=== PATIENT | male | born 1955 | race Caucasian/White ===

== ENCOUNTER 2018-07-25 14:39 | Inpatient (IN) | payer OTHER, MEDICAID, SELFPAY ==
[2018-07-25] VITALS (7 sets, daily range): BP systolic 186–223; BP diastolic 112–127; PULSE 73–100; RESP 12–28; TEMP 36.7–36.8; O2SAT 96–98; BMI 27.6
--- NOTE | 2018-07-25 14:49 | DI.CT.S_ITS ---
PROCEDURE: CT HEAD/BRAIN WO CON INDICATIONS: right facial droop, right sided weakness >24 hrs TECHNIQUE: Noncontrast 4.5 mm thick angled axial sections acquired from the foramen magnum to the vertex, with coronal and sagittal reformats. For radiation dose reduction, the following was used: automated exposure control, adjustment of mA and/or kV according to patient size. COMPARISON: None. FINDINGS: Image quality: Excellent. CSF spaces: Basal cisterns are patent. No extra-axial fluid collections. Ventricles are normal in size and shape. Brain: There are small hypodense areas seen in periventricular white matter of bilateral high frontal parietal lobe suggestive of age indeterminate infarction. Mild periventricular white matter chronic ischemic microangiopathic changes are seen. Age-appropriate mild cerebral and cerebellar cortical atrophy is also noted. No midline shift. No intracranial masses or hemorrhage. Voss-white matter interface is normal. Skull and face: Calvarium and visualized facial bones are intact, without suspicious lesions. Sinuses: Visualized sinuses and mastoids are clear. IMPRESSION: Age indeterminant small infarctions in bilateral high frontal parietal lobe periventricular white matter. No evidence of intracranial bleed, midline shift or significant mass effect. Age-appropriate atrophy and mild periventricular white matter microangiopathic changes. Dictated by: Abdi Mars M.D. on 07/25/2018 at 15:28 Approved by: Abdi Mars M.D. on 07/25/2018 at 15:31
--- NOTE | 2018-07-25 14:54 | ED_ITS ---
HPI - Neuro Symptoms/Deficit General Chief Complaint: Neuro Symptoms/Deficit Stated Complaint: 'had a stroke' Time Seen by Provider: 07/25/18 14:44 Source: patient and family Mode of arrival: ambulatory Limitations: no limitations History of Present Illness HPI Narrative: Patient is a 62-year-old male who presents with a right-sided facial droop and right-sided leg pain or weakness. He actually noticed this yesterday morning around 9 or 10:00 a.m. he felt a little dizzy and lightheaded. At he thought it would just get better he laid down he had a nap. Woke up at about 3 felt like it was improving however the evening came in symptoms returned. This morning he woke up and his symptoms were much worse than they were the night before. He had does have difficulty walking and ambulating obvious right-sided facial droop. He does not have insurance does not go to doctors and does not take any medication. He did take aspirin prior to arrival Onset (ago): day(s) (1) Location: right face, right arm and right leg Context: sudden onset Treatments Prior to Arrival: Aspirin Related Data Home Medications Medication Instructions Recorded Confirmed No Known Home Medications 07/25/18 07/25/18 Allergies Allergy/AdvReac Type Severity Reaction Status Date / Time No Known Drug Allergies Allergy Verified 07/25/18 14:44 Review of Systems Review of Systems All systems reviewed & are unremarkable except as noted in HPI and below Constitutional Denies chills, Denies fever(s), Denies lethargy and Reports weakness Eyes Denies change in vision, Denies eye discharge, Denies irritation and Denies loss of vision Cardiovascular Denies chest pain, Denies irregular heart rhythm, Denies lightheadedness, Denies palpitations, Denies dyspnea, Denies dyspnea on exertion and Denies orthopnea Respiratory Denies cough, Denies dyspnea, Denies dyspnea on exertion and Denies wheezing Gastrointestinal Gastrointestinal: Denies abdominal pain, Denies change in bowel habits, Denies diarrhea, Denies nausea and Denies vomiting Musculoskeletal Reports abnormal gait, Denies back pain, Denies muscle weakness, Denies numbness and Denies tingling Integumentary/Breasts Denies pruritus, Denies erythema, Denies rash and Denies wounds Neurologic Reports as per HPI, Reports abnormal gait, Denies confusion, Denies loss of vision, Denies numbness, Denies tingling and Reports weakness Psychiatric Denies confusion Endocrine Denies palpitations Allergic/Immunologic Denies wheezing PFSH Medical History Patient denies medical problems (Acute) Social History marital status: household members: spouse lives independently: Yes 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 HEENT: Head atraumatic,EOMI, pupils reactive, neck is supple CARDIOVASCULAR: Regular rate and rhythm without murmurs, rubs or gallops. RESPIRATORY: Breath sounds equal bilaterally, no wheezes rales or rhonchi. ABDOMEN: Soft, nontender. Normoactive bowel sounds all 4 quadrants. No guarding or rebound. EXTREMITIES: Normal range of motion, no clubbing or edema. Neurovascularly intact NEUROLOGICAL: Alert and oriented x4.Normal gait and speech. Cranial nerves II through XII grossly intact. Right facial droop noted feet speech is fluent no aphasia or dysarthria present. Some weakness noted in right arm but does not drift unable to stand on right leg he is clearly unstable however the leg does not drift down to the gurney. Ataxia noted with right arm only. SKIN: Warm, dry, no laceration, no petechiae, no rashes or lesions. Scores NIH Stroke Scale Level of Conciousness: Alert, keenly responsive Ask month/age: Answers both questions correctly. Open/close eyes, close hand: Performs both tasks correctly Best gaze horizontal: Normal Visual hernandez: No visual loss Facial palsy: Minor paralysis, flattened nasolabial fold, asymmetry on smiling Left arm drift: No drift for full 10 sec Right arm drift: Drifts down, not to bed Left leg drift: No drift for full 10 sec Right leg drift: Drifts down, not to bed Limb ataxia: Present in one limb Sensory on face/arms/legs: Normal, no sensory loss Best language: No aphasia, normal Dysarthria: Normal Extinction or inattention: No abnormality Total NIH Stroke scale score: 4 Course Orders Ordered: ED Orders 07/25/18 14:47 Complete Blood Count AUTO DIFF Stat Comprehensive Metabolic Panel Stat Partial Thromboplastin Time Stat Prothrombin Time INR Stat Troponin & CK Cardiac Panel Stat 07/25/18 14:49 CT head/brain wo con Stat 07/25/18 14:50 EKG-12 Lead Stat 07/25/18 15:15 MR stroke Stat Sodium Chloride (Normal Saline 0.9%) 1,000 mls @ 150 mls/hr IV CONT MICAH Last Infusion: 07/25/18 16:30 Dose: 150 mls/hr Infusion: 07/25/18 15:39 Dose: 0 mls/hr Admin: 07/25/18 15:15 Dose: 150 mls/hr Discontinued Medications Aspirin (Aspirin Chew) 324 mg PO NOW ONE Stop: 07/25/18 16:33 Last Admin: 07/25/18 16:41 Dose: Vital Signs - 8 hr 07/25/18 14:49 07/25/18 15:01 07/25/18 16:19 Temperature 98.3 F Pulse Rate 84 100 H 79 Respiratory Rate 22 28 H 12 Blood Pressure [Left Arm] 223/118 H 204/120 H 212/127 H Pulse Oximetry 98 96 98 07/25/18 17:10 Temperature Pulse Rate 79 Respiratory Rate 20 Blood Pressure [Left Arm] 191/115 H Pulse Oximetry 97 MDM - Neuro Symptoms/Deficit Lab Data Attestation: I reviewed the patient's lab results. Result diagrams: 07/25/18 14:47 07/25/18 14:47 Lab Results 07/25/18 07/25/18 07/25/18 Range/Units 14:47 14:47 14:47 WBC 7.8 (4.5-11.0) X10^3/uL RBC 5.49 (4.5-5.9) X10^6/uL Hgb 18.1 H (13.5-17.5) g/dL Hct 50.7 (41-53) % MCV 92.2 (80-100) fL MCH 33.0 (26-34) PG MCHC 35.8 (30-36) % RDW 13.0 (11.6-14.8) % Plt Count 252 (150-400) X10^3/uL Neut % (Auto) 73.4 (50-75) % Lymph % (Auto) 16.0 L (25-40) % [place] % (Auto) 9.2 (3-14) % Eos % (Auto) 0.7 L (2-4) % Baso % (Auto) 0.7 (0-2) % Neut # (Auto) 5800 (5345-6589) /uL PT 11.3 (10.1-12.7) SECONDS INR 1.1 (0.9-1.3) APTT 33 (26.4-36.2) SECONDS Sodium 144 (137-145) mmol/L Potassium 4.2 (3.4-5.1) mmol/L Chloride 103 (98-107) mmol/L Carbon Dioxide 31 (22-32) mmol/L BUN 7 L (9-20) mg/dL Creatinine 0.80 (0.66-1.25) mg/dL Estimated GFR > 60.0 (>60) mL/min BUN/Creatinine Ratio 8.8 (6-22) Glucose 125 H (80-110) mg/dL Calcium 9.4 (8.4-10.2) mg/dL Total Bilirubin 2.2 H (0.2-1.3) mg/dL AST 34 (17-59) IU/L ALT 31 (21-72) IU/L Alkaline Phosphatase 64 (38-126) U/L Total Creatine Kinase 51 L (55-170) U/L Troponin I < 0.012 (0.01-0.034) ng/mL Total Protein 8.0 (6.3-8.2) g/dL Albumin 4.7 (3.5-5.0) g/dL Globulin 3.3 (1.7-4.1) g/dL Albumin/Globulin Ratio 1.4 (1.0-2.8) Urine Dip Bedside Urine Glucose Negative Bedside Urine Bilirubin - Negative Bedside Urine Ketone - Negative Urine Specific [place] 1.015 Bedside Urine Occult Blood - Negative Bedside Urine pH 7.5 Bedside Urine Protein - Negative Bedside Urine Urobilinogen - Negative Bedside Urine Nitrite - Negative Bedside Urine Leukocytes - Negative Esterase Imaging Data CT scan - head: Radiologist's impression: PROCEDURE: CT HEAD/BRAIN WO CON INDICATIONS: right facial droop, right sided weakness >24 hrs TECHNIQUE: Noncontrast 4.5 mm thick angled axial sections acquired from the foramen magnum to the vertex, with coronal and sagittal reformats. For radiation dose reduction, the following was used: automated exposure control, adjustment of mA and/or kV according to patient size. COMPARISON: None. FINDINGS: Image quality: Excellent. CSF spaces: Basal cisterns are patent. No extra-axial fluid collections. Ventricles are normal in size and shape. Brain: There are small hypodense areas seen in periventricular white matter of bilateral high frontal parietal lobe suggestive of age indeterminate infarction. Mild periventricular white matter chronic ischemic microangiopathic changes are seen. Age-appropriate mild cerebral and cerebellar cortical atrophy is also noted. No midline shift. No intracranial masses or hemorrhage. Voss-white matter interface is normal. Skull and face: Calvarium and visualized facial bones are intact, without suspicious lesions. Sinuses: Visualized sinuses and mastoids are clear. IMPRESSION: Age indeterminant small infarctions in bilateral high frontal parietal lobe periventricular white matter. No evidence of intracranial bleed, midline shift or significant mass effect. Age-appropriate atrophy and mild periventricular white matter microangiopathic changes. Dictated by: Abdi Mars M.D. on 07/25/2018 at 15:28 MRI - head: Radiologist's impression: PROCEDURE: MR STROKE Pre- and post-contrast brain MRI, non-contrast brain MR angiogram, pre- and postcontrast neck MR angiogram INDICATIONS: right weakness, right facial droop >24 hours TECHNIQUE: Brain: Noncontrast axial T1 spin echo, axial T2 fast spin echo, sagittal and axial FLAIR, coronal T2 fast spin echo, axial gradient echo, axial diffusion and ADC through the brain. After the administration of contrast, axial 3D VIBE of the cranial vasculature and brain. Brain MRA: Non-contrast 3-D time of flight MR angiogram, with multiple vuxxkui-qzvpqgmvz-aeimxwgzpn (MIP) reformats performed. Neck MRA: Axial and sagittal TruFISP through the neck. Coronal dynamic MR angiogram during administration of contrast in the arterial and venous phases, with 3- dimenstional eyhbcnz-aqmxdpcgn-tuululpedi (MIP) reformats constructed from subtraction images. COMPARISON: [facility], CT, CT HEAD/BRAIN WO CON, 07/25/2018, 15:02. FINDINGS: Image quality: Excellent. BRAIN: CSF spaces: Ventricles are normal in size and shape. Basal cisterns are patent. No extra-axial fluid collections. Brain: There is a focal diffusion-weighted abnormality seen involving the left globus pallidus, as on series 9 image 57. There is correspondingly dark signal seen on the ADC map. There is mild developing T2-weighted signal seen at this site, as on series 12 image 11. No intracranial bleeds or mass effects. Voss-white matter interface is normal. Remote infarctions can be seen involving the deep white matter of both posterior frontal/parietal lobes. Brainstem appears normal. Normal intravascular flow voids are present. No abnormal intracranial enhancement. Skull and face: Calvarial marrow signal is normal. Orbits appear normal. Sinuses: Sinuses and mastoids are clear. BRAIN MR ANGIOGRAM: Anterior circulation: Intracranial internal carotid arteries are normal in size and enhancement. The flow within the paired anterior cerebral arteries is normal and symmetric. The flow within the middle cerebral arteries is normal and symmetric. The anterior communicating artery is faintly seen. No stenoses, occlusions, or aneurysms. Posterior circulation: The visualized portions of the vertebral arteries demonstrate normal caliber, and join to form a normal appearing basilar artery. The flow within the posterior cerebral arteries is normal and symmetric. No stenoses, occlusions, or aneurysms. NECK MR ANGIOGRAM: Carotids: Great vessels demonstrate a conventional anatomy as they arise from the aortic arch. The origins of the common carotid arteries appear patent. The calibers and courses of both common carotid arteries are normal. The bifurcation regions appear normal bilaterally. The internal carotid arteries demonstrate normal course and caliber. Posterior circulation: The origins of the vertebral arteries appear patent. More superior portions of both vertebral arteries demonstrate normal course and caliber, and join to form a normal appearing basilar artery. Miscellaneous: Subclavian arteries appear patent. Pre-contrast images through the neck show no soft tissue abnormalities. IMPRESSION: BRAIN MRI: Focal subacute infarction involving the left globus pallidus. BRAIN MR ANGIOGRAM: No significant intracranial arterial abnormality is seen. NECK MR ANGIOGRAM: No hemodynamically significant stenosis can be seen involving the arteries of the neck. Dictated by: Costa Malin M.D. on 07/25/2018 at 15:11 ECG Data Attestation: I personally reviewed and interpreted this ECG as follows: Prior ECG tracings: not available for review Interpretation: Normal sinus rhythm rate [address] changes PA interval 155, QRS 92, QTC 411 no priors to compare MDM Narrative Medical decision making narrative: Patient has had symptoms for more than 24 hr. He is not a tPA or thrombectomy candidate. He has obvious deficits and signs of stroke. Head CT is negative. MRI does show all left focal subacute infarction involving left lobe globus pallidus. Dr. Pardo have been updated patient's symptoms test results agrees with admission she will be down into the ED to see him. At this time no blood pressure medication, is aware of elevated BP. Discharge Plan Departure Patient Disposition: Admitted As Inpatient Clinical Impression: Cerebrovascular accident Admit Date/Time: 07/25/18 16:42 Admit Provider: Cat Pardo
[2018-07-25 15:06] LABS: Add Manual Diff / Slide Review NO; Basophils Percent Auto 0.7 % (0-2); Eosinophils Percent Auto 0.7 % (2-4); Hematocrit 50.7 % (41-53); Hemoglobin 18.1 g/dL (13.5-17.5); Mean Corpuscular HGB Conc 35.8 % (30-36); Mean Corpuscular Volume 92.2 fL (80-100); Monocytes Percent Auto 9.2 % (3-14); Neutrophils Absolute Auto 5800 /uL (3000-5900); Neutrophils Percent Auto 73.4 % (50-75); Platelet Count 252 X10^3/uL (150-400); Red Blood Cell Count 5.49 X10^6/uL (4.5-5.9); White Blood Cell Count 7.8 X10^3/uL (4.5-11.0)
[2018-07-25 15:08] LABS: INR 1.1 (0.9-1.3); Prothrombin Time 11.3 SECONDS (10.1-12.7)
[2018-07-25 15:10] LABS: PTT Partial Thromboplastin Tim 33 SECONDS (26.4-36.2)
[2018-07-25 15:14] LABS: Alanine Aminotransferase 31 IU/L (21-72); Albumin 4.7 g/dL (3.5-5.0); Albumin Globulin Ratio 1.4 (1.0-2.8); Alkaline Phosphatase 64 U/L (38-126); Aspartate Aminotransferase 34 IU/L (17-59); BUN Creatinine Ratio 8.8 (6-22); Bilirubin Total 2.2 mg/dL (0.2-1.3); Blood Urea Nitrogen 7 mg/dL (9-20); Calcium 9.4 mg/dL (8.4-10.2); Carbon Dioxide 31 mmol/L (22-32); Chloride 103 mmol/L (98-107); Creatine Kinase 51 U/L (55-170); Estimated Glomerular Filt Rate > 60.0 mL/min (>60); Globulin 3.3 g/dL (1.7-4.1); Glucose 125 mg/dL (80-110); HEMOLYSIS 16 (0-50); Potassium 4.2 mmol/L (3.4-5.1); Sodium 144 mmol/L (137-145)
[2018-07-25] MEDS: SODIUM CHLORIDE 0.9% 1,000 ML 150 ML IV (15:15)
--- NOTE | 2018-07-25 15:15 | DI.MRI.S_ITS ---
PROCEDURE: MR STROKE Pre- and post-contrast brain MRI, non-contrast brain MR angiogram, pre- and postcontrast neck MR angiogram INDICATIONS: right weakness, right facial droop >24 hours TECHNIQUE: Brain: Noncontrast axial T1 spin echo, axial T2 fast spin echo, sagittal and axial FLAIR, coronal T2 fast spin echo, axial gradient echo, axial diffusion and ADC through the brain. After the administration of contrast, axial 3D VIBE of the cranial vasculature and brain. Brain MRA: Non-contrast 3-D time of flight MR angiogram, with multiple jphylsm-qgdbaaekc-eynvhfqnef (MIP) reformats performed. Neck MRA: Axial and sagittal TruFISP through the neck. Coronal dynamic MR angiogram during administration of contrast in the arterial and venous phases, with 3-dimenstional clazwpn-oiluiocts-iixzjoplmc (MIP) reformats constructed from subtraction images. COMPARISON: [facility], CT, CT HEAD/BRAIN WO CON, 07/25/2018, 15:02. FINDINGS: Image quality: Excellent. BRAIN: CSF spaces: Ventricles are normal in size and shape. Basal cisterns are patent. No extra-axial fluid collections. Brain: There is a focal diffusion-weighted abnormality seen involving the left globus pallidus, as on series 9 image 57. There is correspondingly dark signal seen on the ADC map. There is mild developing T2-weighted signal seen at this site, as on series 12 image 11. No intracranial bleeds or mass effects. Voss-white matter interface is normal. Remote infarctions can be seen involving the deep white matter of both posterior frontal/parietal lobes. Brainstem appears normal. Normal intravascular flow voids are present. No abnormal intracranial enhancement. Skull and face: Calvarial marrow signal is normal. Orbits appear normal. Sinuses: Sinuses and mastoids are clear. BRAIN MR ANGIOGRAM: Anterior circulation: Intracranial internal carotid arteries are normal in size and enhancement. The flow within the paired anterior cerebral arteries is normal and symmetric. The flow within the middle cerebral arteries is normal and symmetric. The anterior communicating artery is faintly seen. No stenoses, occlusions, or aneurysms. Posterior circulation: The visualized portions of the vertebral arteries demonstrate normal caliber, and join to form a normal appearing basilar artery. The flow within the posterior cerebral arteries is normal and symmetric. No stenoses, occlusions, or aneurysms. NECK MR ANGIOGRAM: Carotids: Great vessels demonstrate a conventional anatomy as they arise from the aortic arch. The origins of the common carotid arteries appear patent. The calibers and courses of both common carotid arteries are normal. The bifurcation regions appear normal bilaterally. The internal carotid arteries demonstrate normal course and caliber. Posterior circulation: The origins of the vertebral arteries appear patent. More superior portions of both vertebral arteries demonstrate normal course and caliber, and join to form a normal appearing basilar artery. Miscellaneous: Subclavian arteries appear patent. Pre-contrast images through the neck show no soft tissue abnormalities. IMPRESSION: BRAIN MRI: Focal subacute infarction involving the left globus pallidus. BRAIN MR ANGIOGRAM: No significant intracranial arterial abnormality is seen. NECK MR ANGIOGRAM: No hemodynamically significant stenosis can be seen involving the arteries of the neck. Dictated by: Costa Malin M.D. on 07/25/2018 at 15:11 Approved by: Costa Malin M.D. on 07/25/2018 at 15:19
[2018-07-25 15:27] LABS: Troponin I < 0.012 ng/mL (0.01-0.034)
--- NOTE | 2018-07-25 15:33 | PC.NURSE ---
Pt taken to MRI per Dr Rose, OK to go to MRI off monitor.
--- NOTE | 2018-07-25 16:40 | CM.SWNOTE ---
ED AIRPORT REFUELING HANDLER NOTE SY was asked to meet with pt's family due to concerns about insurance. Pt does not have insurance. SY contacted Brittany in admissions. [phone]. She stated that she was unable to meet with pt today, and requested that they make an appointment. Pt's was agreeable to this, and planned to call back today to set up a time to discuss insurance. DONALDO also informed pt's that depending upon their income and hosital bill, they might benefit for some type of ailyn care. DONALDO informed pt's that according to Brittany, this apllication is available both online and in the billing office. DONALDO also provided family with the information for Medicaid. [employer] [place] [employer] and pt's stated that she has an IPAD with her and will look up information later. Pt is going to be admitted to the hospital so ED AIRPORT REFUELING HANDLER will pass on this information and pt and family's concern to care management staff. No further SW needs noted at this time, but most likely will need to be followed by DONALDO on the floor. Thank you. SY Isabel
--- NOTE | 2018-07-25 18:25 | PM.HP.1 ---
History of Present Illness Date Patient Seen: 07/25/18 Chief complaint: 'had a stroke' Narrative: Patient is a 62 y/o male with a history of hypertension, not currently on treatment, who was well until yesterday when he noted that his arm and leg felt funny. Patient went to sleep awoke in the morning had coffee with his without incident. Later during the day the patient said the right arm and leg felt heavy. He was unable to ambulate as he was very unsteady. Patient had right sided facial droop and slurring of his speech. His noted the symptoms got progressively worse and he was brought to the Emergency Department for evaluation. Patient had a Head CT that revealed and age indeterminate infarcts of the bilateral frontal lobes. 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 The patient is admitted to the hospital for diffinitive treatment of his stroke. MRA revealed no arterial occlusions. Patient History Medical History Hypertension (Acute) Patient denies medical problems (Acute) Surgical History H/O knee surgery (Acute) Family & Social History Social History: household members spouse lives independently Yes Tobacco & Substance use: Smoking Status Never smoker alcohol intake current Meds Home Medications Medication Instructions Recorded Confirmed Type No Known Home Medications 07/25/18 07/25/18 History Allergies Allergy/AdvReac Type Severity Reaction Status Date / Time No Known Drug Allergies Allergy Verified 07/25/18 14:44 Review of Systems Constitutional Constitutional: Reports headache(s) and Reports weakness Eyes Eyes: Reports blurry vision ENT Ears, Nose, Mouth, and Throat: Yes system reviewed; no additional complaints, except as documented, No difficulty swallowing, Yes dizziness, Yes headache(s) and Yes poor balance Cardiovascular Cardiovascular: Denies chest pain, Denies irregular heart rhythm, Denies rapid, pounding, or irregular heartbeat, Denies shortness of breath with activity, Denies shortness of breath when lying down and Denies shortness of breath causing sudden awakening Respiratory Respiratory: Denies chest congestion, Denies cough, Denies hemoptysis, Denies pain on inspiration and Denies dyspnea on exertion Gastrointestinal Gastrointestinal: Denies abdominal pain, Denies melena, Denies bloating, Denies hematochezia, Denies change in bowel habits, Denies dysphagia and Denies heartburn Genitourinary Genitourinary: Denies urinary frequency, Denies urinary hesitancy, Denies urinary incontinence and Denies urinary urgency Musculoskeletal Musculoskeletal: Reports abnormal gait, Denies arthralgias and Denies radiating pain into limb Neurologic Neurologic: Reports abnormal speech, Reports abnormal gait, Reports dizziness, Reports headache(s), Reports lack of coordination, Reports focal weakness, Reports disequilibrium and Reports weakness Psychiatric Psychiatric: Reports system reviewed and no additional complaints, except as documented Endocrine Endocrine: Denies palpitations Exam Vital Signs (past 8 hours): - 07/25/18 14:49 07/25/18 15:01 07/25/18 16:19 Temperature 98.3 F Pulse Rate 84 100 H 79 Respiratory Rate 22 28 H 12 Blood Pressure Blood Pressure [Left Arm] 223/118 H 204/120 H 212/127 H Pulse Oximetry 98 96 98 07/25/18 17:10 07/25/18 17:26 Temperature Pulse Rate 79 82 Respiratory Rate 20 15 Blood Pressure 191/115 H Blood Pressure [Left Arm] 191/115 H Pulse Oximetry 97 97 Oxygen Delivery Method Room Air Narrative Exam Narrative: HEENT: NC/AT, EOMI, PERRLA, Oropharyx clear, neck supple without adenopathy or bruits Lungs: Clear to auscultation CV: RRR nl Sl S2 Abd: soft/ non tender/nondistended/ no HSM Ext: no edema skin: oncymycosis of toe nails Left groin with a quarter size macular eruption Neuro: Cranial nerves intact except right facial droop, speech slurred Strength 3+/5 of right arm and right leg F-N abnormal on right H-S abnormal on right Pronator drift Reflexes decreased on right, Right toe upgoing Objective Labs Result Diagrams: 07/25/18 14:47 07/25/18 14:47 Labs: Laboratory Results - last 24 hr 07/25/18 07/25/18 07/25/18 14:47 14:47 14:47 WBC 7.8 RBC 5.49 Hgb 18.1 H Hct 50.7 MCV 92.2 MCH 33.0 MCHC 35.8 RDW 13.0 Plt Count 252 Neut % (Auto) 73.4 Lymph % (Auto) 16.0 L [place] % (Auto) 9.2 Eos % (Auto) 0.7 L Baso % (Auto) 0.7 Neut # (Auto) 5800 PT 11.3 INR 1.1 APTT 33 Sodium 144 Potassium 4.2 Chloride 103 Carbon Dioxide 31 BUN 7 L Creatinine 0.80 Estimated GFR > 60.0 BUN/Creatinine Ratio 8.8 Glucose 125 H Calcium 9.4 Total Bilirubin 2.2 H AST 34 ALT 31 Alkaline Phosphatase 64 Total Creatine Kinase 51 L Troponin I < 0.012 Total Protein 8.0 Albumin 4.7 Globulin 3.3 Albumin/Globulin Ratio 1.4 Assessment & Plan (1) Malignant hypertension: Problem details: Patient has markedly elevated blood pressure. Will give lebatolol of 10 mg for SBP greater than 210 or Diastolic greater than 110. Patient will be started on lisinopril as well. Current visit: Yes Status: Acute (2) Cerebrovascular accident: Problem details: Continue daily aspirin, PT/OT/Speech consult. 2D echo Fasting lipid profile, DVT prophylaxis Full code Qualifiers: CVA mechanism: unspecified Laterality of affected vessel: Precerebral and cerebral artery: Qualified Code(s): I63.9 - Cerebral infarction, unspecified Current visit: Yes Status: Acute
[2018-07-25] MEDS: SODIUM CHLORIDE 0.9% 1,000 ML 100 ML IV (18:57)
[2018-07-25] MEDS: LABETALOL 100 MG/20ML MDV 10 MG IV (19:20)
[2018-07-25] MEDS: DOCUSATE 100 MG CAPSULE PO (19:22)
[2018-07-25 19:27] LABS: Cholesterol 250 mg/dL (140-199); HDL Cholesterol 46 mg/dL (40-60); LDL Cholesterol Calculated 165 mg/dL (<100); Triglycerides 195 mg/dL (35-150)
[2018-07-26] VITALS (12 sets, daily range): BP systolic 167–207; BP diastolic 91–117; PULSE 59–76; RESP 16–20; TEMP 36.4–36.7; O2SAT 96–98
--- NOTE | 2018-07-26 | DI.ECHO.S_ITS ---
[place]---------+ [facility] +---------+ : : [address] : : : : [id number] : : : : Phone: [phone] Echocardiogram Report + + :Name: ART COLEMAN Study Date: 07/26/2018 Height: 72 in : :[facility] Weight: 203 lb : : Gender: Male BSA: 2.1 m2 : :: 1955 Age: 62 yrs BP: 186/108 mmHg: :Reason For Study: Stroke : :Ordering Physician: Serafin : :Hospitalist Performed By: Tamie Chu : :Referring: ISIS GRAY : + + Interpretation Summary The left ventricle is normal in size. Left ventricular systolic function is normal without focal wall motion abnormalities. The ejection fraction is estimated to be 60-65%. Assessment of diastolic parameters indicates normal left ventricular diastolic function and normal filling pressures. The right ventricle is normal in size and function. Right ventricular systolic pressure is estimated to be 24 mmHg plus the clinically estimated CVP which cannot be estimated on this exam. Both atria are normal in size. There is no significant valvular heart disease. The ascending aorta is mildly enlarged. No obvious source for cardiac embolic stroke. Procedure: A two-dimensional transthoracic echocardiogram with color flow and Doppler was performed. The study quality was technically adequate. There is no prior echocardiogram noted for this patient. The patient was in normal sinus rhythm during the exam. Left Ventricle: The left ventricle is normal in size. Left ventricular wall thickness is mildly increased. There is no ventricular septal defect visualized. Left ventricular systolic function is normal without focal wall motion abnormalities. The ejection fraction is estimated to be 60-65%. Assessment of diastolic parameters indicates normal left ventricular diastolic function and normal filling pressures. Right Ventricle: The right ventricle is normal in size and function. Atria: Both atria are normal in size. There is no Doppler evidence for an interatrial shunt. Mitral Valve: The mitral valve is normal in structure and function. There is trace mitral regurgitation. Aortic Valve: The aortic valve is normal in structure and function. There is trace aortic regurgitation. Tricuspid Valve: The tricuspid valve is normal in structure and function. There is a trace or physiologic amount of tricuspid regurgitation. Right ventricular systolic pressure is estimated to be 24 mmHg plus the clinically estimated CVP which cannot be estimated on this exam. Pulmonic Valve: The pulmonic valve is normal in structure and function. There is a trace or physiologic amount of pulmonic regurgitation. There is no significant valvular heart disease. Great Vessels: The aortic root is normal size. The ascending aorta is mildly enlarged. The aortic arch is normal in size. The inferior vena cava was not visualized. Pericardium/ Pleura There is no pericardial effusion. MMode/2D Measurements & Calculations LVIDd: 4.3 cm LVOT diam: 2.0 cm LVIDs: 2.3 cm Ao root diam: 3.3 cm FS: 47.5 % Aortic Jxn: 2.6 cm IVSd: 1.3 cm asc Aorta Diam: 3.7 cm LVPWd: 1.3 cm Ao Arch Diam (Prox Trans): 2.5 cm LV gonzales. diameter/BSA (cm/m^2): 2.0 LV sys. diameter/BSA (cm/m^2): 1.1 LA A2 area: 17.6 cm2 RA long axis: 4.9 cm LA A4 area: 18.4 cm2 RA area: 14.5 cm2 LA length (vol): 4.5 cm RA vol: 36.2 ml LA vol: 60.9 ml RA : 16.9 ml/m2 LA vol index: 28.4 ml/m2 RVD1 (basal): 3.6 cm RVD2 (mid): 2.8 cm TAPSE: 1.7 cm Doppler Measurements & Calculations Ao V2 max: 126.0 cm/sec LVOT Max Juan Pablo: 109.9 cm/sec Ao V2 mean: 94.1 cm/sec LV V1 max P.8 mmHg Ao max P.3 mmHg LV V1 VTI: 24.9 cm Ao mean P.9 mmHg GLADYS(I,D): 3.1 cm2 Ao V2 VTI: 25.6 cm GLADYS(V,D): 2.7 cm2 sev ratio: 0.97 GLADYS indexed to BSA (cm^2/m^2): 1.4 MV E max juan pablo: 87.7 cm/sec TR max juan pablo: 244.2 cm/sec MV A max juan pablo: 92.6 cm/sec TR max P.9 mmHg MV E/A: 0.95 PA V2 max: 100.6 cm/sec Med Peak E' Juan Pablo: 5.6 cm/sec PA V2 mean: 59.4 cm/sec E/E' med: 15.7 PA mean P.7 mmHg Lat Peak E' Juan Pablo: 9.3 cm/sec PA Accel Time: 0.08 sec E/E' lat: 9.5 E/e' average: 12.6 MV dec time: 0.24 sec MV P1/2t: 68.7 msec MV P1/2t max juan pablo: 87.7 cm/sec MVA(P1/2t): 3.2 cm2 Reading Physician:PM
[2018-07-26] MEDS: LABETALOL 100 MG/20ML MDV 10 MG IV ×2 (00:13→04:24)
[2018-07-26] MEDS: SODIUM CHLORIDE 0.9% 1,000 ML 100 ML IV (04:14)
--- NOTE | 2018-07-26 04:44 | PC.NURSE ---
0013 B/P 207/110, 10 mg. of Normodyne IVP admin. pt. denies CP & TORRES,. Rechecked B/P 190/99. Pt. was sleeping @ 0420 checked hid VS, B/P was elevated 181/117 another 10 mg. of Labetalol IVP admin. Pt. cont. to denies any CP & other discomfort, will monitor.
--- NOTE | 2018-07-26 08:26 | CM.DANOTE ---
DCP: Case received, EMR reviewed and met with patient. Introduced self and role. DCP template completed with information currently available. Patient is a 62 year old male who admitted yesterday afternoon to the care of the hospitalist team. Patient does not have a provider, and has no insurance. is to be meeting one of the admission counselors. Patient came in with symptoms of numbness and facial droop. MRI done to rule out if CVA. Met with patient this morning, alert and oriented. Is independent, has been driving, and lives with spouse in [place]. P: DCP to continue to assess and collaborate with P.T. Patient's goal is to return home with physical therapy if needed. Jacqueline Paul RN/Pastor
--- NOTE | 2018-07-26 08:36 | PC.NURSE ---
Addendum entered by Luli Perry R.N. 07/26/18 14:13: Noon BP 172/98- IV Labetalol not indicated based on current parameters. Original Note: Addendum entered by Luli Perry R.N. 07/26/18 12:24: Provided with MRI report and education info on Ischemic stroke (per patient request). Original Note: Addendum entered by Luli Perry R.N. 07/26/18 12:14: Alert and oriented X3. Speech very slightly slurred with some words, not easily detectable. Denies any trouble with word-finding. Has weakness in RUE and RLE, but has movement and effort against gravity in both. Has been able to ambulate with 1-person assist and FWW. Denies paresthesias. Denies chest pain, SOB or any other complaint. Lungs CTA, HRR. Tele reading NSR this morning. NIH score was 6. IV saline locked per MD order. Able to make needs known and calls appropriately. Light in reach, bed alarm on. Original Note: Addendum entered by Luli Perry R.N. 07/26/18 10:53: ECHO being done in room at this time. Original Note: BP: Blood pressure this morning 186/108- no IV Labetalol indicated (per parameters) at this time.
--- NOTE | 2018-07-26 10:06 | P.PN_ITS ---
Subjective Date Patient Seen: 07/26/18 Interval history: Patient notes persistent mild slurred speech and also feels he has some increased weakness on his right side. No numbness of extremities. He is able to get up to bathroom with use of walker. Blood pressures remained quite high and he got a few doses of IV labetalol overnight. No headache. Exam Vital Signs (past 8 hours): - 07/26/18 04:20 07/26/18 05:11 07/26/18 07:55 Temperature 97.5 F L 97.5 F L Pulse Rate 62 63 63 Respiratory Rate 16 16 Blood Pressure 181/117 H 188/103 H 186/108 H Pulse Oximetry 97 97 Oxygen Delivery Method Room Air Narrative Exam Narrative: General: Very pleasant alert male in no acute distress Eyes: Pupils equal and reactive, extraocular muscles intact Lungs: Breathing nonlabored Heart: Regular rhythm on tele Extremities: No edema Neuro: Alert, fully oriented, face symmetric, there is mild slurring of speech , right upper extremity 3/5 weakness, right lower extremity 3/5 weakness Objective Labs Result Diagrams: 07/25/18 14:47 07/25/18 14:47 Labs: Laboratory Results - last 24 hr 07/25/18 07/25/18 07/25/18 14:47 14:47 14:47 WBC 7.8 RBC 5.49 Hgb 18.1 H Hct 50.7 MCV 92.2 MCH 33.0 MCHC 35.8 RDW 13.0 Plt Count 252 Neut % (Auto) 73.4 Lymph % (Auto) 16.0 L [place] % (Auto) 9.2 Eos % (Auto) 0.7 L Baso % (Auto) 0.7 Neut # (Auto) 5800 PT 11.3 INR 1.1 APTT 33 Sodium 144 Potassium 4.2 Chloride 103 Carbon Dioxide 31 BUN 7 L Creatinine 0.80 Estimated GFR > 60.0 BUN/Creatinine Ratio 8.8 Glucose 125 H Calcium 9.4 Total Bilirubin 2.2 H AST 34 ALT 31 Alkaline Phosphatase 64 Total Creatine Kinase 51 L Troponin I < 0.012 Total Protein 8.0 Albumin 4.7 Globulin 3.3 Albumin/Globulin Ratio 1.4 Triglycerides Cholesterol LDL Cholesterol, Calc HDL Cholesterol 07/25/18 14:47 WBC RBC Hgb Hct MCV MCH MCHC RDW Plt Count Neut % (Auto) Lymph % (Auto) [place] % (Auto) Eos % (Auto) Baso % (Auto) Neut # (Auto) PT INR APTT Sodium Potassium Chloride Carbon Dioxide BUN Creatinine Estimated GFR BUN/Creatinine Ratio Glucose Calcium Total Bilirubin AST ALT Alkaline Phosphatase Total Creatine Kinase Troponin I Total Protein Albumin Globulin Albumin/Globulin Ratio Triglycerides 195 H Cholesterol 250 H LDL Cholesterol, Calc 165 H HDL Cholesterol 46 Assessment & Plan Plan: Assessment/Plan Narrative: 1. Acute ischemic stroke: Patient is neurologically stable. He presented with right-sided weakness and dysarthria. Brain MR stroke protocol showed acute ischemia in left globus pallidus. No stenosis in intracranial or neck arteries. No AFib on telemetry. He remained severely hypertensive in setting of acute CVA but also with known history of untreated hypertension with baseline BP in 180 systolic range at the dentist office a few months ago. Total cholesterol 150, LDL 165, HDL 46, triglycerides 195. He is a nonsmoker. Plan: Aspirin 325 mg daily. Lisinopril 10 mg daily. Atorvastatin 40 mg HS. Transthoracic echo. Consult pending for physical, occupational and speech therapy evaluations. 2. DVT prophylaxis: Low-dose Lovenox 3. Disposition: Continue inpatient management. Possible discharge Saturday a.m. if medically stable. Quality VTE Deep Vein Thrombosis/Pulmonary Embolism Present on Admission: Yes
[2018-07-26 10:21] LABS: TSH w/ Reflex to FT4 1.12 uIU/mL (0.47-4.68)
[2018-07-26] MEDS: LISINOPRIL 10 MG TABLET PO (10:27)
[2018-07-26] MEDS: ASPIRIN 325 MG TABLET PO (10:27)
[2018-07-26] MEDS: ENOXAPARIN 40 MG/0.4 ML SYRINGE SUBCUT (10:28)
--- NOTE | 2018-07-26 11:07 | ST.IPIE ---
Care Team Visit Care Team Role Provider Type Sabrina Rose DO Emergency Provider Physician Specialty: Emergency Medicine Address: [address] [place] [address], [id number] Email: Cat Pardo MD Admit Provider Physician Attending Provider Specialty: Internal Medicine Address: [address] [place] [address], [id number] Email: Current Diagnoses Essential (primary) hypertension (07/25/18) Cerebral infarction, unspecified (07/25/18) Past Medical History (Last Updated 07/25/18 @ 18:29 by Cat Pardo MD) Hypertension (Acute Medical) Patient denies medical problems (Acute Medical) ST IP Initial Evaulation Report CREDIT ADMINISTRATION MANAGER Motor Speech Evaluation Start: 07/26/18 10:33 Freq: Status: Active Protocol: Document 07/26/18 10:33 MRM (Rec: 07/26/18 10:44 MRM [id number]) Motor Speech Evaluation Session Time Visit Start Time 10:00 Visit Stop Time 10:30 Total Visit Minutes 30 Setting Setting Acute Care Next Note Type Next Note Type Treatment Note Patient History Source: [employer] ([facility]). Patient History Patient is a 62-year-old man who lives in [place] with his . He has a history of hypertension, not currently being treated. He began to note that his arm and leg felt funny with symptoms increasing to the point that he was unable to ambulate. He also presented with a right sided facial droop and slurred speech. His noted that his symptoms were continuing to get worse, and he was brought to the ED for evaluation. Imaging: Brain MRI (07/25/18): Focal subacute involving the left globus pallidus. Past Medial Hostory: Hypertention No other significant medical history reported. Patient without primary care physician , no insurance (per Disch. Assessment note on 07/26/18 AM) . Referral Referring Physician Dr Pardo Reason for Referral Speech/Swallowing Mental Status Mental Status Alert Responsive Cooperative Subjective Observations Subjective Patient was awake and alert, reclining in bed with no family present. No pain reported. Patient stated that he felt that he was at his cognitive baseline. Mild slurred speech observed with word finding difficulties observed x2 throughout conversation. Patient stated that he was not having any difficulty eating or drinking. Very compliant with CREDIT ADMINISTRATION MANAGER to particiapte with evaluation. Oral Motor Lips Function Mild Impairment Observation at rest Mild right sided labial weakness Pucker Mild right sided labial weakness Retraction Mild right sided labial weakness Alternating pucker/retraction Slowed movement, but able to complete Tongue Function WFL Observations at rest No asymmetry Involuntary Movement None observed Jaw Function WNL Respiration/Phonation Oral Reading Stimulus Written phrases Quality WNL Duration 2 minutes Function Mildly Impaired Loudness Reduced Loudness Conversation Stimulus Conversational speech Other Mildly slurred Duration Mildly Impaired Loudness Reduced Loudness Steadiness Steady Diadochokinetic Rates P^T^K^ Duration per 3 sec. 2 Quality Moderate Impairment Comments Mild-moderate discoordination, slurred speech Speech Intelligibility Phoneme Severity WFL Word Severity WFL Sentence Severity Mildly Impaired Conversation Severity Mildly Impaired Awareness/Strategy Use Description Type of awareness/use Uses consistently Findings Details Motor Speech Function Mild Impairment Type of Impairment Mild-moderate dysarthria Assessment Details Assessment Patient presents with mild- moderate dysarthria, significant for reduced lingual/labial coordination. Observed slurred speech in /s/ and /s/ blends primarily. Patient observed to independently slow his speech and enunciate in order to improve expressive communication. CREDIT ADMINISTRATION MANAGER provided specific dysarthria strategies (S-slow speech, L-loud speech , O-over exaggerated speech, W- wide mouth during speech) to assist patient in improving articulation. Patient able to implement these strategies and verbalized understanding. CREDIT ADMINISTRATION MANAGER provided education regarding word finding difficulties. Patient verbalized understanding and stated that if difficultly continues, he will inform CREDIT ADMINISTRATION MANAGER. For now, focus on articulation. CREDIT ADMINISTRATION MANAGER screened patient's swallowing ability during morning meds with nursing present. Able to take medication whole in water via straw without difficulty. No reported difficulty with solid food. CREDIT ADMINISTRATION MANAGER provided education regarding safe swallowing and instructed patient to inform nursing if any difficulty develops. Patient agreed. Prognosis Rehabilitation Potential Excellent Recommendations Treatment Recommended Yes Frequency x1 a day Therapy Recommendations Dysathria intervention. Monitor for word finding difficulties. Monitor swallowing ability. Manager Support Services Goals Patient will implement dysarthria strategies in order to improve conversational speech intelligibility. Patient will maintain successful expressive language skills. Patient will tolerate safest, least restrictive diet without overt s/s of aspriation. Patient/Family Education Education Described results of evaluation Patient Understanding Family Needs More Info CREDIT ADMINISTRATION MANAGER Oral Motor Exam Start: 07/26/18 10:33 Freq: Status: Active Protocol: Document 07/26/18 11:06 MRM (Rec: 07/26/18 11:07 MRM [id number]) Oral Motor Examination Face Facial Symmetry Right Side Asymmetry Facial Movement Controlled Comments Mild right facial droop Mouth Teeth Characteristics Intact/Normal Pucker Lips Droops Right Smile Droops Right Tongue Size Normal Comments Mild right labial weakness Tongue Movement Protrusion/Retraction Strength WFL Protrusion/Retraction Coordination Mildly Discoordinated Lateralization Coordination Mildly Discoordinated Hyolaryngeal Movement Hyolaryngeal Movement Normal Elevation Normal Excursion
--- NOTE | 2018-07-26 11:40 | PT.IIE ---
Current Diagnoses Essential (primary) hypertension (07/25/18) Cerebral infarction, unspecified (07/25/18) Surgical History (Last Updated 07/25/18 @ 18:29 by Cat Pardo MD) H/O knee surgery (Acute) Medical History (Last Updated 07/25/18 @ 18:29 by Cat Pardo MD) Hypertension (Acute) Patient denies medical problems (Acute) Physical Therapy Inpatient Evaluation/Re-Eval M1 PT/OT-IP Prior Functional Status Start: 07/26/18 11:41 Freq: Status: Active Protocol: Document 07/26/18 11:40 [facility] (Rec: 07/26/18 12:06 [facility] [id number]) Medical Review Prior Functional Status Medical History Reviewed Yes Communication WNL Mobility and Gait indep. community ambulation without device Activities of Daily Living and IADL's indep. I/ADLs. Social History Household Members spouse Living Arrangements House Number of Floors (Floors) One Floor Number of Stairs To Enter/Railing? 3 steps x2 to get into house ( 2-3 wide steps to get up into the yard area, then 3 steps with rail R ascending to get onto porch) Home Environment Standard Height Toilet Tub/Shower Additional Social History Comment Pt with R sided facial droop, RUE and LE weakness. 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 M2 PT-IP Current Condition Start: 07/26/18 11:41 Freq: Status: Active Protocol: Document 07/26/18 11:40 [facility] (Rec: 07/26/18 12:06 [facility] [id number]) Physical Therapy Current Condition Current Condition Evaluation Date 07/26/18 Treatment Diagnosis CVA, weakness, impaired mobility Onset Date 07/25/2018 M3 PT-IP Subjective Start: 07/26/18 11:41 Freq: Status: Active Protocol: Document 07/26/18 11:40 [facility] (Rec: 07/26/18 12:06 [facility] [id number]) Subjective Physical Therapy Visit Type Type Initial Evaluation Visit Start Time 11:15 Visit Stop Time 11:40 Total Visit Minutes 25 Number of TOY ASSEMBLY SUPERVISOR Visits 0 Physical Therapy Visit Comments Patient Comments pt notes that he is trying to make sure he doesn't get tightened up. Patient Goals improve M4 PT-IP Mobility and Gait Start: 07/26/18 11:41 Freq: Status: Active Protocol: Document 07/26/18 11:40 [facility] (Rec: 07/26/18 12:06 [facility] [id number]) PT-Bed Mobility Assessment Sit to Supine Sit to Supine Standby Assistance Bedrails Scooting Scooting to Edge of Bed Standby Assistance PT-Transfer Assessment Sit to and From Stand Sit to and from Stand Standby Assistance 1 Person Assistance Equipment Transfer Assistive Device Gait Belt Front Wheeled Walker Transfers Transfer Destination Bed Transfer Technique Stand Step Pivot Transfer Ability Level of Assist Contact Guard Assistance Gait Assessment Gait Gait Assistance Required: Contact Guard Assist Distance (Feet) 75 Assistive Devices Assistive Device Gait Belt Front Wheeled Walker Gait Deviations General Gait Pattern Decreased Feet Clearance Narrow Based Gait Factors Limiting Gait Function Factors Limiting Gait Function Decreased Activity Tolerance Decreased Strength Incoordination Poor Balance Comments Gait Comments increased hip flexion to advance the R foot, slight knee instability in WB on the R but no buckling or hyperextension. BP 209/115 after gait. PT-Balance Assessment Sitting Balance and Reactions Static Sitting Balance Ability Good Dynamic Sitting Balance Ability Good Standing Balance and Reactions Static Standing Balance Ability Good Dynamic Standing Balance Ability Fair Device Used FWW M5 PT-IP Objective Assessments Start: 07/26/18 11:41 Freq: Status: Active Protocol: Document 07/26/18 11:40 [facility] (Rec: 07/26/18 12:06 [facility] [id number]) Orientation Orientation/Cognition Level of Alertness Alert Gross Range of Motion Upper Extremity ROM Assessment Right Impaired Impairments RUE to back of head, flexion to 140 deg, abduction to 160 deg with incoordination Strength Upper Extremity Strength Assessment Right Impaired Shoulder flexion R 3/5 L 5/5 Lower Extremity Strength Assessment Right Impaired Hip flexion and ER R 3+/5 L 5/5, IR R 3/5 L 5/5 Knee flexion R 4/5, L 5/5; extension R 3+/5, L 5/5 Ankle DF R 2/5, L 5/5 Coordination Assessment Gross Coordination Gross Coordination Impaired Assessment Finger to Nose Test Moderate Impairment Pronation/Supination Test Severe Impairment Foot Tapping Test Moderate Impairment Heel on Morgan Test Moderate Impairment Coordination Comments impaired RUE and LE Sensation Assessment Sensation Gross Sensation WNL Muscle Tone Comments Muscle Tone Comments mild flexor tone in RUE M6 PT-IP Treatment Start: 07/26/18 11:41 Freq: Status: Active Protocol: Document 07/26/18 11:40 [facility] (Rec: 07/26/18 12:06 [facility] [id number]) Physical Therapy Treatment Education Education Provided Precautions Safety M7 PT-IP Assessment and Plan Start: 07/26/18 11:41 Freq: Status: Active Protocol: Document 07/26/18 11:40 [facility] (Rec: 07/26/18 12:06 [facility] [id number]) PT Summary Assessment and Plan Potential Rehabilitation Potential Excellent Status of Condition at Evaluation Unstable Summary Impairments ROM Strength Balance Coordination Transfers Gait Activity Tolerance Assessment Summary Pt with impaired RUE and LE strength and coordination, as well as decreased activity tolerance. 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 Pt without loss of balance during gait, but does have decreased foot clearance on the R side. He is below his prior level of function. He is a prime candidate for acute inpatient rehabilitation, as he would greatly benefit from intensive rehab setting and could tolerate 3 hours of therapy/day. Goals Bed Mobility Goal Independent Transfer Goal Independent Gait Goal Independent Cane Gait Distance 300 Other Goals up/down 3 steps x2 with unilateral rail Days to Meet Goals 2 Frequency of Treatment Frequency Of Treatment Twice a Day Treatment Plan Physical Therapy Treatment Plan Bed Mobility Training Transfer Training Gait Training Therapeutic Exercise Balance Retraining Neuromuscular Re-ed Coordination Retraining Recommendations To Nursing Amount of Assist Needed 1 Person Assist Discharge Recommendations PT Discharge Recommendations Acute Rehab
--- NOTE | 2018-07-26 14:40 | PT.IPTN ---
Current Diagnoses Essential (primary) hypertension (07/25/18) Cerebral infarction, unspecified (07/25/18) Physical Therapy Treatment Note M2 PT-IP Current Condition Start: 07/26/18 11:41 Freq: Status: Active Protocol: Document 07/26/18 11:40 [facility] (Rec: 07/26/18 12:06 [facility] [id number]) Physical Therapy Current Condition Current Condition Evaluation Date 07/26/18 Treatment Diagnosis CVA, weakness, impaired mobility Onset Date 07/25/2018 M3 PT-IP Subjective Start: 07/26/18 11:41 Freq: Status: Active Protocol: Document 07/26/18 14:40 [facility] (Rec: 07/26/18 15:37 [facility] [id number]) Subjective Physical Therapy Visit Type Type Treatment Note Visit Start Time 14:00 Visit Stop Time 14:40 Total Visit Minutes 40 Number of DEBT COLLECTION SPECIALIST Visits 1 Physical Therapy Visit Comments Patient Comments Pt states that he is tired, but want's to work with therapy. M4 PT-IP Mobility and Gait Start: 07/26/18 11:41 Freq: Status: Active Protocol: Document 07/26/18 14:40 [facility] (Rec: 07/26/18 15:37 [facility] [id number]) PT-Bed Mobility Assessment Supine to Sit Supine to Sit Standby Assistance Bedrails Sit to Supine Sit to Supine Standby Assistance Bedrails Scooting Scooting to Edge of Bed Standby Assistance PT-Transfer Assessment Sit to and From Stand Sit to and from Stand Contact Guard Assistance 1 Person Assistance Equipment Transfer Assistive Device Gait Belt Front Wheeled Walker Transfers Transfer Destination Bed Toilet Transfer Ability Level of Assist Contact Guard Assistance Gait Assessment Gait Gait Assistance Required: Contact Guard Assist Distance (Feet) 140 Assistive Devices Assistive Device Gait Belt Front Wheeled Walker Gait Deviations General Gait Pattern Decreased Feet Clearance Narrow Based Gait Factors Limiting Gait Function Factors Limiting Gait Function Decreased Activity Tolerance Decreased Strength Incoordination Poor Balance Comments Gait Comments Knee instability with gait, mild unsteadines. BP after treatment 185/103 M5 PT-IP Objective Assessments Start: 07/26/18 11:41 Freq: Status: Active Protocol: Document 07/26/18 11:40 [facility] (Rec: 07/26/18 12:06 [facility] [id number]) Orientation Orientation/Cognition Level of Alertness Alert Gross Range of Motion Upper Extremity ROM Assessment Right Impaired Impairments RUE to back of head, flexion to 140 deg, abduction to 160 deg with incoordination Strength Upper Extremity Strength Assessment Right Impaired Shoulder flexion R 3/5 L 5/5 Lower Extremity Strength Assessment Right Impaired Hip flexion and ER R 3+/5 L 5/5, IR R 3/5 L 5/5 Knee flexion R 4/5, L 5/5; extension R 3+/5, L 5/5 Ankle DF R 2/5, L 5/5 Coordination Assessment Gross Coordination Gross Coordination Impaired Assessment Finger to Nose Test Moderate Impairment Pronation/Supination Test Severe Impairment Foot Tapping Test Moderate Impairment Heel on Morgan Test Moderate Impairment Coordination Comments impaired RUE and LE Sensation Assessment Sensation Gross Sensation WNL Muscle Tone Comments Muscle Tone Comments mild flexor tone in RUE M6 PT-IP Treatment Start: 07/26/18 11:41 Freq: Status: Active Protocol: Document 07/26/18 14:40 [facility] (Rec: 07/26/18 15:37 [facility] [id number]) Physical Therapy Treatment Exercises Exercises Ankle Pumps Straight Leg Raises Supine Hip Abduction Seated Knee Flexion/Extension Other Treatments Other Treatment Performed Bridges, Standing balance NBOS with head turns, EO/EC, tandem with head turns, EO M7 PT-IP Assessment and Plan Start: 07/26/18 11:41 Freq: Status: Active Protocol: Document 07/26/18 14:40 [facility] (Rec: 07/26/18 15:37 [facility] [id number]) PT Summary Assessment and Plan Summary Assessment Summary Pt needed cues for sit to stand with hand placement and safety. He had loss of balance in tandem, but not with NBOS. He did better with gait with out distractions. No LOB, but unsteady. Frequency of Treatment Frequency Of Treatment Twice a Day Treatment Plan Physical Therapy Treatment Plan Bed Mobility Training Transfer Training Gait Training Therapeutic Exercise Balance Retraining Neuromuscular Re-ed Coordination Retraining Recommendations To Nursing Amount of Assist Needed 1 Person Assist Discharge Recommendations PT Discharge Recommendations Acute Rehab
--- NOTE | 2018-07-26 15:55 | CM.DPC ---
DCP Cont: Met with Steffanie, patient's . Asked her if administration gave her Medicaid form, stated that they gave her information on [employer]. Went ahead and printed out information from [employer] web site for her to do on line. Left a message with [facility] inpatient re[facility] to inquire if they could take patient based on working on getting [employer]. Therapy is recommending inpatient hospital physical therapy for patient. is currently working on application. Will also be in process of finding a provider. P: DCP to continue to assess, and follow up with patient and on insurance status. Jacqueline Paul RN/Button Tufter
--- NOTE | 2018-07-26 16:13 | OT.IP.EVAL ---
Current Diagnoses Essential (primary) hypertension (07/25/18) Cerebral infarction, unspecified (07/25/18) Past Medical History (Last Updated 07/25/18 @ 18:29 by Cat Pardo MD) Hypertension (Acute) Patient denies medical problems (Acute) Surgical History (Last Updated 07/25/18 @ 18:29 by Cat Pardo MD) H/O knee surgery (Acute) Occupational Therapy Inpatient Evaluation/Re-Eval M1 PT/OT-IP Prior Functional Status Start: 07/26/18 11:41 Freq: Status: Active Protocol: Document 07/26/18 11:40 [facility] (Rec: 07/26/18 12:06 [facility] [id number]) Medical Review Prior Functional Status Medical History Reviewed Yes Communication WNL Mobility and Gait indep. community ambulation without device Activities of Daily Living and IADL's indep. I/ADLs. Social History Household Members spouse Living Arrangements House Number of Floors (Floors) One Floor Number of Stairs To Enter/Railing? 3 steps x2 to get into house ( 2-3 wide steps to get up into the yard area, then 3 steps with rail R ascending to get onto porch) Home Environment Standard Height Toilet Tub/Shower Additional Social History Comment Pt with R sided facial droop, RUE and LE weakness. 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 M1 PT/OT-IP Prior Functional Status Start: 07/26/18 15:31 Freq: NEEDED Status: Active Protocol: Document 07/26/18 15:35 [facility] (Rec: 07/26/18 16:13 [facility] [id number]) Medical Review Prior Functional Status Medical History Reviewed Yes Communication WNL Mobility and Gait indep. community ambulation without device Activities of Daily Living and IADL's indep. I/ADLs. Social History Household Members spouse Living Arrangements House Number of Floors (Floors) One Floor Number of Stairs To Enter/Railing? 3 steps x2 to get into house ( 2-3 wide steps to get up into the yard area, then 3 steps with rail R ascending to get onto porch) Home Environment Standard Height Toilet Tub/Shower Additional Social History Comment Pt with R sided facial droop, RUE and LE weakness. 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 M2 OT-IP Current Condition Start: 07/26/18 15:31 Freq: Status: Active Protocol: Document 07/26/18 15:35 [facility] (Rec: 07/26/18 16:13 [facility] [id number]) Occupational Therapy Current Condition Current Condition Evaluation Date 07/26/18 Treatment Diagnosis Left Globus Pallidus Diagnosis Onset Date 07/25/18 M3 OT- IP Subjective and Pain Start: 07/26/18 15:31 Freq: Status: Active Protocol: Document 07/26/18 15:35 [facility] (Rec: 07/26/18 16:13 [facility] [id number]) OT- Subjective Occupational Therapy Visit Type Type Initial Evaluation Visit Start Time 14:40 Visit Stop Time 15:20 Total Visit Minutes 40 Occupational Therapy Visit Comments Patient/Caregiver Goals Pt wanting to go to inpt rehab prior to going home. OT Pain Assessment Pain When Pain Assessed At Rest Pain Present Pain Present Denied Pain M4 OT- IP ADL's Start: 07/26/18 15:31 Freq: Status: Active Protocol: Document 07/26/18 15:35 [facility] (Rec: 07/26/18 16:13 [facility] [id number]) OT [id number] General Evaluation Areas Needing Assistance Bringing Utensil to Mouth Cutting Food Drinking From Cup/Glass Loading Utensil Opening Containers Comments OT Self-Feeding Comments Pt having to use left hand to eat. Pt able to grasp cup but unable to control cup and needing assist with right hand to hold cup. OT ADL-Grooming General Evaluation Grooming Ability Moderate Assistance Areas Needing Assistance Retrieving/Set-up of Grooming Items Face Washing Comments OT Grooming Comments Pt having to use left hand to complete task as unable to use right hand except for washing his face. 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 Pt heavily relies on left hand for all needs. M6 OT- IP Functional Cognition Start: 07/26/18 15:31 Freq: Status: Active Protocol: Document 07/26/18 15:35 [facility] (Rec: 07/26/18 16:13 [facility] [id number]) Cognitive Factors Limiting Selfcare Function Cognitive Ability Level of Alertness Alert Patient Orientation Name Day of Week Place Situation Attention Span Ability Capable of Focused Attention Capable of Sustained Attention Ability to Follow Commands Able to Follow Multi-Step Commands Memory Description No Deficits Noted Safety Awareness Underestimates Need for Assistance Problem Solving Ability Needs Assist to Identify Solutions Cognitive Comments Cognitive Assessment Comments Increased time for problem solving for two digit numbers. Pt a bit impulsive as well. M7 OT- IP Mobility and Balance Start: 07/26/18 15:31 Freq: Status: Active Protocol: Document 07/26/18 15:35 [facility] (Rec: 07/26/18 16:13 [facility] [id number]) OT- Bed Mobility Assessment Rolling Type of Rolling Roll to Right Supine to Sit Supine to Sit Assist Standby Assistance Sit to Supine Sit to Supine Assist Standby Assistance Scooting Scooting to Edge of Bed Standby Assistance Scooting Up and Down in Bed Standby Assistance OT-Transfer Assessment Sit to and From Stand Sit to and from Stand Minimal Assistance Moderate Assistance Comments Mobility Comments Pt initially neglecting use of right hand to help get up from the bed and needing vc to use right hand to actively extend at the shoulder, arm and push up with his right hand. OT- Balance Assessment Sitting Balance and Reactions Static Sitting Balance Ability Fair Dynamic Sitting Balance Ability Poor Standing Balance and Reactions Static Standing Balance Ability Poor Dynamic Standing Balance Ability Poor Comments Other Balance Tests/Deviations/Treatment Pt tends to have lateral tilt : to right and difficulty to sit upright and activating trunk muscle on right side especially for his scapula. Educated pt to sit with hands down on the bed. Also went over weight bearing for right hand to help decrease tone of right hand as noted tightness in his flexors to RUE. M8 OT- IP Objective Assessments Start: 07/26/18 15:31 Freq: Status: Active Protocol: Document 07/26/18 15:35 [facility] (Rec: 07/26/18 16:13 [facility] [id number]) OT Strength Comments Strength Comments RUE 3-/5 throughout. Pt able to raise arm into shoulder flexion 0-100, unable to open right hand into extension without assist for left hand. OT-Muscle Tone Assessment Muscle Tone WNL No Comments Muscle Tone Comments Increased tone in right arm. OT Sensation Assessment Comments Summary Comments WFL for RUE, light touch, proprioception and kinesthesia . M9 OT- IP Assessment and Plan Start: 07/26/18 15:31 Freq: Status: Active Protocol: Document 07/26/18 15:35 [facility] (Rec: 07/26/18 16:13 [facility] [id number]) OT Summary Assessment and Plan Potential Rehabilitation Potential Excellent Analytic Complexity at Evaluation Moderate Summary OT Impairments Range of Motion Strength Balance Coordination Tone Functional Cognition Functional Mobility Self-Feeding Grooming Dressing Toileting Bathing Toilet Transfers Shower Transfers Progress Towards Goals Slow Progress due to Activity Tolerance Assessment Summary Pt MOD complexity and main barriers are decreased balance , tone, activity tolerance, and now needing one person assist for needs. Pt would benefit from inpt rehab to return to prior level of function of completely independent and no need for devices. Goals Self-Feeding Goal Minimal Assistance Grooming Goal Minimal Assistance Dressing Goal Moderate Assistance Toileting Goal Moderate Assistance Bathing Goal Moderate Assistance Toilet Transfer Goal Moderate Assistance Shower Transfer Goal Moderate Assistance Patient/Caregiver Education Goal Caregiver Independent Assisting Patient Days to Meet Goals 7 Frequency of Treatment Frequency Of Treatment Once a Day Treatment Plan OT Treatment Plan ADL Training Functional Mobility Patient/Family Education Discharge Planning Discharge Recommendations OT Discharge Recommendations Acute Rehab versus SNF Home Equipment Needs BSC, Mauricio negro
--- NOTE | 2018-07-26 16:16 | OT.IP.EVAL ---
Current Diagnoses Essential (primary) hypertension (07/25/18) Cerebral infarction, unspecified (07/25/18) Past Medical History (Last Updated 07/25/18 @ 18:29 by Cat Pardo MD) Hypertension (Acute) Patient denies medical problems (Acute) Surgical History (Last Updated 07/25/18 @ 18:29 by Cat Pardo MD) H/O knee surgery (Acute) Occupational Therapy Inpatient Evaluation/Re-Eval M1 PT/OT-IP Prior Functional Status Start: 07/26/18 11:41 Freq: Status: Active Protocol: Document 07/26/18 11:40 [facility] (Rec: 07/26/18 12:06 [facility] [id number]) Medical Review Prior Functional Status Medical History Reviewed Yes Communication WNL Mobility and Gait indep. community ambulation without device Activities of Daily Living and IADL's indep. I/ADLs. Social History Household Members spouse Living Arrangements House Number of Floors (Floors) One Floor Number of Stairs To Enter/Railing? 3 steps x2 to get into house ( 2-3 wide steps to get up into the yard area, then 3 steps with rail R ascending to get onto porch) Home Environment Standard Height Toilet Tub/Shower Additional Social History Comment Pt with R sided facial droop, RUE and LE weakness. 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 M1 PT/OT-IP Prior Functional Status Start: 07/26/18 15:31 Freq: NEEDED Status: Active Protocol: Document 07/26/18 15:35 [facility] (Rec: 07/26/18 16:13 [facility] [id number]) Medical Review Prior Functional Status Medical History Reviewed Yes Communication WNL Mobility and Gait indep. community ambulation without device Activities of Daily Living and IADL's indep. I/ADLs. Social History Household Members spouse Living Arrangements House Number of Floors (Floors) One Floor Number of Stairs To Enter/Railing? 3 steps x2 to get into house ( 2-3 wide steps to get up into the yard area, then 3 steps with rail R ascending to get onto porch) Home Environment Standard Height Toilet Tub/Shower Additional Social History Comment Pt with R sided facial droop, RUE and LE weakness. 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 M2 OT-IP Current Condition Start: 07/26/18 15:31 Freq: Status: Active Protocol: Document 07/26/18 15:35 [facility] (Rec: 07/26/18 16:13 [facility] [id number]) Occupational Therapy Current Condition Current Condition Evaluation Date 07/26/18 Treatment Diagnosis Left Globus Pallidus Diagnosis Onset Date 07/25/18 M3 OT- IP Subjective and Pain Start: 07/26/18 15:31 Freq: Status: Active Protocol: Document 07/26/18 15:35 [facility] (Rec: 07/26/18 16:13 [facility] [id number]) OT- Subjective Occupational Therapy Visit Type Type Initial Evaluation Visit Start Time 14:40 Visit Stop Time 15:20 Total Visit Minutes 40 Occupational Therapy Visit Comments Patient/Caregiver Goals Pt wanting to go to inpt rehab prior to going home. OT Pain Assessment Pain When Pain Assessed At Rest Pain Present Pain Present Denied Pain M4 OT- IP ADL's Start: 07/26/18 15:31 Freq: Status: Active Protocol: Document 07/26/18 15:35 [facility] (Rec: 07/26/18 16:13 [facility] [id number]) OT GXL-Ijge-Skkxugt General Evaluation Areas Needing Assistance Bringing Utensil to Mouth Cutting Food Drinking From Cup/Glass Loading Utensil Opening Containers Comments OT Self-Feeding Comments Pt having to use left hand to eat. Pt able to grasp cup but unable to control cup and needing assist with right hand to hold cup. OT ADL-Grooming General Evaluation Grooming Ability Moderate Assistance Areas Needing Assistance Retrieving/Set-up of Grooming Items Face Washing Comments OT Grooming Comments Pt having to use left hand to complete task as unable to use rigth hand except for washing his face. 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 Pt heavily relies on left hand for all needs. M6 OT- IP Functional Cognition Start: 07/26/18 15:31 Freq: Status: Active Protocol: Document 07/26/18 15:35 [facility] (Rec: 07/26/18 16:13 [facility] [id number]) Cognitive Factors Limiting Selfcare Function Cognitive Ability Level of Alertness Alert Patient Orientation Name Day of Week Place Situation Attention Span Ability Capable of Focused Attention Capable of Sustained Attention Ability to Follow Commands Able to Follow Multi-Step Commands Memory Description No Deficits Noted Safety Awareness Underestimates Need for Assistance Problem Solving Ability Needs Assist to Identify Solutions Cognitive Comments Cognitive Assessment Comments Increased time for problem solving for two digit numbers. Pt a bit impulsive as well. M7 OT- IP Mobility and Balance Start: 07/26/18 15:31 Freq: Status: Active Protocol: Document 07/26/18 15:35 [facility] (Rec: 07/26/18 16:13 [facility] [id number]) OT- Bed Mobility Assessment Rolling Type of Rolling Roll to Right Supine to Sit Supine to Sit Assist Standby Assistance Sit to Supine Sit to Supine Assist Standby Assistance Scooting Scooting to Edge of Bed Standby Assistance Scooting Up and Down in Bed Standby Assistance OT-Transfer Assessment Sit to and From Stand Sit to and from Stand Minimal Assistance Moderate Assistance Comments Mobility Comments Pt initially neglecting use of right hand to help get up from the bed and needing vc to use right hand to actively extend at the shoulder, arm and push up with his right hand. OT- Balance Assessment Sitting Balance and Reactions Static Sitting Balance Ability Fair Dynamic Sitting Balance Ability Poor Standing Balance and Reactions Static Standing Balance Ability Poor Dynamic Standing Balance Ability Poor Comments Other Balance Tests/Deviations/Treatment Pt tends to have lateral tilt : to right and difficulty to sit upright and activating trunk muscle on right side especially for his scapula. Educated pt to sit with hands down on the bed. Also went over weight bearing for right hand to help decrease tone of right hand as noted tightness in his flexors to RUE. M8 OT- IP Objective Assessments Start: 07/26/18 15:31 Freq: Status: Active Protocol: Document 07/26/18 15:35 [facility] (Rec: 07/26/18 16:13 [facility] [id number]) OT Strength Comments Strength Comments RUE 3-/5 throughout. Pt able to raise arm into shoulder flexion 0-100, unable to open right hand into extension without assist for left hand. OT-Muscle Tone Assessment Muscle Tone WNL No Comments Muscle Tone Comments Increased tone in right arm. OT Sensation Assessment Comments Summary Comments WFL for RUE, light touch, proprioception and kinesthesia . M9 OT- IP Assessment and Plan Start: 07/26/18 15:31 Freq: Status: Active Protocol: Document 07/26/18 15:35 [facility] (Rec: 07/26/18 16:13 [facility] [id number]) OT Summary Assessment and Plan Potential Rehabilitation Potential Excellent Analytic Complexity at Evaluation Moderate Summary OT Impairments Range of Motion Strength Balance Coordination Tone Functional Cognition Functional Mobility Self-Feeding Grooming Dressing Toileting Bathing Toilet Transfers Shower Transfers Progress Towards Goals Slow Progress due to Activity Tolerance Assessment Summary Pt MOD complexity and main barriers are decreased balance , tone, activity tolerance, and now needing one person assist for needs. Pt would benefit from inpt rehab to return to prior level of function of completely independent and no need for devices. Goals Self-Feeding Goal Minimal Assistance Grooming Goal Minimal Assistance Dressing Goal Moderate Assistance Toileting Goal Moderate Assistance Bathing Goal Moderate Assistance Toilet Transfer Goal Moderate Assistance Shower Transfer Goal Moderate Assistance Patient/Caregiver Education Goal Caregiver Independent Assisting Patient Days to Meet Goals 7 Frequency of Treatment Frequency Of Treatment Once a Day Treatment Plan OT Treatment Plan ADL Training Functional Mobility Patient/Family Education Discharge Planning Discharge Recommendations OT Discharge Recommendations Acute Rehab Home Equipment Needs BSC, Tub bench
[2018-07-26] MEDS: ATORVASTATIN 20 MG TABLET 40 MG PO (20:14)
--- NOTE | 2018-07-26 22:52 | PC.NURSE ---
pt pleasant and cooperative. pt has some weakness to right side but coordinated. one/sba to br with walker. pt in and out through the dasy. came for dinner. pt compliant with all assessments. will continue to monitor pt for safety.
[2018-07-27 00:35] VITALS: O2SAT 98
[2018-07-27 05:00] VITALS: BP 167/100; PULSE 56; RESP 16; TEMP 36.9; O2SAT 99
[2018-07-27 07:00] VITALS: O2SAT 98
[2018-07-27 08:53] VITALS: BP 175/81; PULSE 58; RESP 18; TEMP 36.5; O2SAT 98
[2018-07-27] MEDS: ENOXAPARIN 40 MG/0.4 ML SYRINGE SUBCUT (09:37)
[2018-07-27] MEDS: LISINOPRIL 10 MG TABLET PO (09:41)
[2018-07-27] MEDS: ASPIRIN EC 325 MG TABLET PO (09:42)
--- NOTE | 2018-07-27 10:35 | CM.DPC ---
Addendum entered by RADHA Matos 07/27/18 12:28: ADD: Per , pt stable for d/c home with today. DONALDO met bedside with pt, spouse, and MD to discuss their concerns and d/c plan. Spouse still working on insurance and will have to wait until tomorrow to meet with Admission Counselor to complete and is aware of needing a PCP for follow up and will work further with PT/OT for CG training prior to d/c home today. Pt and spouse aware that once PCP established and insurance enrolled then they could move forward with either outpt therapy or Inpt Rehab if needed. RADHA Matos Original Note: DCP Cont: Per MD, pt making progress and may be medically stable to d/c tomorrow. updated during morning rounds that pt still does not have insurance and likely will not be in place by the time the pt is medically stable for Inpt Rehab and if pt is enrolled in [employer] his insurance may be a barrier to being accepted at Inpt Rehab. plans to write pt's prescriptions for 30 days knowing he still needs to establish with a PCP. DONALDO left message for [facility] (admissions closed today) and [facility] to inquire if they even accept [employer] pending which insurance company the pt ends up enrolling with. DONALDO met bedside with pt and explained role and updated white board with the phone number and pt stated that his plans to complete the application online for [employer] today and she will be bedside later after she completes the application. DONALDO provided him with a list of local PCP/Clinics in [place] as well as the PCP referral line for [facility] to utilize after pt knows what insurance he is enrolled with in order to establish with a PCP. Plan: DONALDO to follow closely with pt and spouse after she completes the online enrollment for [employer] for the pt towards determining what resources and therapies can be set up for the pt at discharge. Pt's current lack of insurance is a major barrier to discharge needs of ongoing therapy. RADHA Matos
[2018-07-27 11:30] VITALS: BP 143/83; PULSE 68; RESP 18; TEMP 36.6; O2SAT 98
[2018-07-27 11:40] VITALS: BP 143/83; PULSE 68; RESP 16; TEMP 36.6; O2SAT 98
--- NOTE | 2018-07-27 12:46 | PT.IPTN ---
Current Diagnoses Essential (primary) hypertension (07/25/18) Cerebral infarction, unspecified (07/25/18) Physical Therapy Treatment Note M2 PT-IP Current Condition Start: 07/26/18 11:41 Freq: Status: Active Protocol: Document 07/26/18 11:40 [facility] (Rec: 07/26/18 12:06 [facility] [id number]) Physical Therapy Current Condition Current Condition Evaluation Date 07/26/18 Treatment Diagnosis CVA, weakness, impaired mobility Onset Date 07/25/2018 M3 PT-IP Subjective Start: 07/26/18 11:41 Freq: Status: Active Protocol: Document 07/27/18 10:30 [facility] (Rec: 07/27/18 12:46 [facility] [id number]) Subjective Physical Therapy Visit Type Type Treatment Note Visit Start Time 10:30 Visit Stop Time 11:00 Total Visit Minutes 30 Number of SENIOR APPLICATION SECURITY CONSULTANT Visits 2 Physical Therapy Visit Comments Patient Comments Pt states he has been doing his ther ex for his arm that OT showed him. M4 PT-IP Mobility and Gait Start: 07/26/18 11:41 Freq: Status: Active Protocol: Document 07/27/18 10:30 [facility] (Rec: 07/27/18 12:46 [facility] [id number]) PT-Bed Mobility Assessment Supine to Sit Supine to Sit Standby Assistance Sit to Supine Sit to Supine Standby Assistance Scooting Scooting to Edge of Bed Standby Assistance PT-Transfer Assessment Sit to and From Stand Sit to and from Stand Contact Guard Assistance 1 Person Assistance Equipment Transfer Assistive Device Gait Belt Front Wheeled Walker Transfers Transfer Destination Bed Transfer Technique Stand Step Pivot Transfer Ability Level of Assist Contact Guard Assistance Gait Assessment Gait Gait Assistance Required: Contact Guard Assist Distance (Feet) 160 Assistive Devices Assistive Device Gait Belt Front Wheeled Walker Gait Deviations General Gait Pattern Decreased Feet Clearance Narrow Based Gait Factors Limiting Gait Function Factors Limiting Gait Function Decreased Activity Tolerance Decreased Strength Incoordination Poor Balance Comments Gait Comments mild unsteadiness M5 PT-IP Objective Assessments Start: 07/26/18 11:41 Freq: Status: Active Protocol: Document 07/26/18 11:40 [facility] (Rec: 07/26/18 12:06 [facility] [id number]) Orientation Orientation/Cognition Level of Alertness Alert Gross Range of Motion Upper Extremity ROM Assessment Right Impaired Impairments RUE to back of head, flexion to 140 deg, abduction to 160 deg with incoordination Strength Upper Extremity Strength Assessment Right Impaired Shoulder flexion R 3/5 L 5/5 Lower Extremity Strength Assessment Right Impaired Hip flexion and ER R 3+/5 L 5/5, IR R 3/5 L 5/5 Knee flexion R 4/5, L 5/5; extension R 3+/5, L 5/5 Ankle DF R 2/5, L 5/5 Coordination Assessment Gross Coordination Gross Coordination Impaired Assessment Finger to Nose Test Moderate Impairment Pronation/Supination Test Severe Impairment Foot Tapping Test Moderate Impairment Heel on Morgan Test Moderate Impairment Coordination Comments impaired RUE and LE Sensation Assessment Sensation Gross Sensation WNL Muscle Tone Comments Muscle Tone Comments mild flexor tone in RUE M6 PT-IP Treatment Start: 07/26/18 11:41 Freq: Status: Active Protocol: Document 07/27/18 10:30 [facility] (Rec: 07/27/18 12:46 [facility] [id number]) Physical Therapy Treatment Exercises Exercises Ankle Pumps Straight Leg Raises Supine Hip Abduction Seated Knee Flexion/Extension Other Treatments Other Treatment Performed Bridges, Standing balance NBOS with head turns, EO/EC, tandem with head turns, EO M7 PT-IP Assessment and Plan Start: 07/26/18 11:41 Freq: Status: Active Protocol: Document 07/27/18 10:30 [facility] (Rec: 07/27/18 12:46 [facility] [id number]) PT Summary Assessment and Plan Potential Rehabilitation Potential Excellent Summary Impairments ROM Strength Balance Coordination Transfers Gait Activity Tolerance Assessment Summary Pt had no LOB with gait and increased his gait distance. Pt is SBA with bed mobility. He is below his prior level of function. He is a prime candidate for acute inpatient Goals Bed Mobility Goal Independent Transfer Goal Independent Gait Goal Independent Cane Gait Distance 300 Other Goals up/down 3 steps x2 with unilateral rail Days to Meet Goals 2 Frequency of Treatment Frequency Of Treatment Twice a Day Treatment Plan Physical Therapy Treatment Plan Bed Mobility Training Transfer Training Gait Training Therapeutic Exercise Balance Retraining Neuromuscular Re-ed Coordination Retraining Recommendations To Nursing Amount of Assist Needed 1 Person Assist Discharge Recommendations PT Discharge Recommendations Acute Rehab
--- NOTE | 2018-07-27 14:00 | P.DS_ITS ---
History of Present Illness Chief complaint: 'had a stroke' Narrative: Patient is a 62 y/o male with a history of hypertension, not currently on treatment, who was well until yesterday when he noted that his arm and leg felt funny. Patient went to sleep awoke in the morning had coffee with his without incident. Later during the day the patient said the right arm and leg felt heavy. He was unable to ambulate as he was very unsteady. Patient had right sided facial droop and slurring of his speech. His noted the symptoms got progressively worse and he was brought to the Emergency Department for evaluation. Patient had a Head CT that revealed and age indeterminate infarcts of the bilateral frontal lobes. 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 The patient is admitted to the hospital for diffinitive treatment of his stroke. MRA revealed no arterial occlusions. Discharge Providers Date of admission: 07/25/18 16:42 Consults: 07/25/18 18:18 Consult to Occupational Therapy Evaluate & Treat Comment: Physician Instructions: Evaluate and treat Consult to Physical Therapy Evaluate & Treat Comment: Physician Instructions: Evaluate and Treat 07/25/18 18:19 Consult to Speech Therapy Evaluate & Treat Comment: Physician Instructions: Evaluate and treat Discharge provider: Rodney Garcia MD Summary Discharge Diagnosis: 1. Acute ischemic stroke 2. Severe hypertension 3. Hyperlipidemia Hospital Course: Patient presented with right-sided weakness and dysarthria. He has had some improvement since admission. Brain MR stroke protocol showed acute ischemia in left globus pallidus. No stenosis in intracranial or neck arteries. No AFib on telemetry. Transthoracic echo was normal. He was started on daily aspirin. Initial BP was 220/120 range. Prior to discharge he was started on lisinopril 10 mg daily. Blood pressures at time of discharge are 140-170 systolic and 80-100 diastolic range. He was also started on high- intensity statin prior to discharge. Total cholesterol 150, LDL 165, HDL 46, triglycerides 195. He is a nonsmoker. He admits to consuming typically 3 glasses of wine nightly and advised to cut back on his alcohol intake to no more than 4 oz wine daily. He is provided dietary education. He had evaluations by physical, occupational and speech therapy. Our preference would be for him to go to acute inpatient rehab. However, he does not presently have health insurance coverage and elected to discharge home. He has been stable with ambulation using walker and physical therapy considered him safe to discharge home. He is advised not to drive until cleared by medical provider. At time of discharge he has 3/5 strength in right upper and lower extremity and mild degree of dysarthria. Exam Vital Signs (past 8 hours): - 07/27/18 07:00 07/27/18 08:53 07/27/18 11:30 Temperature 97.7 F 97.8 F Pulse Rate 58 L 68 Respiratory Rate 18 18 Blood Pressure 175/81 H 143/83 H Pulse Oximetry 98 98 98 07/27/18 11:40 Temperature 97.8 F Pulse Rate 68 Respiratory Rate 16 Blood Pressure 143/83 H Pulse Oximetry 98 Oxygen Delivery Method Room Air Oxygen Flow Rate 0 Objective Labs Result Diagrams: 07/25/18 14:47 07/25/18 14:47 Labs: BRAIN MRI: Focal subacute infarction involving the left globus pallidus. BRAIN MR ANGIOGRAM: No significant intracranial arterial abnormality is seen. NECK MR ANGIOGRAM: No hemodynamically significant stenosis can be seen involving the arteries of the neck. Transthoracic echo: Normal LV function. No valvular disease. Discharge Plan Discharge Plan Patient Disposition: Home Discharge Med Rec/Prescriptions Prescriptions: New atorvastatin 40 mg tablet 40 mg PO DAILY Qty: 30 RF: 0 aspirin [Aspirin Low Dose] 81 mg tablet,delayed release (DR/EC) 81 mg PO DAILY Qty: 30 RF: 0 lisinopril 10 mg tablet 10 mg PO DAILY Qty: 30 RF: 0 Follow up/Referrals: PCP, to establish [Other] - 1 Week Provider Discharge Instructions Diet: Regular Visit Report/Discharge Packet Instructions: Getting to the Heart of a Healthful Diet: Sodium, Getting to the Heart of a Healthy Diet: Protein-Rich Foods, Getting to the Heart of a Healthful Diet: Fats, Getting to the Heart of a Healthful Diet, Getting to the Heart of a Healthy Diet: Empty-Calorie Foods, The DASH Diet, DASH Diet Helps Maintain a Healthy Blood Pressure, Ischemic Stroke, DI for Stroke-Ischemic Visit Report Forms: Stroke Signs & Symptoms Discharge Data Attending Provider: Cat Pardo Admit Date/Time: 07/25/18 16:42 Quality VTE Deep Vein Thrombosis/Pulmonary Embolism Present on Admission: Yes
--- NOTE | 2018-07-27 16:43 | PT.IPTN ---
Current Diagnoses Essential (primary) hypertension (07/25/18) Cerebral infarction, unspecified (07/25/18) Physical Therapy Treatment Note M2 PT-IP Current Condition Start: 07/26/18 11:41 Freq: Status: Discharge Protocol: Document 07/26/18 11:40 RCC (Rec: 07/26/18 12:06 RCC [id number]) Physical Therapy Current Condition Current Condition Evaluation Date 07/26/18 Treatment Diagnosis CVA, weakness, impaired mobility Onset Date 07/25/2018 M3 PT-IP Subjective Start: 07/26/18 11:41 Freq: Status: Discharge Protocol: Document 07/27/18 14:00 CLB (Rec: 07/27/18 16:43 CLB [id number]) Subjective Physical Therapy Visit Type Type Treatment Note Visit Start Time 14:00 Visit Stop Time 14:25 Total Visit Minutes 25 Number of DEPLOYMENT SPECIALIST Visits 3 Physical Therapy Visit Comments Patient Comments Pt agreeable to trial stairs with assist of . M4 PT-IP Mobility and Gait Start: 07/26/18 11:41 Freq: Status: Discharge Protocol: Document 07/27/18 14:00 CLB (Rec: 07/27/18 16:43 CLB [id number]) PT-Bed Mobility Assessment Supine to Sit Supine to Sit Standby Assistance Sit to Supine Sit to Supine Standby Assistance Scooting Scooting to Edge of Bed Standby Assistance PT-Transfer Assessment Sit to and From Stand Sit to and from Stand Contact Guard Assistance 1 Person Assistance Equipment Transfer Assistive Device Gait Belt Front Wheeled Walker Transfers Transfer Destination Chair Wheelchair Transfer Ability Level of Assist Contact Guard Assistance Comments Mobility Comments CG training with for transfer to . Gait Assessment Gait Gait Assistance Required: Contact Guard Assist Distance (Feet) 40 Assistive Devices Assistive Device Gait Belt Front Wheeled Walker Gait Deviations General Gait Pattern Decreased Feet Clearance Narrow Based Gait Factors Limiting Gait Function Factors Limiting Gait Function Decreased Activity Tolerance Decreased Strength Incoordination Poor Balance Comments Gait Comments mild unsteadiness Stair Climbing Assessment Evaluation Level of Assist On Stairs Contact Guard Assistance 1 Person Assistance Devices Stair Climbing Assistive Devices Straight Cane Small Base Quad Cane Right Railing Technique/Endurance Stair Climbing Direction Ascend and Descend Stair Climbing Technique Step to Step Number of Steps Climbed 3 Query Text: Stair Climbing Set # Repetitions (reps) 2 Comments Stair Climbing Comments Pt trialed stairs with therapist for demonstration on first set then assisted pt on second set. Pt was more steady with quad cane and stated she will get one for home use. PT-Balance Assessment Sitting Balance and Reactions Static Sitting Balance Ability Good Dynamic Sitting Balance Ability Good Standing Balance and Reactions Static Standing Balance Ability Good Dynamic Standing Balance Ability Fair Device Used FWW M5 PT-IP Objective Assessments Start: 07/26/18 11:41 Freq: Status: Discharge Protocol: Document 07/26/18 11:40 RCC (Rec: 07/26/18 12:06 RCC [id number]) Orientation Orientation/Cognition Level of Alertness Alert Gross Range of Motion Upper Extremity ROM Assessment Right Impaired Impairments RUE to back of head, flexion to 140 deg, abduction to 160 deg with incoordination Strength Upper Extremity Strength Assessment Right Impaired Shoulder flexion R 3/5 L 5/5 Lower Extremity Strength Assessment Right Impaired Hip flexion and ER R 3+/5 L 5/5, IR R 3/5 L 5/5 Knee flexion R 4/5, L 5/5; extension R 3+/5, L 5/5 Ankle DF R 2/5, L 5/5 Coordination Assessment Gross Coordination Gross Coordination Impaired Assessment Finger to Nose Test Moderate Impairment Pronation/Supination Test Severe Impairment Foot Tapping Test Moderate Impairment Heel on Morgan Test Moderate Impairment Coordination Comments impaired RUE and LE Sensation Assessment Sensation Gross Sensation WNL Muscle Tone Comments Muscle Tone Comments mild flexor tone in RUE M6 PT-IP Treatment Start: 07/26/18 11:41 Freq: Status: Discharge Protocol: Document 07/27/18 10:30 CLB (Rec: 07/27/18 12:46 CLB [id number]) Physical Therapy Treatment Exercises Exercises Ankle Pumps Straight Leg Raises Supine Hip Abduction Seated Knee Flexion/Extension Other Treatments Other Treatment Performed Bridges, Standing balance NBOS with head turns, EO/EC, tandem with head turns, EO M7 PT-IP Assessment and Plan Start: 07/26/18 11:41 Freq: Status: Discharge Protocol: Document 07/27/18 14:00 CLB (Rec: 07/27/18 16:43 CLB [id number]) PT Summary Assessment and Plan Potential Rehabilitation Potential Excellent Summary Impairments ROM Strength Balance Coordination Transfers Gait Activity Tolerance Assessment Summary Pt successfully trial stairs with assisting. Pt had no LOB with gait and has good safety awareness with all mobility. Pt seems able to d/c with assist when medically stable. Goals Bed Mobility Goal Independent Transfer Goal Independent Gait Goal Independent Cane Gait Distance 300 Other Goals up/down 3 steps x2 with unilateral rail Days to Meet Goals 2 Frequency of Treatment Frequency Of Treatment Twice a Day Treatment Plan Physical Therapy Treatment Plan Bed Mobility Training Transfer Training Gait Training Therapeutic Exercise Balance Retraining Neuromuscular Re-ed Coordination Retraining Recommendations To Nursing Amount of Assist Needed 1 Person Assist Discharge Recommendations PT Discharge Recommendations Acute Rehab
== END 2018-07-27 15:49 | disposition home or self-care (01) | DRG 65 ==
LOC: ED 16:33 → AC 16:43
PROVIDERS: Internal Medicine; Admitting Provider Internal Medicine; Emergency Provider Emergency Medicine; Visit Provider Internal Medicine
DX: I63.9 Cerebral infarction, unspecified (principal); G81.91 Hemiplegia, unspecified affecting right dominant side; R47.02 Dysphasia; I10 Essential (primary) hypertension
CPT/HCPCS: 36591; 70450; 70553; 80053; 80061; 81003; 82550; 82553; 84443; 84484; 85025; 85610; 85730; 92522; 93005; 93041; 93306; 96360; 96361; 97110; 97116; 97163; 97166; 97530; 99285; 99291; A9579; J1650

== ENCOUNTER 2018-07-28 22:26 | Inpatient (IN) | payer OTHER, MEDICAID, SELFPAY ==
[2018-07-25 20:09] VITALS: BMI 27.6
--- NOTE | 2018-07-28 22:29 | ED_ITS ---
HPI - Nausea/Vomiting/Diarrhea General Chief complaint: Nausea/Vomiting/Diarrhea Stated complaint: N/V Time Seen by Provider: 07/28/18 22:27 Source: patient Mode of arrival: EMS Limitations: no limitations History of Present Illness HPI Narrative: Patient is a 62-year-old male discharged from the hospital yesterday after diagnosis of a cerebrovascular accident with right-sided deficits. Patient also history with hypertension. States that he was at home just prior to arrival when he started to feel dizzy. No trauma. He states he was laying on the couch in turned on his side. Then developed nausea and vomiting which he has not been able to control since then. His blood pressure has also been elevated. He denies any headache or ringing in his ears. No chest pain or palpitations. No new neurologic symptoms. Has not tried anything for prior to arrival Related Data Previous Rx's Medication Instructions Recorded aspirin [Aspirin Low Dose] 81 mg PO DAILY #30 tab 07/27/18 atorvastatin 40 mg PO DAILY #30 tab 07/27/18 lisinopril 10 mg PO DAILY #30 tab 07/27/18 Allergies Allergy/AdvReac Type Severity Reaction Status Date / Time No Known Drug Allergies Allergy Verified 07/25/18 14:44 Review of Systems Constitutional Denies fatigue, Denies fever(s) and Denies headache(s) ENT Ears, Nose, Mouth, and Throat: Reports vertigo, Reports dizziness and Denies headache(s) Cardiovascular Denies chest pain, Denies palpitations and Reports dyspnea Respiratory Reports dyspnea Gastrointestinal Gastrointestinal: Denies abdominal pain, Reports nausea and Reports vomiting Musculoskeletal Denies myalgias and Denies arthralgias Integumentary/Breasts Denies lesions and Denies rash Neurologic Denies confusion, Reports vertigo, Reports dizziness and Denies headache(s) Psychiatric Denies confusion Endocrine Denies fatigue and Denies palpitations Hematologic/Lymphatic Denies easy bleeding and Denies easy bruising FOR[facility]LY [facility] Medical History CVA (cerebral vascular accident) (Acute) Hypertension (Acute) Patient denies medical problems (Inactive) Surgical History H/O knee surgery (Acute) Family History Father Myocardial infarction Social History marital status: household members: spouse lives independently: Yes 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 Smoking Status: Never smoker alcohol intake: current substance use type: does not use Exam Initial Vital Signs Initial Vital Signs: Vital Signs Temperature 96.2 F L 07/28/18 22:30 Pulse Rate 64 07/28/18 22:30 Respiratory Rate 22 07/28/18 22:30 Blood Pressure 217/88 H 07/28/18 22:30 Pulse Oximetry 97 07/28/18 22:30 Const General: cooperative, No comfortable (Uncomfortable) and acute distress Orientation: alert, awake and oriented x3 HENMT Head: normal to inspection, normocephalic and atraumatic Ears: TM's normal bilaterally Nose: external nose normal Resp Effort & Inspection: normal respiratory effort Auscultation: clear to auscultation bilaterally Cardio Rate: bradycardic Rhythm: regular rhythm Heart Sounds: no murmurs Pulses: radial pulses present GI Inspection: non-distended Palpation: soft, No firm and No tender Skin Lesions: no lesions Rashes: no rashes Neuro General: alert, awake and oriented x3 Cognition: normal cognition Sensory Exam: no sensory deficits noted Other: Patient with intact cranial nerves except for a slight droop to his right lower face. This is reported to not be new and residual since his CVA 1 week ago. He eventually had a normal facial exam however the right side was just slower to raise with smiling. Has a 4/5 strength right upper extremity. 5 /5 strength left upper extremity. No changes in sensation. Patient has a reproduction of the vertigo sensation with turning his head to the right. No vertigo with looking straight ahead or turning his head to the left. Extrem General: normal to inspection and capillary refill normal Psych Appearance: grossly normal and well kempt Course Orders Ordered: ED Orders 07/28/18 22:30 EKG-12 Lead Stat 07/28/18 22:33 Complete Blood Count AUTO DIFF Stat 07/28/18 23:38 CT head/brain wo con Stat 07/29/18 00:11 EKG-12 Lead Stat 07/29/18 00:56 Consult to Physician Routine Sodium Chloride (Normal Saline 0.9%) 1,000 mls @ 125 mls/hr IV CONT MICAH Morphine Sulfate (Morphine) 2 mg IV Q4HR PRN PRN Reason: Pain, Mild (1-3) Ondansetron HCl (Zofran) 4 mg IV Q2HR MICAH Last Admin: 07/29/18 01:00 Dose: 4 mg Ondansetron HCl (Zofran) 4 mg IV NOW ONE Stop: 07/29/18 01:00 Discontinued Medications Diazepam (Valium) 5 mg IV NOW ONE Stop: 07/28/18 22:53 Last Admin: 07/28/18 23:00 Dose: 5 mg Sodium Chloride (Normal Saline 0.9%) 1,000 mls @ 500 mls/hr IV BOLUS ONE Stop: 07/29/18 00:28 Last Infusion: 07/29/18 00:58 Dose: 0 mls/hr Admin: 07/28/18 22:36 Dose: 500 mls/hr Ondansetron HCl (Zofran) 4 mg IV NOW ONE Stop: 07/28/18 22:53 Last Admin: 07/28/18 23:00 Dose: 4 mg Vital Signs - 8 hr 07/28/18 22:30 07/28/18 22:41 Temperature 96.2 F L Pulse Rate 64 55 L Respiratory Rate 22 17 Blood Pressure 217/88 H Blood Pressure [Right Arm] 217/88 H Pulse Oximetry 97 99 MDM - Nausea/Vomiting/Diarrhea Lab Data Attestation: I reviewed the patient's lab results. Result diagrams: 07/28/18 22:33 07/28/18 10:30 Lab Results 07/28/18 07/28/18 Range/Units 10:30 22:33 WBC 7.8 (4.5-11.0) X10^3/uL RBC 5.18 (4.5-5.9) X10^6/uL Hgb 17.3 (13.5-17.5) g/dL Hct 49.1 (41-53) % MCV 94.7 (80-100) fL MCH 33.3 (26-34) PG MCHC 35.2 (30-36) % RDW 12.9 (11.6-14.8) % Plt Count 232 (150-400) X10^3/uL Neut % (Auto) 68.8 (50-75) % Lymph % (Auto) 18.3 L (25-40) % [place] % (Auto) 10.4 (3-14) % Eos % (Auto) 2.0 (2-4) % Baso % (Auto) 0.5 (0-2) % Neut # (Auto) 5400 (7522-5303) /uL Sodium 143 (137-145) mmol/L Potassium 4.1 (3.4-5.1) mmol/L Chloride 103 (98-107) mmol/L Carbon Dioxide 31 (22-32) mmol/L BUN 16 (9-20) mg/dL Creatinine 0.80 (0.66-1.25) mg/dL Estimated GFR > 60.0 (>60) mL/min BUN/Creatinine Ratio 20.0 (6-22) Glucose 122 H (80-110) mg/dL Calcium 8.9 (8.4-10.2) mg/dL Point of Care Testing Glucose POC [address] scan - head: Radiologist's impression: Involving ischemic infarct changes in the bilateral supratentorial brain centrum semiovale and left basal ganglia. No superimposed acute hemorrhage or herniation syndrome. Otherwise remainder examination is essentially unchanged ECG Data Attestation: I personally reviewed and interpreted this ECG as follows: Prior ECG tracings: not available for review Interpretation: Time 2242 Sinus bradycardia Ventricular rate of 48 Normal axis Normal QRS Normal QTC No ST T wave changes Repeat EKG timed 0017 Unchanged from prior EKG except rate of 56 and inverted T-wave in lead 3 MDM Narrative Medical decision making narrative: Patient with abrupt onset of vertigo. His symptoms did improve somewhat with Zofran and Valium here in the emergency department. I was able to reproduce his symptoms with a [place]-Hallpike maneuver to the right. Given his history of CVA and the new vertigo symptoms today a non con head CT was obtained. Upon returning from the head CT was noticed on the monitor that the patient had inverted T-waves. Repeat EKG was obtained to evaluate for diffuse T-wave inversions that could be concerning for increased intracranial pressure. This was also concerning given his hypertension and bradycardia. He never had respiratory irregularity. This repeat EKG was essentially unchanged except for nonspecific inverted T-waves in lead 3. The diffuse T-wave inversions were not apparent on the EKG. His hypertension did improve after fluids and Valium and Zofran. The repeat head CT does given report of of all thing ischemic changes. I did discuss the case with Dr. Gonzalez neurologist at [facility] who evaluated the patient's head CT from today and also his prior MRI and head CT from his last admission. The neurologist seem to think that the head CT was appropriate for this stage in the patient's disease progression. He also stated that given his history of CVA and the vertigo that a repeat MRI is probably warranted to evaluate for worsening/new ischemic changes. Patient is not a candidate for tPA. Not a candidate for clot retrieval. I discussed the case with Dr. Hendricks with Internal Medicine who accepts the patient in admission. I discussed the admission with the patient and his family who were at bedside they expressed understanding and agreement with plan. Discharge Plan Departure Patient Disposition: Admitted as Observation Clinical Impression: Vertigo, History of cardioembolic cerebrovascular accident (CVA), Hypertension , Nausea & vomiting Admit Date/Time: 07/29/18 01:02 Admit Provider: Kody Hendricks
[2018-07-28 22:30] VITALS: BP 217/88; PULSE 64; RESP 22; TEMP 35.7; O2SAT 97; BMI 27.8
[2018-07-28] MEDS: SODIUM CHLORIDE 0.9% 1,000 ML 500 ML IV (22:36)
[2018-07-28 22:37] LABS: Add Manual Diff / Slide Review NO; Basophils Percent Auto 0.5 % (0-2); Hematocrit 49.1 % (41-53); Hemoglobin 17.3 g/dL (13.5-17.5); Lymphocytes Percent Auto 18.3 % (25-40); Mean Corpuscular HGB Conc 35.2 % (30-36); Mean Corpuscular Hemoglobin 33.3 PG (26-34); Mean Corpuscular Volume 94.7 fL (80-100); Monocytes Percent Auto 10.4 % (3-14); Neutrophils Absolute Auto 5400 /uL (3000-5900); Neutrophils Percent Auto 68.8 % (50-75); Platelet Count 232 X10^3/uL (150-400); Red Blood Cell Count 5.18 X10^6/uL (4.5-5.9); Red Cell Distribution Width 12.9 % (11.6-14.8); White Blood Cell Count 7.8 X10^3/uL (4.5-11.0)
[2018-07-28 22:41] VITALS: BP 217/88; PULSE 55; RESP 17; O2SAT 99
[2018-07-28 22:49] LABS: Blood Urea Nitrogen 16 mg/dL (9-20); Calcium 8.9 mg/dL (8.4-10.2); Carbon Dioxide 31 mmol/L (22-32); Chloride 103 mmol/L (98-107); Estimated Glomerular Filt Rate > 60.0 mL/min (>60); Glucose 122 mg/dL (80-110); HEMOLYSIS < 15 (0-50); Potassium 4.1 mmol/L (3.4-5.1); Sodium 143 mmol/L (137-145)
[2018-07-28] MEDS: diazePAM 10 MG/2 ML SYRINGE 5 MG IV (23:00)
[2018-07-28] MEDS: ONDANSETRON 4 MG/2 ML INJ IV (23:00)
--- NOTE | 2018-07-28 23:38 | DI.CT.S_ITS ---
PROCEDURE: CT HEAD/BRAIN WO CON INDICATIONS: vertigo with history of Cerebrovascular accident 1 week ago TECHNIQUE: Noncontrast 4.5 mm thick angled axial sections acquired from the foramen magnum to the vertex, with coronal and sagittal reformats. For radiation dose reduction, the following was used: automated exposure control, adjustment of mA and/or kV according to patient size. COMPARISON: [facility], MR, MR STROKE, 07/25/2018, 15:27. [facility], CT, CT HEAD/BRAIN WO CON, 07/25/2018, 15:02. FINDINGS: Image quality: Excellent. CSF spaces: Basal cisterns are patent. No extra-axial fluid collections. The ventricles are symmetric in size and shape. Brain: No intracranial bleeds or masses. Subacute infarct involving the left globus pallidus is unchanged in size compared to prior MRI. Old, small, lacunar infarct involving the bilateral frontal and parietal subcortical white matter are stable compared to prior exams. There is cerebral volume loss for age, with resultant ventricular and sulcal prominence. There are periventricular and deep white matter chronic small vessel ischemic changes. There is intracranial internal carotid artery and vertebral artery atherosclerosis. Skull and face: Calvarium and visualized facial bones appear intact, without suspicious lesions. Sinuses: Visualized sinuses and mastoids are clear. IMPRESSION: No acute intracranial disease process. Dictated by: Meghan Aviles MD, PhD on 07/29/2018 at 7:10 Approved by: Meghan Aviles MD, PhD on 07/29/2018 at 7:14
[2018-07-29] VITALS (16 sets, daily range): BP systolic 160–194; BP diastolic 76–111; PULSE 60–94; RESP 14–24; TEMP 36.4–37.1; O2SAT 96–100; BMI 27.8
[2018-07-29] MEDS: ONDANSETRON 4 MG/2 ML INJ IV ×6 (01:00→23:49)
[2018-07-29] MEDS: SODIUM CHLORIDE 0.9% 1,000 ML 125 ML IV ×3 (01:53→19:10)
--- NOTE | 2018-07-29 09:08 | PC.NURSE ---
Day shift: Pt has been allowed to sleep. No s/s of distress. Tele monitored. Pt checks Q1 hour at the least. Bed alarm on. Call light in reach. Will continue to monitor.
--- NOTE | 2018-07-29 10:31 | PM.HP.1 ---
History of Present Illness Date Patient Seen: 07/29/18 Chief complaint: N/V Narrative: Patient was discharged two days ago following an acute left globus pallidus CVA. He has a history of hypertension and was well until yesterday when he developed abrupt onset nausea, vomiting, and vertigo. Patient reports with any movement he becomes nauseous. He has had vomiting as well as dry heaves, but no hemetemesis, melena , or bright red blood per rectum. Patient denies gerd symptoms, shortness of breath, chest pain, headache, new onset numbness, tingling, or additional weakness. Patient was evaluated in the ED, repeat Head CT was negative. He was admitted for further evaluation. Patient remains nauseated, his eyes are closed and he is afraid to move secondary to dizziness. Patient History Medical History CVA (cerebral vascular accident) (Acute) Hypertension (Acute) Patient denies medical problems (Inactive) Surgical History H/O knee surgery (Acute) Family & Social History Family History Father Myocardial infarction Social History: household members spouse Prior Living Arrangements Mobile home lives independently Yes Safety & Behavioral: Feels Safe in Current Yes Environment Been Physically Hurt or No Threatened By a Person Suicidal Ideation Description None Suicide Plan Description No Plan Tobacco & Substance use: Smoking Status Never smoker alcohol intake current alcohol intake frequency 0-2 drinks per day Substance Use Type does not use Meds Home Medications Medication Instructions Recorded Confirmed Type aspirin [Aspirin Low Dose] 81 mg PO DAILY #30 tab 07/27/18 07/29/18 Rx atorvastatin 40 mg PO DAILY #30 tab 07/27/18 07/29/18 Rx lisinopril 10 mg PO DAILY #30 tab 07/27/18 07/29/18 Rx Allergies Allergy/AdvReac Type Severity Reaction Status Date / Time No Known Drug Allergies Allergy Verified 07/25/18 14:44 Review of Systems Review of Systems All systems reviewed & are unremarkable except as noted in HPI and below Exam Vital Signs (past 8 hours): - 07/29/18 05:15 07/29/18 08:12 Temperature 98.1 F Pulse Rate 64 73 Respiratory Rate 14 15 Blood Pressure 177/84 H 172/90 H Pulse Oximetry 98 99 Oxygen Delivery Method Room Air Narrative Exam Narrative: Ill appearing male HEENT: NC/AT , EOMI, right facial droop, tongue protrudes left Neck: supple, no adenopathy Lungs: Clear to auscultation CV: RRR nl Sl S2 2/6 HAMLET Abd: soft/ non tender/ non distended, no HSM Ext: no edema Neuro: Right facial droop, Right arm weaker than left 3/5 , Right leg weaker than left 4/5 Sensation grossly intact, reflexes equal, gait not assessed Objective Labs Result Diagrams: 07/28/18 22:33 07/28/18 10:30 Labs: Laboratory Results - last 24 hr 07/28/18 07/28/18 10:30 22:33 WBC 7.8 RBC 5.18 Hgb 17.3 Hct 49.1 MCV 94.7 MCH 33.3 MCHC 35.2 RDW 12.9 Plt Count 232 Neut % (Auto) 68.8 Lymph % (Auto) 18.3 L [place] % (Auto) 10.4 Eos % (Auto) 2.0 Baso % (Auto) 0.5 Neut # (Auto) 5400 Sodium 143 Potassium 4.1 Chloride 103 Carbon Dioxide 31 BUN 16 Creatinine 0.80 Estimated GFR > 60.0 BUN/Creatinine Ratio 20.0 Glucose 122 H Calcium 8.9 Assessment & Plan (1) Vertigo: Problem details: Suspect, this is related to his recent CVA. Will continue IV hydration, anti nausea medications. Will start meclizine, add valium If symptoms persist, repeat Head MRI Current visit: Yes Status: Acute (2) History of cardioembolic cerebrovascular accident (CVA): Problem details: Continue ASA, Statin, PT/OT consultation Current visit: Yes Status: Acute (3) Hypertension: Problem details: Increase lisinopril to 20 mg daily Qualifiers: Hypertension type: unspecified Qualified Code(s): I10 - Essential (primary) hypertension Current visit: Yes Status: Acute
--- NOTE | 2018-07-29 12:02 | PC.NURSE ---
Day shift: Told Dr Parod about Pt still having nausea and not able to take PO meds. Also informed her Pt on tele still. Dr Pardo does not want Pt on Tele. ICU informed. Pt lying in bed w/ no pain. Nausea present. Call light in reach. Bed alarm is on.
[2018-07-29] MEDS: METOPROLOL TARTRATE 5 MG/5 ML INJ IV ×2 (13:03→23:55)
[2018-07-29] MEDS: HYDRALAZINE 20 MG/ML VIAL IV (13:10)
[2018-07-29] MEDS: diazePAM 10 MG/2 ML SYRINGE 2 MG IV (13:19)
--- NOTE | 2018-07-29 14:13 | PC.NURSE ---
Day shift: Pt monitored via tele again for IV Metoprolol dose per protocol. LARD TUB WASHER [place] reports NSR. Also Pt's spouse wanted the CLIENT SERVICES REPRESENTATIVE to leave the Pt alone at this time. She had been monitoring Pt's BP because of his HTN and recent BP of 194/110. Dr Pardo aware of this BP. Will continue to monitor. Pt also stated that he did not like the IV Valium and would not like any in the future. Call light in reach. Bed alarm on.
--- NOTE | 2018-07-29 15:40 | CM.DANOTE ---
DCP/continued: Recommend PT/OT evaluations when patient N/V under control. P: Home when stable. RADHA Laboy
--- NOTE | 2018-07-29 17:25 | PT.IPTN ---
Current Diagnoses Essential (primary) hypertension (07/29/18) Dizziness and giddiness (07/29/18) Personal history of transient ischemic attack (TIA), and cerebral infarction without residual deficits (07/29/18) Physical Therapy Treatment Note M3 PT-IP Subjective Start: 07/29/18 17:22 Freq: NEEDED Status: Active Protocol: Document 07/29/18 17:24 AB (Rec: 07/29/18 17:25 AB [id number]) Subjective Physical Therapy Visit Type Notes checked on pt and pt is asleep . spouse in room and requested not to wake pt up and to attempt PT again tomorrow.
--- NOTE | 2018-07-29 22:30 | PC.NURSE ---
Assumed care of Pt from outgoing shift. Pt uncomfortable, pt upset and does not seem to know what is going on. Pt refusing to change sheets and gown as he has vomit on them. Pt did vomit with emesis. bile and saliva. Pt states he feels better after vomiting though. Pt refused dinner. pt in room. left for a few minutes and pt was asking where she was, pt had many visitors, pt uses call light. fluids infusing, tolerating well. Pt has not been out of bed. pt reports the room spins if he opens his eyes, so he keeps them closed for the most part. later on in the shift, Pt stated he thinks he has gotten better, and now when he moves his head slowly he doesn't get dizzy, only when he moves too fast does he get dizzy and nauseous. but he has his eyes open more and a bit more talkative. Pt doesn't like to be bothered, he wants to sleep. Pt bp taken and no PRN metoprolol needed at this time. asked if pt was in any pain, or needed anything for anxiety or anything else and pt denied. pt has been taking some ice chips with help of . pt does not want to move much. refusing some care. will continue to monitor. pt bed alarm on, side rails upx3. belongings and call light within reach.
[2018-07-30] VITALS (20 sets, daily range): BP systolic 150–185; BP diastolic 88–109; PULSE 54–69; RESP 13–18; TEMP 36.7–37.2; O2SAT 94–98
[2018-07-30] MEDS: SODIUM CHLORIDE 0.9% 1,000 ML 125 ML IV ×3 (02:36→21:09)
[2018-07-30] MEDS: ONDANSETRON 4 MG/2 ML INJ IV ×3 (05:27→15:24)
[2018-07-30] MEDS: METOPROLOL TARTRATE 5 MG/5 ML INJ IV ×4 (05:30→21:55)
[2018-07-30 06:08] LABS: BUN Creatinine Ratio 22.5 (6-22); Blood Urea Nitrogen 18 mg/dL (9-20); Calcium 8.4 mg/dL (8.4-10.2); Carbon Dioxide 26 mmol/L (22-32); Chloride 104 mmol/L (98-107); Estimated Glomerular Filt Rate > 60.0 mL/min (>60); Glucose 115 mg/dL (80-110); HEMOLYSIS < 15 (0-50); Potassium 3.8 mmol/L (3.4-5.1); Sodium 138 mmol/L (137-145)
--- NOTE | 2018-07-30 06:39 | PC.NURSE ---
Nausea continues t/o shift, no emesis. PRN Zofran given x2. Pt states dizziness is little better. Mainly stays still w/ eyes closed, reluctant to move. Pt states nausea/dizziness aggrivated w/movement. Pt refuses to have bed linen changed at this time stating he just had the whole bed changed earlier in the day. Previous shift reports emesis on bottom sheet, pt aware but declines any interventions at this point stating he is finally comfortable. BP remains high t/o shift w/ PRN Metoprolol given x2. This am BP was 172/109, IVP Metoprolol given and recheck BP 173/102. paged and order obtained for IVP Hydralazine Q6hrs for SBP >160. Pharmacy took approx 30min to verify new rx, BP reassessed prior to administration w/ BP now 105/91, dose did not end up being given d/t SBP not >160. Pt slept most of shift, cooperative.
[2018-07-30] MEDS: ENOXAPARIN 40 MG/0.4 ML SYRINGE SUBCUT ×2 (09:00→09:09)
[2018-07-30] MEDS: LISINOPRIL 20 MG TABLET PO (09:09)
[2018-07-30] MEDS: MECLIZINE HCL 12.5 MG TABLET 25 MG PO ×2 (10:33→15:28)
--- NOTE | 2018-07-30 10:33 | P.PN_ITS ---
Subjective Date Patient Seen: 07/30/18 Interval history: Patient feels better today but still has nausea with head movement. He has had dry heaves, and vomiting water. He denies heart burn, vomiting blood or abdominal pain. He denies headache Exam Vital Signs (past 8 hours): - 07/30/18 05:35 07/30/18 05:55 07/30/18 06:30 Temperature 98.5 F Pulse Rate 69 54 L 59 L Respiratory Rate 18 14 14 Blood Pressure 172/109 H 173/102 H 150/91 H Pulse Oximetry 97 96 96 07/30/18 07:00 07/30/18 08:30 07/30/18 09:55 Temperature 98.4 F Pulse Rate 62 Respiratory Rate 16 Blood Pressure 181/96 H 157/108 H Pulse Oximetry 97 97 07/30/18 10:00 Temperature Pulse Rate Respiratory Rate Blood Pressure 176/97 H Pulse Oximetry Oxygen Delivery Method Room Air Oxygen Flow Rate 0 Narrative Exam Narrative: Laying flat and in no acute distress Face: flushed Lungs: clear to auscultation CV: RRR nl Sl S2 ABd: Soft/ non tender/ Non distended Ext: no edema Neuro Exam: unchanged Objective Labs Result Diagrams: 07/28/18 22:33 07/30/18 05:55 Labs: Laboratory Results - last 24 hr 07/30/18 05:55 Sodium 138 Potassium 3.8 Chloride 104 Carbon Dioxide 26 BUN 18 Creatinine 0.80 Estimated GFR > 60.0 BUN/Creatinine Ratio 22.5 H Glucose 115 H Calcium 8.4 Assessment & Plan (1) Vertigo: Problem details: Suspect, this is related to his recent CVA. Will continue IV hydration, anti nausea medications. Will start meclizine, add valium If symptoms persist, repeat Head MRI Current visit: Yes Status: Acute (2) History of cardioembolic cerebrovascular accident (CVA): Problem details: Continue ASA, Statin, PT/OT consultation Current visit: Yes Status: Acute (3) Hypertension: Problem details: Increase lisinopril to 20 mg daily Qualifiers: Hypertension type: unspecified Qualified Code(s): I10 - Essential ( primary) hypertension Current visit: Yes Status: Acute (4) Nausea & vomiting: Problem details: Add Compazine, D/C Ativan and will follow Qualifiers: Vomiting Intractability: non-intractable Vomiting type: unspecified Qualified Code(s): R11.2 - Nausea with vomiting, unspecified Current visit: Yes Status: Acute
[2018-07-30] MEDS: FAMOTIDINE 20 MG/50 ML PIGGYBACK 200 MG IV (11:41)
[2018-07-30] MEDS: HYDRALAZINE 20 MG/ML VIAL 10 MG IV ×2 (12:12→21:54)
[2018-07-30] MEDS: ASPIRIN EC 81 MG TABLET PO (12:13)
--- NOTE | 2018-07-30 12:52 | PT.IPTN ---
Current Diagnoses Essential (primary) hypertension (07/30/18) Nausea with vomiting, unspecified (07/30/18) Dizziness and giddiness (07/30/18) Personal history of transient ischemic attack (TIA), and cerebral infarction without residual deficits (07/30/18) Physical Therapy Treatment Note M3 PT-IP Subjective Start: 07/29/18 17:22 Freq: NEEDED Status: Active Protocol: Document 07/30/18 12:51 AB (Rec: 07/30/18 12:52 AB [id number]) Subjective Physical Therapy Visit Type Notes checked with nursing and pt on hold for the morning. stated that pt's BP is still high : 178/98 at 1122 am. pt is also anxious and continues to c/o dizziness and nurse just gave pt meclizine. will check again this afternoon.
--- NOTE | 2018-07-30 13:23 | PC.NURSE ---
Addendum entered by Ashlie Chaudhry R.N. 07/30/18 13:57: DR. GRAY CLARIFIED, THAT IN LIGHT OF PATIENT BEGINNING TO IMPROVE, WILL DELAY MRI AND MONITOR FOR CONTINUED IMPROVEMENT. OKAY FOR PATIENT TO PARTICIPATE WITH PHYSICAL THERAPY/OT WITH SBP'S IN 170'S RANGE. Original Note: SHIFT NOTE: BP: DR. GRAY NOTIFIED SBP'S CONTINUE TO RUN 170'S RANGE DESPITE PO LISINOPRIL AND PRN IV ANTI-HYPERTENSIVES. ASKED IF ADDING ANOTHER ORAL ANTI-HYPERTENSIVE WOULD BE APPROPRIATE. LET'S JUST WATCH THE BLOOD PRESSURE FOR NOW, WAS RESPONSE. DR. GRAY HAD DISCUSSED REPEAT MRI TODAY WITH PATIENT AND THIS RN. NOTIFIED DR. GRAY THAT THE ORDER HAD NOT BEEN ENTERED THIS AM. THAT'S BECAUSE I DIDN'T ORDER IT. WHEN ASKED IF SHE HAD CHANGED HER MIND, RESPONDS YES.
--- NOTE | 2018-07-30 14:55 | OT.IP.EVAL ---
Current Diagnoses Essential (primary) hypertension (07/30/18) Nausea with vomiting, unspecified (07/30/18) Dizziness and giddiness (07/30/18) Personal history of transient ischemic attack (TIA), and cerebral infarction without residual deficits (07/30/18) Past Medical History (Last Reviewed 07/28/18 @ 23:08 by Kevyn Fleming DO) CVA (cerebral vascular accident) (Acute) Hypertension (Acute) Patient denies medical problems (Inactive) Surgical History (Last Reviewed 07/28/18 @ 23:08 by Kevyn Fleming DO) H/O knee surgery (Acute) Occupational Therapy Inpatient Evaluation/Re-Eval M1 PT/OT-IP Prior Functional Status Start: 07/29/18 17:22 Freq: NEEDED Status: Active Protocol: Document 07/30/18 14:55 PJBeau (Rec: 07/30/18 16:34 ROSI [id number]) Medical Review Prior Functional Status Medical History Reviewed Yes Diet/Fluid Consistency Regular Communication WNL, no speech/language impairment documented from previous stroke on 07/25/18 Mobility and Gait Pt indep with all mobility without a device prior to stroke on 07/25/18. Since then pt has been using FWW for gait and quad cane and railing on stairs. 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 She can provide 24 hr assist at d/c PRN. Social History Household Members spouse Living Arrangements Mobile home Number of Floors (Floors) One Floor Number of Stairs To Enter/Railing? 3+3 stairs to enter with R ascending rail on first set of steps and R post on second set. Home Environment Standard Height Toilet Tub/Shower Tub/Shower Doors Home Equipment Front Wheel Walker Quad Cane Employment Status Self-Employed M2 OT-IP Current Condition Start: 07/30/18 15:53 Freq: Status: Active Protocol: Document 07/30/18 14:55 PJM (Rec: 07/30/18 16:34 PJ [id number]) Occupational Therapy Current Condition Current Condition Evaluation Date 07/30/18 Treatment Diagnosis RUE>RLE weakness, mobility, now severe vertigo, N/V s/p L stroke 07/25 Diagnosis Onset Date 07/25/18 globus pallidus stroke with sudden onset vertigo, N/ V 07/29 Post Operative Precautions Other Precautions Keep systolic BP <160, vertigo , high fall risk M3 OT- IP Subjective and Pain Start: 07/30/18 15:53 Freq: Status: Active Protocol: Document 07/30/18 14:55 PJM (Rec: 07/30/18 16:34 PJ [id number]) OT- Subjective Occupational Therapy Visit Type Type Initial Evaluation Visit Start Time 15:05 Visit Stop Time 14:55 Total Visit Minutes 55 Notes RN checked with Dr Pardo and pt 's latest BP 151/95 so okay to proceed with out of bed activity per MD/RN. RN assisted with transfer to chair to manage IV pole Occupational Therapy Visit Comments Patient Comments 'I don't know if I can do this . Patient/Caregiver Goals to get stronger and go home OT Pain Assessment Pain When Pain Assessed After Treatment Pain Present Pain Present Denied Pain M4 OT- IP ADL's Start: 07/30/18 15:53 Freq: Status: Active Protocol: Document 07/30/18 14:55 PJM (Rec: 07/30/18 16:34 PJ [id number]) OT JOA-Mgck-Svyvazl General Evaluation Diet Level for Self-Feeding general Comments OT Self-Feeding Comments Pt declining any solid food at present due to severe nausea, can drink from cup with L hand. Pt using non dominant L hand for self feeding due to RUE/hand weakness/ incoordination. OT ADL-Grooming General Evaluation Grooming Ability Standby Assistance Areas Needing Assistance Face Washing Comments OT Grooming Comments using L hand after set up in chair, fair thoroughness OT ADL-Oral Care Comments Oral Care Comments did not occur this session OT ADL-Dressing General Eval Upper Body Dressing Ability Maximum Assistance Lower Body Dressing Ability Total Assistance Areas Needing Assistance Socks Comments OT Dressing Comments Pt max assist with gown change EOB. Total assist with lower body dressing due to severe vertigo. OT ADL-Toileting General Evaluation Toileting Ability Standby Assistance Devices Toileting Assistive Devices Urinal Comments OT Toileting Comments in bed OT ADL-Bathing Comments OT Bathing Comments did not occur M5 OT- IP IADL's Start: 07/30/18 15:53 Freq: Status: Active Protocol: Document 07/30/18 14:55 PJM (Rec: 07/30/18 16:34 [facility] [id number]) OT-Instrumental Activities of Daily Living Deficits IADL Deficits Identified Deficits Home Safety Awareness Awareness of Need for Assistance at Home Good Awareness Ability to Problem Solve Emergency Able to Problem Solve Situations Medication Management Medication Management Caregiver Provides Supervision Money Management Money Management Caregiver Provides Assistance Money Management Comments Pt unable to write with R hand due to weakness/ incoordination. Meal Preparation Meal Preparation Caregiver Provides Assist Meal Preparation Comments assists Studio Model Studio Model Caregiver Provides Assist Studio Model Comments assists Driving Driving Comments Pt unable to drive at this time due to R side weakness and severe vertigo. assists. M6 OT- IP Functional Cognition Start: 07/30/18 15:53 Freq: Status: Active Protocol: Document 07/30/18 14:55 PJM (Rec: 07/30/18 16:34 [facility] [id number]) Cognitive Factors Limiting Selfcare Function Cognitive Ability Level of Alertness Drowsy Patient Orientation Name Place Situation Attention Span Ability Unable to Focus Ability to Follow Commands Able to Follow One Step Commands Cognitive Comments Cognitive Assessment Comments Pt drowsy from anti nausea meds with slowed speed of processing noted. Difficulty focusing and with sustained attention as pt internally distracted by severe nausea and vertigo. Very anxious about getting out of bed due to vertigo. OT- Vision and Hearing OT- Hearing Assessment OT- Hearing Assessment WFL OT- Vision Assessment Visual Acuity Glasses For Reading Vision Assessment Comments Pt needs verbal cues to look up and scan environment. No nystagmus noted. No obvious visual field deficits noted. Pt unable to tolerate formal testing today due to vertigo. M7 OT- IP Mobility and Balance Start: 07/30/18 15:53 Freq: Status: Active Protocol: Document 07/30/18 14:55 PJM (Rec: 07/30/18 16:34 [facility] [id number]) OT- Bed Mobility Assessment Rolling Type of Rolling Roll to Left Level of Assistance Minimal Assistance Head of Bed Elevated Bedrails Supine to Sit Supine to Sit Assist Minimal Assistance Scooting Scooting to Edge of Bed Minimal Assistance OT-Transfer Assessment Sit to and From Stand Sit to and from Stand Minimal Assistance Transfers Transfer Ability Minimal Assistance 2 Person Assistance Use of Upper Extremities Technique Transfer Destination Chair Transfer Technique Stand Step Pivot Devices Transfer Assistive Devices Gait Belt Front Wheeled Walker Comments Mobility Comments Head of bed gradually elevated to full upright prior to coming to EOB; heavy use of R upper bedrail. Pt performs very slowly. Poor weight shifting with slow, short shuffling steps to chair. Second person assist with IV pole due to pt's severe vertigo. OT- Gait Assessment Comments Gait Ability Comments did not occur OT- Balance Assessment Sitting Balance and Reactions Static Sitting Balance Ability Fair Standing Balance and Reactions Static Standing Balance Ability Fair M8 OT- IP Objective Assessments Start: 07/30/18 15:53 Freq: Status: Active Protocol: Document 07/30/18 14:55 PJM (Rec: 07/30/18 16:34 PJM [id number]) OT Gross Range of Motion Upper Extremity Range of Motion Assessment Right Impaired ROM Impairments LUE: WNL RUE:scaption to about 120 limited by weakness/stiffness, distal AROM WFL at elbow, forearm. Wrist extension to about 30 degrees limited by weakness. Pt has full mass grasp and full MP/IP extension . Impaired isolated finger motion with pt able to oppose thumb to index and middle fingers only. OT Strength Upper Extremity Strength Assessment Right Impaired Shoulder 3/5 Elbow at least 3/5 in flexion/ extension Forearm at least 3/5 pronation/ supination Wrist 3-/5 Hand 4-/5 Hand Assayer Helper Strength Hand Dominance Right Comments Strength Comments Full MMT not completed today due to pt's nausea, vertigo. Pt's RUE strength appears improved in shoulder and hand compared to last assessment on 07/26/18. OT- Coordination Assessment Upper Extremity Finger to Nose Test Right UE Impaired Finger Tapping Test Right UE Impaired Comments Coordination Comments Pt has slow mass grasp and full release with emerging isolated finger motions, lateral pinch and opposes thumb to index and middle finger slowly. Pt using non dominant L hand for all self care tasks at present. Pt appears to have slight proximal ataxia at times. OT-Muscle Tone Assessment Muscle Tone WNL No Muscle Tone Location Right Upper Extremity Type of Tone Hypertonicity Flexor Severity of Tone Mild Berta Grade Scale Grade 1 Manifestation of Tone Fluctuation Comments Muscle Tone Comments Slowed movements noted throughout RUE/hand but no hyperactive stretch reflex elicited in flexor muscle groups this session OT Sensation Assessment Location Right Upper Extremity Light Touch Intact/Normal Proprioception (Position) Intact/Normal Tactile Localization Intact/Normal M9 OT- IP Assessment and Plan Start: 07/30/18 15:53 Freq: Status: Active Protocol: Document 07/30/18 14:55 PJBeau (Rec: 07/30/18 16:34 PJM [id number]) OT Summary Assessment and Plan Potential Rehabilitation Potential Excellent Analytic Complexity at Evaluation Moderate Summary OT Impairments Strength Balance Coordination Tone Functional Mobility Self-Feeding Grooming Dressing Toileting Bathing Toilet Transfers Shower Transfers Assessment Summary Moderate complexity OT assessment completed on this 62 yr old man admitted 07/25/18 with new L globus pallidus stroke with RUE >RLE weakness. Pt d/c'd home 07/27/18 and spent ~28 hrs at home per when he was readmitted with sudden onset of severe nausea/ vomiting and vertigo on 07/29/18. Pt found to be hypertensive. Repeat head CT negative. MRI not ordered as yet. Dr Pardo approved out of bed activity this afternoon when latest BP was 151/95. Pt presents today with severely impaired mobility due to ongoing nausea, vertigo but no vomiting this session. Pt needing min assist for very slow progression out of bed with head of bed fully upright and heavy use of bedrail. Pt min assist for shuffling small steps to recliner; unable to ambulate due to severe vertigo . RN present in room to assist PRN. Nausea and vertigo causing significant functional impairment with all self care tasks including standing grooming, dressing, bathing and toileting. RUE weakness still evident but appears improved compared to last assessment on 07/26; however, pt still using non dominant L hand for all self care tasks. 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 Goals Self-Feeding Goal Independent Grooming Goal Independent Dressing Goal Independent Toileting Goal Independent Bathing Goal Standby Assistance Grab Bars Hand Held Shower Sprayer Toilet Transfer Goal Independent Shower Transfer Goal Standby Assistance Tub/Shower Combination Shower Chair OT-Other Goals Pt to use R hand as assist with self care tasks 50% of the time. Pt to perform RUE strengthening/dexterity exercises with min verbal cues . Days to Meet Goals 10 Frequency of Treatment Frequency Of Treatment Once a Day Treatment Plan OT Treatment Plan ADL Training Functional Mobility Neuromuscular Re-education Therapeutic Exercises Patient/Family Education Discharge Planning Discharge Recommendations OT Discharge Recommendations Acute Rehab Home Equipment Needs shower seat with back
--- NOTE | 2018-07-30 15:40 | PT.IIE ---
Current Diagnoses Essential (primary) hypertension (07/30/18) Nausea with vomiting, unspecified (07/30/18) Dizziness and giddiness (07/30/18) Personal history of transient ischemic attack (TIA), and cerebral infarction without residual deficits (07/30/18) Surgical History (Last Reviewed 07/28/18 @ 23:08 by Kevyn Fleming DO) H/O knee surgery (Acute) Medical History (Last Reviewed 07/28/18 @ 23:08 by Kevyn Fleming DO) CVA (cerebral vascular accident) (Acute) Hypertension (Acute) Patient denies medical problems (Inactive) Physical Therapy Inpatient Evaluation/Re-Eval M1 PT/OT-IP Prior Functional Status Start: 07/29/18 17:22 Freq: NEEDED Status: Active Protocol: Document 07/30/18 15:40 AB (Rec: 07/30/18 16:54 AB [id number]) Medical Review Prior Functional Status Medical History Reviewed Yes Communication able to make needs known Mobility and Gait pt was just admitted here in the hospital for CVA. spouse stated that he was just home for ~ 28 hours and has c/o dizziness and nausea and has to be admitted back here to the hospital. pt during that time was able to ambulate using a FWW mod I. prior to CVA, pt was independent with all mobilities and ambulation without AD. Social History Household Members spouse Living Arrangements Mobile home Number of Floors (Floors) One Floor Number of Stairs To Enter/Railing? 3 steps with R rail ascending + 3 steps with R pole; pt uses quad cane on L side to assist with stairs. Home Environment Standard Height Toilet Tub/Shower Home Equipment Front Wheel Walker Quad Cane Hand Held Shower Employment Status Self-Employed M2 PT-IP Current Condition Start: 07/29/18 17:22 Freq: NEEDED Status: Active Protocol: Document 07/30/18 15:40 AB (Rec: 07/30/18 16:54 AB [id number]) Physical Therapy Current Condition Current Condition Evaluation Date 07/30/18 Treatment Diagnosis vertigo/nausea/vomiting; difficulty in walking Onset Date 07/29/18 Precautions Other Precautions BP M3 PT-IP Subjective Start: 07/29/18 17:22 Freq: NEEDED Status: Active Protocol: Document 07/30/18 15:40 AB (Rec: 07/30/18 16:54 AB [id number]) Subjective Physical Therapy Visit Type Type Initial Evaluation Visit Start Time 15:40 Visit Stop Time 16:07 Total Visit Minutes 27 Number of ENVIRONMENTAL HEALTH NURSE Visits 0 Physical Therapy Visit Comments Patient Comments i still feel dizzy and nauseated but i can try to do PT M4 PT-IP Mobility and Gait Start: 07/29/18 17:22 Freq: NEEDED Status: Active Protocol: Document 07/30/18 15:40 AB (Rec: 07/30/18 16:54 AB [id number]) PT-Transfer Assessment Sit to and From Stand Sit to and from Stand Moderate Assistance 1 Person Assistance Use of Upper Extremities Equipment Transfer Assistive Device Gait Belt Front Wheeled Walker Orthotic/Prosthetic Devices or Brace: No Comments Mobility Comments pt sitting up on chair and willing to do PT. pt initially has 161/107 BP. checked on pt again after ~ 1 hour and stated that the nurse just gave him another BP medication. BP checked: 168/ 93. pt willing to try to do PT. pt completed sit to stand from chair mod A and cues and pt was able to stand with min A. c/o increase dizziness . pt stood for ~ 15 sec and ambulated in room for ~ 8 ft using FWW mod A and cues. pt sat back on chair and c/o increase dizziness. BP checked : 131/101. positioned pt on chair and unable to tolerate much activity with c/o increase nausea. BP checked again: 185/93. pt wanted to sit up on chair and agreed to ask for assistance if needed. chair alarm on. call light and table placed within reach. bed mobility not assessed due to pt's decrease activity tolerance and unable to do further PT and pt requested to stay up on chair. Gait Assessment Gait Gait Assistance Required: Moderate Assistance Distance (Feet) 8 Able to Maintain Weight Bearing Status Yes During Gait Assistive Devices Assistive Device Gait Belt Front Wheeled Walker Orthotic/Prosthetic Devices or Brace: No Gait Deviations General Gait Pattern Decreased Stride Length Decreased Feet Clearance Factors Limiting Gait Function Factors Limiting Gait Function Decreased Activity Tolerance Decreased Strength Limited Range of Motion Poor Balance Poor Safety Awareness M5 PT-IP Objective Assessments Start: 07/29/18 17:22 Freq: NEEDED Status: Active Protocol: Document 07/30/18 15:40 AB (Rec: 07/30/18 16:54 AB [id number]) Orientation Orientation/Cognition Level of Alertness Alert Orientation Name Age Birthday Month Date Year Day of Week Place Situation Gross Range of Motion Lower Extremity ROM Assessment Within Functional Limits Strength Lower Extremity Strength Assessment Bilaterally Impaired Hip 4-/5 Knee 4-/5 M6 PT-IP Treatment Start: 07/29/18 17:22 Freq: NEEDED Status: Active Protocol: Document 07/30/18 15:40 AB (Rec: 07/30/18 16:54 AB [id number]) Physical Therapy Treatment Education Education Provided Safety M7 PT-IP Assessment and Plan Start: 07/29/18 17:22 Freq: NEEDED Status: Active Protocol: Document 07/30/18 15:40 AB (Rec: 07/30/18 16:54 AB [id number]) PT Summary Assessment and Plan Potential Rehabilitation Potential Fair Status of Condition at Evaluation Evolving Summary Impairments Pain ROM Strength Balance Coordination Sensation Tone Cognition Bed Mobility Transfers Gait Activity Tolerance Assessment Summary pt with limited activity tolerance and fluctuating BP affecting function and continues to c/o dizziness and nausea. will continue to assess pt for d/c plan but at this time requires assistance with all tasks and unable to tolerate much activity and may require SNF rehab. Goals Bed Mobility Goal Standby Assistance Transfer Goal Standby Assistance Gait Goal Standby Assistance Gait Distance 150 Other Goals up/down 3+3 with R rail and/or quad cane Days to Meet Goals 5 Frequency of Treatment Frequency Of Treatment Once a Day Treatment Plan Physical Therapy Treatment Plan Bed Mobility Training Transfer Training Gait Training Therapeutic Exercise Balance Retraining Discharge Planning Hot or Cold Pack Neuromuscular Re-ed Coordination Retraining Manual Therapy Recommendations To Nursing Amount of Assist Needed 1 Person Assist Discharge Recommendations PT Discharge Recommendations SNF Rehab
--- NOTE | 2018-07-30 19:47 | PC.NURSE ---
PATIENT MOVED TO ROOM 211
--- NOTE | 2018-07-30 22:34 | PC.NURSE ---
PATIENT HAD NO NAUSEA/VOMITING THIS SHIFT. WAS ABLE TO GET SOME SLEEP.BP REMAINS ELEVATED AT TIME, MEDICATION PER ORDERS
[2018-07-31] VITALS (14 sets, daily range): BP systolic 150–185; BP diastolic 84–98; PULSE 57–77; RESP 16–20; TEMP 36.6–37.2; O2SAT 94–98
[2018-07-31] MEDS: FAMOTIDINE 20 MG/50 ML PIGGYBACK 200 MG IV ×3 (00:18→23:40)
[2018-07-31] MEDS: MECLIZINE HCL 12.5 MG TABLET 25 MG PO ×4 (00:28→23:40)
[2018-07-31] MEDS: METOPROLOL TARTRATE 5 MG/5 ML INJ IV ×4 (00:28→23:40)
--- NOTE | 2018-07-31 00:42 | PC.NURSE ---
Addendum entered by Julieth Chase R.N. 07/31/18 06:21: Has been repositioning himself during the night. Using urinal independently and has had good UOP. Continues to deny pain. States he feels less dizzy this morning and denies nausea. Original Note: Patient is alert and oriented but has right extremity weakness related to recent CVA; also has some slurring of speech but is minimal and patient is very understandable. Breath sounds are CTA with RA sat of 98%. HRR. BP elevated at 185/98 so medicated with IV Metoprolol. Still with some dizziness so medicated with Meclizine; denies nausea. BT present and abdomen is soft. Denies dysuria, frequency, urgency or incontinence; voiding per urinal. States he is able to turn himself. Denies pain. Fall risk score is high and bed alarm is activated.
[2018-07-31] MEDS: SODIUM CHLORIDE 0.9% 1,000 ML 125 ML IV ×2 (02:24→10:47)
[2018-07-31] MEDS: LISINOPRIL 20 MG TABLET PO (08:12)
[2018-07-31] MEDS: ONDANSETRON 4 MG/2 ML INJ IV (08:12)
[2018-07-31] MEDS: ASPIRIN EC 81 MG TABLET PO (08:12)
[2018-07-31] MEDS: ENOXAPARIN 40 MG/0.4 ML SYRINGE SUBCUT (08:12)
[2018-07-31] MEDS: HYDRALAZINE 20 MG/ML VIAL 10 MG IV (10:08)
--- NOTE | 2018-07-31 10:41 | OT.IP.TRT ---
Current Diagnoses Essential (primary) hypertension (07/30/18) Nausea with vomiting, unspecified (07/30/18) Dizziness and giddiness (07/30/18) Personal history of transient ischemic attack (TIA), and cerebral infarction without residual deficits (07/30/18) Occupational Therapy Treatment Note M2 OT-IP Current Condition Start: 07/30/18 15:53 Freq: Status: Active Protocol: Document 07/30/18 14:55 PJM (Rec: 07/30/18 16:34 PJM [id number]) Occupational Therapy Current Condition Current Condition Evaluation Date 07/30/18 Treatment Diagnosis RUE>RLE weakness, mobility, now severe vertigo, N/V s/p L stroke 07/25 Diagnosis Onset Date 07/25/18 globus pallidus stroke with sudden onset vertigo, N/ V 07/29 Post Operative Precautions Other Precautions Keep systolic BP <160, vertiog , high fall risk M3 OT- IP Subjective and Pain Start: 07/30/18 15:53 Freq: Status: Active Protocol: Document 07/31/18 10:41 PJM (Rec: 07/31/18 16:59 PJM [email or web address]) OT- Subjective Occupational Therapy Visit Type Type Treatment Note Visit Start Time 09:50 Visit Stop Time 10:41 Total Visit Minutes [address] Pardo, pt can be seen for activity with systolic BP in 170's and diastolic in 90's . Occupational Therapy Visit Comments Patient Comments 'I am feeling better today. I ate some breakfast! OT Pain Assessment Pain When Pain Assessed After Treatment Pain Present Pain Present Denied Pain M4 OT- IP ADL's Start: 07/30/18 15:53 Freq: Status: Active Protocol: Document 07/31/18 10:41 PJM (Rec: 07/31/18 16:59 PJ [id number]) OT [id number]-[id number] General Evaluation Diet Level for Self-Feeding general Self-Feeding Ability Independent Comments OT Self-Feeding Comments pt using non dominant L hand for utensil use; pat able to drink from open cup with R hand today. OT ADL-Grooming General Evaluation Grooming Ability Standby Assistance Areas Needing Assistance Retrieving/Set-up of Grooming Items Applying Deodorant Combing/Brushing Hair Face Washing Comments OT Grooming Comments pt using R hand for face washing and 50% of hair combing, seated in chair OT ADL-Oral Care General Eval Oral Care Ability Standby Assistance Areas of Assistance Retrieving/Set-Up of Items Devices Oral Care Devices Toothbrush Comments Oral Care Comments pt using L hand for toothbrush use; B hand for set up and opening and closing toothpaste OT ADL-Dressing General Eval Upper Body Dressing Ability Minimal Assistance Comments OT Dressing Comments with gown due to IV OT ADL-Toileting Comments OT Toileting Comments did not occur this session OT ADL-Bathing Bathing Type Bathing Type Sponge Bath General Evaluation Bathing Ability Minimal Assistance Areas Needing Assistance Retrieving/Setting Up Items Wash/Dry Back Devices Bathing Equipment Rinse Free Shampoo Cap Comments OT Bathing Comments Pt seen for seated upper body sponge bath in chair using R hand about 50% of the time. M7 OT- IP Mobility and Balance Start: 07/30/18 15:53 Freq: Status: Active Protocol: Document 07/31/18 10:41 PJM (Rec: 07/31/18 17:00 PJ [id number]) OT- Bed Mobility Assessment Rolling Type of Rolling Roll to Right Level of Assistance Standby Assistance Head of Bed Elevated Supine to Sit Supine to Sit Assist Standby Assistance Scooting Scooting to Edge of Bed Standby Assistance OT-Transfer Assessment Sit to and From Stand Sit to and from Stand Contact Guard Assistance 1 Person Assistance Transfers Transfer Ability Contact Guard Assistance 1 Person Assistance Technique Transfer Destination Chair Transfer Technique Stand Step Pivot Devices Transfer Assistive Devices Gait Belt Front Wheeled Walker Comments Mobility Comments Improved balance, faster movements with less dizziness today. M8 OT- IP Objective Assessments Start: 07/30/18 15:53 Freq: Status: Active Protocol: Document 07/31/18 10:41 PJM (Rec: 07/31/18 16:59 PJ [id number]) OT Gross Range of Motion Upper Extremity Range of Motion Assessment Right Impaired ROM Impairments RUE lag noted during BUE movements with mild proximal ataxia/dysmetria OT- Coordination Assessment Comments Coordination Comments Pt using R hand about 50% this session. Slow finger movements especially with release of objects. Pt able to pickup toothpaste cap with R hand using pad to pad prehension. Pt can oppose thumb to all fingers except 5th today. OT-Muscle Tone Assessment Muscle Tone Location Right Upper Extremity Manifestation of Tone Ataxia M9 OT- IP Assessment and Plan Start: 07/30/18 15:53 Freq: Status: Active Protocol: Document 07/31/18 10:41 PJBeau (Rec: 07/31/18 16:59 PJM [id number]) OT Summary Assessment and Plan Summary OT Impairments Strength Balance Coordination Tone Functional Mobility Self-Feeding Grooming Dressing Toileting Bathing Toilet Transfers Shower Transfers Progress Towards Goals Progressing Toward Goals Assessment Summary Pt making good daily progress with dizziness and nausea much improved today, no vomiting this session. Pt able to eat some breakfast. Pt's BP 177/96 in supine, 181/92 in chair with RN in to give IV meds for HTN. BP down to 150/89 after min. Pt's R hand functional use improved today with 50% use during self care tasks. Upgraded goal. Note mild proximal ataxia/ dysmetria in RUE. Pt is excellent candidate for acute in pt rehab facility from OT standpoint, but currently has no health insurance per chart notes. Goals Self-Feeding Goal Independent Grooming Goal Independent Dressing Goal Independent Toileting Goal Independent Bathing Goal Standby Assistance Grab Bars Hand Held Shower Sprayer Toilet Transfer Goal Independent Shower Transfer Goal Standby Assistance Tub/Shower Combination Shower Chair Patient/Caregiver Education Goal Caregiver Independent Assisting Patient OT-Other Goals Pt to use R hand dominantly with self care tasks 75% of the time. Pt to perform RUE strengthening/dexterity exercises with min verbal cues . Frequency of Treatment Frequency Of Treatment Twice a Day Treatment Plan OT Treatment Plan ADL Training Functional Mobility Neuromuscular Re-education Therapeutic Exercises Patient/Family Education Discharge Planning Discharge Recommendations OT Discharge Recommendations Acute Rehab Home Equipment Needs shower seat with back
--- NOTE | 2018-07-31 11:36 | PT.IPTN ---
Current Diagnoses Essential (primary) hypertension (07/30/18) Nausea with vomiting, unspecified (07/30/18) Dizziness and giddiness (07/30/18) Personal history of transient ischemic attack (TIA), and cerebral infarction without residual deficits (07/30/18) Physical Therapy Treatment Note M2 PT-IP Current Condition Start: 07/29/18 17:22 Freq: NEEDED Status: Active Protocol: Document 07/30/18 15:40 AB (Rec: 07/30/18 16:54 AB [id number]) Physical Therapy Current Condition Current Condition Evaluation Date 07/30/18 Treatment Diagnosis vertigo/nausea/vomiting; difficulty in walking Onset Date 07/29/18 Precautions Other Precautions BP M3 PT-IP Subjective Start: 07/29/18 17:22 Freq: NEEDED Status: Active Protocol: Document 07/31/18 11:23 GGD (Rec: 07/31/18 11:36 GGD [email or web address]) Subjective Physical Therapy Visit Type Type Treatment Note Visit Start Time 11:00 Visit Stop Time 11:20 Total Visit Minutes 20 Physical Therapy Visit Comments Patient Comments Pt states he feeling a little better. M4 PT-IP Mobility and Gait Start: 07/29/18 17:22 Freq: NEEDED Status: Active Protocol: Document 07/31/18 11:23 GGD (Rec: 07/31/18 11:36 GGD [email or web address]) PT-Transfer Assessment Sit to and From Stand Sit to and from Stand Minimal Assistance 1 Person Assistance Use of Upper Extremities Equipment Transfer Assistive Device Gait Belt Front Wheeled Walker Transfers Transfer Destination Bed Comments Mobility Comments Pt in sitting 164/92, supine after activity 160/87 Gait Assessment Gait Gait Assistance Required: Contact Guard Assist Minimum Assistance 1 Person Assist Distance (Feet) 15 Assistive Devices Assistive Device Gait Belt Front Wheeled Walker Gait Deviations General Gait Pattern Decreased Stride Length Decreased Feet Clearance Factors Limiting Gait Function Factors Limiting Gait Function Decreased Activity Tolerance Decreased Strength Limited Range of Motion Poor Balance Poor Safety Awareness Comments Gait Comments Pt had LOB to the left and large weight shift with gait. M5 PT-IP Objective Assessments Start: 07/29/18 17:22 Freq: NEEDED Status: Active Protocol: Document 07/30/18 15:40 AB (Rec: 07/30/18 16:54 AB [id number]) Orientation Orientation/Cognition Level of Alertness Alert Orientation Name Age Birthday Month Date Year Day of Week Place Situation Gross Range of Motion Lower Extremity ROM Assessment Within Functional Limits Strength Lower Extremity Strength Assessment Bilaterally Impaired Hip 4-/5 Knee 4-/5 M6 PT-IP Treatment Start: 07/29/18 17:22 Freq: NEEDED Status: Active Protocol: Document 07/30/18 15:40 AB (Rec: 07/30/18 16:54 AB [id number]) Physical Therapy Treatment Education Education Provided Safety M7 PT-IP Assessment and Plan Start: 07/29/18 17:22 Freq: NEEDED Status: Active Protocol: Document 07/31/18 11:23 GGD (Rec: 07/31/18 11:36 GGD [email or web address]) PT Summary Assessment and Plan Summary Assessment Summary Pt was able to progress gait distance, but had increase in dizziness. He had LOB with turns and was unsteady with gait. Frequency of Treatment Frequency Of Treatment Once a Day Recommendations To Nursing Amount of Assist Needed 1 Person Assist Discharge Recommendations PT Discharge Recommendations SNF Rehab
--- NOTE | 2018-07-31 14:30 | P.PN_ITS ---
Subjective Date Patient Seen: 07/31/18 Interval history: Still nauseated with head movement but overall better. He was able to sit up yesterday. Today he tried food and overall feels better Exam Vital Signs (past 8 hours): - 07/31/18 07:00 07/31/18 07:30 07/31/18 10:08 Temperature 98.1 F Pulse Rate 61 62 Respiratory Rate 16 Blood Pressure 167/94 H 181/92 H Pulse Oximetry 97 97 07/31/18 10:11 Temperature Pulse Rate 62 Respiratory Rate Blood Pressure 181/92 H Pulse Oximetry Oxygen Delivery Method Room Air Oxygen Flow Rate 0 Narrative Exam Narrative: Awake and Alert in No Acute Distress HEENT: NC/ AT, EOMI Oropharynx clear Lungs: Clear to auscultation CV: RRR nl S1S2 ABD: Soft/non tender Ext: no edema Objective Labs Result Diagrams: 07/28/18 22:33 07/30/18 05:55 Assessment & Plan (1) Vertigo: Problem details: Suspect, this is related to his recent CVA. Will continue IV hydration, anti nausea medications. Will start meclizine, add valium COntinue current management Current visit: Yes Status: Acute (2) History of cardioembolic cerebrovascular accident (CVA): Problem details: Continue ASA, Statin, PT/OT consultation Current visit: Yes Status: Acute (3) Hypertension: Problem details: Increase lisinopril to 20 mg daily Will add HCTZ Qualifiers: Hypertension type: unspecified Qualified Code(s): I10 - Essential ( primary) hypertension Current visit: Yes Status: Acute (4) Nausea & vomiting: Problem details: Add Compazine, D/C Ativan and will follow Qualifiers: Vomiting Intractability: non-intractable Vomiting type: unspecified Qualified Code(s): R11.2 - Nausea with vomiting, unspecified Current visit: Yes Status: Acute (5) Malignant hypertension: Problem details: Patient has markedly elevated blood pressure. Will give lebatolol of 10 mg for SBP greater than 210 or Diastolic greater than 110. Patient will be started on lisinopril as well. Current visit: No Status: Acute Plan: Assessment/Plan Narrative: Heplock IV, continue current treatment plan
--- NOTE | 2018-07-31 14:45 | OT.IP.TRT ---
Current Diagnoses Essential (primary) hypertension (07/30/18) Nausea with vomiting, unspecified (07/30/18) Dizziness and giddiness (07/30/18) Personal history of transient ischemic attack (TIA), and cerebral infarction without residual deficits (07/30/18) Occupational Therapy Treatment Note M2 OT-IP Current Condition Start: 07/30/18 15:53 Freq: Status: Active Protocol: Document 07/30/18 14:55 PJM (Rec: 07/30/18 16:34 PJM [id number]) Occupational Therapy Current Condition Current Condition Evaluation Date 07/30/18 Treatment Diagnosis RUE>RLE weakness, mobility, now severe vertigo, N/V s/p L stroke 07/25 Diagnosis Onset Date 07/25/18 globus pallidus stroke with sudden onset vertigo, N/ V 07/29 Post Operative Precautions Other Precautions Keep systolic BP <160, vertiog , high fall risk M3 OT- IP Subjective and Pain Start: 07/30/18 15:53 Freq: Status: Active Protocol: Document 07/31/18 14:45 PJM (Rec: 07/31/18 17:19 PJM [email or web address]) OT- Subjective Occupational Therapy Visit Type Type Treatment Note Visit Start Time 14:35 Visit Stop Time 14:45 Total Visit Minutes 10 Notes Pt awake in bed, still working on eating lunch. OT Pain Assessment Pain When Pain Assessed After Treatment Pain Present Pain Present Denied Pain M8 OT- IP Objective Assessments Start: 07/30/18 15:53 Freq: Status: Active Protocol: Document 07/31/18 14:45 PJM (Rec: 07/31/18 17:19 PJM [id number]) OT Gross Range of Motion Upper Extremity Range of Motion Assessment Within Functional Limits ROM Impairments RUE lag noted during BUE. Active scaption limited to ~ 120. Distal AROM WFL but significantly slowed. OT Strength Upper Extremity Strength Assessment Right Impaired Shoulder 4-/5 flex Elbow 4/5 flex, ext Forearm 4/5 pron/supination Wrist 4-/5 extension Hand see below Hand Assistant County Attorney Strength Hand Dominance Right Right Assistant County Attorney Strength (lbs) (lbs) 38 lbs Left Assistant County Attorney Strength (lbs) (lbs) 80 Comments Strength Comments R lateral pinch: 9 lbs L lateral pinch: 22 R tip pinch: 4 L tip pich: 11 R palmar pinch: 8 L palmar pinch 12 R hand strength improving daily. Pt has full but slow finger extension and active, but imcomplete finger abd/ adduction. Pt can oppose thumb to all but 5th finger today. OT- Coordination Assessment Upper Extremity Finger to Nose Test Right UE Impaired Finger Tapping Test Right UE Impaired Comments Coordination Comments Significantly slowed gross and fine motor XAVIER's noted with proximal ataxia/dysmetria noted. OT-Muscle Tone Assessment Muscle Tone Location Right Upper Extremity Manifestation of Tone Ataxia M9 OT- IP Assessment and Plan Start: 07/30/18 15:53 Freq: Status: Active Protocol: Document 07/31/18 14:45 PJM (Rec: 07/31/18 17:19 PJM [id number]) OT Summary Assessment and Plan Summary Assessment Summary Pt's RUE/hand strength improving daily but has proximal ataxia/dysmetria with significantly impaired gross and fine coordination. Pt is R dominant. Will provide exercise program for RUE/hand strength and dexterity. Pt is excellent candidate for acute in pt rehb program from OT standpoint if coverage can be obtained. Frequency of Treatment Frequency Of Treatment Twice a Day Treatment Plan OT Treatment Plan ADL Training Functional Mobility Neuromuscular Re-education Therapeutic Exercises Patient/Family Education Discharge Planning Discharge Recommendations OT Discharge Recommendations Acute Rehab Home Equipment Needs shower seat with back, grab bars
[2018-07-31] MEDS: hydroCHLOROthiazide 12.5 MG CAPSULE PO (16:16)
[2018-07-31] MEDS: ATORVASTATIN 20 MG TABLET 80 MG PO (20:52)
[2018-07-31] MEDS: SODIUM CHLORIDE 0.9% FLUSH 10 ML IV (23:41)
[2018-08-01] VITALS (13 sets, daily range): BP systolic 153–178; BP diastolic 88–108; PULSE 58–71; RESP 16–18; TEMP 36.6–37; O2SAT 95–97
[2018-08-01] MEDS: HYDRALAZINE 20 MG/ML VIAL 10 MG IV (00:21)
[2018-08-01] MEDS: SODIUM CHLORIDE 0.9% FLUSH 10 ML IV ×4 (00:23→20:01)
--- NOTE | 2018-08-01 00:34 | PC.NURSE ---
Addendum entered by Julieth Chase R.N. 08/01/18 06:04: Last recheck on BP was 156/90 so no further Metoprolol needed at that time. Currently sleeping. Has denied any pain. Original Note: Addendum entered by Julieth Chase R.N. 08/01/18 02:18: BP rechecked and now at 173/100 so medicated with Metoprolol. Patient states after he received the Hydralazine earlier he felt he had an adverse reaction to it. Reports feeling heaviness in extremities, hot spots, and changes in respirations so does not want to receive the Hydralazine again. Will report to MD in morning. Original Note: Patient is alert and oriented. Breath sounds CTA with RA sat of 97%. HRR. BP initially 169/99 so was medicated with Metoprolol and now on recheck BP 178/95 so medicated with Hydralazine. Denies nausea, but still complains of dizziness and was medicated with Meclizine earlier; states it's much better today. BT present and abdomen is soft. Passing flatus but has not had BM since 07/28 but declines prune juice and has no bowel meds ordered presently. Voiding without problems; uses urinal. Is independent with bed mobility. States he was up to chair yesterday and is still weak in right extremities but is feeling stronger. Weakness is residual from recent CVA; also has some slight slurring of speech. Denies pain. Fall risk score is high and bed alarm is activated.
[2018-08-01] MEDS: METOPROLOL TARTRATE 5 MG/5 ML INJ IV (01:58)
--- NOTE | 2018-08-01 08:32 | OT.IP.TRT ---
Current Diagnoses Essential (primary) hypertension (07/30/18) Nausea with vomiting, unspecified (07/30/18) Dizziness and giddiness (07/30/18) Personal history of transient ischemic attack (TIA), and cerebral infarction without residual deficits (07/30/18) Occupational Therapy Treatment Note M2 OT-IP Current Condition Start: 07/30/18 15:53 Freq: Status: Active Protocol: Document 07/30/18 14:55 PJM (Rec: 07/30/18 16:34 PJM [id number]) Occupational Therapy Current Condition Current Condition Evaluation Date 07/30/18 Treatment Diagnosis RUE>RLE weakness, mobility, now severe vertigo, N/V s/p L stroke 07/25 Diagnosis Onset Date 07/25/18 globus pallidus stroke with sudden onset vertigo, N/ V 07/29 Post Operative Precautions Other Precautions Keep systolic BP <160, vertiog , high fall risk M3 OT- IP Subjective and Pain Start: 07/30/18 15:53 Freq: Status: Active Protocol: Document 08/01/18 08:25 [facility] (Rec: 08/01/18 08:32 [facility] [email or web address]) OT- Subjective Occupational Therapy Visit Type Type Treatment Note Visit Start Time 08:00 Visit Stop Time 08:20 Total Visit Minutes 20 Occupational Therapy Visit Comments Patient Comments Pt states still trying to wake up for the morning. OT Pain Assessment Pain When Pain Assessed After Treatment Pain Present Pain Present Denied Pain M4 OT- IP ADL's Start: 07/30/18 15:53 Freq: Status: Active Protocol: Document 08/01/18 08:25 [facility] (Rec: 08/01/18 08:32 [facility] [email or web address]) OT [id number] General Evaluation Self-Feeding Ability Independent Moderate Assistance Comments OT Self-Feeding Comments Pt able to use left hand independently, however when using right hand having to support elbow on pillow and use of red foam to increase waistband setter/control to use spoon for yogurt. Pt needing assist for thinner textures. BP sitting with HOB up158/91. M5 OT- IP IADL's Start: 07/30/18 15:53 Freq: Status: Active Protocol: Document 07/30/18 14:55 PJM (Rec: 07/30/18 16:34 PJM [id number]) OT-Instrumental Activities of Daily Living Deficits IADL Deficits Identified Deficits Home Safety Awareness Awareness of Need for Assistance at Home Good Awareness Ability to Problem Solve Emergency Able to Problem Solve Situations Medication Management Medication Management Caregiver Provides Supervision Money Management Money Management Caregiver Provides Assistance Money Management Comments Pt unbale to write with R hand due to weakness/ incoordination. Meal Preparation Meal Preparation Caregiver Provides Assist Meal Preparation Comments assists Cadastral Surveyor Cadastral Surveyor Caregiver Provides Assist Cadastral Surveyor Comments assists Driving Driving Comments Pt unable to drive at this time due to R side weakness and severe vertigo. assists. M6 OT- IP Functional Cognition Start: 07/30/18 15:53 Freq: Status: Active Protocol: Document 08/01/18 08:25 [facility] (Rec: 08/01/18 08:32 [facility] [email or web address]) Cognitive Factors Limiting Selfcare Function Cognitive Ability Level of Alertness Alert Patient Orientation Name Place Situation Attention Span Ability Capable of Focused Attention Capable of Sustained Attention Ability to Follow Commands Able to Follow Multi-Step Commands Cognitive Comments Cognitive Assessment Comments Pt able to follow 2-3 step commands for set-up of breakfast. M7 OT- IP Mobility and Balance Start: 07/30/18 15:53 Freq: Status: Active Protocol: Document 07/31/18 10:41 PJM (Rec: 07/31/18 17:00 PJM [email or web address]) OT- Bed Mobility Assessment Rolling Type of Rolling Roll to Right Level of Assistance Standby Assistance Head of Bed Elevated Supine to Sit Supine to Sit Assist Standby Assistance Scooting Scooting to Edge of Bed Standby Assistance OT-Transfer Assessment Sit to and From Stand Sit to and from Stand Contact Guard Assistance 1 Person Assistance Transfers Transfer Ability Contact Guard Assistance 1 Person Assistance Technique Transfer Destination Chair Transfer Technique Stand Step Pivot Devices Transfer Assistive Devices Gait Belt Front Wheeled Walker Comments Mobility Comments Improved balance, faster movements with less dizziness today. M8 OT- IP Objective Assessments Start: 07/30/18 15:53 Freq: Status: Active Protocol: Document 07/31/18 14:45 PJM (Rec: 07/31/18 17:19 PJM [email or web address]) OT Gross Range of Motion Upper Extremity Range of Motion Assessment Within Functional Limits ROM Impairments RUE lag noted during BUE. Active scaption limited to ~ 120. Distal AROM wfl but slowed OT Strength Upper Extremity Strength Assessment Right Impaired Shoulder 4-/5 flex Elbow 4/5 flex, ext Forearm 4/5 pron/supination Wrist 4-/5 Hand see below Hand Academic Advisor Strength Hand Dominance Right Right Academic Advisor Strength (lbs) (lbs) 38 Left Academic Advisor Strength (lbs) (lbs) 80 Comments Strength Comments R lateral pinch: 9 L Lateral Pinch: 22 tip pinch: 4 tip pinch: 11 palmar pinch: 8 palmar pinch: 12 R hand strength improving daily. Pt has full but slow finger extension and active, but imcomplete finger abd/ adduction. Pt can oppose thumb to all but 5th finger today. OT- Coordination Assessment Upper Extremity Finger to Nose Test Right UE Impaired Finger Tapping Test Right UE Impaired Comments Coordination Comments Significantly slowed gross and fine motor XAVIER's noted with proximal ataxia/dysmetria noted. 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 Frequency of Treatment Frequency Of Treatment Twice a Day Treatment Plan OT Treatment Plan ADL Training Functional Mobility Neuromuscular Re-education Therapeutic Exercises Patient/Family Education Discharge Planning Discharge Recommendations OT Discharge Recommendations Acute Rehab Home Equipment Needs shower seat with back, grab bars
[2018-08-01] MEDS: MECLIZINE HCL 12.5 MG TABLET 25 MG PO (09:07)
[2018-08-01] MEDS: LISINOPRIL 20 MG TABLET PO (09:09)
[2018-08-01] MEDS: ASPIRIN EC 81 MG TABLET PO (09:09)
[2018-08-01] MEDS: hydroCHLOROthiazide 12.5 MG CAPSULE PO (09:09)
--- NOTE | 2018-08-01 11:04 | PT.IPTN ---
Current Diagnoses Essential (primary) hypertension (07/30/18) Nausea with vomiting, unspecified (07/30/18) Dizziness and giddiness (07/30/18) Personal history of transient ischemic attack (TIA), and cerebral infarction without residual deficits (07/30/18) Physical Therapy Treatment Note M2 PT-IP Current Condition Start: 07/29/18 17:22 Freq: NEEDED Status: Active Protocol: Document 07/30/18 15:40 AB (Rec: 07/30/18 16:54 AB [id number]) Physical Therapy Current Condition Current Condition Evaluation Date 07/30/18 Treatment Diagnosis vertigo/nausea/vomiting; difficulty in walking Onset Date 07/29/18 Precautions Other Precautions BP M3 PT-IP Subjective Start: 07/29/18 17:22 Freq: NEEDED Status: Active Protocol: Document 08/01/18 11:05 GGD (Rec: 08/01/18 12:03 GGD [id number]) Subjective Physical Therapy Visit Type Type Treatment Note Visit Start Time 10:30 Visit Stop Time 11:05 Total Visit Minutes 35 Number of EDUCATIONAL TECHNOLOGIST Visits 2 Physical Therapy Visit Comments Patient Comments Pt wants to walk more. M4 PT-IP Mobility and Gait Start: 07/29/18 17:22 Freq: NEEDED Status: Active Protocol: Document 08/01/18 11:05 GGD (Rec: 08/01/18 12:03 GGD [id number]) PT-Transfer Assessment Sit to and From Stand Sit to and from Stand Contact Guard Assistance 1 Person Assistance Use of Upper Extremities Equipment Transfer Assistive Device Gait Belt Front Wheeled Walker Orthotic/Prosthetic Devices or Brace: No Transfers Transfer Destination Toilet Transfer Ability Level of Assist Contact Guard Assistance 1 Person Assistance Use of Upper Extremities Gait Assessment Gait Gait Assistance Required: Contact Guard Assist 1 Person Assist Distance (Feet) 75 Able to Maintain Weight Bearing Status Yes During Gait Assistive Devices Assistive Device Gait Belt Front Wheeled Walker Orthotic/Prosthetic Devices or Brace: No Gait Deviations General Gait Pattern Decreased Stride Length Decreased Feet Clearance Factors Limiting Gait Function Factors Limiting Gait Function Decreased Activity Tolerance Decreased Strength Limited Range of Motion Poor Balance Poor Safety Awareness Comments Gait Comments no LOB with gait. M5 PT-IP Objective Assessments Start: 07/29/18 17:22 Freq: NEEDED Status: Active Protocol: Document 07/30/18 15:40 AB (Rec: 07/30/18 16:54 AB [id number]) Orientation Orientation/Cognition Level of Alertness Alert Orientation Name Age Birthday Month Date Year Day of Week Place Situation Gross Range of Motion Lower Extremity ROM Assessment Within Functional Limits Strength Lower Extremity Strength Assessment Bilaterally Impaired Hip 4-/5 Knee 4-/5 M6 PT-IP Treatment Start: 07/29/18 17:22 Freq: NEEDED Status: Active Protocol: Document 07/30/18 15:40 AB (Rec: 07/30/18 16:54 AB [id number]) Physical Therapy Treatment Education Education Provided Safety M7 PT-IP Assessment and Plan Start: 07/29/18 17:22 Freq: NEEDED Status: Active Protocol: Document 08/01/18 11:05 GGD (Rec: 08/01/18 12:03 GGD [id number]) PT Summary Assessment and Plan Summary Assessment Summary Pt C/O of dizziness with gait. He was able to progress his gait distance. He had no LOB, but mild unsteadiness. He had increase in unsteadiness with turns both directions. Frequency of Treatment Frequency Of Treatment Once a Day Treatment Plan Physical Therapy Treatment Plan Bed Mobility Training Transfer Training Gait Training Therapeutic Exercise Balance Retraining Discharge Planning Hot or Cold Pack Neuromuscular Re-ed Coordination Retraining Manual Therapy Recommendations To Nursing Amount of Assist Needed 1 Person Assist Discharge Recommendations PT Discharge Recommendations SNF Rehab
--- NOTE | 2018-08-01 11:11 | PM.PN.1 ---
Subjective Interval history: Patient states that he has had further vomiting since yesterday. His nausea is better. His dizziness is better. Also the strength of his upper extremity is improved. Exam Vital Signs (past 8 hours): - 08/01/18 04:00 08/01/18 07:45 08/01/18 09:22 Temperature 98.4 F 97.8 F Pulse Rate 63 58 L Respiratory Rate 18 16 Blood Pressure 156/90 H 155/108 H Pulse Oximetry 97 96 95 Oxygen Delivery Method Room Air Oxygen Flow Rate 0 Narrative Exam Narrative: General: No Acute Distress HEENT: NC/ AT, EOMI Oropharynx clear Neck: Supple without thyromegaly bruits jugular venous distention Lungs: Clear to auscultation CV: RRR nl S1S2 ABD: Soft/non tender; bowel sounds present Ext: Ef ROM, no edema Neurologic: Mild to moderate right hemiparesis left lower extremity weaker than right upper extremity. Bilateral hand grasp intact slightly weaker on the right Psychiatric: Mood and affect are normal Objective Labs Result Diagrams: 07/28/18 22:33 07/30/18 05:55 Assessment & Plan Plan: Assessment/Plan Narrative: 1. Vertigo. This is secondary to his CVA. Symptoms are improving Plan continue present management Consider scopolamine patch if his symptoms were to increase again 2. cardioembolic CVA Plan continue aspirin statin PT/OT 3. hypertension Blood pressure still less than 8 out malaise a controlled. Would like to add beta-george but with his pulse rates being on the lower side we will not add a beta-george. Will add Procardia 30 mg XL daily Continue lisinopril at 20 mg daily Continue hydrochlorothiazide At Procardia 30 mg XL daily 4. Nausea/vomiting This has improved in the past 12-24 hours. Plan continue present therapy As stated above for vertigo consider scopolamine patch if symptoms should worsen
[2018-08-01] MEDS: FAMOTIDINE 20 MG/50 ML PIGGYBACK 200 MG IV (12:58)
[2018-08-01] MEDS: NIFEdipine 30 MG TAB ER PO (13:03)
--- NOTE | 2018-08-01 15:57 | OT.IP.TRT ---
Current Diagnoses Essential (primary) hypertension (07/30/18) Nausea with vomiting, unspecified (07/30/18) Dizziness and giddiness (07/30/18) Personal history of transient ischemic attack (TIA), and cerebral infarction without residual deficits (07/30/18) Occupational Therapy Treatment Note M2 OT-IP Current Condition Start: 07/30/18 15:53 Freq: Status: Active Protocol: Document 07/30/18 14:55 PJ (Rec: 07/30/18 16:34 PJ [id number]) Occupational Therapy Current Condition Current Condition Evaluation Date 07/30/18 Treatment Diagnosis RUE>RLE weakness, mobility, now severe vertigo, N/V s/p L stroke 07/25 Diagnosis Onset Date 07/25/18 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 Therefore to check on pt tomorrow for OT treatment.
--- NOTE | 2018-08-01 15:58 | CM.DPC ---
DCP/cont Met with patient: patient states goal is to discharge home with OP PT since patient does not have insurance. Will discuss need to private pay SNF if absolutely necessary but patient is motivated to return home. Plan: follow. Likely home with OP PT since lack of insurance is barrier to SNF.
[2018-08-01] MEDS: ATORVASTATIN 20 MG TABLET 80 MG PO (20:00)
[2018-08-02] VITALS (8 sets, daily range): BP systolic 133–154; BP diastolic 73–99; PULSE 62–75; RESP 15–18; TEMP 36.3–36.8; O2SAT 96–98
[2018-08-02] MEDS: METOPROLOL TARTRATE 5 MG/5 ML INJ IV (01:10)
[2018-08-02] MEDS: SODIUM CHLORIDE 0.9% FLUSH 10 ML IV ×3 (01:12→20:20)
[2018-08-02] MEDS: hydroCHLOROthiazide 12.5 MG CAPSULE PO (08:42)
[2018-08-02] MEDS: ASPIRIN EC 81 MG TABLET PO (08:42)
[2018-08-02] MEDS: ENOXAPARIN 40 MG/0.4 ML SYRINGE SUBCUT (08:42)
[2018-08-02] MEDS: NIFEdipine 30 MG TAB ER PO (08:42)
[2018-08-02] MEDS: LISINOPRIL 20 MG TABLET PO (08:43)
--- NOTE | 2018-08-02 09:58 | PC.NURSE ---
Addendum entered by Kelley Montalvo R.N. 08/02/18 14:17: Pt up wit OT and showered, voided then. Back to bed and napping at this time. Has denied pain or nausea this shift. States that his nausea is much better. Original Note: Pt is A&Ox3. He states that he is not having any pain. Speech is a bit slow but clear. Pt tolerating food and eating slow. He is on a general diet. Skin is clear. Pt has some r.sided weakness when gripping RN hands. Vision is wnl and pt is able to lift both of his legs up. OT is helping him with a shower now.
--- NOTE | 2018-08-02 11:30 | PT.IPTN ---
Current Diagnoses Essential (primary) hypertension (07/30/18) Nausea with vomiting, unspecified (07/30/18) Dizziness and giddiness (07/30/18) Personal history of transient ischemic attack (TIA), and cerebral infarction without residual deficits (07/30/18) Physical Therapy Treatment Note M2 PT-IP Current Condition Start: 07/29/18 17:22 Freq: NEEDED Status: Active Protocol: Document 07/30/18 15:40 AB (Rec: 07/30/18 16:54 AB [id number]) Physical Therapy Current Condition Current Condition Evaluation Date 07/30/18 Treatment Diagnosis vertigo/nausea/vomiting; difficulty in walking Onset Date 07/29/18 Precautions Other Precautions BP M3 PT-IP Subjective Start: 07/29/18 17:22 Freq: NEEDED Status: Active Protocol: Document 08/02/18 11:29 GGD (Rec: 08/02/18 11:30 GGD [id number]) Subjective Physical Therapy Visit Type Type Patient Refusal Notes Pt refused states he is very tired after showering this AM. Will see in PM. Frequency Of Treatment Once a Day Treatment Plan Physical Therapy Treatment Plan Bed Mobility Training Transfer Training Gait Training Therapeutic Exercise Balance Retraining Discharge Planning Hot or Cold Pack Neuromuscular Re-ed Coordination Retraining Manual Therapy Recommendations To Nursing Amount of Assist Needed 1 Person Assist Discharge Recommendations PT Discharge Recommendations SNF Rehab
--- NOTE | 2018-08-02 12:19 | OT.IP.TRT ---
Current Diagnoses Essential (primary) hypertension (07/30/18) Nausea with vomiting, unspecified (07/30/18) Dizziness and giddiness (07/30/18) Personal history of transient ischemic attack (TIA), and cerebral infarction without residual deficits (07/30/18) Occupational Therapy Treatment Note M2 OT-IP Current Condition Start: 07/30/18 15:53 Freq: Status: Active Protocol: Document 07/30/18 14:55 PJM (Rec: 07/30/18 16:34 PJM [id number]) Occupational Therapy Current Condition Current Condition Evaluation Date 07/30/18 Treatment Diagnosis RUE>RLE weakness, mobility, now severe vertigo, N/V s/p L stroke 07/25 Diagnosis Onset Date 07/25/18 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 OT Pain Assessment Pain When Pain Assessed After Treatment Pain Present Pain Present Denied Pain M4 OT- IP ADL's Start: 07/30/18 15:53 Freq: Status: Active Protocol: Document 08/02/18 12:10 [facility] (Rec: 08/02/18 12:19 [facility] [id number]) OT ADL-Grooming General Evaluation Grooming Ability Standby Assistance OT ADL-Dressing General Eval Upper Body Dressing Ability Standby Assistance Lower Body Dressing Ability Standby Assistance Comments OT Dressing Comments Increased time and able to use right hand 25% to help jeff socks. OT ADL-Toileting General Evaluation Toileting Ability Standby Assistance OT ADL-Bathing Bathing Type Bathing Type Shower General Evaluation Bathing Ability Contact Guard Assistance Areas Needing Assistance Retrieving/Setting Up Items Wash/Dry Upper Body Devices Bathing Equipment Shower Chair without Arms Comments OT Bathing Comments Pt able to incorporate use of R hand for showering 50% of the time and having to sit to shower except for pericare needs. M5 OT- IP IADL's Start: 07/30/18 15:53 Freq: Status: Active Protocol: Document 07/30/18 14:55 PJM (Rec: 07/30/18 16:34 PJM [id number]) OT-Instrumental Activities of Daily Living Deficits IADL Deficits Identified Deficits Home Safety Awareness Awareness of Need for Assistance at Home Good Awareness Ability to Problem Solve Emergency Able to Problem Solve Situations Medication Management Medication Management Caregiver Provides Supervision Money Management Money Management Caregiver Provides Assistance Money Management Comments Pt unbale to write with R hand due to weakness/ incoordination. Meal Preparation Meal Preparation Caregiver Provides Assist Meal Preparation Comments assists Carcass Trimmer Carcass Trimmer Caregiver Provides Assist Carcass Trimmer Comments assists Driving Driving Comments Pt unable to drive at this time due to R side weakness and severe vertigo. assists. M6 OT- IP Functional Cognition Start: 07/30/18 15:53 Freq: Status: Active Protocol: Document 08/02/18 12:10 [facility] (Rec: 08/02/18 12:19 [facility] [id number]) Cognitive Factors Limiting Selfcare Function Cognitive Ability Level of Alertness Alert Patient Orientation Name Place Situation Attention Span Ability Capable of Focused Attention Capable of Sustained Attention Ability to Follow Commands Able to Follow Multi-Step Commands Memory Description No Deficits Noted M7 OT- IP Mobility and Balance Start: 07/30/18 15:53 Freq: Status: Active Protocol: Document 08/02/18 12:10 [facility] (Rec: 08/02/18 12:19 [facility] [id number]) OT- Bed Mobility Assessment Rolling Type of Rolling Roll to Right Level of Assistance Standby Assistance Scooting Scooting to Edge of Bed Standby Assistance OT-Transfer Assessment Sit to and From Stand Sit to and from Stand Standby Assistance Transfers Transfer Ability Standby Assistance Technique Transfer Destination Chair Shower Stall Toilet Transfer Technique Stand Step Pivot Devices Transfer Assistive Devices Gait Belt Front Wheeled Walker M8 OT- IP Objective Assessments Start: 07/30/18 15:53 Freq: Status: Active Protocol: Document 07/31/18 14:45 PJM (Rec: 07/31/18 17:19 PJM [id number]) OT Gross Range of Motion Upper Extremity Range of Motion Assessment Within Functional Limits ROM Impairments RUE lag noted during BUE. Active scaption limited to ~ 120. Distal AROM wfl but slowed OT Strength Upper Extremity Strength Assessment Right Impaired Shoulder 4-/5 flex Elbow 4/5 flex, ext Forearm 4/5 pron/supination Wrist 4-/5 Hand see below Hand Gravity Prospecting Observer Strength Hand Dominance Right Right Gravity Prospecting Observer Strength (lbs) (lbs) 38 Left Gravity Prospecting Observer Strength (lbs) (lbs) 80 Comments Strength Comments R lateral pinch: 9 L Lateral Pinch: 22 tip pinch: 4 tip pinch: 11 palmar pinch: 8 palmar pinch: 12 R hand strength improving daily. Pt has full but slow finger extension and active, but imcomplete finger abd/ adduction. Pt can oppose thumb to all but 5th finger today. OT- Coordination Assessment Upper Extremity Finger to Nose Test Right UE Impaired Finger Tapping Test Right UE Impaired Comments Coordination Comments Significantly slowed gross and fine motor XAVIER's noted with proximal ataxia/dysmetria noted. OT-Muscle Tone Assessment Muscle Tone Location Right Upper Extremity Manifestation of Tone Ataxia M9 OT- IP Assessment and Plan Start: 07/30/18 15:53 Freq: Status: Active Protocol: Document 08/02/18 12:10 [facility] (Rec: 08/02/18 12:19 [facility] [id number]) OT Summary Assessment and Plan Potential Rehabilitation Potential Excellent Summary Progress Towards Goals Progressing Toward Goals Assessment Summary Pt now looking to go home and have outpt therapy for needs. Goals OT-Other Goals Pt to use R hand dominantly with self care tasks 75% of the time. Pt to perform RUE strengthening/dexterity exercises with min verbal cues . Frequency of Treatment Frequency Of Treatment Twice a Day Treatment Plan OT Treatment Plan ADL Training Functional Mobility Neuromuscular Re-education Therapeutic Exercises Patient/Family Education Discharge Planning Discharge Recommendations OT Discharge Recommendations Outpatient PT/OT Home Equipment Needs shower seat with back, grab bars
--- NOTE | 2018-08-02 12:46 | CM.DPC ---
Addendum entered by RADHA Matos 08/02/18 14:25: ADD: Per PT, pt seems to be making progress and completed stair training and ambulating halls and should be safe for d/c home when medically stable (likely tomorrow Sun) and recommending outpt PT rather than HH. Pt aware and still willing to do private pay outpt therapy if needed. BF Original Note: DCP Cont: Per MD, pt still has dizziness and not stable for d/c yet today but possibly tomorrow. Per PT, will continue to work with pt and already spoke with pt regarding outpt therapy and pt willing to private pay for an outpt setting if no insurance yet. Per OT, pt still motivated for home and making some progress. Per PT, pt was too worn out after shower this morning to work with PT so they will attempt again this afternoon to determine if safe enough for d/c home when medically stable. Plan: SW to follow for further PT/OT this afternoon to determine if pt making enough progress for d/c home vs private pay SNF when medically stable. Pt still quite motivated for d/c home if possible. RADHA Matos
--- NOTE | 2018-08-02 13:54 | PM.PN.1 ---
Subjective Interval history: Patient continues to improve. He has no nausea and vomiting. His dizziness/vertigo continues to decrease. He is able to eat his meals without any difficulty. He is able to participate with physical therapy without any difficulty Exam Vital Signs (past 8 hours): - 08/02/18 07:00 08/02/18 08:20 08/02/18 11:55 Temperature 98.2 F 98.1 F Pulse Rate 62 64 Respiratory Rate 15 15 Blood Pressure 149/85 H 143/92 H Pulse Oximetry 98 97 98 Oxygen Delivery Method Room Air Oxygen Flow Rate 0 Narrative Exam Narrative: General: No Acute Distress HEENT: NC/ AT, EOMI Oropharynx clear Neck: Supple without thyromegaly bruits jugular venous distention Lungs: Clear to auscultation CV: RRR nl S1S2 ABD: Soft/non tender; bowel sounds present Ext: Ef ROM, no edema Neurologic: Lisandra nerves 2-12 grossly intact. Motor strength right side significant improve with him having 3-4/5. He was able to do straight leg lift of the legs bilaterally without difficulty however he was unable to do so with the right leg against resistance IV my hand Bilateral hand grasp intact slightly weaker on the right Psychiatric: Mood and affect are normal Objective Labs Result Diagrams: 07/28/18 22:33 07/30/18 05:55 Assessment & Plan Plan: Assessment/Plan Narrative: 1. Vertigo. This is secondary to his CVA. His symptoms have significantly improved. No intervention necessary at this time Plan No intervention or additional medical therapy needed at this time 2. cardioembolic CVA Plan continue aspirin statin PT/OT 3. hypertension Per cardia XL was added to his medical management and there has been some improvement in his blood pressure Continue lisinopril at 20 mg daily Continue hydrochlorothiazide 12.5 mg daily Continue Procardia XL 30 mg daily BMP in a.m. as patient is on diuretics 4. Nausea/vomiting This is resolved. Patient is tolerating his diet Plan continue present therapy DISPOSITION Patient will hopefully be discharged in a.m. and follow up with physical therapy on the outpatient basis
--- NOTE | 2018-08-02 14:20 | PT.IPTN ---
Current Diagnoses Essential (primary) hypertension (07/30/18) Nausea with vomiting, unspecified (07/30/18) Dizziness and giddiness (07/30/18) Personal history of transient ischemic attack (TIA), and cerebral infarction without residual deficits (07/30/18) Physical Therapy Treatment Note M2 PT-IP Current Condition Start: 07/29/18 17:22 Freq: NEEDED Status: Active Protocol: Document 07/30/18 15:40 AB (Rec: 07/30/18 16:54 AB [id number]) Physical Therapy Current Condition Current Condition Evaluation Date 07/30/18 Treatment Diagnosis vertigo/nausea/vomiting; difficulty in walking Onset Date 07/29/18 Precautions Other Precautions BP M3 PT-IP Subjective Start: 07/29/18 17:22 Freq: NEEDED Status: Active Protocol: Document 08/02/18 14:20 GGD (Rec: 08/02/18 15:54 GGD [id number]) Subjective Physical Therapy Visit Type Type Treatment Note Visit Start Time 13:45 Visit Stop Time 14:20 Total Visit Minutes 35 Number of SECURITY GUARD DISPATCHER Visits 3 Physical Therapy Visit Comments Patient Comments Pt is feeling better. M4 PT-IP Mobility and Gait Start: 07/29/18 17:22 Freq: NEEDED Status: Active Protocol: Document 08/02/18 14:20 GGD (Rec: 08/02/18 15:54 GGD [id number]) PT-Transfer Assessment Sit to and From Stand Sit to and from Stand Contact Guard Assistance 1 Person Assistance Use of Upper Extremities Equipment Transfer Assistive Device Gait Belt Front Wheeled Walker Orthotic/Prosthetic Devices or Brace: No Transfers Transfer Destination Chair Toilet Transfer Ability Level of Assist Contact Guard Assistance 1 Person Assistance Use of Upper Extremities Gait Assessment Gait Gait Assistance Required: Contact Guard Assist 1 Person Assist Distance (Feet) 220 Able to Maintain Weight Bearing Status Yes During Gait Assistive Devices Assistive Device Gait Belt Front Wheeled Walker Orthotic/Prosthetic Devices or Brace: No Gait Deviations General Gait Pattern Decreased Stride Length Decreased Feet Clearance Factors Limiting Gait Function Factors Limiting Gait Function Decreased Activity Tolerance Decreased Strength Limited Range of Motion Poor Balance Poor Safety Awareness Comments Gait Comments no LOB with gait. Stair Climbing Assessment Evaluation Level of Assist On Stairs Contact Guard Assistance Devices Stair Climbing Assistive Devices Right Railing Technique/Endurance Stair Climbing Direction Ascend and Descend Stair Climbing Technique Step to Step Number of Steps Climbed 3 Query Text: Stair Climbing Set # Repetitions (reps) 1 PT-Balance Assessment Comments Other Balance Tests/Deviations/Treatment standing balance: NBOS with EO : /EC and head turns, Tandem with EO and head turns. M5 PT-IP Objective Assessments Start: 07/29/18 17:22 Freq: NEEDED Status: Active Protocol: Document 07/30/18 15:40 AB (Rec: 07/30/18 16:54 AB [id number]) Orientation Orientation/Cognition Level of Alertness Alert Orientation Name Age Birthday Month Date Year Day of Week Place Situation Gross Range of Motion Lower Extremity ROM Assessment Within Functional Limits Strength Lower Extremity Strength Assessment Bilaterally Impaired Hip 4-/5 Knee 4-/5 M6 PT-IP Treatment Start: 07/29/18 17:22 Freq: NEEDED Status: Active Protocol: Document 07/30/18 15:40 AB (Rec: 07/30/18 16:54 AB [id number]) Physical Therapy Treatment Education Education Provided Safety M7 PT-IP Assessment and Plan Start: 07/29/18 17:22 Freq: NEEDED Status: Active Protocol: Document 08/02/18 14:20 GGD (Rec: 08/02/18 15:54 GGD [id number]) PT Summary Assessment and Plan Summary Assessment Summary Pt able to progress gait distance with improved speed and stability. He had mild unsteadiness with turns. He was safe with stair mobility. He had LOB and increase in dizziness with looking down during static balance. Frequency of Treatment Frequency Of Treatment Once a Day Treatment Plan Physical Therapy Treatment Plan Bed Mobility Training Transfer Training Gait Training Therapeutic Exercise Balance Retraining Discharge Planning Hot or Cold Pack Neuromuscular Re-ed Coordination Retraining Manual Therapy Recommendations To Nursing Amount of Assist Needed 1 Person Assist Discharge Recommendations PT Discharge Recommendations SNF Rehab
--- NOTE | 2018-08-02 17:13 | OT.IP.TRT ---
Current Diagnoses Essential (primary) hypertension (07/30/18) Nausea with vomiting, unspecified (07/30/18) Dizziness and giddiness (07/30/18) Personal history of transient ischemic attack (TIA), and cerebral infarction without residual deficits (07/30/18) Occupational Therapy Treatment Note M2 OT-IP Current Condition Start: 07/30/18 15:53 Freq: Status: Active Protocol: Document 07/30/18 14:55 PJM (Rec: 07/30/18 16:34 PJM [id number]) Occupational Therapy Current Condition Current Condition Evaluation Date 07/30/18 Treatment Diagnosis RUE>RLE weakness, mobility, now severe vertigo, N/V s/p L stroke 07/25 Diagnosis Onset Date 07/25/18 globus pallidus stroke with sudden onset vertigo, N/ V 07/29 Post Operative Precautions Other Precautions Keep systolic BP <160, vertiog , high fall risk M3 OT- IP Subjective and Pain Start: 07/30/18 15:53 Freq: Status: Active Protocol: Document 08/02/18 17:00 [facility] (Rec: 08/02/18 17:13 [facility] [id number]) OT- Subjective Occupational Therapy Visit Type Type Treatment Note Visit Start Time 16:20 Visit Stop Time 16:45 Total Visit Minutes 25 OT Pain Assessment Pain When Pain Assessed At Rest Pain Present Pain Present Denied Pain M4 OT- IP ADL's Start: 07/30/18 15:53 Freq: Status: Active Protocol: Document 08/02/18 12:10 [facility] (Rec: 08/02/18 12:19 [facility] [id number]) OT ADL-Grooming General Evaluation Grooming Ability Standby Assistance OT ADL-Dressing General Eval Upper Body Dressing Ability Standby Assistance Lower Body Dressing Ability Standby Assistance Comments OT Dressing Comments Increased time and able to use right hand 25% to help jeff socks. OT ADL-Toileting General Evaluation Toileting Ability Standby Assistance OT ADL-Bathing Bathing Type Bathing Type Shower General Evaluation Bathing Ability Contact Guard Assistance Areas Needing Assistance Retrieving/Setting Up Items Wash/Dry Upper Body Devices Bathing Equipment Shower Chair without Arms Comments OT Bathing Comments Pt able to incorporate use of R hand for showering 50% of the time and having to sit to shower except for pericare needs. M5 OT- IP IADL's Start: 07/30/18 15:53 Freq: Status: Active Protocol: Document 07/30/18 14:55 PJM (Rec: 07/30/18 16:34 PJM [id number]) OT-Instrumental Activities of Daily Living Deficits IADL Deficits Identified Deficits Home Safety Awareness Awareness of Need for Assistance at Home Good Awareness Ability to Problem Solve Emergency Able to Problem Solve Situations Medication Management Medication Management Caregiver Provides Supervision Money Management Money Management Caregiver Provides Assistance Money Management Comments Pt unbale to write with R hand due to weakness/ incoordination. Meal Preparation Meal Preparation Caregiver Provides Assist Meal Preparation Comments assists Shake Maker Shake Maker Caregiver Provides Assist Shake Maker Comments assists Driving Driving Comments Pt unable to drive at this time due to R side weakness and severe vertigo. assists. M6 OT- IP Functional Cognition Start: 07/30/18 15:53 Freq: Status: Active Protocol: Document 08/02/18 17:00 [facility] (Rec: 08/02/18 17:13 [facility] [email or web address]) Cognitive Factors Limiting Selfcare Function Cognitive Ability Level of Alertness Alert Patient Orientation Name Place Situation Attention Span Ability Capable of Focused Attention Capable of Sustained Attention Ability to Follow Commands Able to Follow Multi-Step Commands OT- Vision and Hearing OT- Vision Assessment Vision Assessment Comments Noted today , pt not able to converenge eyes and after practice right side slower than left. In addition for tracking noted slight lag with right eye. Suggested pt to see eye doctor. M7 OT- IP Mobility and Balance Start: 07/30/18 15:53 Freq: Status: Active Protocol: Document 08/02/18 12:10 [facility] (Rec: 08/02/18 12:19 [facility] [id number]) OT- Bed Mobility Assessment Rolling Type of Rolling Roll to Right Level of Assistance Standby Assistance Scooting Scooting to Edge of Bed Standby Assistance OT-Transfer Assessment Sit to and From Stand Sit to and from Stand Standby Assistance Transfers Transfer Ability Standby Assistance Technique Transfer Destination Chair Shower Stall Toilet Transfer Technique Stand Step Pivot Devices Transfer Assistive Devices Gait Belt Front Wheeled Walker M8 OT- IP Objective Assessments Start: 07/30/18 15:53 Freq: Status: Active Protocol: Document 08/02/18 17:00 [facility] (Rec: 08/02/18 17:13 [facility] [email or web address]) OT- Coordination Assessment Comments Coordination Comments Able to show pt theraputty exercises and to have pt focus for finger/wrist extension. OT-Muscle Tone Assessment Comments Muscle Tone Comments Able to work with pt to stretch internal rotators. M9 OT- IP Assessment and Plan Start: 07/30/18 15:53 Freq: Status: Active Protocol: Document 08/02/18 17:00 [facility] (Rec: 08/02/18 17:13 [facility] [email or web address]) OT Summary Assessment and Plan Potential Rehabilitation Potential Excellent Summary Progress Towards Goals Progressing Toward Goals Assessment Summary Pt now looking to go home and have outpt therapy for needs. Goals OT-Other Goals Pt to use R hand dominantly with self care tasks 75% of the time. Pt to perform RUE strengthening/dexterity exercises with min verbal cues . Frequency of Treatment Frequency Of Treatment Twice a Day Treatment Plan OT Treatment Plan ADL Training Functional Mobility Neuromuscular Re-education Therapeutic Exercises Patient/Family Education Discharge Planning Discharge Recommendations OT Discharge Recommendations Outpatient PT Home Equipment Needs shower seat with back, grab bars
--- NOTE | 2018-08-02 17:16 | OT.IP.TRT ---
Current Diagnoses Essential (primary) hypertension (07/30/18) Nausea with vomiting, unspecified (07/30/18) Dizziness and giddiness (07/30/18) Personal history of transient ischemic attack (TIA), and cerebral infarction without residual deficits (07/30/18) Occupational Therapy Treatment Note M2 OT-IP Current Condition Start: 07/30/18 15:53 Freq: Status: Active Protocol: Document 07/30/18 14:55 PJM (Rec: 07/30/18 16:34 PJM [id number]) Occupational Therapy Current Condition Current Condition Evaluation Date 07/30/18 Treatment Diagnosis RUE>RLE weakness, mobility, now severe vertigo, N/V s/p L stroke 07/25 Diagnosis Onset Date 07/25/18 globus pallidus stroke with sudden onset vertigo, N/ V 07/29 Post Operative Precautions Other Precautions Keep systolic BP <160, vertiog , high fall risk M3 OT- IP Subjective and Pain Start: 07/30/18 15:53 Freq: Status: Active Protocol: Document 08/02/18 17:00 [facility] (Rec: 08/02/18 17:13 [facility] [id number]) OT- Subjective Occupational Therapy Visit Type Type Treatment Note Visit Start Time 16:20 Visit Stop Time 16:45 Total Visit Minutes 25 OT Pain Assessment Pain When Pain Assessed At Rest Pain Present Pain Present Denied Pain M4 OT- IP ADL's Start: 07/30/18 15:53 Freq: Status: Active Protocol: Document 08/02/18 12:10 [facility] (Rec: 08/02/18 12:19 [facility] [id number]) OT ADL-Grooming General Evaluation Grooming Ability Standby Assistance OT ADL-Dressing General Eval Upper Body Dressing Ability Standby Assistance Lower Body Dressing Ability Standby Assistance Comments OT Dressing Comments Increased time and able to use right hand 25% to help jeff socks. OT ADL-Toileting General Evaluation Toileting Ability Standby Assistance OT ADL-Bathing Bathing Type Bathing Type Shower General Evaluation Bathing Ability Contact Guard Assistance Areas Needing Assistance Retrieving/Setting Up Items Wash/Dry Upper Body Devices Bathing Equipment Shower Chair without Arms Comments OT Bathing Comments Pt able to incorporate use of R hand for showering 50% of the time and having to sit to shower except for pericare needs. M5 OT- IP IADL's Start: 07/30/18 15:53 Freq: Status: Active Protocol: Document 07/30/18 14:55 PJM (Rec: 07/30/18 16:34 PJM [id number]) OT-Instrumental Activities of Daily Living Deficits IADL Deficits Identified Deficits Home Safety Awareness Awareness of Need for Assistance at Home Good Awareness Ability to Problem Solve Emergency Able to Problem Solve Situations Medication Management Medication Management Caregiver Provides Supervision Money Management Money Management Caregiver Provides Assistance Money Management Comments Pt unbale to write with R hand due to weakness/ incoordination. Meal Preparation Meal Preparation Caregiver Provides Assist Meal Preparation Comments assists Field Naturalist Field Naturalist Caregiver Provides Assist Field Naturalist Comments assists Driving Driving Comments Pt unable to drive at this time due to R side weakness and severe vertigo. assists. M6 OT- IP Functional Cognition Start: 07/30/18 15:53 Freq: Status: Active Protocol: Document 08/02/18 17:00 [facility] (Rec: 08/02/18 17:13 [facility] [id number]) Cognitive Factors Limiting Selfcare Function Cognitive Ability Level of Alertness Alert Patient Orientation Name Place Situation Attention Span Ability Capable of Focused Attention Capable of Sustained Attention Ability to Follow Commands Able to Follow Multi-Step Commands OT- Vision and Hearing OT- Vision Assessment Vision Assessment Comments Noted today , pt not able to converenge eyes and after practice right side slower than left. In addition for tracking noted slight lag with right eye. Suggested pt to see eye doctor. M7 OT- IP Mobility and Balance Start: 07/30/18 15:53 Freq: Status: Active Protocol: Document 08/02/18 12:10 [facility] (Rec: 08/02/18 12:19 [facility] [id number]) OT- Bed Mobility Assessment Rolling Type of Rolling Roll to Right Level of Assistance Standby Assistance Scooting Scooting to Edge of Bed Standby Assistance OT-Transfer Assessment Sit to and From Stand Sit to and from Stand Standby Assistance Transfers Transfer Ability Standby Assistance Technique Transfer Destination Chair Shower Stall Toilet Transfer Technique Stand Step Pivot Devices Transfer Assistive Devices Gait Belt Front Wheeled Walker M8 OT- IP Objective Assessments Start: 07/30/18 15:53 Freq: Status: Active Protocol: Document 08/02/18 17:00 [facility] (Rec: 08/02/18 17:13 [facility] [id number]) OT- Coordination Assessment Comments Coordination Comments Able to show pt theraputty exercises and to have pt focus for finger/wrist extension. OT-Muscle Tone Assessment Comments Muscle Tone Comments Able to work with pt to stretch internal rotators. M9 OT- IP Assessment and Plan Start: 07/30/18 15:53 Freq: Status: Active Protocol: Document 08/02/18 17:00 [facility] (Rec: 08/02/18 17:13 [facility] [id number]) OT Summary Assessment and Plan Potential Rehabilitation Potential Excellent Summary Progress Towards Goals Progressing Toward Goals Assessment Summary Pt now looking to go home and have outpt therapy for needs. Goals OT-Other Goals Pt to use R hand dominantly with self care tasks 75% of the time. Pt to perform RUE strengthening/dexterity exercises with min verbal cues . Frequency of Treatment Frequency Of Treatment Twice a Day Treatment Plan OT Treatment Plan ADL Training Functional Mobility Neuromuscular Re-education Therapeutic Exercises Patient/Family Education Discharge Planning Discharge Recommendations OT Discharge Recommendations Outpatient PT Home Equipment Needs shower seat with back, grab bars
[2018-08-02] MEDS: ATORVASTATIN 20 MG TABLET 80 MG PO (20:20)
[2018-08-03 03:00] VITALS: BP 142/91; PULSE 66; RESP 16; TEMP 36.3; O2SAT 97
--- NOTE | 2018-08-03 07:55 | P.DS_ITS ---
History of Present Illness Chief complaint: N/V Discharge Providers Date of admission: 07/30/18 11:00 Consults: 07/29/18 00:56 Consult to Physician Routine Comment: Consulting Provider: Kody Hendricks Reason for consultation: Admission Has provider been notified: Yes 07/29/18 10:29 Consult to Occupational Therapy Evaluate & Treat Comment: Physician Instructions: Evaluate and treat Consult to Physical Therapy Evaluate & Treat Comment: Physician Instructions: Evaluate and Treat Discharge provider: Gustavo Sigala MD Summary Discharge Diagnosis: 1. Vertigo. 2. Nausea/vomiting 3.. 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 4. hypertension CONSULTATIONS None PROCEDURES CT head noncontrast no acute intracranial disease process Hospital Course: 1. Vertigo. Patient presented on admission with vertigo and nausea and vomiting. He was treated symptomatically for the symptoms and with the use of meclizine and Zofran his symptoms resolved. At the time of discharge she was having no further problems with with nausea and vomiting. He was able to ambulate without any development of vertigo or nausea or vomiting. He was able to tolerate his diet without any difficulty. He was therefore felt stable and ready for discharge. In the past 24 hr prior to discharge patient has not required any further Antivert for vertiginous symptoms. Nor has he used any Zofran for nausea. 2. Nausea/vomiting Please see above. 3. cardioembolic CVAFocal subacute infarction involving the left globus pallidus. CT on admission did not show any acute disease. He was able to participate with physical therapy during hospitalization. During his hospitalization he had developed significant increased improvement of the strength of his right arm hand and lower extremity. Is not felt that he will need SNF at this time. Outpatient physical therapy would be of benefit. If he is not able to pay for outpatient physical therapy using simple techniques such as use of arm stretching in Spring compression device for use to increase hand strength as well as toe lifts were explained to the patient which which may be used in place of outpatient physical therapy 4. hypertension During his hospitalization he was on lisinopril and hydrochlorothiazide for his blood pressure. His blood pressure was less than optimally controlled and the 1st 24-48 hours was 156/90-178/95. As a result Procardia 30 mg XL has been added to his hydrochlorothiazide 12.5 mg daily and lisinopril 20 mg p.o. daily with this there has been improvement of his blood pressure and on the morning of discharge is blood pressure was 139/88. He will therefore be discharged on the Procardia XL the hydrochlorothiazide and the lisinopril Status at Discharge Functional status at discharge: independent ambulation Time Spent with Patient Greater than 30 minutes Exam Vital Signs (past 8 hours): - 08/03/18 03:00 Temperature 97.4 F L Pulse Rate 66 Respiratory Rate 16 Blood Pressure 142/91 H Pulse Oximetry 97 Oxygen Delivery Method Room Air Oxygen Flow Rate 0 Narrative Exam Narrative: General NAD Cardiovascular unremarkable on anterior auscultation Abdomen benign Extremities full range of motion no clubbing edema or cyanosis Neurologic cranial nerves 2-12 were intact motor was approximately 5/5 on right and slightly less than 4/5 on right Neurologic awake alert oriented x3 mood affect were normal Objective Labs Result Diagrams: 07/28/18 22:33 07/30/18 05:55 Discharge Plan Discharge Plan Discharge Problem: Vertigo, History of cardioembolic cerebrovascular accident (CVA), Hypertension , Nausea & vomiting Patient Disposition: Home Discharge Med Rec/Prescriptions Prescriptions: New nifedipine 30 mg Tablet Extended Release 24hr 30 mg PO DAILY Qty: 30 RF: 0 Continue atorvastatin 40 mg tablet 40 mg PO DAILY Qty: 30 RF: 0 aspirin [Aspirin Low Dose] 81 mg tablet,delayed release (DR/EC) 81 mg PO DAILY Qty: 30 RF: 0 lisinopril 10 mg tablet 10 mg PO DAILY Qty: 30 RF: 0 Provider Discharge Instructions Diet: Diet as Tolerated Visit Report/Discharge Packet Visit Report Forms: Stroke Signs & Symptoms Discharge Data Attending Provider: Kody Hendricks Admit Date/Time: 07/30/18 11:00
[2018-08-03 08:30] VITALS: O2SAT 97
[2018-08-03 08:35] VITALS: BP 139/88; PULSE 67; RESP 18; TEMP 36.6; O2SAT 95
[2018-08-03] MEDS: ENOXAPARIN 40 MG/0.4 ML SYRINGE SUBCUT (08:53)
[2018-08-03] MEDS: ASPIRIN EC 81 MG TABLET PO (08:53)
[2018-08-03] MEDS: SODIUM CHLORIDE 0.9% FLUSH 10 ML IV (08:54)
[2018-08-03] MEDS: hydroCHLOROthiazide 12.5 MG CAPSULE PO (08:54)
[2018-08-03] MEDS: NIFEdipine 30 MG TAB ER PO (08:54)
[2018-08-03] MEDS: LISINOPRIL 20 MG TABLET PO (08:54)
--- NOTE | 2018-08-03 10:20 | PT.IPTN ---
Current Diagnoses Essential (primary) hypertension (07/30/18) Nausea with vomiting, unspecified (07/30/18) Dizziness and giddiness (07/30/18) Personal history of transient ischemic attack (TIA), and cerebral infarction without residual deficits (07/30/18) Physical Therapy Treatment Note M2 PT-IP Current Condition Start: 07/29/18 17:22 Freq: NEEDED Status: Active Protocol: Document 08/03/18 10:20 [facility] (Rec: 08/03/18 10:53 [facility] [id number]) Physical Therapy Current Condition Current Condition Evaluation Date 07/30/18 Treatment Diagnosis vertigo/nausea/vomiting; difficulty in walking Onset Date 07/29/18 Precautions Other Precautions BP M3 PT-IP Subjective Start: 07/29/18 17:22 Freq: NEEDED Status: Active Protocol: Document 08/03/18 10:20 [facility] (Rec: 08/03/18 10:53 [facility] [id number]) Subjective Physical Therapy Visit Type Type Treatment Note Visit Start Time 10:00 Visit Stop Time 10:20 Total Visit Minutes 20 Number of CHILDCARE DIRECTOR Visits 0 Physical Therapy Visit Comments Patient Comments pt states that his dizziness is a little better, but he still likes to take his time. M4 PT-IP Mobility and Gait Start: 07/29/18 17:22 Freq: NEEDED Status: Active Protocol: Document 08/03/18 10:20 [facility] (Rec: 08/03/18 10:53 [facility] [id number]) PT-Bed Mobility Assessment Supine to Sit Supine to Sit Independent Scooting Scooting to Edge of Bed Independent PT-Transfer Assessment Sit to and From Stand Sit to and from Stand Standby Assistance Equipment Transfer Assistive Device Gait Belt Front Wheeled Walker Transfers Transfer Destination Chair Toilet Transfer Technique Stand Step Pivot Transfer Ability Level of Assist Standby Assistance Gait Assessment Gait Gait Assistance Required: Standby Assistance Distance (Feet) 300 Assistive Devices Assistive Device Gait Belt Front Wheeled Walker Factors Limiting Gait Function Factors Limiting Gait Function Decreased Activity Tolerance Decreased Strength Incoordination Poor Balance Comments Gait Comments slow paced gait, step through pattern; mild instability of the R knee but no buckling causing LOB O2 96% and HR 81 bpm after gait. M5 PT-IP Objective Assessments Start: 07/29/18 17:22 Freq: NEEDED Status: Active Protocol: Document 08/03/18 10:20 [facility] (Rec: 08/03/18 10:53 [facility] [id number]) Muscle Tone Muscle Tone Location Right Upper Extremity Type of Tone Hypotonicity M6 PT-IP Treatment Start: 07/29/18 17:22 Freq: NEEDED Status: Active Protocol: Document 08/03/18 10:20 [facility] (Rec: 08/03/18 10:53 [facility] [id number]) Physical Therapy Treatment Other Treatments Other Treatment Performed pt given theraputty, booklet for information on digiflex and shoulder pulleys. M7 PT-IP Assessment and Plan Start: 07/29/18 17:22 Freq: NEEDED Status: Active Protocol: Document 08/03/18 10:20 [facility] (Rec: 08/03/18 10:53 [facility] [id number]) PT Summary Assessment and Plan Summary Progress Towards Goals Safe For Discharge Assessment Summary Pt still requires FWW for ambulation, with mild instability of the RLE. Pt's main concern appears to be the function in his R hand, which he would greatly benefit from occupational therapy for progression of functional movements and tasks to improve his independence with daily activities, as well as physical therapy to progress his gait, balance, and LE strength. Ideally, pt is an excellent candidate for acute rehab, but given no insurance, he likely is to d/c home and hopefully attend outpatient PT and OT at the very least. Goals Bed Mobility Goal Standby Assistance Transfer Goal Standby Assistance Gait Goal Standby Assistance Gait Distance 150 Other Goals up/down 3+3 with R rail and/or quad cane Days to Meet Goals 5 Frequency of Treatment Frequency Of Treatment Once a Day Treatment Plan Other Recommendations and Next Treatment gait, stairs, standing balance Focus Recommendations To Nursing Amount of Assist Needed 1 Person Assist Discharge Recommendations PT Discharge Recommendations Acute Rehab Other Discharge Recommendations if return home, recommend both outpatient PT and OT, with OT being more of a concern for pt given he wants to improve his R hand and UE function.
--- NOTE | 2018-08-03 10:48 | CM.DPC ---
DCP/cont Patient to discharge home today. Per PT patient would benefit from OP PT and OT. Verified with patient is would be willing to pay privately for OP PT and OT. Patient agreeable to discharge. 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 Plan: Patient to discharge home with private pay OP PT and possibly OT. CM team available as needed.
--- NOTE | 2018-08-03 12:02 | PC.NURSE ---
Day shift: Pt left unit at approx 1210 to private car w/ spouse as front end driver. Went in . Paperwork signed and questions answered. Pt has all personal belongings.
== END 2018-08-03 12:05 | disposition home or self-care (01) | DRG 65 ==
LOC: ED 07-29 00:56 → AC 07-29 01:02
PROVIDERS: Internal Medicine; Admitting Provider Internal Medicine; Emergency Provider Emergency Medicine; Visit Provider Internal Medicine
DX: I63.412 Cerebral infarction due to embolism of left middle cerebral artery (principal); G81.91 Hemiplegia, unspecified affecting right dominant side; R29.810 Facial weakness; I10 Essential (primary) hypertension; R42 Dizziness and giddiness; R11.2 Nausea with vomiting, unspecified
CPT/HCPCS: 36415; 70450; 80048; 85025; 93005; 96361; 96374; 96375; 96376; 97116; 97162; 97166; 97530; 97535; 99283; 99285; G0378; J0360; J1650; J2405; J3360

== ENCOUNTER 2018-12-16 09:30 | Outpatient (RCR) | payer OTHER, MEDICAID, SELFPAY ==
[2018-07-29 01:37] VITALS: BMI 27.8
[2018-09-02 13:55] LABS: Cholesterol 157 mg/dL (140-199); Glucose Promotional 112 mg/dL (80-110); HDL Cholesterol 45 mg/dL (40-60); LDL Cholesterol Calculated 85 mg/dL (<100); Triglycerides 134 mg/dL (35-150)
--- NOTE | 2018-10-14 13:22 | ST.OPTN ---
Care Team Visit Care Team Role Provider Type Basilio Condon MD Attending Provider Physician Primary Care Provider Address: [address] [place] [address], [id number] MECHANICAL SERVICE SPECIALIST Treatment Note MECHANICAL SERVICE SPECIALIST Treatment Note Start: 09/12/18 09:46 Freq: Status: Active Protocol: Document 10/14/18 12:11 RADHA (Rec: 10/14/18 12:28 RADHA [email or web address]) Speech Pathology Treatment Note Session Time Visit Start Time 10:32 Visit Stop Time 11:17 Total Visit Minutes 45 Visit Information Visit Number 04/[id number] Plan of Care Dates 09/02/18 - 10/17/18 Insurance Information P Setting Treatment Setting Outpatient Care Visit Type Note Type Treatment Note Next Note Type Next Note Type Treatment Note General Information General Information Patient is a 62-year-old male who was referred for outpatient speech therapy by Dr Condon following CVA on 07/26. The patient was seen as an inpatient at [facility] after his CVA and was discharged with unresolved dizziness, right arm/leg wekaness and mild dysarthria. He has been steadily improving overall, but continues to present with dysarthria and unilateral weakness. He currently takes a low dose of aspirin to manage hypertension . No underlying cognitive impairment identified by therapy staff or physician following CVA. Subjective Identification Type Name Other Observations/Patient Presentation Patient arrived on time for therapy with no family present . He reported having been ill the last week, feeling better today. Chief Complaint(s) Speech Rehab Expectation/Goals: Patient Goals Improve speech intelligibility Patient Knowledge/Awareness of MECHANICAL SERVICE SPECIALIST Role Excellent in Treatment Objective Short Term Goals 1. Following a visual model ( clinican and/or mirror), the patient will produce 20 repetitions of oral motor movement targeting lingual and labial ROM and strength with 90% accuracy and min cues. Excellent progress 2. Patient will accurately produce targeted phonemes (/s/ /s/ blends and /l/) in all positions of words through conversation task or oral reading with 90% accuracy and min cues. Good Progress: Consistent accuracy with /s/ in all positions of words, reduced accuracy with /s/ blends, specifically /sl/blends; observed production of /uh/ immediately prior to production of initial /l/, which slows production and slurs his speech. 3. Patient will use appropriate speech prosody during oral reading task with 90% accuracy and min cues. GOAL MET. 4. Patient will impelment use of prosody throughout conversational speech with 90% accuracy and min cues. GOAL MET. 5. Patient will improve respiratory support and the use of respiration for conversational speech and/or oral reading at paragraph level with 90% accuracy and min cues. GOAL MET NEW GOAL: The pt will exhibit produce rate of speech WNL in paragraph reading task,. Surfboard Maker Goals 1. Patient will develop functional and intelligible speech and utilize compensatory strategies through the use of adequate labial and lingual function, increased articulatory precision and speech prosody. 2. Patient will develop functional motor programming, articulatory proficiency and utilize compensatory strategies to successfully express himself with intelligible speech adn functional prosody in the functional living environment. Treatment Activities The pt demonstrated improved lateral lingual rounding, per exercise introduced last week, with occasionally present but reduced reliance on labial assistance. Given a word list including various 3-letter S-blends (/ str/, /spr/, /scr/, /spl/, / skw/), the pt produced words in isolation with 100% accuracy, greater effort noted and reported by pt with /spl/ blends. The pt produced same words in sentences of simple to moderate complexity with 96 % accuracy, min effort was perceived by the Clinician, though moderate effort was reporte by the pt, who stated he was required to reduce rate of speech on target words. Given a single sentence of moderate complexity per blend category, the pt repeated each sentence 8-10x, beginning with below normal rate of speech to learn articulatory placement and increasing rate to WNL with 98% accuracy with exception of /skw/blends in sentences, which were produced with 70% accuracy and required significant reduction in speech to articulate target words correctly. The pt observed improvement with repetition, and skilled feedback/education was provided RE principles of neuroplasticity. Assessment Patient Response to Treatment Excellent Rehab Potential Excellent Impairments Identified Articulation Dysarthria Progress Towards Goals Good Progress Assessment of Improvement The pt demonstrated improved lateral lingual rounding, per exercise introduced last week, with occasionally present but reduced reliance on labial assistance. Improved rate of speech acheived with repetition of words/sentences. Mild decline in rate again required with modifications of sentence structures using same target words; again, these sentences improved with repetition. The pt is making excellent progress but continues with mildly slowed rate of speech and mildly effortful speech, below his baseline performance . He is highly motivated to improve and exhibits excellent prognosis for ongoing improvement. Continued skilled intervention is medically necessary to return pt to baseline performance, reduce effort with communication, and improve expressive communication as well as quality of life. Reviewed with Patient Goals Progress Being Made Home Exercise Program Patient/Caregiver Understanding Excellent Plan Amount of Therapy Recommended 1-2 Months Frequency of Treatment Once a Week Length of Session 45 Minutes Treatment Emphasis Next Session Articulation placement, oral motor exercises Therapeutic Contents Client Education Home Exercise Program Intelligibility Oral Motor Training Provided Patient/Caregiver Instruction Home Exercise Program Plan of Care Questions/Concerns Therapy Recommendations Continue with Current Program
== END 2019-04-09 10:52 | disposition home or self-care (01) ==
LOC: SP 09:30
PROVIDERS: PCP Internal Medicine; Visit Provider Internal Medicine
DX: I69.30 Unspecified sequelae of cerebral infarction (principal)
CPT/HCPCS: 80061; 82947; 92507; 92522

== ENCOUNTER 2019-01-30 10:30 | Outpatient (RCR) | payer OTHER, MEDICAID, SELFPAY ==
[2018-07-29 01:37] VITALS: BMI 27.8
--- NOTE | 2018-09-22 15:24 | OT.OP.EVAL ---
Visit Care Team Role Provider Type Basilio Condon MD Attending Provider Physician Primary Care Provider Specialty: Wound Care Address: [address] [place] [address], [id number] Email: [email or web address] Occupational Therapy Initial Evaluation OT Outpatient Adult Evaluation Start: 09/22/18 14:43 Freq: Status: Active Protocol: Document 09/19/18 14:43 AMS (Rec: 09/22/18 15:24 AMS [email or web address]) General Information Visit Start Time 12:30 Visit Stop Time 13:15 Total Visit Minutes 45 Visit Number 1 Plan of Care Dates 09/19/18-11/14/18 Insurance Information 1 eval; 24 OT units Treatment Setting Outpatient Care Note Type Initial Evaluation Referring Physician Basilio Condon MD Reason for Referral s/p CVA. right side weakness Identification Confirmed Yes Identification Confirmed By Chart; photo ID Patient Goals Return to PLOF (full-time work ) Medical History Patient is a 62 year-old male referred to outpatient OT by Doctor Condon due to residual symptoms from stroke he suffered on 07/26/18. Patient was discharged from inpatient care at [facility] with unresolved dizziness, right arm/leg weakness and mild dysarthria. He currently takes a low dose of aspirin to manage hypertension. 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 Slightly jerky motor coordination of the R noted; decreased ability to slow down and execute motor movement equal to more than 5 sec. Decreased awareness of UE in space. Opposes thumb to each digit pad w/ increased time R hand w/ visual feedback ; (-) touch to 4th and 5th digit pads w/ wrist in extension away from body. Fine Motor Hand Preference Right Comments Utilizes both hands Goals Treatment HEP. Instructed in active engagement of R UE with all functional tasks. Instructed in strengthening exercises out of les pattern (ER, sh abduction, tricep strengthening). Patient and denied questions. Short Term Goals 1. 0-130 right sh abduction. 2. 0-145 right sh flexion. 3. 5/5 MMT right wrist extension. 4. 5/5 MMT right sh ER. Residential Goals 1. Patient will be mod I with upper extremity home strengthening program utilizing provided written and visual instructions. 2. Based on patient's verbal report, patient is able to complete simple meal preparation with active engagement of the right hand/ upper extremity with modified independence on a daily basis. Assessment/Plan Impairments Identified ADLs Coordination/Dexterity Functional Activities Motor Function Weakness Range of Motion Recreational Activities Meaningful Activities Motor Planning Eye-Hand Coordination Treatment Assessment Patient is a right hand dominant 62 year-old male referred to outpatient OT by Doctor Condon due to residual symptoms from stroke he suffered on 07/26/18. Patient was discharged from inpatient care at [facility] with unresolved dizziness, right arm/leg weakness and mild dysarthria. He currently takes low dose of aspirin to manage hypertension. Patient was accompanied by his to initial evaluation/treatment. PLOF: Independent w/ BADLS and IADLS. 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 Outpatient OT recommended to address these areas of impairment so that patient may return to prior level of function, including vocational tasks. Home Exercise Program Please see above for additional details. Reviewed with Patient Goals Home Exercise Program Comment 8 weeks; limited by insurance Comment 1-2 times per week Therapeutic Contents Active Range of Motion Client Education Functional Activities Home Exercise Program Joint Protection Manual Therapy Education Neuromuscular Re-Education Self-Care Stretching/Flexibility Activities Therapeutic Activities Therapeutic Exercises Modalities Sensory Re-education Modalities As Needed As Prescribed Patient Instruction Home Exercise Program Plan of Care Questions/Concerns Comment Consult w/ ADJUSTMENT SUPERVISOR and PT Occupational Therapy Assessment OT Outpatient Range of Motion Start: 09/22/18 14:43 Freq: Status: Active Protocol: Document 09/19/18 14:43 AMS (Rec: 09/22/18 15:24 AMS [email or web address]) ROM - Shoulder Shoulder Left Forearm ROM Testing Position Sitting Shoulder Flex AROM (degrees) 0-150 Query Text: Shoulder Ext AROM (degrees) WFL Shoulder Abd AROM (degrees) 0-135 Shoulder ER AROM (degrees) 0-50 Right Forearm ROM Testing Position Sitting Shoulder Flex AROM (degrees) 0-135 Query Text: Shoulder Ext AROM (degrees) WFL Shoulder Abd AROM (degrees) 0-120 Shoulder ER AROM (degrees) 0-50 ROM - Elbow/Forearm Elbow/Forearm Measured in Degrees Left ROM Testing Position Sitting Elbow Flex AROM (degrees) WNL Elbow Ext AROM (degrees) WNL Forearm Pron AROM (degrees) WNL Forearm Sup AROM (degrees) 0-90 Right ROM Testing Position Sitting Elbow Flex AROM (degrees) WNL Elbow Ext AROM (degrees) WNL Forearm Pron AROM (degrees) WNL Forearm Sup AROM (degrees) 0-80 ROM - Wrist Wrist Range of Motion Measured in Degrees Left ROM Testing Position Sitting Wrist Flex AROM (degrees) 0-60 Wrist Ext AROM Fingers Open (degrees) 0-65 (full digit extension) Ulnar Deviation AROM (degrees) WNL Radial Deviation AROM (degrees) WNL Right ROM Testing Position Sitting Wrist Flex AROM (degrees) 0-55 Wrist Ext AROM Fingers Open (degrees) 0-60 Ulnar Deviation AROM (degrees) WNL Radial Deviation AROM (degrees) WNL Occupational Therapy Assessment OT Outpatient Muscle Testing Start: 09/22/18 14:43 Freq: Status: Active Protocol: Document 09/19/18 14:43 AMS (Rec: 09/22/18 15:24 AMS [email or web address]) Shoulder Strength Shoulder Manual Muscle Testing Left Flexion 5 Normal Extension 5 Normal Abduction (C5) 5 Normal Adduction 5 Normal External Rotation 5 Normal Internal Rotation 5 Normal Right Flexion 4 Good Extension 4 Good Abduction (C5) 4 Good Adduction 4 Good External Rotation 3 Fair Internal Rotation 4 Good Wrist Strength Wrist Manual Muscle Testing Left Flexion (C7) 5 Normal Extension (C6) 5 Normal Ulnar Deviation 5 Normal Radial Deviation 5 Normal Right Flexion (C7) 5 Normal Extension (C6) 4 Good Ulnar Deviation 4 Good Radial Deviation 4 Good Heavy Coil Winder/Hand Strength Heavy Coil Winder/Hand Strength Left Heavy Coil Winder Dynamometer II 115.7 Right Heavy Coil Winder Dynamometer II 85.0
--- NOTE | 2018-09-26 13:00 | OT.OP.TRT ---
Visit Care Team Role Provider Type Basilio Condon MD Attending Provider Physician Primary Care Provider Specialty: Wound Care Address: [address] [place] [address], [id number] Email: [email or web address] Occupational Therapy Treatment Note OT Outpatient Treatment Note - Adult Start: 09/22/18 14:43 Freq: Status: Active Protocol: Document 09/25/18 15:30 AMS (Rec: 09/26/18 13:00 AMS [email or web address]) OT Outpatient Adult Treatment Note Session Time Visit Start Time 12:30 Visit Stop Time 15:18 Total Visit Minutes 48 Visit Information Visit Number 2 Plan of Care Dates 09/19/18-11/14/18 Setting Treatment Setting Outpatient Care Visit Type Note Type Treatment Note General Information General Information Patient is a right hand dominant 62 year-old male referred to outpatient OT by Doctor Condon due to residual symptoms from stroke he suffered on 07/26/18. Patient was discharged from inpatient care at [facility] with unresolved dizziness, right arm/leg weakness and mild dysarthria. He currently takes low dose of aspirin to manage hypertension. Patient was accompanied by his to initial evaluation/treatment. PLOF: Independent w/ BADLS and IADLS. - Subjective Identification Type Name Other Identification Reconciled With Intake Sheet Medical Record Observations I have been using this hand as much as possible per Chao. Chief Complaint(s) Restricts Patient Expectation/Goals Return to PLOF (full-time work ) Patient/Caregiver Compliance with Home Good Exercise Program - Objective Objective Measurements QuickDASH UE Outcome Measure completed by patient 09/25/18; patient obtained a score of 35.0. Patient did not complete QuickDASH Work Module; indicated 'Do not work right now'. Patient indicated 0 out of 10 on the Pain Assessment Grid relative to R hand/wrist. See paper chart for additional details. Short Term Goals 1. 0-130 right sh abduction. 2. 0-145 right sh flexion. 3. 5/5 MMT right wrist extension. 4. 5/5 MMT right sh ER. Volleyball Assistant Coach Goals 1. Patient will be mod I with upper extremity home strengthening program utilizing provided written and visual instructions. 2. Based on patient's verbal report, patient is able to complete simple meal preparation with active engagement of the right hand/ upper extremity with modified independence on a daily basis. - Treatment 2 Descriptor Functional reach combined w/ object manipulation Complexity Upgraded 1 Descriptor In-hand object manipulation Complexity Upgraded Exercises 1 Descriptor HEP. Advanced home exercise program. Provided written and visual instructions for strengthening exercises for UE . Reviewed in treatment session and patient denied questions. Provided instructions on activities to execute to support return of functional motor planning of the R UE. Patient took written notes and denied additional questions. Complexity Upgraded - Assessment Patient Response to Treatment Good Rehab Potential Good Impairments Identified ADLs Coordination/Dexterity Functional Activities Motor Function Weakness Posture Range of Motion Recreational Activities Meaningful Activities Motor Planning Eye-Hand Coordination Assessment of Overall Progress Improving Assessment of Improvement Score on QuickDASH UE Outcome Measure suggests decreased functional abilities of the right hand compared to PLOF. Improving motor planning of the UE observed compared to date of initial evaluation at shoulder/elbow level w/ movements away from body. Continued decreased fine motor coordination, including decreased in-hand manipulation abilities, which are impacting patient's ability to complete tasks efficiently and effectively in the home/ community environments w/ active engagement of dominant right hand. Recommend continuing to address motor coordination and focusing on quality of movement patterns w / avoidance of use of compensatory strategies. Home Exercise Program Please refer to treatment section of note for specific details. Reviewed with Patient/Caregiver Goals Progress Being Made Home Exercise Program Patient/Caregiver Understanding Good - Plan Therapy Recommendations Continue with Current Program Advance per Rehabilitation Protocol Additional Therapy Recommendations Consult w/ PT and [employer] Occupational Therapy Assessment OT Outpatient Muscle Testing Start: 09/22/18 14:43 Freq: Status: Active Protocol: Document 09/25/18 15:30 AMS (Rec: 09/26/18 13:00 AMS [email or web address]) Shoulder Strength Shoulder Manual Muscle Testing Left Flexion 5 Normal Extension 5 Normal Abduction (C5) 5 Normal Adduction 5 Normal External Rotation 5 Normal Internal Rotation 5 Normal Right Flexion 4 Good Extension 4 Good Abduction (C5) 4 Good Adduction 4 Good External Rotation 3 Fair Internal Rotation 4 Good Elbow/Forearm Strength Elbow and Forearm Manual Muscle Testing Right Flexion (C6) 4 Good Extension (C7) 4 Good Left Flexion (C6) 5 Normal Extension (C7) 5 Normal Wrist Strength Wrist Manual Muscle Testing Left Flexion (C7) 5 Normal Extension (C6) 5 Normal Ulnar Deviation 5 Normal Radial Deviation 5 Normal Right Flexion (C7) 5 Normal Extension (C6) 4 Good Ulnar Deviation 4 Good Radial Deviation 4 Good Deli Cook/Hand Strength Deli Cook/Hand Strength Left Deli Cook Dynamometer II 115.7 Right Deli Cook Dynamometer II 85.0 Occupational Therapy Assessment OT Outpatient Range of Motion Start: 09/22/18 14:43 Freq: Status: Active Protocol: Document 09/25/18 15:30 AMS (Rec: 09/26/18 13:00 AMS [email or web address]) ROM - Shoulder Shoulder Left Forearm ROM Testing Position Sitting Shoulder Flex AROM (degrees) 0-150 Query Text: Shoulder Ext AROM (degrees) WFL Shoulder Abd AROM (degrees) 0-135 Shoulder ER AROM (degrees) 0-50 Right Forearm ROM Testing Position Sitting Shoulder Flex AROM (degrees) 0-135 Query Text: Shoulder Ext AROM (degrees) WFL Shoulder Abd AROM (degrees) 0-120 Shoulder ER AROM (degrees) 0-50 ROM - Elbow/Forearm Elbow/Forearm Measured in Degrees Left ROM Testing Position Sitting Elbow Flex AROM (degrees) WNL Elbow Ext AROM (degrees) WNL Forearm Pron AROM (degrees) WNL Forearm Sup AROM (degrees) 0-90 Right ROM Testing Position Sitting Elbow Flex AROM (degrees) WNL Elbow Ext AROM (degrees) WNL Forearm Pron AROM (degrees) WNL Forearm Sup AROM (degrees) 0-80 ROM - Wrist Wrist Range of Motion Measured in Degrees Left ROM Testing Position Sitting Wrist Flex AROM (degrees) 0-60 Wrist Ext AROM Fingers Open (degrees) 0-65 (full digit extension) Ulnar Deviation AROM (degrees) WNL Radial Deviation AROM (degrees) WNL Right ROM Testing Position Sitting Wrist Flex AROM (degrees) 0-55 Wrist Ext AROM Fingers Open (degrees) 0-60 Ulnar Deviation AROM (degrees) WNL Radial Deviation AROM (degrees) WNL
--- NOTE | 2018-09-30 10:40 | OT.OP.TRT ---
Visit Care Team Role Provider Type Basilio Condon MD Attending Provider Physician Primary Care Provider Specialty: Wound Care Address: [address] [place] [address], [id number] Email: [email or web address] Occupational Therapy Treatment Note OT Outpatient Treatment Note - Adult Start: 09/22/18 14:43 Freq: Status: Active Protocol: Document 09/30/18 10:30 AMS (Rec: 09/30/18 10:40 AMS [email or web address]) OT Outpatient Adult Treatment Note Session Time Visit Start Time 09:30 Visit Stop Time 10:18 Total Visit Minutes 48 Visit Information Visit Number 3 Plan of Care Dates 09/19/18-11/14/18 Setting Treatment Setting Outpatient Care Visit Type Note Type Treatment Note General Information General Information Patient is a right hand dominant 62 year-old male referred to outpatient OT by Doctor Condon due to residual symptoms from stroke he suffered on 07/26/18. Patient was discharged from inpatient care at [facility] with unresolved dizziness, right arm/leg weakness and mild dysarthria. He currently takes low dose of aspirin to manage hypertension. Patient was accompanied by his to initial evaluation/treatment. PLOF: Independent w/ BADLS and IADLS. - Subjective Identification Type Name Other Identification Reconciled With Intake Sheet Medical Record Observations I have been stretching this arm as much as possible per Chao. Chief Complaint(s) Restricts Patient Expectation/Goals Return to PLOF (full-time work ) Patient/Caregiver Compliance with Home Good Exercise Program - Objective Objective Measurements (+) trunk extension w/ manipulation of objects to right of body while seated; (+ ) elbow flexion noted w/ attempt to isolate wrist flex w/ forearm supination and near full elbow extension. Decreased motor coordination of the R hand noted w/ eye- hand activity away from body and to the right of body; decreased motor coordination of the R hand w/ movement. Cognitive level motor planning for quick grasp and release ( as reported by patient). QuickDASH UE Outcome Measure completed by patient 09/25/18; patient obtained a score of 35.0. Patient did not complete QuickDASH Work Module; indicated 'Do not work right now'. Patient indicated 0 out of 10 on the Pain Assessment Grid relative to R hand/wrist. Short Term Goals 1. 0-130 right sh abduction. 2. 0-145 right sh flexion. 3. 5/5 MMT right wrist extension. 4. 5/5 MMT right sh ER. Detention Goals 1. Patient will be mod I with upper extremity home strengthening program utilizing provided written and visual instructions. 2. Based on patient's verbal report, patient is able to complete simple meal preparation with active engagement of the right hand/ upper extremity with modified independence on a daily basis. - Treatment 2 Descriptor Eye-hand coordination 1000gm trampoline work Racquetball Complexity Upgraded 1 Descriptor In-hand object manipulation Complexity Upgraded Exercises 3 Descriptor Arm Pulleys Side Right Body Position Sitting Time 4 2 Descriptor UEB x 1 min both x 4 min R only; alt directions Body Position Sitting Complexity Upgraded 1 Descriptor HEP. Advanced home exercise program. Recommended eye-hand coordination activities w/ use of racquetball as available. Discussed use of arm pulleys ( personal investment or making own pulleys for home use to support ROM of UE). Patient denied questions. Complexity Upgraded - Assessment Patient Response to Treatment Good Rehab Potential Good Impairments Identified ADLs Coordination/Dexterity Functional Activities Motor Function Weakness Posture Range of Motion Recreational Activities Meaningful Activities Motor Planning Eye-Hand Coordination Assessment of Overall Progress Improving Assessment of Improvement Improving motor coordination of the R UE; however, continued need to work out of les pattern w/ object manipulation, as well as manipulating objects away from body. Compensatory strategies noted at trunk level and at elbow level to support success w/ object manipulation. Recommend continuing to work on body awareness, motor planning, object manipulation, and ability to execute tasks without visual feedback. Home Exercise Program Please refer to treatment section of note for specific details. Reviewed with Patient/Caregiver Goals Progress Being Made Home Exercise Program Patient/Caregiver Understanding Good - Plan Therapy Recommendations Continue with Current Program Advance per Rehabilitation Protocol Additional Therapy Recommendations Consult w/ PT and CHIEF PHYSICAL THERAPIST
--- NOTE | 2018-10-31 11:43 | OT.OP.TRT ---
Visit Care Team Role Provider Type Basilio Condon MD Attending Provider Physician Primary Care Provider Specialty: Wound Care Address: [address] [place] [address], [id number] Email: [email or web address] Occupational Therapy Treatment Note OT Outpatient Treatment Note - Adult Start: 09/22/18 14:43 Freq: Status: Active Protocol: Document 10/31/18 09:27 AMS (Rec: 10/31/18 10:30 AMS [id number]) OT Outpatient Adult Treatment Note Session Time Visit Start Time 09:30 Visit Stop Time 10:18 Total Visit Minutes 48 Visit Information Visit Number 4 Plan of Care Dates 09/19/18-11/14/18 Setting Treatment Setting Outpatient Care Visit Type Note Type Treatment Note General Information General Information Patient is a right hand dominant 62 year-old male referred to outpatient OT by Doctor Condon due to residual symptoms from stroke he suffered on 07/26/18. Patient was discharged from inpatient care at [facility] with unresolved dizziness, right arm/leg weakness and mild dysarthria. He currently takes low dose of aspirin to manage hypertension. Patient was accompanied by his to initial evaluation/treatment. PLOF: Independent w/ BADLS and IADLS. - Subjective Identification Type Name Other Identification Reconciled With Intake Sheet Medical Record Observations I was out of town last week. We went to [place]. I am wanting to get into the pool more per [place]. We went to [place] and I did not do as well as I thought I would. Chief Complaint(s) Restricts Patient Expectation/Goals Return to PLOF (full-time work ) Patient/Caregiver Compliance with Home Good Exercise Program - Objective Objective Measurements Please refer to ROM and strength section of note for results of standardized testing. QuickDASH UE Outcome Measure completed by patient 09/25/18; patient obtained a score of 35.0. Patient did not complete QuickDASH Work Module; indicated 'Do not work right now'. Patient indicated 0 out of 10 on the Pain Assessment Grid relative to R hand/wrist. Short Term Goals 1. 0-145 right sh flexion. 2. 5/5 MMT right wrist extension. 10/31/18= 75% met 4. 5/5 MMT right sh ER. = 75% met GOALS MET 0-130 right sh abd. *MET 10/31 Group Home Goals 1. Patient will be mod I with upper extremity home strengthening program utilizing provided written and visual instructions. 2. Based on patient's verbal report, patient is able to complete simple meal preparation with active engagement of the right hand/ upper extremity with modified independence on a daily basis. 10/31/18= 50% met - Treatment 2 Descriptor Eye-hand coordination 1000gm trampoline work Complexity Upgraded 1 Descriptor In-hand object manipulation Complexity Upgraded Exercises 3 Descriptor Arm Pulleys Side Right Body Position Sitting Time 4 2 Descriptor UEB x 1 min both x 4 min R only; alt directions Body Position Sitting Complexity Upgraded 1 Descriptor HEP. In agreement w/ patient in re: swimming on regular basis; recommended patient consult w/ PT for recommendations of exercises/ activities to execute in the pool. Instructed in kinesthetic movement activity w/ use of familiar home objects in affected hand. Had patient practice in session. Patient denied questions. Complexity Upgraded - Assessment Patient Response to Treatment Good Rehab Potential Good Impairments Identified ADLs Coordination/Dexterity Functional Activities Motor Function Weakness Posture Range of Motion Recreational Activities Meaningful Activities Motor Planning Eye-Hand Coordination Assessment of Overall Progress Improving Assessment of Improvement Improving active range of motion of affected upper extremity; improving strength of affected upper extremity. This is evidenced by meeting short term goal in this area and results of standardized testing. Decreased kinesthetic awareness of affected UE in space particularly when engaged in gross motor movement and when object requires manipulation away from base of support near full elbow extension. Discussed returning to regular use of home set of dumbbells and pursuing membership to utilize local pool facilities. It is important to note, patient is recovering from really 'bad cold' and is now finally starting to feel 'a little better based on self-report'. Recommend advancing therapeutic exercises and HEP as able w/ focus on kinesthetic awareness of UE in space/object manipulation away from base of support. Home Exercise Program Please refer to treatment section of note for specific details. Reviewed with Patient/Caregiver Goals Progress Being Made Home Exercise Program Patient/Caregiver Understanding Good - Plan Therapy Recommendations Continue with Current Program Advance per Rehabilitation Protocol Additional Therapy Recommendations Consult w/ PT and LINING STAMPER
--- NOTE | 2018-10-31 11:43 | OT.OP.TRT ---
Visit Care Team Role Provider Type Basilio Condon MD Attending Provider Physician Primary Care Provider Specialty: Wound Care Address: [address] [place] [address], [phone] Email: [email or web address] Occupational Therapy Treatment Note OT Outpatient Treatment Note - Adult Start: 09/22/18 14:43 Freq: Status: Active Protocol: Document 10/31/18 09:27 AMS (Rec: 10/31/18 10:30 AMS [id number]) OT Outpatient Adult Treatment Note Session Time Visit Start Time 09:30 Visit Stop Time 10:18 Total Visit Minutes 48 Visit Information Visit Number 4 Plan of Care Dates 09/19/18-11/14/18 Setting Treatment Setting Outpatient Care Visit Type Note Type Treatment Note General Information General Information Patient is a right hand dominant 62 year-old male referred to outpatient OT by Doctor Condon due to residual symptoms from stroke he suffered on 07/26/18. Patient was discharged from inpatient care at [facility] with unresolved dizziness, right arm/leg weakness and mild dysarthria. He currently takes low dose of aspirin to manage hypertension. Patient was accompanied by his to initial evaluation/treatment. PLOF: Independent w/ BADLS and IADLS. - Subjective Identification Type Name Other Identification Reconciled With Intake Sheet Medical Record Observations I was out of town last week. We went to [place]. I am wanting to get into the pool more per [place]. We went to [place] and I did not do as well as I thought I would. Chief Complaint(s) Restricts Patient Expectation/Goals Return to PLOF (full-time work ) Patient/Caregiver Compliance with Home Good Exercise Program - Objective Objective Measurements Please refer to ROM and strength section of note for results of standardized testing. QuickDASH UE Outcome Measure completed by patient 09/25/18; patient obtained a score of 35.0. Patient did not complete QuickDASH Work Module; indicated 'Do not work right now'. Patient indicated 0 out of 10 on the Pain Assessment Grid relative to R hand/wrist. Short Term Goals 1. 0-145 right sh flexion. 2. 5/5 MMT right wrist extension. 10/31/18= 75% met 4. 5/5 MMT right sh ER. = 75% met GOALS MET 0-130 right sh abd. *MET 10/31 Snf Goals 1. Patient will be mod I with upper extremity home strengthening program utilizing provided written and visual instructions. 2. Based on patient's verbal report, patient is able to complete simple meal preparation with active engagement of the right hand/ upper extremity with modified independence on a daily basis. 10/31/18= 50% met - Treatment 2 Descriptor Eye-hand coordination 1000gm trampoline work Complexity Upgraded 1 Descriptor In-hand object manipulation Complexity Upgraded Exercises 3 Descriptor Arm Pulleys Side Right Body Position Sitting Time 4 2 Descriptor UEB x 1 min both x 4 min R only; alt directions Body Position Sitting Complexity Upgraded 1 Descriptor HEP. In agreement w/ patient in re: swimming on regular basis; recommended patient consult w/ PT for recommendations of exercises/ activities to execute in the pool. Instructed in kinesthetic movement activity w/ use of familiar home objects in affected hand. Had patient practice in session. Patient denied questions. Complexity Upgraded - Assessment Patient Response to Treatment Good Rehab Potential Good Impairments Identified ADLs Coordination/Dexterity Functional Activities Motor Function Weakness Posture Range of Motion Recreational Activities Meaningful Activities Motor Planning Eye-Hand Coordination Assessment of Overall Progress Improving Assessment of Improvement Improving active range of motion of affected upper extremity; improving strength of affected upper extremity. This is evidenced by meeting short term goal in this area and results of standardized testing. Decreased kinesthetic awareness of affected UE in space particularly when engaged in gross motor movement and when object requires manipulation away from base of support near full elbow extension. Discussed returning to regular use of home set of dumbbells and pursuing membership to utilize local pool facilities. It is important to note, patient is recovering from really 'bad cold' and is now finally starting to feel 'a little better based on self-report'. Recommend advancing therapeutic exercises and HEP as able w/ focus on kinesthetic awareness of UE in space/object manipulation away from base of support. Home Exercise Program Please refer to treatment section of note for specific details. Reviewed with Patient/Caregiver Goals Progress Being Made Home Exercise Program Patient/Caregiver Understanding Good - Plan Therapy Recommendations Continue with Current Program Advance per Rehabilitation Protocol Additional Therapy Recommendations Consult w/ PT and HAIRCUTTER Occupational Therapy Assessment OT Outpatient Range of Motion Start: 09/22/18 14:43 Freq: Status: Active Protocol: Document 10/31/18 09:27 AMS (Rec: 10/31/18 10:30 AMS [id number]) ROM - Shoulder Shoulder Left Forearm ROM Testing Position Sitting Shoulder Flex AROM (degrees) 0-150 Query Text: Shoulder Ext AROM (degrees) WFL Shoulder Abd AROM (degrees) 0-135 Shoulder ER AROM (degrees) 0-50 Right Forearm ROM Testing Position Sitting Shoulder Flex AROM (degrees) 0-135 Query Text: Shoulder Ext AROM (degrees) WFL Shoulder Abd AROM (degrees) 0-135 Shoulder ER AROM (degrees) 0-50 ROM - Elbow/Forearm Elbow/Forearm Measured in Degrees Left ROM Testing Position Sitting Elbow Flex AROM (degrees) WNL Elbow Ext AROM (degrees) WNL Forearm Pron AROM (degrees) WNL Forearm Sup AROM (degrees) 0-90 Right ROM Testing Position Sitting Elbow Flex AROM (degrees) WNL Elbow Ext AROM (degrees) WNL Forearm Pron AROM (degrees) WNL Forearm Sup AROM (degrees) 0-90 ROM - Wrist Wrist Range of Motion Measured in Degrees Left ROM Testing Position Sitting Wrist Flex AROM (degrees) 0-60 Wrist Ext AROM Fingers Open (degrees) 0-65 (full digit extension) Ulnar Deviation AROM (degrees) WNL Radial Deviation AROM (degrees) WNL Right ROM Testing Position Sitting Wrist Flex AROM (degrees) 0-60 Wrist Ext AROM Fingers Open (degrees) 0-65 Ulnar Deviation AROM (degrees) WNL Radial Deviation AROM (degrees) WNL Occupational Therapy Assessment OT Outpatient Muscle Testing Start: 09/22/18 14:43 Freq: Status: Active Protocol: Document 10/31/18 09:27 [facility] (Rec: 10/31/18 10:30 [facility] [id number]) Shoulder Strength Shoulder Manual Muscle Testing Left Flexion 5 Normal Extension 5 Normal Abduction (C5) 5 Normal Adduction 5 Normal External Rotation 5 Normal Internal Rotation 5 Normal Right Flexion 4+ Good+ Extension 5 Normal Abduction (C5) 4+ Good+ Adduction 5 Normal External Rotation 4+ Good+ Internal Rotation 5 Normal Elbow/Forearm Strength Elbow and Forearm Manual Muscle Testing Right Flexion (C6) 4+ Good+ Extension (C7) 5 Normal Pronation 5 Normal Supination 5 Normal Left Flexion (C6) 5 Normal Extension (C7) 5 Normal Pronation 5 Normal Supination 5 Normal Wrist Strength Wrist Manual Muscle Testing Left Flexion (C7) 5 Normal Extension (C6) 5 Normal Ulnar Deviation 5 Normal Radial Deviation 5 Normal Right Flexion (C7) 5 Normal Extension (C6) 4+ Good+ Ulnar Deviation 4+ Good+ Radial Deviation 4+ Good+ Lyric Writer/Hand Strength Lyric Writer/Hand Strength Left Lyric Writer Dynamometer II 115.7 Right Lyric Writer Dynamometer II 85.0
--- NOTE | 2018-11-14 11:40 | OT.OP.REEVAL ---
Visit Care Team Role Provider Type Basilio Condon MD Attending Provider Physician Primary Care Provider Address: [address] [place] [address], [id number] Email: [email or web address] Outpatient OT Outpatient Adult Evaluation Start: 09/22/18 14:43 Freq: Status: Active Protocol: Document 09/19/18 14:43 AMS (Rec: 09/22/18 15:24 AMS [email or web address]) General Information Session Time Visit Start Time 12:30 Visit Stop Time 13:15 Total Visit Minutes 45 Visit Information Visit Number 1 Plan of Care Dates 09/19/18-11/14/18 Insurance Information 1 eval; 24 OT units Setting Treatment Setting Outpatient Care Visit Type Note Type Initial Evaluation Referral Referring Physician Basilio Condon MD Reason for Referral s/p CVA. right side weakness Identification Identification Confirmed Yes Identification Confirmed By Chart; photo ID Patient Patient Goals Return to PLOF (full-time work ) Medical Information Medical History Patient is a 62 year-old male referred to outpatient OT by Doctor Condon due to residual symptoms from stroke he suffered on 07/26/18. Patient was discharged from inpatient care at [facility] with unresolved dizziness, right arm/leg weakness and mild dysarthria. He currently takes a low dose of aspirin to manage hypertension. 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 Slightly jerky motor coordination of the R noted; decreased ability to slow down and execute motor movement equal to more than 5 sec. Decreased awareness of UE in space. Opposes thumb to each digit pad w/ increased time R hand w/ visual feedback ; (-) touch to 4th and 5th digit pads w/ wrist in extension away from body. Fine Motor Handedness Hand Preference Right Comments Utilizes both hands Goals Treatment Treatment HEP. Instructed in active engagement of R UE with all functional tasks. Instructed in strengthening exercises out of les pattern (ER, sh abduction, tricep strengthening). Patient and denied questions. Short Term Goals Short Term Goals 1. 0-130 right sh abduction. 2. 0-145 right sh flexion. 3. 5/5 MMT right wrist extension. 4. 5/5 MMT right sh ER. Intermediate Goals Intermediate Goals 1. Patient will be mod I with upper extremity home strengthening program utilizing provided written and visual instructions. 2. Based on patient's verbal report, patient is able to complete simple meal preparation with active engagement of the right hand/ upper extremity with modified independence on a daily basis. Assessment/Plan Assessment Impairments Identified ADLs Coordination/Dexterity Functional Activities Motor Function Weakness Range of Motion Recreational Activities Meaningful Activities Motor Planning Eye-Hand Coordination Treatment Assessment Patient is a right hand dominant 62 year-old male referred to outpatient OT by Doctor Condon due to residual symptoms from stroke he suffered on 07/26/18. Patient was discharged from inpatient care at [facility] with unresolved dizziness, right arm/leg weakness and mild dysarthria. He currently takes low dose of aspirin to manage hypertension. Patient was accompanied by his to initial evaluation/treatment. PLOF: Independent w/ BADLS and IADLS. 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 Outpatient OT recommended to address these areas of impairment so that patient may return to prior level of function, including vocational tasks. Home Exercise Program Please see above for additional details. Reviewed with Patient Goals Home Exercise Program Plan Comment 8 weeks; limited by insurance Comment 1-2 times per week Therapeutic Contents Active Range of Motion Client Education Functional Activities Home Exercise Program Joint Protection Manual Therapy Education Neuromuscular Re-Education Self-Care Stretching/Flexibility Activities Therapeutic Activities Therapeutic Exercises Modalities Sensory Re-education Modalities As Needed As Prescribed Patient Instruction Home Exercise Program Plan of Care Questions/Concerns Comment Consult w/ OFFICE MACHINE INSTALLER and PT Sensory Assessment Sensory Profile2 Functional Wrist/Hand Scan Hand Side OT Outpatient Muscle Testing Start: 09/22/18 14:43 Freq: Status: Active Protocol: Document 11/14/18 11:24 AMS (Rec: 11/14/18 11:40 AMS [email or web address]) Shoulder Strength Shoulder Manual Muscle Testing Left Flexion 5 Normal Extension 5 Normal Abduction (C5) 5 Normal Adduction 5 Normal External Rotation 5 Normal Internal Rotation 5 Normal Right Flexion 4+ Good+ Extension 5 Normal Abduction (C5) 4+ Good+ Adduction 5 Normal External Rotation 4+ Good+ Internal Rotation 5 Normal Elbow/Forearm Strength Elbow and Forearm Manual Muscle Testing Right Flexion (C6) 4+ Good+ Extension (C7) 5 Normal Pronation 5 Normal Supination 5 Normal Left Flexion (C6) 5 Normal Extension (C7) 5 Normal Pronation 5 Normal Supination 5 Normal Wrist Strength Wrist Manual Muscle Testing Left Flexion (C7) 5 Normal Extension (C6) 5 Normal Ulnar Deviation 5 Normal Radial Deviation 5 Normal Right Flexion (C7) 5 Normal Extension (C6) 4+ Good+ Ulnar Deviation 4+ Good+ Radial Deviation 4+ Good+ Undercutter Operator/Hand Strength Undercutter Operator/Hand Strength Left Undercutter Operator Dynamometer II 115.7 Right Undercutter Operator Dynamometer II 85.0 OT Outpatient Range of Motion Start: 09/22/18 14:43 Freq: Status: Active Protocol: Document 11/14/18 11:24 AMS (Rec: 11/14/18 11:40 AMS [email or web address]) ROM - Shoulder Shoulder Left Forearm ROM Testing Position Sitting Shoulder Flex AROM (degrees) 0-150 Query Text: Shoulder Ext AROM (degrees) WFL Shoulder Abd AROM (degrees) 0-135 Shoulder ER AROM (degrees) 0-50 Right Forearm ROM Testing Position Sitting Shoulder Flex AROM (degrees) 0-135 Query Text: Shoulder Ext AROM (degrees) WFL Shoulder Abd AROM (degrees) 0-135 Shoulder ER AROM (degrees) 0-50 ROM - Elbow/Forearm Elbow/Forearm Measured in Degrees Left ROM Testing Position Sitting Elbow Flex AROM (degrees) WNL Elbow Ext AROM (degrees) WNL Forearm Pron AROM (degrees) WNL Forearm Sup AROM (degrees) 0-90 Right ROM Testing Position Sitting Elbow Flex AROM (degrees) WNL Elbow Ext AROM (degrees) WNL Forearm Pron AROM (degrees) WNL Forearm Sup AROM (degrees) 0-90 ROM - Wrist Wrist Range of Motion Measured in Degrees Left ROM Testing Position Sitting Wrist Flex AROM (degrees) 0-60 Wrist Ext AROM Fingers Open (degrees) 0-65 (full digit extension) Ulnar Deviation AROM (degrees) WNL Radial Deviation AROM (degrees) WNL Right ROM Testing Position Sitting Wrist Flex AROM (degrees) 0-60 Wrist Ext AROM Fingers Open (degrees) 0-65 Ulnar Deviation AROM (degrees) WNL Radial Deviation AROM (degrees) WNL OT Outpatient Treatment Note - Adult Start: 09/22/18 14:43 Freq: Status: Active Protocol: Document 11/14/18 11:24 AMS (Rec: 11/14/18 11:40 AMS [email or web address]) OT Outpatient Adult Treatment Note Session Time Visit Start Time 09:30 Visit Stop Time 10:18 Total Visit Minutes 48 Visit Information Visit Number 1 Plan of Care Dates 11/14/18-02/06/19 Setting Treatment Setting Outpatient Care Visit Type Note Type Re-Evaluation General Information General Information Patient is a right hand dominant 62 year-old male referred to outpatient OT by Doctor Condon due to residual symptoms from stroke he suffered on 07/26/18. Patient was discharged from inpatient care at [facility] with unresolved dizziness, right arm/leg weakness and mild dysarthria. He currently takes low dose of aspirin to manage hypertension. Patient was accompanied by his to initial evaluation/treatment. PLOF: Independent w/ BADLS and IADLS. - Subjective Identification Type Name Other Identification Reconciled With Intake Sheet Medical Record Observations I got a 3-month membership so I could go swimming at the pool per Chao. I was planning on going there later on today. Chief Complaint(s) Restricts Patient Expectation/Goals Return to PLOF (full-time work ) Patient/Caregiver Compliance with Home Good Exercise Program - Objective Objective Measurements Please refer to ROM and strength section of note for results of most recent standardized testing. QuickDASH UE Outcome Measure completed by patient 09/25/18; patient obtained a score of 35.0. Patient did not complete QuickDASH Work Module; indicated 'Do not work right now'. Patient indicated 0 out of 10 on the Pain Assessment Grid relative to R hand/wrist. Short Term Goals 1. 0-145 right sh flexion. 2. 5/5 MMT right wrist extension. 10/31/18= 75% met 4. 5/5 MMT right sh ER. = 75% met GOALS MET 0-130 right sh abd. *MET 10/31 Intermediate Goals 1. Patient will be mod I with upper extremity home strengthening program utilizing provided written and visual instructions. 11/14/18= 50% met 2. Based on patient's verbal report, patient will be able to complete simple meal preparation with active engagement of the right hand/ upper extremity with modified independence on a daily basis. 11/14/18= 50% met - Treatment 2 Descriptor Eye-hand coordination 1000gm trampoline work Initiated focused wrist flip; hor abd & ER Complexity Upgraded 1 Descriptor In-hand object manipulation Grading of force with object manipulation Complexity Upgraded Exercises 3 Descriptor Arm Pulleys Side Right Body Position Sitting Time 3 2 Descriptor Arm bike Side Right Body Position Sitting Time 5 minutes Complexity Upgraded 1 Descriptor HEP/POC. Reviewed current HEP. Recommended in-hand object manipulation with various multiples of various types of objects in order to continue to progress with fine motor abilities. Patient denied questions. Complexity Upgraded - Assessment Patient Response to Treatment Good Rehab Potential Good Impairments Identified ADLs Coordination/Dexterity Functional Activities Motor Function Weakness Posture Range of Motion Recreational Activities Meaningful Activities Motor Planning Eye-Hand Coordination Assessment of Overall Progress Improving Assessment of Improvement Chao has made progress since time of initial evaluation; this is evidenced by improving active range of motion and strength of affected upper extremity. Chao is also demonstrating improving fine motor coordination of the affected hand with object manipulation based on self report and therapist's ability to advance therapeutic exercises/activities in treatment session and for home exercise program. Chao continues to present w/ decreased motor abilities of the affected upper extremity when compared to prior level of function (relative to speed and efficiency w/ translation , rotation, complex rotation w / objects and ability to handle multiple objects in palm of hand). Chao also presents w/ decreased overall active ROM and strength of the R UE compared to non-dominant UE. Thus, he would likely continue to benefit from outpatient OT. Recommend that therapist continues to motor abilities to maximize Chao's success w/ active engagement in meaningful activities. Home Exercise Program Please refer to treatment section of note for specific details. Reviewed with Patient/Caregiver Goals Progress Being Made Home Exercise Program Patient/Caregiver Understanding Good - Plan Therapy Recommendations Continue with Current Program Advance per Rehabilitation Protocol Additional Therapy Recommendations Consult w/ PT and OFFICE MACHINE INSTALLER Comment 12 weeks Frequency of Treatment Once a Week Therapeutic Contents Active Range of Motion Client Education Cognitive Skills Development Functional Activities Home Exercise Program Joint Protection Manual Therapy Education Neurodevelopment Treatment Neuromuscular Re-Education Self-Care Stretching/Flexibility Activities Therapeutic Activities Therapeutic Exercises Modalities Sensory Re-education Modalities As Needed As Prescribed Occupational Therapy Assessment OT Outpatient Range of Motion Start: 09/22/18 14:43 Freq: Status: Active Protocol: Document 11/14/18 11:24 AMS (Rec: 11/14/18 11:40 AMS [email or web address]) ROM - Shoulder Shoulder Left Forearm ROM Testing Position Sitting Shoulder Flex AROM (degrees) 0-150 Query Text: Shoulder Ext AROM (degrees) WFL Shoulder Abd AROM (degrees) 0-135 Shoulder ER AROM (degrees) 0-50 Right Forearm ROM Testing Position Sitting Shoulder Flex AROM (degrees) 0-135 Query Text: Shoulder Ext AROM (degrees) WFL Shoulder Abd AROM (degrees) 0-135 Shoulder ER AROM (degrees) 0-50 ROM - Elbow/Forearm Elbow/Forearm Measured in Degrees Left ROM Testing Position Sitting Elbow Flex AROM (degrees) WNL Elbow Ext AROM (degrees) WNL Forearm Pron AROM (degrees) WNL Forearm Sup AROM (degrees) 0-90 Right ROM Testing Position Sitting Elbow Flex AROM (degrees) WNL Elbow Ext AROM (degrees) WNL Forearm Pron AROM (degrees) WNL Forearm Sup AROM (degrees) 0-90 ROM - Wrist Wrist Range of Motion Measured in Degrees Left ROM Testing Position Sitting Wrist Flex AROM (degrees) 0-60 Wrist Ext AROM Fingers Open (degrees) 0-65 (full digit extension) Ulnar Deviation AROM (degrees) WNL Radial Deviation AROM (degrees) WNL Right ROM Testing Position Sitting Wrist Flex AROM (degrees) 0-60 Wrist Ext AROM Fingers Open (degrees) 0-65 Ulnar Deviation AROM (degrees) WNL Radial Deviation AROM (degrees) WNL Occupational Therapy Assessment OT Outpatient Muscle Testing Start: 09/22/18 14:43 Freq: Status: Active Protocol: Document 11/14/18 11:24 [facility] (Rec: 11/14/18 11:40 AMS [email or web address]) Shoulder Strength Shoulder Manual Muscle Testing Left Flexion 5 Normal Extension 5 Normal Abduction (C5) 5 Normal Adduction 5 Normal External Rotation 5 Normal Internal Rotation 5 Normal Right Flexion 4+ Good+ Extension 5 Normal Abduction (C5) 4+ Good+ Adduction 5 Normal External Rotation 4+ Good+ Internal Rotation 5 Normal Elbow/Forearm Strength Elbow and Forearm Manual Muscle Testing Right Flexion (C6) 4+ Good+ Extension (C7) 5 Normal Pronation 5 Normal Supination 5 Normal Left Flexion (C6) 5 Normal Extension (C7) 5 Normal Pronation 5 Normal Supination 5 Normal Wrist Strength Wrist Manual Muscle Testing Left Flexion (C7) 5 Normal Extension (C6) 5 Normal Ulnar Deviation 5 Normal Radial Deviation 5 Normal Right Flexion (C7) 5 Normal Extension (C6) 4+ Good+ Ulnar Deviation 4+ Good+ Radial Deviation 4+ Good+ Undercutter Operator/Hand Strength Undercutter Operator/Hand Strength Left Undercutter Operator Dynamometer II 115.7 Right Undercutter Operator Dynamometer II 85.0
--- NOTE | 2018-11-21 12:11 | OT.OP.TRT ---
Visit Care Team Role Provider Type Basilio Condon MD Attending Provider Physician Primary Care Provider Specialty: Wound Care Address: [address] [place] [address], [id number] Email: [email or web address] Occup[employer] Therapy Treatment Note OT Outpatient Treatment Note - Adult Start: 09/22/18 14:43 Freq: Status: Active Protocol: Document 11/21/18 09:28 AMS (Rec: 11/21/18 10:32 AMS [email or web address]) OT Outpatient Adult Treatment Note Session Time Visit Start Time 09:30 Visit Stop Time 10:20 Total Visit Minutes 50 Visit Information Visit Number 2 Plan of Care Dates 11/14/18-02/06/19 Insurance Information 11/10/18: 1 eval; 24 OT units Setting Treatment Setting Outpatient Care Visit Type Note Type Treatment Note General Information General Information Patient is a right hand dominant 62 year-old male referred to outpatient OT by Doctor Condon due to residual symptoms from stroke he suffered on 07/26/18. Patient was discharged from inpatient care at [facility] with unresolved dizziness, right arm/leg weakness and mild dysarthria. He currently takes low dose of aspirin to manage hypertension. Patient was accompanied by his to initial evaluation/treatment. PLOF: Independent w/ BADLS and IADLS. - Subjective Identification Type Name Other Identification Reconciled With Intake Sheet Medical Record Observations I am planning on going to the pool after this per Chao. I went after PT the other day. I don't have the 40 yards of dirt yet. I need to do that first per Chao. Chief Complaint(s) Restricts Patient Expectation/Goals Return to PLOF (full-time work ) Patient/Caregiver Compliance with Home Good Exercise Program - Objective Objective Measurements (-) familiarity in re: strengthening equipment. QuickDASH UE Outcome Measure completed by patient 09/25/18; patient obtained a score of 35.0. Patient did not complete QuickDASH Work Module; indicated 'Do not work right now'. Patient indicated 0 out of 10 on the Pain Assessment Grid relative to R hand/wrist. Short Term Goals 1. 0-145 right sh flexion. 2. 5/5 MMT right wrist extension. 10/31/18= 75% met 4. 5/5 MMT right sh ER. = 75% met GOALS MET 0-130 right sh abd. *MET 10/31 Correction Goals 1. Patient will be mod I with upper extremity home strengthening program utilizing provided written and visual instructions. 11/21/18= 50% met; HEP upgraded 2. Based on patient's verbal report, patient will be able to complete simple meal preparation with active engagement of the right hand/ upper extremity with modified independence on a daily basis. 11/14/18= 50% met - Treatment 2 Descriptor Eye-hand coordination 1000gm trampoline work 3.3# spherical ball trampoline work Complexity Upgraded 1 Descriptor In-hand object manipulation Motor planning of the thumb Complexity Upgraded Exercises 7 Descriptor PNF diagonal Hip --> right upper quadrant Side Right Body Position Standing Sets 2 Repetitions 10 Resistance 3# DB Complexity Upgraded 6 Descriptor Shoulder extension Side Right Body Position Standing Sets 2 Repetitions 10 Resistance 10# Complexity Upgraded 5 Descriptor Tricep extension Side Right Body Position Standing Sets 2 Repetitions 10 Resistance 10# Complexity Upgraded 4 Descriptor Seated row Side Both Sets 2 Repetitions 10 Resistance 10# Complexity Upgraded 3 Descriptor Arm Pulleys Side Right Body Position Sitting Time 3 2 Descriptor Arm bike Side Right Body Position Sitting Time 5 minutes Complexity No Change 1 Descriptor HEP/POC. Instructed in seated row; cable tricep extension; cable shoulder extension; DB diagonal. Patient denied need for written/visual instructions. Instructed in opposition exercise for R hand w/ focus on base <--> fingers tips w/ thumb coordination. Patient denied questions. Complexity Upgraded - Assessment Patient Response to Treatment Good Rehab Potential Good Impairments Identified ADLs Coordination/Dexterity Functional Activities Motor Function Weakness Posture Range of Motion Recreational Activities Meaningful Activities Motor Planning Eye-Hand Coordination Assessment of Overall Progress Improving Assessment of Improvement Patient instructed on UE strengthening exercises given recent membership to local gym facility/pool. Patient instructed in oppositional motor planning exercise given continued use of compensatory patterns w/ transferring objects from palm to fingertips and decreased dissociation between proximal and distal UE. Recommend that therapist continues to motor abilities to maximize Chao's success w/ active engagement in meaningful activities. Home Exercise Program Please refer to treatment section of note for specific details. Reviewed with Patient/Caregiver Goals Progress Being Made Home Exercise Program Patient/Caregiver Understanding Good - Plan Therapy Recommendations Continue with Current Program Advance per Rehabilitation Protocol Additional Therapy Recommendations Consult w/ PT and PROGRAM COUNSELOR
--- NOTE | 2018-11-28 11:43 | OT.OP.TRT ---
Visit Care Team Role Provider Type Basilio Condon MD Attending Provider Physician Primary Care Provider Specialty: Wound Care Address: [address] [place] [address], [id number] Email: [email or web address] Occupational Therapy Treatment Note OT Outpatient Treatment Note - Adult Start: 09/22/18 14:43 Freq: Status: Active Protocol: Document 11/28/18 11:34 AMS (Rec: 11/28/18 11:43 AMS [email or web address]) OT Outpatient Adult Treatment Note Session Time Visit Start Time 09:30 Visit Stop Time 10:20 Total Visit Minutes 50 Visit Information Visit Number 3 Plan of Care Dates 11/14/18-02/06/19 Insurance Information 11/10/18: 1 eval; 24 OT units Setting Treatment Setting Outpatient Care Visit Type Note Type Treatment Note General Information General Information Patient is a right hand dominant 62 year-old male referred to outpatient OT by Doctor Condon due to residual symptoms from stroke he suffered on 07/26/18. Patient was discharged from inpatient care at [facility] with unresolved dizziness, right arm/leg weakness and mild dysarthria. He currently takes low dose of aspirin to manage hypertension. Patient was accompanied by his to initial evaluation/treatment. PLOF: Independent w/ BADLS and IADLS. - Subjective Identification Type Name Other Identification Reconciled With Intake Sheet Medical Record Observations I am going to the gym after this. I am surprised I am doing so well with this one per Chao. Chief Complaint(s) Restricts Patient Expectation/Goals Return to PLOF (full-time work ) Patient/Caregiver Compliance with Home Good Exercise Program - Objective Objective Measurements (-) familiarity in re: strengthening equipment. QuickDASH UE Outcome Measure completed by patient 09/25/18; patient obtained a score of 35.0. Patient did not complete QuickDASH Work Module; indicated 'Do not work right now'. Patient indicated 0 out of 10 on the Pain Assessment Grid relative to R hand/wrist. Short Term Goals 1. 0-145 right sh flexion. 2. 5/5 MMT right wrist extension. 10/31/18= 75% met 4. 5/5 MMT right sh ER. = 75% met GOALS MET 0-130 right sh abd. *MET 10/31 Longterm Goals 1. Patient will be mod I with upper extremity home strengthening program utilizing provided written and visual instructions. 11/21/18= 50% met; HEP upgraded 2. Based on patient's verbal report, patient will be able to complete simple meal preparation with active engagement of the right hand/ upper extremity with modified independence on a daily basis. 11/14/18= 50% met - Treatment 2 Descriptor Eye-hand coordination Yoga ball 1000gm trampoline work 3.3# spherical ball trampoline work Complexity Upgraded 1 Descriptor In-hand object manipulation Motor planning of the thumb Complexity Upgraded Exercises 7 Descriptor PNF diagonal Hip --> right upper quadrant Side Right Body Position Standing Sets 2 Repetitions 10 Resistance 3# DB Complexity Upgraded 6 Descriptor Shoulder extension Side Right Body Position Standing Sets 2 Repetitions 10 Resistance 10# Complexity Upgraded 5 Descriptor Tricep extension Side Right Body Position Standing Sets 2 Repetitions 10 Resistance 10# Complexity Upgraded 4 Descriptor Seated row Side Both Sets 2 Repetitions 10 Resistance 10# Complexity Upgraded 3 Descriptor Arm Pulleys Side Right Body Position Sitting Time 3 2 Descriptor Arm bike Side Right Body Position Sitting Time 5 minutes Complexity No Change 1 Descriptor HEP/POC. Recommended continuation of strengthening/ stretching exercises at local gym, as well as focusing on motor planning/coordination of the right thumb. Also recommended utilization of chop sticks in the home w/ meals and/or other small object manipulation to continue to support return of motor function/motor planning. Discussed use of tweezers in conjunction w/ chopsticks. Patient denied questions. Complexity Upgraded - Assessment Patient Response to Treatment Good Rehab Potential Good Impairments Identified ADLs Coordination/Dexterity Functional Activities Motor Function Weakness Posture Range of Motion Recreational Activities Meaningful Activities Motor Planning Eye-Hand Coordination Assessment of Overall Progress Improving Assessment of Improvement Chao is demonstrating improving fine motor coordination abilities, including improving in-hand manipulation skills. This is evidenced by decreased reliance on compensatory strategies w/ in-hand object manipulation and ability to complete new tool based activities w/ focus on grading of light force w/ tool. Chao is also demonstrating improving awareness of R UE in space, as well as ability to motor plan UE away from base of support. This is evidenced by ability of therapist to transition to in-hand manipulation tasks out of les pattern and away from body. 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 Recommend that therapist continues to motor abilities to maximize Chao's success w/ active engagement in meaningful activities. Home Exercise Program Please refer to treatment section of note for specific details. Reviewed with Patient/Caregiver Goals Progress Being Made Home Exercise Program Patient/Caregiver Understanding Good - Plan Therapy Recommendations Continue with Current Program Advance per Rehabilitation Protocol Additional Therapy Recommendations Consult w/ PT and MARINE CARGO SURVEYOR
--- NOTE | 2018-12-05 11:31 | OT.OP.TRT ---
Visit Care Team Role Provider Type Basilio Condon MD Attending Provider Physician Primary Care Provider Specialty: Wound Care Address: [address] [place] [address], [id number] Email: [email or web address] Occupational Therapy Treatment Note OT Outpatient Treatment Note - Adult Start: 09/22/18 14:43 Freq: Status: Active Protocol: Document 12/05/18 10:24 AMS (Rec: 12/05/18 10:30 AMS [email or web address]) OT Outpatient Adult Treatment Note Session Time Visit Start Time 09:30 Visit Stop Time 10:20 Total Visit Minutes 50 Visit Information Visit Number 4 more visits authorized Plan of Care Dates 11/14/18-02/06/19 Insurance Information 11/10/18: 1 eval; 24 OT units Setting Treatment Setting Outpatient Care Visit Type Note Type Treatment Note General Information General Information Patient is a right hand dominant 62 year-old male referred to outpatient OT by Doctor Condon due to residual symptoms from stroke he suffered on 07/26/18. Patient was discharged from inpatient care at [facility] with unresolved dizziness, right arm/leg weakness and mild dysarthria. He currently takes low dose of aspirin to manage hypertension. Patient was accompanied by his to initial evaluation/treatment. PLOF: Independent w/ BADLS and IADLS. - Subjective Identification Type Name Other Identification Reconciled With Intake Sheet Medical Record Observations I am going to the gym after this. I have been focusing on the breast stroke. I have 2 more weeks to decide if I am going to take the job or not per Chao. I started shoveling dirt for short periods of time. Chief Complaint(s) Restricts Patient Expectation/Goals Return to PLOF (full-time work ) Patient/Caregiver Compliance with Home Good Exercise Program - Objective Objective Measurements Improving activity tolerance. QuickDASH UE Outcome Measure completed by patient 09/25/18; patient obtained a score of 35.0. Patient did not complete QuickDASH Work Module; indicated 'Do not work right now'. Patient indicated 0 out of 10 on the Pain Assessment Grid relative to R hand/wrist. Short Term Goals 1. 0-145 right sh flexion. 2. 5/5 MMT right wrist extension. 10/31/18= 75% met 4. 5/5 MMT right sh ER. = 75% met GOALS MET 0-130 right sh abd. *MET 10/31 Detention Goals 1. Patient will be mod I with upper extremity home strengthening program utilizing provided written and visual instructions. 12/05/18= 50% met; HEP upgraded 2. Based on patient's verbal report, patient will be able to complete simple meal preparation with active engagement of the right hand/ upper extremity with modified independence on a daily basis. 11/14/18= 50% met - Treatment 2 Descriptor Eye-hand coordination Yoga ball 3.3# spherical ball trampoline work Complexity Upgraded 1 Descriptor Fine motor coordination Object manipulation In-hand coordination Complexity Upgraded Exercises 3 Descriptor Arm Pulleys Yoga ball Side Right Body Position Sitting Time 3 Complexity Upgraded 1 Descriptor HEP/POC. Recommended continuation of strengthening/ stretching exercises at local gym, swimming and focusing on refined motor skills (grading of force w/ stacking - pads of digits). In agreement to reduction of plan to 1 x per week d/t insurance limitations . Patient denied questions. Complexity Upgraded - Assessment Patient Response to Treatment Good Rehab Potential Good Impairments Identified ADLs Coordination/Dexterity Functional Activities Motor Function Weakness Posture Range of Motion Recreational Activities Meaningful Activities Motor Planning Eye-Hand Coordination Assessment of Overall Progress Improving Assessment of Improvement Chao is demonstrating improving fine motor coordination abilities. This is evidenced by decreased reliance on compensatory strategies w/ object manipulation and therapist's ability to advance activities w/ increasing demand on ability to grade touch/force appropriately. Chao is also continuing to demonstrate improving awareness of R UE in space and ability to manipulate objects away from base of support. Upgraded HEP w/ focus on refining fine motor abilities. Recommend reducing frequency of treatment d/t insurance limitations. Recommend that therapist continues to motor abilities to maximize Chao's success w/ active engagement in meaningful activities and ensuring independence w/ HEP prior to need to discharge to [facility]. Home Exercise Program Please refer to treatment section of note for specific details. Reviewed with Patient/Caregiver Goals Progress Being Made Home Exercise Program Patient/Caregiver Understanding Good - Plan Therapy Recommendations Advance per Rehabilitation Protocol Decrease Frequency of Rehabilitation Additional Therapy Recommendations reduce frequency 1 x every other week; consult w/ PT and CORPORATE TRAVEL EXPERT
--- NOTE | 2018-12-19 13:57 | OT.OP.TRT ---
Visit Care Team Role Provider Type Basilio Condon MD Attending Provider Physician Primary Care Provider Specialty: Wound Care Address: [address] [place] [address], [id number] Email: [email or web address] Treatment Note OT Outpatient Treatment Note - Adult Start: 09/22/18 14:43 Freq: Status: Active Protocol: Document 12/19/18 13:41 AMS (Rec: 12/19/18 13:57 AMS [email or web address]) OT Outpatient Adult Treatment Note Session Time Visit Start Time 12:30 Visit Stop Time 13:15 Total Visit Minutes 45 Visit Information Visit Number 4 more visits authorized Plan of Care Dates 11/14/18-02/06/19 Insurance Information 11/10/18: 1 eval; 24 OT units Setting Treatment Setting Outpatient Care Visit Type Note Type Treatment Note General Information General Information Patient is a right hand dominant 62 year-old male referred to outpatient OT by Doctor Condon due to residual symptoms from stroke he suffered on 07/26/18. Patient was discharged from inpatient care at [facility] with unresolved dizziness, right arm/leg weakness and mild dysarthria. He currently takes low dose of aspirin to manage hypertension. Patient was accompanied by his to initial evaluation/treatment. PLOF: Independent w/ BADLS and IADLS. - Subjective Identification Type Name Other Identification Reconciled With Intake Sheet Medical Record Observations I did shovel dirt this morning. I finished the job that I have been working on per [employer]. Chief Complaint(s) Restricts Patient Expectation/Goals Return to PLOF (full-time work ) Patient/Caregiver Compliance with Home Good Exercise Program - Objective Objective Measurements Improving activity tolerance. QuickDASH UE Outcome Measure completed by patient 12/19/18; patient obtained a score of 36 .4. QuickDASH UE Outcome Measure completed by patient 09/25/18; patient obtained a score of 35.0. Patient did not complete QuickDASH Work Module; indicated 'Do not work right now'. Patient indicated 0 out of 10 on the Pain Assessment Grid relative to R hand/wrist. Short Term Goals 1. 5/[address] 12/19= GOAL UPGRADED 2. 5/5 MMT right wrist UD. 12/19= GOAL UPGRADED GOALS MET 0-130 right sh abd. *MET 10/31 0-145 right sh flexion. *MET 5/5 MMT right wrist extension. *MET 12/19/18 5/5 MMT right sh ER. *MET News Wire Photo Operator Goals 1. Patient will be mod I with upper extremity home strengthening program utilizing provided written and visual instructions. 12/05/18= 50% met; HEP upgraded 2. Based on patient's verbal report, patient will be able to complete simple meal preparation with active engagement of the right hand/ upper extremity with modified independence on a daily basis. 12/19/18= 50% met - Treatment 2 Descriptor Eye-hand coordination Yoga ball 4.4# spherical ball trampoline work Complexity Upgraded 1 Descriptor Fine motor coordination Object manipulation In-hand coordination Complexity Upgraded Exercises 3 Descriptor Arm Pulleys Yoga ball Side Right Body Position Sitting Time 3 1 Descriptor HEP/POC. Recommended continued focus on object manipulation away from base of support near full elbow extension. Recommended increasing activity tolerance/progressing length of time engaged in activity. Discussed trialing use of hammer d/t continued difficulties reported w/ chopping in efficient manner. Complexity Upgraded - Assessment Patient Response to Treatment Good Rehab Potential Good Impairments Identified ADLs Coordination/Dexterity Functional Activities Motor Function Weakness Posture Range of Motion Recreational Activities Meaningful Activities Motor Planning Eye-Hand Coordination Assessment of Overall Progress Improving Assessment of Improvement Increasing R UE strength, as evidenced by patient meeting short term goals in these areas. Improving R UE sh AROM, as evidenced by patient meeting short term goal in this area. Slightly higher score relative to QuickDASH Measure which may be d/t patient's report of continued awareness of difficulties of R UE in comparison to PLOF. Increased success w/ object manipulation tasks near SHIRIN; decreased coordination noted outside of base of support. Thus, need to address this area. Continued report of decreased speed and efficiency w/ tool use w/ meal preparation (e.g., chopping). Recommend working on this type of motor planning to support functional carry-over. Recommend that therapist continues to motor abilities to maximize Chao's success w/ active engagement in meaningful activities and ensuring independence w/ HEP prior to need to discharge to [facility]. Home Exercise Program Please refer to treatment section of note for specific details. Reviewed with Patient/Caregiver Goals Progress Being Made Home Exercise Program Patient/Caregiver Understanding Good - Plan Therapy Recommendations Advance per Rehabilitation Protocol Occupational Therapy Assessment OT Outpatient Range of Motion Start: 09/22/18 14:43 Freq: Status: Active Protocol: Document 12/19/18 13:41 AMS (Rec: 12/19/18 13:57 AMS [email or web address]) ROM - Shoulder Shoulder Left Forearm ROM Testing Position Sitting Shoulder Flex AROM (degrees) 0-150 Query Text: Shoulder Ext AROM (degrees) WFL Shoulder Abd AROM (degrees) 0-135 Shoulder ER AROM (degrees) 0-50 Right Forearm ROM Testing Position Sitting Shoulder Flex AROM (degrees) 0-145 Query Text: Shoulder Ext AROM (degrees) WFL Shoulder Abd AROM (degrees) 0-135 Shoulder ER AROM (degrees) 0-50 ROM - Elbow/Forearm Elbow/Forearm Measured in Degrees Left ROM Testing Position Sitting Elbow Flex AROM (degrees) WNL Elbow Ext AROM (degrees) WNL Forearm Pron AROM (degrees) WNL Forearm Sup AROM (degrees) 0-90 Right ROM Testing Position Sitting Elbow Flex AROM (degrees) WNL Elbow Ext AROM (degrees) WNL Forearm Pron AROM (degrees) WNL Forearm Sup AROM (degrees) 0-90 ROM - Wrist Wrist Range of Motion Measured in Degrees Left ROM Testing Position Sitting Wrist Flex AROM (degrees) 0-60 Wrist Ext AROM Fingers Open (degrees) 0-65 (full digit extension) Ulnar Deviation AROM (degrees) WNL Radial Deviation AROM (degrees) WNL Right ROM Testing Position Sitting Wrist Flex AROM (degrees) 0-60 Wrist Ext AROM Fingers Open (degrees) 0-65 Ulnar Deviation AROM (degrees) WNL Radial Deviation AROM (degrees) WNL Occupational Therapy Assessment OT Outpatient Muscle Testing Start: 09/22/18 14:43 Freq: Status: Active Protocol: Document 12/19/18 13:41 AMS (Rec: 12/19/18 13:57 AMS [email or web address]) Shoulder Strength Shoulder Manual Muscle Testing Left Flexion 5 Normal Extension 5 Normal Abduction (C5) 5 Normal Adduction 5 Normal External Rotation 5 Normal Internal Rotation 5 Normal Right Flexion 4+ Good+ Extension 5 Normal Abduction (C5) 5 Normal Adduction 5 Normal External Rotation 4+ Good+ Internal Rotation 5 Normal Elbow/Forearm Strength Elbow and Forearm Manual Muscle Testing Right Flexion (C6) 4+ Good+ Extension (C7) 5 Normal Pronation 5 Normal Supination 5 Normal Left Flexion (C6) 5 Normal Extension (C7) 5 Normal Pronation 5 Normal Supination 5 Normal Wrist Strength Wrist Manual Muscle Testing Left Flexion (C7) 5 Normal Extension (C6) 5 Normal Ulnar Deviation 5 Normal Radial Deviation 5 Normal Right Flexion (C7) 5 Normal Extension (C6) 5 Normal Ulnar Deviation 4+ Good+ Radial Deviation 4+ Good+ Byproduct Engineer/Hand Strength Byproduct Engineer/Hand Strength Left Byproduct Engineer Dynamometer II 115.7 Right Byproduct Engineer Dynamometer II 85.0
--- NOTE | 2019-01-02 12:47 | OT.OP.TRT ---
Visit Care Team Role Provider Type Basilio Condon MD Attending Provider Physician Primary Care Provider Specialty: Wound Care Address: [address] [place] [address], [phone] Email: [email or web address] Occupational Therapy Treatment Note OT Outpatient Treatment Note - Adult Start: 09/22/18 14:43 Freq: Status: Active Protocol: Document 01/02/19 12:36 AMS (Rec: 01/02/19 12:47 AMS [email or web address]) OT Outpatient Adult Treatment Note Session Time Visit Start Time 09:30 Visit Stop Time 10:18 Total Visit Minutes 48 Visit Information Visit Number 2 more visits authorized Plan of Care Dates 11/14/18-02/06/19 Insurance Information 11/10/18: 1 eval; 24 OT units Setting Treatment Setting Outpatient Care Visit Type Note Type Treatment Note General Information General Information Patient is a right hand dominant 62 year-old male referred to outpatient OT by Doctor Condon due to residual symptoms from stroke he suffered on 07/26/18. Patient was discharged from inpatient care at [facility] with unresolved dizziness, right arm/leg weakness and mild dysarthria. He currently takes low dose of aspirin to manage hypertension. Patient was accompanied by his to initial evaluation/treatment. PLOF: Independent w/ BADLS and IADLS. - Subjective Identification Type Name Other Identification Reconciled With Intake Sheet Medical Record Observations I was able to fix the plumbing under the sink the other day. The job that I was telling you about will be next Saturday per Chao. Chief Complaint(s) Restricts Patient Expectation/Goals Return to PLOF (full-time work ) Patient/Caregiver Compliance with Home Good Exercise Program - Objective Objective Measurements Improving activity tolerance. QuickDASH UE Outcome Measure completed by patient 12/19/18; patient obtained a score of 36 .4. QuickDASH UE Outcome Measure completed by patient 09/25/18; patient obtained a score of 35.0. Patient did not complete QuickDASH Work Module; indicated 'Do not work right now'. Patient indicated 0 out of 10 on the Pain Assessment Grid relative to R hand/wrist. Short Term Goals 1. 5/[address] = 50% met 2. 5/5 MMT right wrist UD. = 50% met GOALS MET 0-130 right sh abd. *MET 10/31 0-145 right sh flexion. *MET 5/5 MMT right wrist extension. *MET 12/19/18 5/5 MMT right sh ER. *MET Care Home Goals 1. Patient will be mod I with upper extremity home strengthening program utilizing provided written and visual instructions. 01/02/19= 50% met; HEP upgraded 2. Based on patient's verbal report, patient will be able to complete simple meal preparation with active engagement of the right hand/ upper extremity with modified independence on a daily basis. 12/19/18= 50% met - Treatment 2 Descriptor Eye-hand coordination Yoga ball 4.4# spherical ball trampoline work Complexity Upgraded 1 Descriptor Fine motor coordination Object manipulation In-hand coordination Complexity Upgraded Exercises 3 Descriptor Arm Pulleys Yoga ball Side Right Body Position Sitting Time 5 minutes 1 Descriptor HEP/POC. Recommended continued focus on object manipulation away from base of support near full elbow extension. Recommended increasing activity tolerance/progressing length of time engaged in activity. - Assessment Patient Response to Treatment Good Rehab Potential Good Impairments Identified ADLs Coordination/Dexterity Functional Activities Motor Function Weakness Posture Range of Motion Recreational Activities Meaningful Activities Motor Planning Eye-Hand Coordination Assessment of Overall Progress Improving Assessment of Improvement Improving fine motor coordination of the right hand ; however, continues to be less efficient w/ right hand compared to non-dominant left hand. This is supported by performance on the 9-Hole Peg Test. Improving functional abilities of the right hand, as evidenced by patient's report of ability to fix plumbing w/ active assistance of the right hand. (+) carry- over of HEP, particularly w/ active incorporation of the right upper extremity on a daily basis. Recommend that therapist continues to motor abilities to maximize Chao's success w/ active engagement in meaningful activities and ensuring independence w/ HEP prior to need to discharge to [facility]. Home Exercise Program Please refer to treatment section of note for specific details. Reviewed with Patient/Caregiver Goals Progress Being Made Home Exercise Program Patient/Caregiver Understanding Good - Plan Therapy Recommendations Advance per Rehabilitation Protocol Occupational Therapy Assessment OT Outpatient Standardized Assessments Start: 09/22/18 14:43 Freq: Status: Active Protocol: Document 01/02/19 12:36 AMS (Rec: 01/02/19 12:47 AMS [email or web address]) 9-Hole Peg Hand Test Hand Left Date of Test 01/02/19 Therapist DANDRE Easley/Pooja Norm For Patients Age/Sex 60-64 year-old males left 21.0 +/- 2.5 Comments Scoring time = 22.7 sec Within 1 SD above the mean compared to same-aged male peers Right Date of Test 01/02/19 Therapist DANDRE Easley/Pooja Norm For Patients Age/Sex 60-64 year-old males right 20. 3 +/- 2.6 Comments Scoring time = 25.5 sec 2 SD above the mean compared to same-aged male peers
--- NOTE | 2019-01-16 11:53 | OT.OP.TRT ---
Visit Care Team Role Provider Type Basilio Condon MD Attending Provider Physician Primary Care Provider Specialty: Wound Care Address: [address] [place] [address], [id number] Email: [email or web address] Occupational Therapy Treatment Note OT Outpatient Treatment Note - Adult Start: 09/22/18 14:43 Freq: Status: Active Protocol: Document 01/16/19 11:31 AMS (Rec: 01/16/19 11:53 AMS [email or web address]) OT Outpatient Adult Treatment Note Session Time Visit Start Time 10:30 Visit Stop Time 11:15 Total Visit Minutes 45 Visit Information Visit Number 1 more visit auth Plan of Care Dates 11/14/18-02/06/19 Insurance Information 11/10/18: 1 eval; 24 OT units Setting Treatment Setting Outpatient Care Visit Type Note Type Treatment Note General Information General Information Patient is a right hand dominant 62 year-old male referred to outpatient OT by Doctor Condon due to residual symptoms from stroke he suffered on 07/26/18. Patient was discharged from inpatient care at [facility] with unresolved dizziness, right arm/leg weakness and mild dysarthria. He currently takes low dose of aspirin to manage hypertension. Patient was accompanied by his to initial evaluation/treatment. PLOF: Independent w/ BADLS and IADLS. - Subjective Identification Type Name Other Identification Reconciled With Intake Sheet Medical Record Observations I did the job and I felt really good about it. It only took me 1 more than hour than it used to. I did notice that this arm got pretty tired. I did try and jump [place] a 2 1/2 foot wide ditch on my [place] leading with my left foot. This leg (right leg) wasn't able to stabilize and I tumbled per Chao. Chief Complaint(s) Restricts Patient Expectation/Goals Return to PLOF (full-time work ) Patient/Caregiver Compliance with Home Good Exercise Program - Objective Objective Measurements Improving activity tolerance. QuickDASH UE Outcome Measure completed by patient 12/19/18; patient obtained a score of 36 .4. QuickDASH UE Outcome Measure completed by patient 09/25/18; patient obtained a score of 35.0. Patient did not complete QuickDASH Work Module; indicated 'Do not work right now'. Patient indicated 0 out of 10 on the Pain Assessment Grid relative to R hand/wrist. Short Term Goals 1. 5/[address] = 50% met 2. 5/5 MMT right wrist UD. = 50% met GOALS MET 0-130 right sh abd. *MET 10/31 0-145 right sh flexion. *MET 5/5 MMT right wrist extension. *MET 12/19/18 5/5 MMT right sh ER. *MET Development Expert Goals 1. Patient will be mod I with upper extremity home strengthening program utilizing provided written and visual instructions. 01/02/19= 50% met; HEP upgraded 2. Based on patient's verbal report, patient will be able to complete simple meal preparation with active engagement of the right hand/ upper extremity with modified independence on a daily basis. 12/19/18= 50% met - Treatment 1 Descriptor Fine motor coordination Object manipulation In-hand coordination Complexity Upgraded Exercises 3 Descriptor Arm Pulleys Yoga ball Side Right Body Position Sitting Time 5 minutes 1 Descriptor HEP/POC. Instructed in motor coordination exercise with weight in hand; infinity sign w/ R sh abd and add (in front of the body and to the right of the body) w/ forearm supination (w/ use of 5# DB). Also instructed in eccentric return back to starting position w/ sh abd --> add (w/ use of 5# DB). For in hand manipulation/fine motor coordination, therapist recommended increasing quantity of objects manipulated at one time to support continued advancement of in hand manipulation. 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 (+) carry-over of HEP, particularly w/ active incorporation of the right upper extremity on a daily basis. Decreased activity tolerance; decreased fluidity of movement of R UE through space in comparison to L UE. Instructed in HEP to support improvements in this area. Improved eye-hand coordination , as observed w/ ability to execute rainbow arches w/ flores bag WFL in treatment session. Recommend that therapist focuses on independence w/ HEP at time of next treatment session given insurance limitations. Home Exercise Program Please refer to treatment section of note for specific details. Reviewed with Patient/Caregiver Goals Progress Being Made Home Exercise Program Patient/Caregiver Understanding Good - Plan Therapy Recommendations Advance per Rehabilitation Protocol Additional Therapy Recommendations Consult w/ PT. Occupational Therapy Assessment OT Outpatient Range of Motion Start: 09/22/18 14:43 Freq: Status: Active Protocol: Document 01/16/19 11:31 AMS (Rec: 01/16/19 11:53 AMS [email or web address]) ROM - Shoulder Shoulder Left Forearm ROM Testing Position Sitting Shoulder Flex AROM (degrees) 0-150 Query Text: Shoulder Ext AROM (degrees) WFL Shoulder Abd AROM (degrees) 0-135 Shoulder ER AROM (degrees) 0-50 Right Forearm ROM Testing Position Sitting Shoulder Flex AROM (degrees) 0-145 Query Text: Shoulder Ext AROM (degrees) WFL Shoulder Abd AROM (degrees) 0-135 Shoulder ER AROM (degrees) 0-50 ROM - Elbow/Forearm Elbow/Forearm Measured in Degrees Left ROM Testing Position Sitting Elbow Flex AROM (degrees) WNL Elbow Ext AROM (degrees) WNL Forearm Pron AROM (degrees) WNL Forearm Sup AROM (degrees) 0-90 Right ROM Testing Position Sitting Elbow Flex AROM (degrees) WNL Elbow Ext AROM (degrees) WNL Forearm Pron AROM (degrees) WNL Forearm Sup AROM (degrees) 0-90 ROM - Wrist Wrist Range of Motion Measured in Degrees Left ROM Testing Position Sitting Wrist Flex AROM (degrees) 0-60 Wrist Ext AROM Fingers Open (degrees) 0-65 (full digit extension) Ulnar Deviation AROM (degrees) WNL Radial Deviation AROM (degrees) WNL Right ROM Testing Position Sitting Wrist Flex AROM (degrees) 0-60 Wrist Ext AROM Fingers Open (degrees) 0-65 Ulnar Deviation AROM (degrees) WNL Radial Deviation AROM (degrees) WNL Occupational Therapy Assessment OT Outpatient Muscle Testing Start: 09/22/18 14:43 Freq: Status: Active Protocol: Document 01/16/19 11:31 AMS (Rec: 01/16/19 11:53 AMS [email or web address]) Shoulder Strength Shoulder Manual Muscle Testing Left Flexion 5 Normal Extension 5 Normal Abduction (C5) 5 Normal Adduction 5 Normal External Rotation 5 Normal Internal Rotation 5 Normal Right Flexion 4+ Good+ Extension 5 Normal Abduction (C5) 5 Normal Adduction 5 Normal External Rotation 4+ Good+ Internal Rotation 5 Normal Elbow/Forearm Strength Elbow and Forearm Manual Muscle Testing Right Flexion (C6) 4+ Good+ Extension (C7) 5 Normal Pronation 5 Normal Supination 5 Normal Left Flexion (C6) 5 Normal Extension (C7) 5 Normal Pronation 5 Normal Supination 5 Normal Wrist Strength Wrist Manual Muscle Testing Left Flexion (C7) 5 Normal Extension (C6) 5 Normal Ulnar Deviation 5 Normal Radial Deviation 5 Normal Right Flexion (C7) 5 Normal Extension (C6) 5 Normal Ulnar Deviation 4+ Good+ Radial Deviation 4+ Good+ Avionics Electrical Engineer/Hand Strength Avionics Electrical Engineer/Hand Strength Left Avionics Electrical Engineer Dynamometer II 115.7 Right Avionics Electrical Engineer Dynamometer II 85.0
--- NOTE | 2019-01-30 11:38 | OT.OP.DC ---
Visit Care Team Role Provider Type Basilio Condon MD Attending Provider Physician Primary Care Provider Address: [address] [place] [address], [id number] Email: [email or web address] OT Outpatient Adult Evaluation Start: 09/22/18 14:43 Freq: Status: Active Protocol: Document 09/19/18 14:43 AMS (Rec: 09/22/18 15:24 AMS [email or web address]) General Information Session Time Visit Start Time 12:30 Visit Stop Time 13:15 Total Visit Minutes 45 Visit Information Visit Number 1 Plan of Care Dates 09/19/18-11/14/18 Insurance Information 1 eval; 24 OT units Setting Treatment Setting Outpatient Care Visit Type Note Type Initial Evaluation Referral Referring Physician Basilio Conodn MD Reason for Referral s/p CVA. right side weakness Identification Identification Confirmed Yes Identification Confirmed By Chart; photo ID Patient Patient Goals Return to PLOF (full-time work ) Medical Information Medical History Patient is a 62 year-old male referred to outpatient OT by Doctor Condon due to residual symptoms from stroke he suffered on 07/26/18. Patient was discharged from inpatient care at [facility] with unresolved dizziness, right arm/leg weakness and mild dysarthria. He currently takes a low dose of aspirin to manage hypertension. 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 Slightly jerky motor coordination of the R noted; decreased ability to slow down and execute motor movement equal to more than 5 sec. Decreased awareness of UE in space. Opposes thumb to each digit pad w/ increased time R hand w/ visual feedback ; (-) touch to 4th and 5th digit pads w/ wrist in extension away from body. Fine Motor Handedness Hand Preference Right Comments Utilizes both hands Goals Treatment Treatment HEP. Instructed in active engagement of R UE with all functional tasks. Instructed in strengthening exercises out of les pattern (ER, sh abduction, tricep strengthening). Patient and denied questions. Short Term Goals Short Term Goals 1. 0-130 right sh abduction. 2. 0-145 right sh flexion. 3. 5/5 MMT right wrist extension. 4. 5/5 MMT right sh ER. Nursing Home Goals Nursing Home Goals 1. Patient will be mod I with upper extremity home strengthening program utilizing provided written and visual instructions. 2. Based on patient's verbal report, patient is able to complete simple meal preparation with active engagement of the right hand/ upper extremity with modified independence on a daily basis. Assessment/Plan Assessment Impairments Identified ADLs Coordination/Dexterity Functional Activities Motor Function Weakness Range of Motion Recreational Activities Meaningful Activities Motor Planning Eye-Hand Coordination Treatment Assessment Patient is a right hand dominant 62 year-old male referred to outpatient OT by Doctor Condon due to residual symptoms from stroke he suffered on 07/26/18. Patient was discharged from inpatient care at [facility] with unresolved dizziness, right arm/leg weakness and mild dysarthria. He currently takes low dose of aspirin to manage hypertension. Patient was accompanied by his to initial evaluation/treatment. PLOF: Independent w/ BADLS and IADLS. 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 Outpatient OT recommended to address these areas of impairment so that patient may return to prior level of function, including vocational tasks. Home Exercise Program Please see above for additional details. Reviewed with Patient Goals Home Exercise Program Plan Comment 8 weeks; limited by insurance Comment 1-2 times per week Therapeutic Contents Active Range of Motion Client Education Functional Activities Home Exercise Program Joint Protection Manual Therapy Education Neuromuscular Re-Education Self-Care Stretching/Flexibility Activities Therapeutic Activities Therapeutic Exercises Modalities Sensory Re-education Modalities As Needed As Prescribed Patient Instruction Home Exercise Program Plan of Care Questions/Concerns Comment Consult w/ [facility] and PT Sensory Assessment Sensory Profile2 Functional Wrist/Hand Scan Hand Side OT Outpatient Muscle Testing Start: 09/22/18 14:43 Freq: Status: Active Protocol: Document 01/30/19 10:24 AMS (Rec: 01/30/19 11:00 AMS [id number]) Shoulder Strength Shoulder Manual Muscle Testing Left Flexion 5 Normal Extension 5 Normal Abduction (C5) 5 Normal Adduction 5 Normal External Rotation 5 Normal Internal Rotation 5 Normal Right Flexion 5 Normal Extension 5 Normal Abduction (C5) 5 Normal Adduction 5 Normal External Rotation 5 Normal Internal Rotation 5 Normal Elbow/Forearm Strength Elbow and Forearm Manual Muscle Testing Right Flexion (C6) 5 Normal Extension (C7) 5 Normal Pronation 5 Normal Supination 5 Normal Left Flexion (C6) 5 Normal Extension (C7) 5 Normal Pronation 5 Normal Supination 5 Normal Wrist Strength Wrist Manual Muscle Testing Left Flexion (C7) 5 Normal Extension (C6) 5 Normal Ulnar Deviation 5 Normal Radial Deviation 5 Normal Right Flexion (C7) 5 Normal Extension (C6) 5 Normal Ulnar Deviation 5 Normal Radial Deviation 5 Normal Fuse Cup Expander/Hand Strength Fuse Cup Expander/Hand Strength Left Fuse Cup Expander Dynamometer II 115.7 Right Fuse Cup Expander Dynamometer II 101.0 OT Outpatient Range of Motion Start: 09/22/18 14:43 Freq: Status: Active Protocol: Document 01/30/19 10:24 AMS (Rec: 01/30/19 11:00 AMS [id number]) ROM - Shoulder Shoulder Left Forearm ROM Testing Position Sitting Shoulder Flex AROM (degrees) 0-150 Query Text: Shoulder Ext AROM (degrees) WFL Shoulder Abd AROM (degrees) 0-135 Shoulder ER AROM (degrees) 0-50 Right Forearm ROM Testing Position Sitting Shoulder Flex AROM (degrees) 0-145 Query Text: Shoulder Ext AROM (degrees) WFL Shoulder Abd AROM (degrees) 0-135 Shoulder ER AROM (degrees) 0-50 ROM - Elbow/Forearm Elbow/Forearm Measured in Degrees Left ROM Testing Position Sitting Elbow Flex AROM (degrees) WNL Elbow Ext AROM (degrees) WNL Forearm Pron AROM (degrees) WNL Forearm Sup AROM (degrees) 0-90 Right ROM Testing Position Sitting Elbow Flex AROM (degrees) WNL Elbow Ext AROM (degrees) WNL Forearm Pron AROM (degrees) WNL Forearm Sup AROM (degrees) 0-90 ROM - Wrist Wrist Range of Motion Measured in Degrees Left ROM Testing Position Sitting Wrist Flex AROM (degrees) 0-60 Wrist Ext AROM Fingers Open (degrees) 0-65 (full digit extension) Ulnar Deviation AROM (degrees) WNL Radial Deviation AROM (degrees) WNL Right ROM Testing Position Sitting Wrist Flex AROM (degrees) 0-60 Wrist Ext AROM Fingers Open (degrees) 0-65 Ulnar Deviation AROM (degrees) WNL Radial Deviation AROM (degrees) WNL OT Outpatient Treatment Note - Adult Start: 09/22/18 14:43 Freq: Status: Active Protocol: Document 01/30/19 10:24 AMS (Rec: 01/30/19 11:00 AMS [id number]) OT Outpatient Adult Treatment Note Session Time Visit Start Time 10:30 Visit Stop Time 11:15 Total Visit Minutes 45 Visit Information Visit Number No more visits auth Plan of Care Dates 11/14/18-02/06/19 Insurance Information 11/10/18: 1 eval; 24 OT units Setting Treatment Setting Outpatient Care Visit Type Note Type Treatment Note General Information General Information Patient is a right hand dominant 62 year-old male referred to outpatient OT by Doctor Condon due to residual symptoms from stroke he suffered on 07/26/18. Patient was discharged from inpatient care at [facility] with unresolved dizziness, right arm/leg weakness and mild dysarthria. He currently takes low dose of aspirin to manage hypertension. Patient was accompanied by his to initial evaluation/treatment. PLOF: Independent w/ BADLS and IADLS. - Subjective Identification Type Name Other Identification Reconciled With Intake Sheet Medical Record Others Present Family Observations I have a job that starts on Saturday. 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 Patient/Caregiver Compliance with Home Good Exercise Program - Objective Objective Measurements Improving activity tolerance. QuickDASH UE Outcome Measure completed by patient 01/30/19; patient obtained a score of 27 .3. QuickDASH UE Work Module ( contractor) completed 01/30/19; patient obtained a score of 43.8. QuickDASH UE Outcome Measure completed by patient 12/19/18; patient obtained a score of 36 .4. QuickDASH UE Outcome Measure completed by patient 09/25/18; patient obtained a score of 35.0. Patient did not complete QuickDASH Work Module; indicated 'Do not work right now'. Patient indicated 0 out of 10 on the Pain Assessment Grid relative to R hand/wrist. Short Term Goals ALL SHORT TERM GOALS MET OF 01/30/19 0-130 right sh abd. *MET 10/31 0-145 right sh flexion. *MET 5/5 MMT right wrist extension. *MET 12/19/18 5/5 MMT right sh ER. *MET 5/[address] *MET 5/5 MMT right wrist UD. *MET Nursing Home Goals 1. Based on patient's verbal report, patient will be able to complete simple meal preparation with active engagement of the right hand/ upper extremity with modified independence on a daily basis. 01/30/19= 75% met; 'not quite like before'. Patient is mod I w/ UE home strengthening program utilizing provided written and visual instructions. *MET - Treatment 1 Descriptor Fine motor coordination Object manipulation In-hand coordination Complexity Upgraded Exercises 3 Descriptor Arm Pulleys Side Right Body Position Sitting Time 5 minutes 1 Descriptor HEP/POC. Reviewed HEP. Patient denied questions. - Assessment Patient Response to Treatment Good Rehab Potential Good Impairments Identified ADLs Coordination/Dexterity Functional Activities Motor Function Weakness Posture Range of Motion Recreational Activities Meaningful Activities Motor Planning Eye-Hand Coordination Assessment of Overall Progress Improving Assessment of Improvement Chao has met all short term goals for OT; he has also met LTG for mod I w/ UE HEP. Chao did not meet LTG for meal preparation; although Chao is able to complete IADLS he believes that his performance is not equivalent to prior abilities. This supports QuickDASH UE findings (score of 27.3). It is important to note that Chao also has demonstrated progress in a number of areas, including improvements in UE strength, UE AROM, in hand manipulation abilities, UE motor planning, orientation to midline, and functional abilities. Chao is being discharged to [facility] from OT d/t insurance limitations at this time. He is mod I w/ current HEP. Home Exercise Program Please refer to treatment section of note for specific details. Reviewed with Patient/Caregiver Goals Progress Being Made Home Exercise Program Patient/Caregiver Understanding Good - Plan Therapy Recommendations Discharge from Occupational Therapy Additional Therapy Recommendations d/c due to insurance limitations
== END 2019-03-24 16:09 | disposition home or self-care (01) ==
LOC: OT 10:30
PROVIDERS: PCP Internal Medicine; Visit Provider Internal Medicine
DX: I69.30 Unspecified sequelae of cerebral infarction (principal)
CPT/HCPCS: 97110; 97112; 97165; 97530; 97535

== ENCOUNTER 2019-03-03 09:45 | Outpatient (RCR) | payer OTHER, MEDICAID, SELFPAY ==
[2018-07-29 01:37] VITALS: BMI 27.8
--- NOTE | 2018-09-09 12:00 | PT.OIE ---
Current Diagnoses Hemiplegia and hemiparesis following cerebral infarction affecting right dominant side (09/09/18) Other abnormalities of gait and mobility (09/09/18) Past Medical History (Last Reviewed 07/28/18 @ 23:08 by Kevyn Fleming DO) CVA (cerebral vascular accident) (Acute) Hypertension (Acute) Patient denies medical problems (Inactive) Past Surgical History (Last Reviewed 07/28/18 @ 23:08 by Kevyn Fleming DO) H/O knee surgery (Acute) Provider Visit Care Team Role Provider Type Basilio Condon MD Attending Provider Physician Primary Care Provider Specialty: Wound Care Address: [address] [place] [address], [facility] Email: [email or web address] [facility] Initial Evaluation PT-OP-A Visit Information Start: 09/09/18 07:26 Freq: Status: Active Protocol: Document 09/09/18 10:15 AMB (Rec: 09/11/18 07:21 AMB [email or web address]) Out-Patient Physical Therapy Visit Information Visit Information Visit Type Initial Evaluation Visit Start Time 10:15 Visit Stop Time 11:00 Total Visit Minutes 45 Visit Number 1 Number of CASE PACKER Visits 0 Evaluation Information Evaluation Date 09/09/18 PT-OP-B Current Condition Start: 09/09/18 07:26 Freq: Status: Active Protocol: Document 09/09/18 10:15 AMB (Rec: 09/11/18 07:21 AMB [email or web address]) Current Condition History of Current Condition Onset Date 07/25/18 Current Complaints R sided weakness, dizziness, fatigue s/p CVA History of Current Condition The patient attends PT s/p CVA that affected both his right arm and leg. 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 He has not yet received any formal PT except for when he was admitted into the hospital over a month ago. He notes he has been walking with his (he can use a SPC but also walks without assistive device). 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 Baseline Function- Recreation/Hobbies Housework (cleaning gutters, home renovations) Current Functional Impairments (Reported) Functional Limitations- Work/School Not currently working or driving Personal Factors Other Personal Factors That May Effect Insurance limitations Therapy/Recovery PT-OP-C Subjective Start: 09/09/18 07:26 Freq: Status: Active Protocol: Document 09/09/18 10:15 AMB (Rec: 09/11/18 07:21 AMB [email or web address]) OP-PT Subjective Patient Comments Patient Comments Pt would like to return to his previous level of function PT-OP-D Balance Start: 09/09/18 07:26 Freq: Status: Active Protocol: Document 09/09/18 10:15 AMB (Rec: 09/11/18 07:31 AMB [email or web address]) Balance Tests Single Limb Standing Single Limb- Right unable Single Limb- Left 5 sec Semi-Tandem Standing Semi-Tandem Standing Balance with eyes open: 10 seconds + ( increased ankle sway). EC 5 seconds. PT-OP-E Functional Tests Start: 09/11/18 07:25 Freq: Status: Active Protocol: Document 09/09/18 10:15 AMB (Rec: 09/11/18 07:27 AMB [email or web address]) Functional Tests Dynamic Gait Index (DGI) Score 16 DGI Impairment Rating 20 to <40% Impaired (Score 15- 19) PT-OP-G Mobility & Gait Start: 09/09/18 07:26 Freq: Status: Active Protocol: Document 09/09/18 10:15 AMB (Rec: 09/11/18 07:31 AMB [email or web address]) OP Gait Assessment Comments Gait Comments Pt ambulates without assistive device with slower gait than his normal pace, reduced trunk rotation, reduced stride length. Stair Climbing Evaluation Devices Stair Climbing Assistive Devices Right Railing Technique/Endurance Stair Climbing Direction Ascend and Descend Stair Climbing Technique Step Over Step Number of Steps Climbed 4 Stair Climbing Set # Repetitions (reps) 1 PT-OP-H Neuro Start: 09/09/18 07:26 Freq: Status: Active Protocol: Document 09/09/18 10:15 AMB (Rec: 09/11/18 07:31 AMB [email or web address]) Coordination Evaluation Lower Extremity Tests Right Foot Tapping Test Moderate Impairment Left Foot Tapping Test Minimal Impairment Deep Tendon Reflex & Clonus Assessment Ankle Clonus Bilateral Clonus Assessment Absent PT-OP-M Strength Start: 09/09/18 07:26 Freq: Status: Active Protocol: Document 09/09/18 10:15 AMB (Rec: 09/11/18 09:05 AMB [email or web address]) Hip Strength Hip Manual Muscle Testing Right Flexion (L2) 4 Good Extension (S1) 4 Good Abduction 4 Good Left Flexion (L2) 5 Normal Extension (S1) 5 Normal Abduction 5 Normal Knee Strength Knee Manual Muscle Testing Right Flexion (S2) 4+ Good+ Extension (L3) 4+ Good+ Left Flexion (S2) 5 Normal Extension (L3) 5 Normal Ankle/Foot Strength Ankle and Foot Manual Muscle Testing Right Dorsiflexion (L4) 4+ Good+ Plantarflexion (S1) 4 Good Left Dorsiflexion (L4) 4+ Good+ Plantarflexion (S1) 4+ Good+ PT-OP-T Assessment and Plan Start: 09/09/18 07:26 Freq: Status: Active Protocol: Document 09/09/18 10:15 AMB (Rec: 09/11/18 09:20 AMB [email or web address]) Physical Therapy Assessment Rehab Potential Rehabilitation Potential Good Evaluation Complexity Number of Personal Factors/Comorbidities 1-2 Number of Body Systems Impaired 3 Clinical Presentation at Evaluation Evolving Impairments Impairments Balance Coordination Functional Activities Gait Strength Goals Three Impairment dizziness Short Term Goal (STG) The patient will ambulate with vertical head turns without veering or imbalance. STG Duration 4 weeks Refractive Surgeon Goal (LTG) The patient will safely ascend and descend 1 flight of stairs without need for a railing. LTG Duration 8 weeks Two Impairment balance Short Term Goal (STG) The patient will stand on one leg (right) for 15 seconds to show decreased risk of falling . STG Duration 4 weeks Senior Care Goal (LTG) The patient will improve his DGI score to 22/24 to show decreased risk of falls. LTG Duration 8 weeks One Impairment gait Short Term Goal (STG) The patient will ambulate for 15 minutes over grass, gravel and curb steps without fatigue or loss of balance. STG Duration 4 weeks Senior Care Goal (LTG) The patient will lift and carry 20 pounds for 100' while walking without assistive device without loss of balance . LTG Duration 8 weeks Assessment Summary Assessment The patient attends physical therapy with right sided weakness, incoordination, and dizziness s/p CVA. He had previously had a high level of function and wants to return to that. He does show an increased risk of falling with his DGI score of 16/24, mostly related to his dizziness. He will need to make significant improvements to reach his goal of safely returning to his previous level of function. Physical Therapy Plan Frequency and Duration Frequency of Treatment 2x/Week Duration of Treatment 8 weeks Plan of Care Start Date 09/09/18 Plan of Care End Date 11/04/18 Therapeutic Interventions Therapeutic Interventions Balance Training Gait Training Home Exercise Program Manual Therapy Neuromuscular Re-education Self-Care/Home Management Therapeutic Activities Therapeutic Exercises Next Visit Focus/Plan Next Note Type Treatment Note Next Visit Plan R LE strengthening, coordination training, balance training with focus on dizziness
--- NOTE | 2018-09-11 09:21 | PT.OTN ---
Current Diagnoses Hemiplegia and hemiparesis following cerebral infarction affecting right dominant side (09/09/18) Other abnormalities of gait and mobility (09/09/18) Physical Therapy Treatment Note PT-OP-A Visit Information Start: 09/09/18 07:26 Freq: Status: Active Protocol: Document 09/09/18 10:15 AMB (Rec: 09/11/18 07:21 AMB [email or web address]) Out-Patient Physical Therapy Visit Information Visit Information Visit Type Initial Evaluation Visit Start Time 10:15 Visit Stop Time 11:00 Total Visit Minutes 45 Visit Number 1 Number of PARK ACTIVITIES COORDINATOR Visits 0 Evaluation Information Evaluation Date 09/09/18 PT-OP-B Current Condition Start: 09/09/18 07:26 Freq: Status: Active Protocol: Document 09/09/18 10:15 AMB (Rec: 09/11/18 07:21 AMB [email or web address]) Current Condition History of Current Condition Onset Date 07/25/18 Current Complaints R sided weakness, dizziness, fatigue s/p CVA History of Current Condition The patient attends PT s/p CVA that affected both his right arm and leg. 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 He has not yet received any formal PT except for when he was admitted into the hospital over a month ago. He notes he has been walking with his (he can use a SPC but also walks without assistive device). 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 Baseline Function- Recreation/Hobbies Housework (cleaning gutters, home renovations) Current Functional Impairments (Reported) Functional Limitations- Work/School Not currently working or driving Personal Factors Other Personal Factors That May Effect Insurance limitations Therapy/Recovery PT-OP-C Subjective Start: 09/09/18 07:26 Freq: Status: Active Protocol: Document 09/09/18 10:15 AMB (Rec: 09/11/18 07:21 AMB [email or web address]) OP-PT Subjective Patient Comments Patient Comments Pt would like to return to his previous level of function PT-OP-D Balance Start: 09/09/18 07:26 Freq: Status: Active Protocol: Document 09/09/18 10:15 AMB (Rec: 09/11/18 07:31 AMB [email or web address]) Balance Tests Single Limb Standing Single Limb- Right unable Single Limb- Left 5 sec Semi-Tandem Standing Semi-Tandem Standing Balance with eyes open: 10 seconds + ( increased ankle sway). EC 5 seconds. PT-OP-E Functional Tests Start: 09/11/18 07:25 Freq: Status: Active Protocol: Document 09/09/18 10:15 AMB (Rec: 09/11/18 07:27 AMB [email or web address]) Functional Tests Dynamic Gait Index (DGI) Score 16 DGI Impairment Rating 20 to <40% Impaired (Score 15- 19) PT-OP-G Mobility & Gait Start: 09/09/18 07:26 Freq: Status: Active Protocol: Document 09/09/18 10:15 AMB (Rec: 09/11/18 07:31 AMB [email or web address]) OP Gait Assessment Comments Gait Comments Pt ambulates without assistive device with slower gait than his normal pace, reduced trunk rotation, reduced stride length. Stair Climbing Evaluation Devices Stair Climbing Assistive Devices Right Railing Technique/Endurance Stair Climbing Direction Ascend and Descend Stair Climbing Technique Step Over Step Number of Steps Climbed 4 Stair Climbing Set # Repetitions (reps) 1 PT-OP-H Neuro Start: 09/09/18 07:26 Freq: Status: Active Protocol: Document 09/09/18 10:15 AMB (Rec: 09/11/18 07:31 AMB [email or web address]) Coordination Evaluation Lower Extremity Tests Right Foot Tapping Test Moderate Impairment Left Foot Tapping Test Minimal Impairment Deep Tendon Reflex & Clonus Assessment Ankle Clonus Bilateral Clonus Assessment Absent PT-OP-M Strength Start: 09/09/18 07:26 Freq: Status: Active Protocol: Document 09/09/18 10:15 AMB (Rec: 09/11/18 09:05 AMB [email or web address]) Hip Strength Hip Manual Muscle Testing Right Flexion (L2) 4 Good Extension (S1) 4 Good Abduction 4 Good Left Flexion (L2) 5 Normal Extension (S1) 5 Normal Abduction 5 Normal Knee Strength Knee Manual Muscle Testing Right Flexion (S2) 4+ Good+ Extension (L3) 4+ Good+ Left Flexion (S2) 5 Normal Extension (L3) 5 Normal Ankle/Foot Strength Ankle and Foot Manual Muscle Testing Right Dorsiflexion (L4) 4+ Good+ Plantarflexion (S1) 4 Good Left Dorsiflexion (L4) 4+ Good+ Plantarflexion (S1) 4+ Good+ PT-OP-T Assessment and Plan Start: 09/09/18 07:26 Freq: Status: Active Protocol: Document 09/09/18 10:15 AMB (Rec: 09/11/18 09:20 AMB [email or web address]) Physical Therapy Assessment Rehab Potential Rehabilitation Potential Good Evaluation Complexity Number of Personal Factors/Comorbidities 1-2 Number of Body Systems Impaired 3 Clinical Presentation at Evaluation Evolving Impairments Impairments Balance Coordination Functional Activities Gait Strength Goals Three Impairment dizziness Short Term Goal (STG) The patient will ambulate with vertical head turns without veering or imbalance. STG Duration 4 weeks Wet Wheeler Goal (LTG) The patient will safely ascend and descend 1 flight of stairs without need for a railing. LTG Duration 8 weeks Two Impairment balance Short Term Goal (STG) The patient will stand on one leg (right) for 15 seconds to show decreased risk of falling . STG Duration 4 weeks Wet Wheeler Goal (LTG) The patient will improve his DGI score to 22/24 to show decreased risk of falls. LTG Duration 8 weeks One Impairment gait Short Term Goal (STG) The patient will ambulate for 15 minutes over grass, gravel and curb steps without fatigue or loss of balance. STG Duration 4 weeks Skilled Nursing Goal (LTG) The patient will lift and carry 20 pounds for 100' while walking without assistive device without loss of balance . LTG Duration 8 weeks Assessment Summary Assessment The patient attends physical therapy with right sided weakness, incoordination, and dizziness s/p CVA. He had previously had a high level of function and wants to return to that. He does show an increased risk of falling with his DGI score of 16/24, mostly related to his dizziness. He will need to make significant improvements to reach his goal of safely returning to his previous level of function. Physical Therapy Plan Frequency and Duration Frequency of Treatment 2x/Week Duration of Treatment 8 weeks Plan of Care Start Date 09/09/18 Plan of Care End Date 11/04/18 Therapeutic Interventions Therapeutic Interventions Balance Training Gait Training Home Exercise Program Manual Therapy Neuromuscular Re-education Self-Care/Home Management Therapeutic Activities Therapeutic Exercises Next Visit Focus/Plan Next Note Type Treatment Note Next Visit Plan R LE strengthening, coordination training, balance training with focus on dizziness
--- NOTE | 2018-09-12 11:34 | PT.OTN ---
Current Diagnoses Unspecified sequelae of cerebral infarction (09/12/18) Physical Therapy Treatment Note PT-OP-A Visit Information Start: 09/09/18 07:26 Freq: Status: Active Protocol: Document 09/12/18 07:30 AMB (Rec: 09/14/18 11:32 AMB [email or web address]) Out-Patient Physical Therapy Visit Information Visit Information Visit Type Treatment Note Visit Start Time 07:30 Visit Stop Time 08:15 Total Visit Minutes 45 Visit Number 2 Number of CORRECTIVE THERAPY AIDE Visits 0 Evaluation Information Evaluation Date 09/09/18 PT-OP-B Current Condition Start: 09/09/18 07:26 Freq: Status: Active Protocol: Document 09/09/18 10:15 AMB (Rec: 09/11/18 07:21 AMB [email or web address]) Current Condition History of Current Condition Onset Date 07/25/18 Current Complaints R sided weakness, dizziness, fatigue s/p CVA History of Current Condition The patient attends PT s/p CVA that affected both his right arm and leg. 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 He has not yet received any formal PT except for when he was admitted into the hospital over a month ago. He notes he has been walking with his (he can use a SPC but also walks without assistive device). 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 Baseline Function- Recreation/Hobbies Housework (cleaning gutters, home renovations) Current Functional Impairments (Reported) Functional Limitations- Work/School Not currently working or driving Personal Factors Other Personal Factors That May Effect Insurance limitations Therapy/Recovery PT-OP-C Subjective Start: 09/09/18 07:26 Freq: Status: Active Protocol: Document 09/12/18 07:30 AMB (Rec: 09/14/18 11:34 AMB [email or web address]) OP-PT Subjective Patient Comments Patient Comments Pt states he is doing well, he attends PT with a SBQC that he does not use throughout the session. He states he is continuing to check his blood pressure and it has been running around 130/60 at rest. PT-OP-D Balance Start: 09/09/18 07:26 Freq: Status: Active Protocol: Document 09/09/18 10:15 AMB (Rec: 09/11/18 07:31 AMB [email or web address]) Balance Tests Single Limb Standing Single Limb- Right unable Single Limb- Left 5 sec Semi-Tandem Standing Semi-Tandem Standing Balance with eyes open: 10 seconds + ( increased ankle sway). EC 5 seconds. PT-OP-E Functional Tests Start: 09/11/18 07:25 Freq: Status: Active Protocol: Document 09/09/18 10:15 AMB (Rec: 09/11/18 07:27 AMB [email or web address]) Functional Tests Dynamic Gait Index (DGI) Score 16 DGI Impairment Rating 20 to <40% Impaired (Score 15- 19) PT-OP-G Mobility & Gait Start: 09/09/18 07:26 Freq: Status: Active Protocol: Document 09/09/18 10:15 AMB (Rec: 09/11/18 07:31 AMB [email or web address]) OP Gait Assessment Comments Gait Comments Pt ambulates without assistive device with slower gait than his normal pace, reduced trunk rotation, reduced stride length. Stair Climbing Evaluation Devices Stair Climbing Assistive Devices Right Railing Technique/Endurance Stair Climbing Direction Ascend and Descend Stair Climbing Technique Step Over Step Number of Steps Climbed 4 Stair Climbing Set # Repetitions (reps) 1 PT-OP-H Neuro Start: 09/09/18 07:26 Freq: Status: Active Protocol: Document 09/09/18 10:15 AMB (Rec: 09/11/18 07:31 AMB [email or web address]) Coordination Evaluation Lower Extremity Tests Right Foot Tapping Test Moderate Impairment Left Foot Tapping Test Minimal Impairment Deep Tendon Reflex & Clonus Assessment Ankle Clonus Bilateral Clonus Assessment Absent PT-OP-M Strength Start: 09/09/18 07:26 Freq: Status: Active Protocol: Document 09/09/18 10:15 AMB (Rec: 09/11/18 09:05 AMB [email or web address]) Hip Strength Hip Manual Muscle Testing Right Flexion (L2) 4 Good Extension (S1) 4 Good Abduction 4 Good Left Flexion (L2) 5 Normal Extension (S1) 5 Normal Abduction 5 Normal Knee Strength Knee Manual Muscle Testing Right Flexion (S2) 4+ Good+ Extension (L3) 4+ Good+ Left Flexion (S2) 5 Normal Extension (L3) 5 Normal Ankle/Foot Strength Ankle and Foot Manual Muscle Testing Right Dorsiflexion (L4) 4+ Good+ Plantarflexion (S1) 4 Good Left Dorsiflexion (L4) 4+ Good+ Plantarflexion (S1) 4+ Good+ PT-OP-Q Treatments Start: 09/09/18 07:26 Freq: Status: Active Protocol: Document 09/12/18 07:30 AMB (Rec: 09/14/18 11:32 AMB [email or web address]) Cardio Equipment Recumbent Bicycle Duration (Minutes) 5 Resistance 5 Gym Equipment Shuttle Balance 1 Details RED Comments WBOS then stride stance anterior and lateral. Eyes open with head turns, then eyes closed with pt needing UE support every 1-2 seconds with eyes closed. Therapeutic Exercises Standing Exercises 3 Standing Exercise Name star lunges Reps/Minutes 10 Comments medial, forward, diagonal 2 Standing Exercise Name calf stretching Reps/Minutes 30x2 Comments LISA 1 Standing Exercise Name forward lunges- walking forward Reps/Minutes 2x10 Comments close to railing Neuro Re-Education Treatment Balance Activities 3 Details hurdles stepping on foam Reps/Duration 6 reps CGA 2 Details single leg balance Comments 2-5 seconds on the R 1 Details walking with head turns Reps/Duration 5 min Comments vertical and horizontal PT-OP-T Assessment and Plan Start: 09/09/18 07:26 Freq: Status: Active Protocol: Document 09/12/18 07:30 AMB (Rec: 09/14/18 11:32 AMB [email or web address]) Physical Therapy Assessment Assessment Summary Assessment Pt tolerated PT well during therapy, but requested pt report how he feels the rest of the day, tomorrow so that we can assess his fatigue relative to PT. Physical Therapy Plan Next Visit Focus/Plan Next Note Type Treatment Note Next Visit Plan R LE strengthening, coordination training, balance progression- pt has theraband at home, interested in how to progress HEP with theraband
--- NOTE | 2018-09-16 13:30 | PT.OTN ---
Current Diagnoses Unspecified sequelae of cerebral infarction (09/16/18) Physical Therapy Treatment Note PT-OP-A Visit Information Start: 09/09/18 07:26 Freq: Status: Active Protocol: Document 09/16/18 13:19 SA (Rec: 09/16/18 13:30 SA [email or web address]) Out-Patient Physical Therapy Visit Information Visit Information Visit Type Treatment Note Visit Start Time 09:45 Visit Stop Time 10:30 Total Visit Minutes 45 Visit Number 3 Number of FLYER REPAIRER Visits 1 PT-OP-B Current Condition Start: 09/09/18 07:26 Freq: Status: Active Protocol: Document 09/09/18 10:15 AMB (Rec: 09/11/18 07:21 AMB [email or web address]) Current Condition History of Current Condition Onset Date 07/25/18 Current Complaints R sided weakness, dizziness, fatigue s/p CVA History of Current Condition The patient attends PT s/p CVA that affected both his right arm and leg. 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 He has not yet received any formal PT except for when he was admitted into the hospital over a month ago. He notes he has been walking with his (he can use a SPC but also walks without assistive device). 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 Baseline Function- Recreation/Hobbies Housework (cleaning gutters, home renovations) Current Functional Impairments (Reported) Functional Limitations- Work/School Not currently working or driving Personal Factors Other Personal Factors That May Effect Insurance limitations Therapy/Recovery PT-OP-C Subjective Start: 09/09/18 07:26 Freq: Status: Active Protocol: Document 09/16/18 13:19 SA (Rec: 09/16/18 13:30 SA [email or web address]) OP-PT Subjective Patient Comments Patient Comments Pt in clinic with no AD. States he is feeling more steady on his feet and reports no LOB since stopped using SB[employer]. Consistant with HEP. PT-OP-D Balance Start: 09/09/18 07:26 Freq: Status: Active Protocol: Document 09/09/18 10:15 AMB (Rec: 09/11/18 07:31 AMB [email or web address]) Balance Tests Single Limb Standing Single Limb- Right unable Single Limb- Left 5 sec Semi-Tandem Standing Semi-Tandem Standing Balance with eyes open: 10 seconds + ( increased ankle sway). EC 5 seconds. PT-OP-E Functional Tests Start: 09/11/18 07:25 Freq: Status: Active Protocol: Document 09/09/18 10:15 AMB (Rec: 09/11/18 07:27 AMB [email or web address]) Functional Tests Dynamic Gait Index (DGI) Score 16 DGI Impairment Rating 20 to <40% Impaired (Score 15- 19) PT-OP-G Mobility & Gait Start: 09/09/18 07:26 Freq: Status: Active Protocol: Document 09/09/18 10:15 AMB (Rec: 09/11/18 07:31 AMB [email or web address]) OP Gait Assessment Comments Gait Comments Pt ambulates without assistive device with slower gait than his normal pace, reduced trunk rotation, reduced stride length. Stair Climbing Evaluation Devices Stair Climbing Assistive Devices Right Railing Technique/Endurance Stair Climbing Direction Ascend and Descend Stair Climbing Technique Step Over Step Number of Steps Climbed 4 Stair Climbing Set # Repetitions (reps) 1 PT-OP-H Neuro Start: 09/09/18 07:26 Freq: Status: Active Protocol: Document 09/09/18 10:15 AMB (Rec: 09/11/18 07:31 AMB [email or web address]) Coordination Evaluation Lower Extremity Tests Right Foot Tapping Test Moderate Impairment Left Foot Tapping Test Minimal Impairment Deep Tendon Reflex & Clonus Assessment Ankle Clonus Bilateral Clonus Assessment Absent PT-OP-M Strength Start: 09/09/18 07:26 Freq: Status: Active Protocol: Document 09/09/18 10:15 AMB (Rec: 09/11/18 09:05 AMB [email or web address]) Hip Strength Hip Manual Muscle Testing Right Flexion (L2) 4 Good Extension (S1) 4 Good Abduction 4 Good Left Flexion (L2) 5 Normal Extension (S1) 5 Normal Abduction 5 Normal Knee Strength Knee Manual Muscle Testing Right Flexion (S2) 4+ Good+ Extension (L3) 4+ Good+ Left Flexion (S2) 5 Normal Extension (L3) 5 Normal Ankle/Foot Strength Ankle and Foot Manual Muscle Testing Right Dorsiflexion (L4) 4+ Good+ Plantarflexion (S1) 4 Good Left Dorsiflexion (L4) 4+ Good+ Plantarflexion (S1) 4+ Good+ PT-OP-Q Treatments Start: 09/09/18 07:26 Freq: Status: Active Protocol: Document 09/16/18 13:19 SA (Rec: 09/16/18 13:30 SA [email or web address]) Cardio Equipment Recumbent Bicycle Duration (Minutes) 6 Resistance 5 Gym Equipment Shuttle Balance 1 Details Red Comments NBOS, Eyes closed and head turns Therapeutic Exercises Standing Exercises HS stretching Side bilateral Equipment Used at stair 3 Standing Exercise Name star lunges Reps/Minutes 10 Comments medial, forward, diagonal 2 Standing Exercise Name calf stretching Reps/Minutes 30x2 Comments LISA 1 Standing Exercise Name forward lunges- walking forward Reps/Minutes 2x10 Comments close to railing Neuro Re-Education Treatment Balance Activities 3 Details hurdles stepping on foam Reps/Duration 6 reps CGA 2 Details single leg balance Comments 2-5 seconds on the R 1 Details walking with head turns Reps/Duration 5 min Comments vertical/horizontal head turns . Verbal cues. PT-OP-T Assessment and Plan Start: 09/09/18 07:26 Freq: Status: Active Protocol: Document 09/16/18 13:19 SA (Rec: 09/16/18 13:30 [email or web address]) Physical Therapy Assessment Rehab Potential Rehabilitation Potential Good Progress Towards Goals Progress Towards Goals Progressing Toward Goals Assessment Summary Assessment Pt states he felt fatigued after last session but it felt good. Noted improved dynamic balance today during treatment, especially ambulation with head turns. Physical Therapy Plan Next Visit Focus/Plan Next Note Type Treatment Note Next Visit Plan Pt to work on SLS at counter at home in addition to HEP that he is already doing. Continue to progress dynamic balance challenges and assess response next visit.
--- NOTE | 2018-09-19 13:18 | PT.OTN ---
Current Diagnoses Unspecified sequelae of cerebral infarction (09/19/18) Physical Therapy Treatment Note PT-OP-A Visit Information Start: 09/09/18 07:26 Freq: Status: Active Protocol: Document 09/19/18 13:07 SA (Rec: 09/19/18 13:18 SA [email or web address]) Out-Patient Physical Therapy Visit Information Visit Information Visit Type Treatment Note Visit Start Time 09:00 Visit Stop Time 09:45 Total Visit Minutes 45 Visit Number 4 Number of BATTERY BUILDER Visits 2 PT-OP-B Current Condition Start: 09/09/18 07:26 Freq: Status: Active Protocol: Document 09/09/18 10:15 AMB (Rec: 09/11/18 07:21 AMB [email or web address]) Current Condition History of Current Condition Onset Date 07/25/18 Current Complaints R sided weakness, dizziness, fatigue s/p CVA History of Current Condition The patient attends PT s/p CVA that affected both his right arm and leg. 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 He has not yet received any formal PT except for when he was admitted into the hospital over a month ago. He notes he has been walking with his (he can use a SPC but also walks without assistive device). 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 Baseline Function- Recreation/Hobbies Housework (cleaning gutters, home renovations) Current Functional Impairments (Reported) Functional Limitations- Work/School Not currently working or driving Personal Factors Other Personal Factors That May Effect Insurance limitations Therapy/Recovery PT-OP-C Subjective Start: 09/09/18 07:26 Freq: Status: Active Protocol: Document 09/19/18 13:07 SA (Rec: 09/19/18 13:18 SA [email or web address]) OP-PT Subjective Patient Comments Patient Comments Using SPC very infrequently, Feeling stronger overall. Did some yard work yesterday and that felt good. PT-OP-D Balance Start: 09/09/18 07:26 Freq: Status: Active Protocol: Document 09/09/18 10:15 AMB (Rec: 09/11/18 07:31 AMB [email or web address]) Balance Tests Single Limb Standing Single Limb- Right unable Single Limb- Left 5 sec Semi-Tandem Standing Semi-Tandem Standing Balance with eyes open: 10 seconds + ( increased ankle sway). EC 5 seconds. PT-OP-E Functional Tests Start: 09/11/18 07:25 Freq: Status: Active Protocol: Document 09/09/18 10:15 AMB (Rec: 09/11/18 07:27 AMB [email or web address]) Functional Tests Dynamic Gait Index (DGI) Score 16 DGI Impairment Rating 20 to <40% Impaired (Score 15- 19) PT-OP-G Mobility & Gait Start: 09/09/18 07:26 Freq: Status: Active Protocol: Document 09/09/18 10:15 AMB (Rec: 09/11/18 07:31 AMB [email or web address]) OP Gait Assessment Comments Gait Comments Pt ambulates without assistive device with slower gait than his normal pace, reduced trunk rotation, reduced stride length. Stair Climbing Evaluation Devices Stair Climbing Assistive Devices Right Railing Technique/Endurance Stair Climbing Direction Ascend and Descend Stair Climbing Technique Step Over Step Number of Steps Climbed 4 Stair Climbing Set # Repetitions (reps) 1 PT-OP-H Neuro Start: 09/09/18 07:26 Freq: Status: Active Protocol: Document 09/09/18 10:15 AMB (Rec: 09/11/18 07:31 AMB [email or web address]) Coordination Evaluation Lower Extremity Tests Right Foot Tapping Test Moderate Impairment Left Foot Tapping Test Minimal Impairment Deep Tendon Reflex & Clonus Assessment Ankle Clonus Bilateral Clonus Assessment Absent PT-OP-M Strength Start: 09/09/18 07:26 Freq: Status: Active Protocol: Document 09/09/18 10:15 AMB (Rec: 09/11/18 09:05 AMB [email or web address]) Hip Strength Hip Manual Muscle Testing Right Flexion (L2) 4 Good Extension (S1) 4 Good Abduction 4 Good Left Flexion (L2) 5 Normal Extension (S1) 5 Normal Abduction 5 Normal Knee Strength Knee Manual Muscle Testing Right Flexion (S2) 4+ Good+ Extension (L3) 4+ Good+ Left Flexion (S2) 5 Normal Extension (L3) 5 Normal Ankle/Foot Strength Ankle and Foot Manual Muscle Testing Right Dorsiflexion (L4) 4+ Good+ Plantarflexion (S1) 4 Good Left Dorsiflexion (L4) 4+ Good+ Plantarflexion (S1) 4+ Good+ PT-OP-Q Treatments Start: 09/09/18 07:26 Freq: Status: Active Protocol: Document 09/19/18 13:07 (Rec: 09/19/18 13:18 [email or web address]) Gym Equipment Shuttle Balance 1 Details Red Comments NBOS, Tandem stance, head turns and eyes closed. Therapeutic Exercises Standing Exercises lateral stepping Side bilateral Resistance Red TB Reps/Minutes 3 min HS stretching Side bilateral Equipment Used at stair 3 Standing Exercise Name lunge walking and star lunges Reps/Minutes 10 Comments medial, forward, diagonal 2 Standing Exercise Name calf stretching Reps/Minutes 30x2 Comments LISA Neuro Re-Education Treatment Balance Activities Backwards stepping Details parallel bars Comments Backwards walking with eyes open/closed Obstacle course Details Foam stepping stones, hurdles and rocker board Comments Stepping over/onto and around objects in path in parallel bars. 3 Details hurdles stepping on foam Reps/Duration 6 reps CGA 1 Details walking with head turns Reps/Duration 5 min Comments vertical/horizontal head turns . Verbal cues. PT-OP-T Assessment and Plan Start: 09/09/18 07:26 Freq: Status: Active Protocol: Document 09/19/18 13:07 (Rec: 09/19/18 13:18 [email or web address]) Physical Therapy Assessment Progress Towards Goals Progress Towards Goals Progressing Toward Goals Progress Comments Pt consistently challenging self at home, doing HEP daily. Assessment Summary Assessment Dynamic balance focused treatment today with eyes closed being the most challenging for him. Physical Therapy Plan Next Visit Focus/Plan Next Note Type Treatment Note Next Visit Plan Progress dynamic balance specifically limiting visual input and challenge righting reactions.
--- NOTE | 2018-09-23 15:49 | PT.OTN ---
Current Diagnoses Unspecified sequelae of cerebral infarction (09/23/18) Physical Therapy Treatment Note PT-OP-A Visit Information Start: 09/09/18 07:26 Freq: Status: Active Protocol: Document 09/23/18 15:41 SA (Rec: 09/23/18 15:49 SA [email or web address]) Out-Patient Physical Therapy Visit Information Visit Information Visit Type Treatment Note Visit Start Time 01:45 Visit Stop Time 02:30 Total Visit Minutes 45 Visit Number 5 Number of MANAGER PRODUCT MANAGEMENT Visits 3 PT-OP-B Current Condition Start: 09/09/18 07:26 Freq: Status: Active Protocol: Document 09/09/18 10:15 AMB (Rec: 09/11/18 07:21 AMB [email or web address]) Current Condition History of Current Condition Onset Date 07/25/18 Current Complaints R sided weakness, dizziness, fatigue s/p CVA History of Current Condition The patient attends PT s/p CVA that affected both his right arm and leg. 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 He has not yet received any formal PT except for when he was admitted into the hospital over a month ago. He notes he has been walking with his (he can use a SPC but also walks without assistive device). 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 Baseline Function- Recreation/Hobbies Housework (cleaning gutters, home renovations) Current Functional Impairments (Reported) Functional Limitations- Work/School Not currently working or driving Personal Factors Other Personal Factors That May Effect Insurance limitations Therapy/Recovery PT-OP-C Subjective Start: 09/09/18 07:26 Freq: Status: Active Protocol: Document 09/23/18 15:41 SA (Rec: 09/23/18 15:49 SA [email or web address]) OP-PT Subjective Patient Comments Patient Comments Pt did lots of yard work over the weekend wit good tolerance and no LOB, feeling like he is making gains. Patient Reported Progress Improving PT-OP-D Balance Start: 09/09/18 07:26 Freq: Status: Active Protocol: Document 09/09/18 10:15 AMB (Rec: 09/11/18 07:31 AMB [email or web address]) Balance Tests Single Limb Standing Single Limb- Right unable Single Limb- Left 5 sec Semi-Tandem Standing Semi-Tandem Standing Balance with eyes open: 10 seconds + ( increased ankle sway). EC 5 seconds. PT-OP-E Functional Tests Start: 09/11/18 07:25 Freq: Status: Active Protocol: Document 09/09/18 10:15 AMB (Rec: 09/11/18 07:27 AMB [email or web address]) Functional Tests Dynamic Gait Index (DGI) Score 16 DGI Impairment Rating 20 to <40% Impaired (Score 15- 19) PT-OP-G Mobility & Gait Start: 09/09/18 07:26 Freq: Status: Active Protocol: Document 09/09/18 10:15 AMB (Rec: 09/11/18 07:31 AMB [email or web address]) OP Gait Assessment Comments Gait Comments Pt ambulates without assistive device with slower gait than his normal pace, reduced trunk rotation, reduced stride length. Stair Climbing Evaluation Devices Stair Climbing Assistive Devices Right Railing Technique/Endurance Stair Climbing Direction Ascend and Descend Stair Climbing Technique Step Over Step Number of Steps Climbed 4 Stair Climbing Set # Repetitions (reps) 1 PT-OP-H Neuro Start: 09/09/18 07:26 Freq: Status: Active Protocol: Document 09/09/18 10:15 AMB (Rec: 09/11/18 07:31 AMB [email or web address]) Coordination Evaluation Lower Extremity Tests Right Foot Tapping Test Moderate Impairment Left Foot Tapping Test Minimal Impairment Deep Tendon Reflex & Clonus Assessment Ankle Clonus Bilateral Clonus Assessment Absent PT-OP-M Strength Start: 09/09/18 07:26 Freq: Status: Active Protocol: Document 09/09/18 10:15 AMB (Rec: 09/11/18 09:05 AMB [email or web address]) Hip Strength Hip Manual Muscle Testing Right Flexion (L2) 4 Good Extension (S1) 4 Good Abduction 4 Good Left Flexion (L2) 5 Normal Extension (S1) 5 Normal Abduction 5 Normal Knee Strength Knee Manual Muscle Testing Right Flexion (S2) 4+ Good+ Extension (L3) 4+ Good+ Left Flexion (S2) 5 Normal Extension (L3) 5 Normal Ankle/Foot Strength Ankle and Foot Manual Muscle Testing Right Dorsiflexion (L4) 4+ Good+ Plantarflexion (S1) 4 Good Left Dorsiflexion (L4) 4+ Good+ Plantarflexion (S1) 4+ Good+ PT-OP-Q Treatments Start: 09/09/18 07:26 Freq: Status: Active Protocol: Document 09/23/18 15:41 SA (Rec: 09/23/18 15:49 [email or web address]) Cardio Equipment Recumbent Bicycle Duration (Minutes) 6 Resistance 5 Gym Equipment Shuttle Balance 1 Details Red Reps/Duration 10 min Comments NBOS, Tandem stance, head turns and eyes closed. Therapeutic Exercises Standing Exercises lateral stepping Side bilateral Resistance Red TB Reps/Minutes 3 min HS stretching Side bilateral Equipment Used at stair 3 Standing Exercise Name lunge walk with arm raises Reps/Minutes 4 lengths 2 Standing Exercise Name calf stretching Reps/Minutes 30x2 Comments LISA 1 Standing Exercise Name eyes closed lunges and lateral stepping Reps/Minutes 4 lengths each Comments parallel bars Neuro Re-Education Treatment Balance Activities Backwards stepping Details parallel bars Comments Backwards walking with eyes open/closed 2 Details single leg balance Comments 2-5 seconds on the R 1 Details walking with head turns Reps/Duration 5 min Comments vertical/horizontal head turns . Verbal cues. PT-OP-T Assessment and Plan Start: 09/09/18 07:26 Freq: Status: Active Protocol: Document 09/23/18 15:41 (Rec: 09/23/18 15:49 [email or web address]) Physical Therapy Assessment Progress Towards Goals Progress Towards Goals Progressing Toward Goals Progress Comments Pt doing well, consistent with HEP Assessment Summary Assessment Improving dynamic balance. Challenged pt with UE movements with dynamic balance as well as eyes closed activities. Physical Therapy Plan Next Visit Focus/Plan Next Note Type Treatment Note Next Visit Plan Continue to progress eyes closed and UE movements with dynamic balance to minimize posterior lean/LOB with UE movements.
--- NOTE | 2018-09-26 11:46 | PT.OTN ---
Current Diagnoses Unspecified sequelae of cerebral infarction (09/26/18) Physical Therapy Treatment Note PT-OP-A Visit Information Start: 09/09/18 07:26 Freq: Status: Active Protocol: Document 09/26/18 11:38 SA (Rec: 09/26/18 11:46 SA [email or web address]) Out-Patient Physical Therapy Visit Information Visit Information Visit Type Treatment Note Visit Start Time 10:30 Visit Stop Time 11:15 Total Visit Minutes 45 Visit Number 6 Number of MENTAL HEALTH THERAPIST Visits 4 PT-OP-B Current Condition Start: 09/09/18 07:26 Freq: Status: Active Protocol: Document 09/09/18 10:15 AMB (Rec: 09/11/18 07:21 AMB [email or web address]) Current Condition History of Current Condition Onset Date 07/25/18 Current Complaints R sided weakness, dizziness, fatigue s/p CVA History of Current Condition The patient attends PT s/p CVA that affected both his right arm and leg. 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 He has not yet received any formal PT except for when he was admitted into the hospital over a month ago. He notes he has been walking with his (he can use a SPC but also walks without assistive device). 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 Baseline Function- Recreation/Hobbies Housework (cleaning gutters, home renovations) Current Functional Impairments (Reported) Functional Limitations- Work/School Not currently working or driving Personal Factors Other Personal Factors That May Effect Insurance limitations Therapy/Recovery PT-OP-C Subjective Start: 09/09/18 07:26 Freq: Status: Active Protocol: Document 09/26/18 11:38 SA (Rec: 09/26/18 11:46 SA [email or web address]) OP-PT Subjective Patient Comments Patient Comments Able to do more chores around the house, no LOB with moving firewood. Feeling improvement. Patient Reported Progress Improving PT-OP-D Balance Start: 09/09/18 07:26 Freq: Status: Active Protocol: Document 09/09/18 10:15 AMB (Rec: 09/11/18 07:31 AMB [email or web address]) Balance Tests Single Limb Standing Single Limb- Right unable Single Limb- Left 5 sec Semi-Tandem Standing Semi-Tandem Standing Balance with eyes open: 10 seconds + ( increased ankle sway). EC 5 seconds. PT-OP-E Functional Tests Start: 09/11/18 07:25 Freq: Status: Active Protocol: Document 09/09/18 10:15 AMB (Rec: 09/11/18 07:27 AMB [email or web address]) Functional Tests Dynamic Gait Index (DGI) Score 16 DGI Impairment Rating 20 to <40% Impaired (Score 15- 19) PT-OP-G Mobility & Gait Start: 09/09/18 07:26 Freq: Status: Active Protocol: Document 09/09/18 10:15 AMB (Rec: 09/11/18 07:31 AMB [email or web address]) OP Gait Assessment Comments Gait Comments Pt ambulates without assistive device with slower gait than his normal pace, reduced trunk rotation, reduced stride length. Stair Climbing Evaluation Devices Stair Climbing Assistive Devices Right Railing Technique/Endurance Stair Climbing Direction Ascend and Descend Stair Climbing Technique Step Over Step Number of Steps Climbed 4 Stair Climbing Set # Repetitions (reps) 1 PT-OP-H Neuro Start: 09/09/18 07:26 Freq: Status: Active Protocol: Document 09/09/18 10:15 AMB (Rec: 09/11/18 07:31 AMB [email or web address]) Coordination Evaluation Lower Extremity Tests Right Foot Tapping Test Moderate Impairment Left Foot Tapping Test Minimal Impairment Deep Tendon Reflex & Clonus Assessment Ankle Clonus Bilateral Clonus Assessment Absent PT-OP-M Strength Start: 09/09/18 07:26 Freq: Status: Active Protocol: Document 09/09/18 10:15 AMB (Rec: 09/11/18 09:05 AMB [email or web address]) Hip Strength Hip Manual Muscle Testing Right Flexion (L2) 4 Good Extension (S1) 4 Good Abduction 4 Good Left Flexion (L2) 5 Normal Extension (S1) 5 Normal Abduction 5 Normal Knee Strength Knee Manual Muscle Testing Right Flexion (S2) 4+ Good+ Extension (L3) 4+ Good+ Left Flexion (S2) 5 Normal Extension (L3) 5 Normal Ankle/Foot Strength Ankle and Foot Manual Muscle Testing Right Dorsiflexion (L4) 4+ Good+ Plantarflexion (S1) 4 Good Left Dorsiflexion (L4) 4+ Good+ Plantarflexion (S1) 4+ Good+ PT-OP-Q Treatments Start: 09/09/18 07:26 Freq: Status: Active Protocol: Document 09/26/18 11:38 SA (Rec: 09/26/18 11:46 [email or web address]) Cardio Equipment Recumbent Bicycle Duration (Minutes) 7 Resistance 8 Gym Equipment Shuttle Balance 1 Details Red Reps/Duration 10 min Comments NBOS, Tandem, Alternating UE, head turns, eyes closed Therapeutic Exercises Standing Exercises scapular retraction with squat Side bilateral Resistance #2 TB Reps/Minutes 20 balance squat Side bilateral Equipment Used Blue balance foams Reps/Minutes 20 Comments at bar lateral stepping Side bilateral Resistance Red TB Reps/Minutes 3 min HS stretching Side bilateral Equipment Used at stair 3 Standing Exercise Name lunge walk Reps/Minutes 4 lengths Neuro Re-Education Treatment Balance Activities Backwards stepping Details no bar Comments Backwards walking with eyes open/closed Obstacle course Details Foam stepping stones, hurdles and rocker board Comments Stepping over/onto and around objects in path in parallel bars. 3 Details hurdles stepping on foam Reps/Duration 6 reps CGA 2 Details single leg balance Comments 2-5 seconds on the R 1 Details walking with head turns Reps/Duration 5 min Comments vertical/horizontal head turns . Verbal cues. PT-OP-T Assessment and Plan Start: 09/09/18 07:26 Freq: Status: Active Protocol: Document 09/26/18 11:38 (Rec: 09/26/18 11:46 [email or web address]) Physical Therapy Assessment Progress Towards Goals Progress Towards Goals Progressing Toward Goals Progress Comments Pt notes significant decrease in LOBs, improving ability to work outside. Assessment Summary Assessment Continue to challenge dynamic balance and progress LE strengthening. Physical Therapy Plan Next Visit Focus/Plan Next Note Type Treatment Note Next Visit Plan Pt tolerating treatment well, progress balance/strength training.
--- NOTE | 2018-10-07 11:32 | PT.OTN ---
Current Diagnoses Unspecified sequelae of cerebral infarction (10/07/18) Physical Therapy Treatment Note PT-OP-A Visit Information Start: 09/09/18 07:26 Freq: Status: Active Protocol: Document 10/07/18 11:25 SA (Rec: 10/07/18 11:32 SA [email or web address]) Out-Patient Physical Therapy Visit Information Visit Information Visit Type Treatment Note Visit Start Time 09:45 Visit Stop Time 10:30 Total Visit Minutes 45 Visit Number 7 Number of PERINATAL BREASTFEEDING ASSISTANT Visits 5 PT-OP-B Current Condition Start: 09/09/18 07:26 Freq: Status: Active Protocol: Document 09/09/18 10:15 AMB (Rec: 09/11/18 07:21 AMB [email or web address]) Current Condition History of Current Condition Onset Date 07/25/18 Current Complaints R sided weakness, dizziness, fatigue s/p CVA History of Current Condition The patient attends PT s/p CVA that affected both his right arm and leg. 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 He has not yet received any formal PT except for when he was admitted into the hospital over a month ago. He notes he has been walking with his (he can use a SPC but also walks without assistive device). 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 Baseline Function- Recreation/Hobbies Housework (cleaning gutters, home renovations) Current Functional Impairments (Reported) Functional Limitations- Work/School Not currently working or driving Personal Factors Other Personal Factors That May Effect Insurance limitations Therapy/Recovery PT-OP-C Subjective Start: 09/09/18 07:26 Freq: Status: Active Protocol: Document 10/07/18 11:25 SA (Rec: 10/07/18 11:32 SA [email or web address]) OP-PT Subjective Patient Comments Patient Comments Feeling a little fatigued today from busy weekend. Patient Reported Progress Improving PT-OP-D Balance Start: 09/09/18 07:26 Freq: Status: Active Protocol: Document 09/09/18 10:15 AMB (Rec: 09/11/18 07:31 AMB [email or web address]) Balance Tests Single Limb Standing Single Limb- Right unable Single Limb- Left 5 sec Semi-Tandem Standing Semi-Tandem Standing Balance with eyes open: 10 seconds + ( increased ankle sway). EC 5 seconds. PT-OP-E Functional Tests Start: 09/11/18 07:25 Freq: Status: Active Protocol: Document 09/09/18 10:15 AMB (Rec: 09/11/18 07:27 AMB [email or web address]) Functional Tests Dynamic Gait Index (DGI) Score 16 DGI Impairment Rating 20 to <40% Impaired (Score 15- 19) PT-OP-G Mobility & Gait Start: 09/09/18 07:26 Freq: Status: Active Protocol: Document 09/09/18 10:15 AMB (Rec: 09/11/18 07:31 AMB [email or web address]) OP Gait Assessment Comments Gait Comments Pt ambulates without assistive device with slower gait than his normal pace, reduced trunk rotation, reduced stride length. Stair Climbing Evaluation Devices Stair Climbing Assistive Devices Right Railing Technique/Endurance Stair Climbing Direction Ascend and Descend Stair Climbing Technique Step Over Step Number of Steps Climbed 4 Stair Climbing Set # Repetitions (reps) 1 PT-OP-H Neuro Start: 09/09/18 07:26 Freq: Status: Active Protocol: Document 09/09/18 10:15 AMB (Rec: 09/11/18 07:31 AMB [email or web address]) Coordination Evaluation Lower Extremity Tests Right Foot Tapping Test Moderate Impairment Left Foot Tapping Test Minimal Impairment Deep Tendon Reflex & Clonus Assessment Ankle Clonus Bilateral Clonus Assessment Absent PT-OP-M Strength Start: 09/09/18 07:26 Freq: Status: Active Protocol: Document 09/09/18 10:15 AMB (Rec: 09/11/18 09:05 AMB [email or web address]) Hip Strength Hip Manual Muscle Testing Right Flexion (L2) 4 Good Extension (S1) 4 Good Abduction 4 Good Left Flexion (L2) 5 Normal Extension (S1) 5 Normal Abduction 5 Normal Knee Strength Knee Manual Muscle Testing Right Flexion (S2) 4+ Good+ Extension (L3) 4+ Good+ Left Flexion (S2) 5 Normal Extension (L3) 5 Normal Ankle/Foot Strength Ankle and Foot Manual Muscle Testing Right Dorsiflexion (L4) 4+ Good+ Plantarflexion (S1) 4 Good Left Dorsiflexion (L4) 4+ Good+ Plantarflexion (S1) 4+ Good+ PT-OP-Q Treatments Start: 09/09/18 07:26 Freq: Status: Active Protocol: Document 10/07/18 11:25 SA (Rec: 10/07/18 11:32 SA [email or web address]) Cardio Equipment Recumbent Stepper (Sci-Fit) Duration (Minutes) 8 Resistance 10 Gym Equipment Shuttle Balance 1 Details Red Reps/Duration 12 Comments NBOS, Tandem, Alternating UE, head turns, eyes closed. Weighted ball toss agianst rebounder, alternating UEs. Therapeutic Exercises Standing Exercises scapular retraction with squat Side bilateral Resistance #3 TB Reps/Minutes 25 balance squat Side bilateral Equipment Used Blue balance foams Reps/Minutes 20 Comments at bar 3 Standing Exercise Name forward/backward resisted stepping Reps/Minutes 4 lengths 2 Standing Exercise Name calf stretching Reps/Minutes 30x2 Comments LISA 1 Standing Exercise Name eyes closed lunges and lateral stepping Reps/Minutes 4 lengths each Comments bar Neuro Re-Education Treatment Balance Activities 3 Details hurdles stepping on foam Reps/Duration 6 reps CGA 2 Details single leg balance Comments using stepping stones with limited UE support 1 Details walking with head turns Reps/Duration 5 min Comments vertical/horizontal head turns . Verbal cues. PT-OP-T Assessment and Plan Start: 09/09/18 07:26 Freq: Status: Active Protocol: Document 10/07/18 11:25 SA (Rec: 10/07/18 11:32 SA [email or web address]) Physical Therapy Assessment Assessment Summary Assessment 2 visits left this year, pt to continue with strengthening/ balance training. Researching gym membership to continue IND . Physical Therapy Plan Next Visit Focus/Plan Next Note Type Treatment Note Next Visit Plan Continue to progress/challenge dynamic balance with UE movements.
--- NOTE | 2018-10-07 12:45 | PT.OTN ---
Current Diagnoses Unspecified sequelae of cerebral infarction (10/14/18) Physical Therapy Treatment Note PT-OP-A Visit Information Start: 09/09/18 07:26 Freq: Status: Active Protocol: Document 10/07/18 11:25 SA (Rec: 10/07/18 11:32 SA [email or web address]) Out-Patient Physical Therapy Visit Information Visit Information Visit Type Treatment Note Visit Start Time 09:45 Visit Stop Time 10:30 Total Visit Minutes 45 Visit Number 7 Number of BRUSHER HAND Visits 5 PT-OP-B Current Condition Start: 09/09/18 07:26 Freq: Status: Active Protocol: Document 09/09/18 10:15 AMB (Rec: 09/11/18 07:21 AMB [email or web address]) Current Condition History of Current Condition Onset Date 07/25/18 Current Complaints R sided weakness, dizziness, fatigue s/p CVA History of Current Condition The patient attends PT s/p CVA that affected both his right arm and leg. 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 He has not yet received any formal PT except for when he was admitted into the hospital over a month ago. He notes he has been walking with his (he can use a SPC but also walks without assistive device). 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 Baseline Function- Recreation/Hobbies Housework (cleaning gutters, home renovations) Current Functional Impairments (Reported) Functional Limitations- Work/School Not currently working or driving Personal Factors Other Personal Factors That May Effect Insurance limitations Therapy/Recovery PT-OP-C Subjective Start: 09/09/18 07:26 Freq: Status: Active Protocol: Document 10/07/18 11:25 SA (Rec: 10/07/18 11:32 SA [email or web address]) OP-PT Subjective Patient Comments Patient Comments Feeling a little fatigued today from busy weekend. Patient Reported Progress Improving PT-OP-D Balance Start: 09/09/18 07:26 Freq: Status: Active Protocol: Document 09/09/18 10:15 AMB (Rec: 09/11/18 07:31 AMB [email or web address]) Balance Tests Single Limb Standing Single Limb- Right unable Single Limb- Left 5 sec Semi-Tandem Standing Semi-Tandem Standing Balance with eyes open: 10 seconds + ( increased ankle sway). EC 5 seconds. PT-OP-E Functional Tests Start: 09/11/18 07:25 Freq: Status: Active Protocol: Document 09/09/18 10:15 AMB (Rec: 09/11/18 07:27 AMB [email or web address]) Functional Tests Dynamic Gait Index (DGI) Score 16 DGI Impairment Rating 20 to <40% Impaired (Score 15- 19) PT-OP-G Mobility & Gait Start: 09/09/18 07:26 Freq: Status: Active Protocol: Document 09/09/18 10:15 AMB (Rec: 09/11/18 07:31 AMB [email or web address]) OP Gait Assessment Comments Gait Comments Pt ambulates without assistive device with slower gait than his normal pace, reduced trunk rotation, reduced stride length. Stair Climbing Evaluation Devices Stair Climbing Assistive Devices Right Railing Technique/Endurance Stair Climbing Direction Ascend and Descend Stair Climbing Technique Step Over Step Number of Steps Climbed 4 Stair Climbing Set # Repetitions (reps) 1 PT-OP-H Neuro Start: 09/09/18 07:26 Freq: Status: Active Protocol: Document 09/09/18 10:15 AMB (Rec: 09/11/18 07:31 AMB [email or web address]) Coordination Evaluation Lower Extremity Tests Right Foot Tapping Test Moderate Impairment Left Foot Tapping Test Minimal Impairment Deep Tendon Reflex & Clonus Assessment Ankle Clonus Bilateral Clonus Assessment Absent PT-OP-M Strength Start: 09/09/18 07:26 Freq: Status: Active Protocol: Document 09/09/18 10:15 AMB (Rec: 09/11/18 09:05 AMB [email or web address]) Hip Strength Hip Manual Muscle Testing Right Flexion (L2) 4 Good Extension (S1) 4 Good Abduction 4 Good Left Flexion (L2) 5 Normal Extension (S1) 5 Normal Abduction 5 Normal Knee Strength Knee Manual Muscle Testing Right Flexion (S2) 4+ Good+ Extension (L3) 4+ Good+ Left Flexion (S2) 5 Normal Extension (L3) 5 Normal Ankle/Foot Strength Ankle and Foot Manual Muscle Testing Right Dorsiflexion (L4) 4+ Good+ Plantarflexion (S1) 4 Good Left Dorsiflexion (L4) 4+ Good+ Plantarflexion (S1) 4+ Good+ PT-OP-Q Treatments Start: 09/09/18 07:26 Freq: Status: Active Protocol: Document 10/07/18 11:25 SA (Rec: 10/07/18 11:32 SA [email or web address]) Cardio Equipment Recumbent Stepper (Sci-Fit) Duration (Minutes) 8 Resistance 10 Gym Equipment Shuttle Balance 1 Details Red Reps/Duration 12 Comments NBOS, Tandem, Alternating UE, head turns, eyes closed. Weighted ball toss agianst rebounder, alternating UEs. Therapeutic Exercises Standing Exercises scapular retraction with squat Side bilateral Resistance #3 TB Reps/Minutes 25 balance squat Side bilateral Equipment Used Blue balance foams Reps/Minutes 20 Comments at bar 3 Standing Exercise Name forward/backward resisted stepping Reps/Minutes 4 lengths 2 Standing Exercise Name calf stretching Reps/Minutes 30x2 Comments LISA 1 Standing Exercise Name eyes closed lunges and lateral stepping Reps/Minutes 4 lengths each Comments bar Neuro Re-Education Treatment Balance Activities 3 Details hurdles stepping on foam Reps/Duration 6 reps CGA 2 Details single leg balance Comments using stepping stones with limited UE support 1 Details walking with head turns Reps/Duration 5 min Comments vertical/horizontal head turns . Verbal cues. PT-OP-T Assessment and Plan Start: 09/09/18 07:26 Freq: Status: Active Protocol: Document 10/07/18 11:25 SA (Rec: 10/07/18 11:32 SA [email or web address]) Physical Therapy Assessment Assessment Summary Assessment 2 visits left this year, pt to contunue with strengthening/ balance training. Researching gym membership to continue IND . Physical Therapy Plan Next Visit Focus/Plan Next Note Type Treatment Note Next Visit Plan Continue to progress/challenge dynamic balance with UE movements.
--- NOTE | 2018-10-14 14:19 | PT.OTN ---
Current Diagnoses Unspecified sequelae of cerebral infarction (10/14/18) Physical Therapy Treatment Note PT-OP-A Visit Information Start: 09/09/18 07:26 Freq: Status: Active Protocol: Document 10/14/18 11:15 AMB (Rec: 10/14/18 14:05 AMB [email or web address]) Out-Patient Physical Therapy Visit Information Visit Information Visit Type Treatment Note Visit Start Time 11:15 Visit Stop Time 12:00 Total Visit Minutes 45 Visit Number 8 Number of EMAIL MARKETING SPECIALIST Visits 0 PT-OP-B Current Condition Start: 09/09/18 07:26 Freq: Status: Active Protocol: Document 09/09/18 10:15 AMB (Rec: 09/11/18 07:21 AMB [email or web address]) Current Condition History of Current Condition Onset Date 07/25/18 Current Complaints R sided weakness, dizziness, fatigue s/p CVA History of Current Condition The patient attends PT s/p CVA that affected both his right arm and leg. 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 He has not yet received any formal PT except for when he was admitted into the hospital over a month ago. He notes he has been walking with his (he can use a SPC but also walks without assistive device). 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 Baseline Function- Recreation/Hobbies Housework (cleaning gutters, home renovations) Current Functional Impairments (Reported) Functional Limitations- Work/School Not currently working or driving Personal Factors Other Personal Factors That May Effect Insurance limitations Therapy/Recovery PT-OP-C Subjective Start: 09/09/18 07:26 Freq: Status: Active Protocol: Document 10/14/18 11:15 AMB (Rec: 10/14/18 14:05 AMB [email or web address]) OP-PT Subjective Patient Comments Patient Comments Pt had a cold last week, so he spent a lot of time resting, and is trying to get back into it. PT-OP-D Balance Start: 09/09/18 07:26 Freq: Status: Active Protocol: Document 09/09/18 10:15 AMB (Rec: 09/11/18 07:31 AMB [email or web address]) Balance Tests Single Limb Standing Single Limb- Right unable Single Limb- Left 5 sec Semi-Tandem Standing Semi-Tandem Standing Balance with eyes open: 10 seconds + ( increased ankle sway). EC 5 seconds. PT-OP-E Functional Tests Start: 09/11/18 07:25 Freq: Status: Active Protocol: Document 09/09/18 10:15 AMB (Rec: 09/11/18 07:27 AMB [email or web address]) Functional Tests Dynamic Gait Index (DGI) Score 16 DGI Impairment Rating 20 to <40% Impaired (Score 15- 19) PT-OP-G Mobility & Gait Start: 09/09/18 07:26 Freq: Status: Active Protocol: Document 09/09/18 10:15 AMB (Rec: 09/11/18 07:31 AMB [email or web address]) OP Gait Assessment Comments Gait Comments Pt ambulates without assistive device with slower gait than his normal pace, reduced trunk rotation, reduced stride length. Stair Climbing Evaluation Devices Stair Climbing Assistive Devices Right Railing Technique/Endurance Stair Climbing Direction Ascend and Descend Stair Climbing Technique Step Over Step Number of Steps Climbed 4 Stair Climbing Set # Repetitions (reps) 1 PT-OP-H Neuro Start: 09/09/18 07:26 Freq: Status: Active Protocol: Document 09/09/18 10:15 AMB (Rec: 09/11/18 07:31 AMB [email or web address]) Coordination Evaluation Lower Extremity Tests Right Foot Tapping Test Moderate Impairment Left Foot Tapping Test Minimal Impairment Deep Tendon Reflex & Clonus Assessment Ankle Clonus Bilateral Clonus Assessment Absent PT-OP-M Strength Start: 09/09/18 07:26 Freq: Status: Active Protocol: Document 09/09/18 10:15 AMB (Rec: 09/11/18 09:05 AMB [email or web address]) Hip Strength Hip Manual Muscle Testing Right Flexion (L2) 4 Good Extension (S1) 4 Good Abduction 4 Good Left Flexion (L2) 5 Normal Extension (S1) 5 Normal Abduction 5 Normal Knee Strength Knee Manual Muscle Testing Right Flexion (S2) 4+ Good+ Extension (L3) 4+ Good+ Left Flexion (S2) 5 Normal Extension (L3) 5 Normal Ankle/Foot Strength Ankle and Foot Manual Muscle Testing Right Dorsiflexion (L4) 4+ Good+ Plantarflexion (S1) 4 Good Left Dorsiflexion (L4) 4+ Good+ Plantarflexion (S1) 4+ Good+ PT-OP-Q Treatments Start: 09/09/18 07:26 Freq: Status: Active Protocol: Document 10/14/18 11:15 AMB (Rec: 10/14/18 14:19 AMB [email or web address]) Cardio Equipment Bicycle (Upright) Duration (Minutes) 5 Resistance 7 Gym Equipment Shuttle Balance 1 Details Red Reps/Duration 12 Comments NBOS, Tandem, Alternating UE, head turns, eyes closed. Turned 90 degrees for m/l perturbation. Therapeutic Exercises Standing Exercises 4 Standing Exercise Name heel raises Reps/Minutes x10 Comments unilateral 3 Standing Exercise Name lunge walk with shoulder abduction Resistance 3# Reps/Minutes 4 lengths 2 Standing Exercise Name calf stretching Reps/Minutes 30x2 Comments LISA Neuro Re-Education Treatment Balance Activities 4 Details modified tandem Comments eyes closed- given as HEP 2 Details single leg balance Comments using stepping stones with limited UE support PT-OP-T Assessment and Plan Start: 09/09/18 07:26 Freq: Status: Active Protocol: Document 10/14/18 11:15 AMB (Rec: 10/14/18 14:19 AMB [email or web address]) Physical Therapy Assessment Assessment Summary Assessment 1 visit left this year. Pt is hoping to continue, balance is improving, but hand function still limits return to work. Physical Therapy Plan Next Visit Focus/Plan Next Note Type Treatment Note Next Visit Plan Continue to progress/challenge dynamic balance with UE movements.
--- NOTE | 2018-10-17 16:01 | PT.OTN ---
Current Diagnoses Unspecified sequelae of cerebral infarction (10/17/18) Physical Therapy Treatment Note PT-OP-A Visit Information Start: 09/09/18 07:26 Freq: Status: Active Protocol: Document 10/17/18 10:30 AMB (Rec: 10/17/18 16:00 AMB [email or web address]) Out-Patient Physical Therapy Visit Information Visit Information Visit Type Treatment Note Visit Start Time 10:30 Visit Stop Time 11:15 Total Visit Minutes 45 Visit Number 9 Number of PRODUCTION TEAM LEADER Visits 0 PT-OP-B Current Condition Start: 09/09/18 07:26 Freq: Status: Active Protocol: Document 09/09/18 10:15 AMB (Rec: 09/11/18 07:21 AMB [email or web address]) Current Condition History of Current Condition Onset Date 07/25/18 Current Complaints R sided weakness, dizziness, fatigue s/p CVA History of Current Condition The patient attends PT s/p CVA that affected both his right arm and leg. 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 He has not yet received any formal PT except for when he was admitted into the hospital over a month ago. He notes he has been walking with his (he can use a SPC but also walks without assistive device). 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 Baseline Function- Recreation/Hobbies Housework (cleaning gutters, home renovations) Current Functional Impairments (Reported) Functional Limitations- Work/School Not currently working or driving Personal Factors Other Personal Factors That May Effect Insurance limitations Therapy/Recovery PT-OP-C Subjective Start: 09/09/18 07:26 Freq: Status: Active Protocol: Document 10/17/18 10:30 AMB (Rec: 10/17/18 16:00 AMB [email or web address]) OP-PT Subjective Patient Comments Patient Comments Pt feels like he is doing well , his hand continues to limit him. PT-OP-D Balance Start: 09/09/18 07:26 Freq: Status: Active Protocol: Document 09/09/18 10:15 AMB (Rec: 09/11/18 07:31 AMB [email or web address]) Balance Tests Single Limb Standing Single Limb- Right unable Single Limb- Left 5 sec Semi-Tandem Standing Semi-Tandem Standing Balance with eyes open: 10 seconds + ( increased ankle sway). EC 5 seconds. PT-OP-E Functional Tests Start: 09/11/18 07:25 Freq: Status: Active Protocol: Document 09/09/18 10:15 AMB (Rec: 09/11/18 07:27 AMB [email or web address]) Functional Tests Dynamic Gait Index (DGI) Score 16 DGI Impairment Rating 20 to <40% Impaired (Score 15- 19) PT-OP-G Mobility & Gait Start: 09/09/18 07:26 Freq: Status: Active Protocol: Document 09/09/18 10:15 AMB (Rec: 09/11/18 07:31 AMB [email or web address]) OP Gait Assessment Comments Gait Comments Pt ambulates without assistive device with slower gait than his normal pace, reduced trunk rotation, reduced stride length. Stair Climbing Evaluation Devices Stair Climbing Assistive Devices Right Railing Technique/Endurance Stair Climbing Direction Ascend and Descend Stair Climbing Technique Step Over Step Number of Steps Climbed 4 Stair Climbing Set # Repetitions (reps) 1 PT-OP-H Neuro Start: 09/09/18 07:26 Freq: Status: Active Protocol: Document 09/09/18 10:15 AMB (Rec: 09/11/18 07:31 AMB [email or web address]) Coordination Evaluation Lower Extremity Tests Right Foot Tapping Test Moderate Impairment Left Foot Tapping Test Minimal Impairment Deep Tendon Reflex & Clonus Assessment Ankle Clonus Bilateral Clonus Assessment Absent PT-OP-M Strength Start: 09/09/18 07:26 Freq: Status: Active Protocol: Document 09/09/18 10:15 AMB (Rec: 09/11/18 09:05 AMB [email or web address]) Hip Strength Hip Manual Muscle Testing Right Flexion (L2) 4 Good Extension (S1) 4 Good Abduction 4 Good Left Flexion (L2) 5 Normal Extension (S1) 5 Normal Abduction 5 Normal Knee Strength Knee Manual Muscle Testing Right Flexion (S2) 4+ Good+ Extension (L3) 4+ Good+ Left Flexion (S2) 5 Normal Extension (L3) 5 Normal Ankle/Foot Strength Ankle and Foot Manual Muscle Testing Right Dorsiflexion (L4) 4+ Good+ Plantarflexion (S1) 4 Good Left Dorsiflexion (L4) 4+ Good+ Plantarflexion (S1) 4+ Good+ PT-OP-Q Treatments Start: 09/09/18 07:26 Freq: Status: Active Protocol: Document 10/17/18 10:30 AMB (Rec: 10/17/18 16:00 AMB [email or web address]) Therapeutic Exercises Standing Exercises 4 Standing Exercise Name heel raises Reps/Minutes x10 Comments unilateral 3 Standing Exercise Name lunge walk with shoulder abduction Resistance 3# Reps/Minutes 4 lengths 2 Standing Exercise Name calf stretching Reps/Minutes 30x2 Comments LISA Neuro Re-Education Treatment Balance Activities 5 Details 3 step and bow Comments with head turn- difficult 4 Details modified tandem Comments eyes closed- given as HEP Obstacle course Details Foam stepping stones, hurdles and rocker board Comments Stepping over/onto and around objects in path in parallel bars. 2 Details single leg balance Comments using stepping stones with limited UE support 1 Details walking with head turns Reps/Duration 5 min Comments vertical/horizontal head turns . Verbal cues. Coordination Activities 1 Details fast toe tapping Comments seated PT-OP-T Assessment and Plan Start: 09/09/18 07:26 Freq: Status: Active Protocol: Document 10/17/18 10:30 AMB (Rec: 10/17/18 16:00 AMB [email or web address]) Physical Therapy Assessment Assessment Summary Assessment Seeing patient next year. Pt continues to have imbalance with higher level balance and baseline dizziness. Physical Therapy Plan Next Visit Focus/Plan Next Note Type Progress Note Next Visit Plan Continue to progress/challenge dynamic balance with UE movements.
--- NOTE | 2018-11-17 14:45 | PT.OTN ---
Current Diagnoses Unspecified sequelae of cerebral infarction (11/17/18) Physical Therapy Treatment Note PT-OP-A Visit Information Start: 09/09/18 07:26 Freq: Status: Active Protocol: Document 11/17/18 10:30 AMB (Rec: 11/17/18 13:46 AMB [email or web address]) Out-Patient Physical Therapy Visit Information Visit Information Visit Type Treatment Note Visit Start Time 10:30 Visit Stop Time 11:15 Total Visit Minutes 45 Visit Number 10 Number of FRENCH WEAVER Visits 0 PT-OP-B Current Condition Start: 09/09/18 07:26 Freq: Status: Active Protocol: Document 09/09/18 10:15 AMB (Rec: 09/11/18 07:21 AMB [email or web address]) Current Condition History of Current Condition Onset Date 07/25/18 Current Complaints R sided weakness, dizziness, fatigue s/p CVA History of Current Condition The patient attends PT s/p CVA that affected both his right arm and leg. 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 He has not yet received any formal PT except for when he was admitted into the hospital over a month ago. He notes he has been walking with his (he can use a SPC but also walks without assistive device). 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 Baseline Function- Recreation/Hobbies Housework (cleaning gutters, home renovations) Current Functional Impairments (Reported) Functional Limitations- Work/School Not currently working or driving Personal Factors Other Personal Factors That May Effect Insurance limitations Therapy/Recovery PT-OP-C Subjective Start: 09/09/18 07:26 Freq: Status: Active Protocol: Document 11/17/18 10:30 AMB (Rec: 11/17/18 14:43 AMB [email or web address]) OP-PT Subjective Patient Comments Patient Comments Pt has been going on walks with his , he has not returned to working yet. PT-OP-D Balance Start: 09/09/18 07:26 Freq: Status: Active Protocol: Document 09/09/18 10:15 AMB (Rec: 09/11/18 07:31 AMB [email or web address]) Balance Tests Single Limb Standing Single Limb- Right unable Single Limb- Left 5 sec Semi-Tandem Standing Semi-Tandem Standing Balance with eyes open: 10 seconds + ( increased ankle sway). EC 5 seconds. PT-OP-E Functional Tests Start: 09/11/18 07:25 Freq: Status: Active Protocol: Document 09/09/18 10:15 AMB (Rec: 09/11/18 07:27 AMB [email or web address]) Functional Tests Dynamic Gait Index (DGI) Score 16 DGI Impairment Rating 20 to <40% Impaired (Score 15- 19) PT-OP-G Mobility & Gait Start: 09/09/18 07:26 Freq: Status: Active Protocol: Document 09/09/18 10:15 AMB (Rec: 09/11/18 07:31 AMB [email or web address]) OP Gait Assessment Comments Gait Comments Pt ambulates without assistive device with slower gait than his normal pace, reduced trunk rotation, reduced stride length. Stair Climbing Evaluation Devices Stair Climbing Assistive Devices Right Railing Technique/Endurance Stair Climbing Direction Ascend and Descend Stair Climbing Technique Step Over Step Number of Steps Climbed 4 Stair Climbing Set # Repetitions (reps) 1 PT-OP-H Neuro Start: 09/09/18 07:26 Freq: Status: Active Protocol: Document 09/09/18 10:15 AMB (Rec: 09/11/18 07:31 AMB [email or web address]) Coordination Evaluation Lower Extremity Tests Right Foot Tapping Test Moderate Impairment Left Foot Tapping Test Minimal Impairment Deep Tendon Reflex & Clonus Assessment Ankle Clonus Bilateral Clonus Assessment Absent PT-OP-M Strength Start: 09/09/18 07:26 Freq: Status: Active Protocol: Document 09/09/18 10:15 AMB (Rec: 09/11/18 09:05 AMB [email or web address]) Hip Strength Hip Manual Muscle Testing Right Flexion (L2) 4 Good Extension (S1) 4 Good Abduction 4 Good Left Flexion (L2) 5 Normal Extension (S1) 5 Normal Abduction 5 Normal Knee Strength Knee Manual Muscle Testing Right Flexion (S2) 4+ Good+ Extension (L3) 4+ Good+ Left Flexion (S2) 5 Normal Extension (L3) 5 Normal Ankle/Foot Strength Ankle and Foot Manual Muscle Testing Right Dorsiflexion (L4) 4+ Good+ Plantarflexion (S1) 4 Good Left Dorsiflexion (L4) 4+ Good+ Plantarflexion (S1) 4+ Good+ PT-OP-Q Treatments Start: 09/09/18 07:26 Freq: Status: Active Protocol: Document 11/17/18 10:30 AMB (Rec: 11/17/18 14:43 AMB [email or web address]) Gym Equipment Shuttle Rebound 1 Exercise Details throw catch Comments for balance, modified tandem stance Shuttle Balance 1 Details Red Reps/Duration 12 Comments NBOS, Tandem, Alternating UE, head turns, eyes closed. Turned 90 degrees for m/l perturbation. Therapeutic Exercises Standing Exercises 2 Standing Exercise Name calf stretching Reps/Minutes 30x2 Comments LISA Neuro Re-Education Treatment Balance Activities 4 Details modified tandem Comments eyes closed- given as HEP Obstacle course Details Foam stepping stones, hurdles and rocker board Comments Stepping over/onto and around objects in path in parallel bars. 2 Details single leg balance Comments using stepping stones with limited UE support 1 Details walking with head turns Reps/Duration 5 min Comments vertical/horizontal head turns . Verbal cues. PT-OP-T Assessment and Plan Start: 09/09/18 07:26 Freq: Status: Active Protocol: Document 11/17/18 10:30 AMB (Rec: 11/17/18 13:46 AMB [email or web address]) Physical Therapy Assessment Goals Three Impairment dizziness Short Term Goal (STG) The patient will ambulate with vertical head turns without veering or imbalance. PROGRESS MADE STG Duration 4 weeks Group Home Goal (LTG) The patient will safely ascend and descend 1 flight of stairs without need for a railing. LTG Duration MET Two Impairment balance Short Term Goal (STG) The patient will stand on one leg (right) for 15 seconds to show decreased risk of falling . STG Duration MET Nuclear Powerplant Mechanic Helper Goal (LTG) The patient will improve his DGI score to 22/24 to show decreased risk of falls. LTG Duration MET One Impairment gait Short Term Goal (STG) The patient will ambulate for 15 minutes over grass, gravel and curb steps without fatigue or loss of balance. STG Duration 4 weeks Nuclear Powerplant Mechanic Helper Goal (LTG) The patient will lift and carry 20 pounds for 100' while walking without assistive device without loss of balance . LTG Duration MET Assessment Summary Assessment Pt continues to notice light dizziness and incoordination but feels he is about 70% better. He has not returned to work or to higher level yardwork/housework projects. HE will benefit from continued PT to get him up to those high level challenges. Physical Therapy Plan Frequency and Duration Frequency of Treatment 2x/Week Duration of Treatment 8 weeks Plan of Care Start Date 11/17/18 Plan of Care End Date 01/12/19 Therapeutic Interventions Therapeutic Interventions Balance Training Gait Training Home Exercise Program Manual Therapy Neuromuscular Re-education Self-Care/Home Management Therapeutic Activities Therapeutic Exercises Next Visit Focus/Plan Next Note Type Treatment Note Next Visit Plan Continue to progress/challenge dynamic balance with UE movements.
--- NOTE | 2018-11-17 14:52 | PT.OPPOC ---
Current Diagnoses Unspecified sequelae of cerebral infarction (11/17/18) Provider Visit Care Team Role Provider Type Basilio Condon MD Attending Provider Physician Primary Care Provider Specialty: Wound Care Address: [address] [place] [address], [id number] Email: [email or web address] Plan Of Care PT-OP-T Assessment and Plan Start: 09/09/18 07:26 Freq: Status: Active Protocol: Document 11/17/18 10:30 AMB (Rec: 11/17/18 13:46 AMB [email or web address]) Physical Therapy Assessment Goals Three Impairment dizziness Short Term Goal (STG) The patient will ambulate with vertical head turns without veering or imbalance. PROGRESS MADE STG Duration 4 weeks Residential Goal (LTG) The patient will safely ascend and descend 1 flight of stairs without need for a railing. LTG Duration MET Two Impairment balance Short Term Goal (STG) The patient will stand on one leg (right) for 15 seconds to show decreased risk of falling . STG Duration MET Residential Goal (LTG) The patient will improve his DGI score to 22/24 to show decreased risk of falls. LTG Duration MET One Impairment gait Short Term Goal (STG) The patient will ambulate for 15 minutes over grass, gravel and curb steps without fatigue or loss of balance. STG Duration 4 weeks Residential Goal (LTG) The patient will lift and carry 20 pounds for 100' while walking without assistive device without loss of balance . LTG Duration MET Assessment Summary Assessment Pt continues to notice light dizziness and incoordination but feels he is about 70% better. He has not returned to work or to higher level yardwork/housework projects. HE will benefit from continued PT to get him up to those high level challenges. Physical Therapy Plan Frequency and Duration Frequency of Treatment 2x/Week Duration of Treatment 8 weeks Plan of Care Start Date 11/17/18 Plan of Care End Date 01/12/19 Therapeutic Interventions Therapeutic Interventions Balance Training Gait Training Home Exercise Program Manual Therapy Neuromuscular Re-education Self-Care/Home Management Therapeutic Activities Therapeutic Exercises Next Visit Focus/Plan Next Note Type Treatment Note Next Visit Plan Continue to progress/challenge dynamic balance with UE movements. Plan of Care Dates Plan of Care Start Date 11/17/18 Plan of Care End Date 01/12/19 Please Sign and Return: I have reviewed this Plan of Care and certify that the skilled therapy services above are required to meet the patient?s needs. Physician Signature Date Printed Name and Credentials Clinical Instructor Signature Printed Name and Credentials
--- NOTE | 2018-11-17 14:52 | PT.OPPN ---
Current Diagnoses Unspecified sequelae of cerebral infarction (11/17/18) Physical Therapy Progress Note PT-OP-A Visit Information Start: 09/09/18 07:26 Freq: Status: Active Protocol: Document 11/17/18 10:30 AMB (Rec: 11/17/18 13:46 AMB [email or web address]) Out-Patient Physical Therapy Visit Information Visit Information Visit Type Treatment Note Visit Start Time 10:30 Visit Stop Time 11:15 Total Visit Minutes 45 Visit Number 10 Number of TETRYL NITRATOR OPERATOR Visits 0 PT-OP-B Current Condition Start: 09/09/18 07:26 Freq: Status: Active Protocol: Document 09/09/18 10:15 AMB (Rec: 09/11/18 07:21 AMB [email or web address]) Current Condition History of Current Condition Onset Date 07/25/18 Current Complaints R sided weakness, dizziness, fatigue s/p CVA History of Current Condition The patient attends PT s/p CVA that affected both his right arm and leg. 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 He has not yet received any formal PT except for when he was admitted into the hospital over a month ago. He notes he has been walking with his (he can use a SPC but also walks without assistive device). 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 Baseline Function- Recreation/Hobbies Housework (cleaning gutters, home renovations) Current Functional Impairments (Reported) Functional Limitations- Work/School Not currently working or driving Personal Factors Other Personal Factors That May Effect Insurance limitations Therapy/Recovery PT-OP-C Subjective Start: 09/09/18 07:26 Freq: Status: Active Protocol: Document 11/17/18 10:30 AMB (Rec: 11/17/18 14:43 AMB [email or web address]) OP-PT Subjective Patient Comments Patient Comments Pt has been going on walks with his , he has not returned to working yet. PT-OP-D Balance Start: 09/09/18 07:26 Freq: Status: Active Protocol: Document 09/09/18 10:15 AMB (Rec: 09/11/18 07:31 AMB [email or web address]) Balance Tests Single Limb Standing Single Limb- Right unable Single Limb- Left 5 sec Semi-Tandem Standing Semi-Tandem Standing Balance with eyes open: 10 seconds + ( increased ankle sway). EC 5 seconds. PT-OP-E Functional Tests Start: 09/11/18 07:25 Freq: Status: Active Protocol: Document 09/09/18 10:15 AMB (Rec: 09/11/18 07:27 AMB [email or web address]) Functional Tests Dynamic Gait Index (DGI) Score 16 DGI Impairment Rating 20 to <40% Impaired (Score 15- 19) PT-OP-G Mobility & Gait Start: 09/09/18 07:26 Freq: Status: Active Protocol: Document 09/09/18 10:15 AMB (Rec: 09/11/18 07:31 AMB [email or web address]) OP Gait Assessment Comments Gait Comments Pt ambulates without assistive device with slower gait than his normal pace, reduced trunk rotation, reduced stride length. Stair Climbing Evaluation Devices Stair Climbing Assistive Devices Right Railing Technique/Endurance Stair Climbing Direction Ascend and Descend Stair Climbing Technique Step Over Step Number of Steps Climbed 4 Stair Climbing Set # Repetitions (reps) 1 PT-OP-H Neuro Start: 09/09/18 07:26 Freq: Status: Active Protocol: Document 09/09/18 10:15 AMB (Rec: 09/11/18 07:31 AMB [email or web address]) Coordination Evaluation Lower Extremity Tests Right Foot Tapping Test Moderate Impairment Left Foot Tapping Test Minimal Impairment Deep Tendon Reflex & Clonus Assessment Ankle Clonus Bilateral Clonus Assessment Absent PT-OP-M Strength Start: 09/09/18 07:26 Freq: Status: Active Protocol: Document 09/09/18 10:15 AMB (Rec: 09/11/18 09:05 AMB [email or web address]) Hip Strength Hip Manual Muscle Testing Right Flexion (L2) 4 Good Extension (S1) 4 Good Abduction 4 Good Left Flexion (L2) 5 Normal Extension (S1) 5 Normal Abduction 5 Normal Knee Strength Knee Manual Muscle Testing Right Flexion (S2) 4+ Good+ Extension (L3) 4+ Good+ Left Flexion (S2) 5 Normal Extension (L3) 5 Normal Ankle/Foot Strength Ankle and Foot Manual Muscle Testing Right Dorsiflexion (L4) 4+ Good+ Plantarflexion (S1) 4 Good Left Dorsiflexion (L4) 4+ Good+ Plantarflexion (S1) 4+ Good+ PT-OP-T Assessment and Plan Start: 09/09/18 07:26 Freq: Status: Active Protocol: Document 11/17/18 10:30 AMB (Rec: 11/17/18 13:46 AMB [email or web address]) Physical Therapy Assessment Goals Three Impairment dizziness Short Term Goal (STG) The patient will ambulate with vertical head turns without veering or imbalance. PROGRESS MADE STG Duration 4 weeks Penitentiary Goal (LTG) The patient will safely ascend and descend 1 flight of stairs without need for a railing. LTG Duration MET Two Impairment balance Short Term Goal (STG) The patient will stand on one leg (right) for 15 seconds to show decreased risk of falling . STG Duration MET Banquet Kitchen Supervisor Goal (LTG) The patient will improve his DGI score to 22/24 to show decreased risk of falls. LTG Duration MET One Impairment gait Short Term Goal (STG) The patient will ambulate for 15 minutes over grass, gravel and curb steps without fatigue or loss of balance. STG Duration 4 weeks Penitentiary Goal (LTG) The patient will lift and carry 20 pounds for 100' while walking without assistive device without loss of balance . LTG Duration MET Assessment Summary Assessment Pt continues to notice light dizziness and incoordination but feels he is about 70% better. He has not returned to work or to higher level yardwork/housework projects. HE will benefit from continued PT to get him up to those high level challenges. Physical Therapy Plan Frequency and Duration Frequency of Treatment 2x/Week Duration of Treatment 8 weeks Plan of Care Start Date 11/17/18 Plan of Care End Date 01/12/19 Therapeutic Interventions Therapeutic Interventions Balance Training Gait Training Home Exercise Program Manual Therapy Neuromuscular Re-education Self-Care/Home Management Therapeutic Activities Therapeutic Exercises Next Visit Focus/Plan Next Note Type Treatment Note Next Visit Plan Continue to progress/challenge dynamic balance with UE movements.
--- NOTE | 2018-11-24 14:21 | PT.OTN ---
Current Diagnoses Unspecified sequelae of cerebral infarction (11/24/18) Physical Therapy Treatment Note PT-OP-A Visit Information Start: 09/09/18 07:26 Freq: Status: Active Protocol: Document 11/24/18 13:00 AMB (Rec: 11/24/18 13:08 AMB [email or web address]) Out-Patient Physical Therapy Visit Information Visit Information Visit Type Treatment Note Visit Start Time 13:00 Visit Stop Time 13:45 Total Visit Minutes 45 Visit Number 11 Number of FORECLOSURE PARALEGAL Visits 0 PT-OP-B Current Condition Start: 09/09/18 07:26 Freq: Status: Active Protocol: Document 09/09/18 10:15 AMB (Rec: 09/11/18 07:21 AMB [email or web address]) Current Condition History of Current Condition Onset Date 07/25/18 Current Complaints R sided weakness, dizziness, fatigue s/p CVA History of Current Condition The patient attends PT s/p CVA that affected both his right arm and leg. 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 He has not yet received any formal PT except for when he was admitted into the hospital over a month ago. He notes he has been walking with his (he can use a SPC but also walks without assistive device). 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 Baseline Function- Recreation/Hobbies Housework (cleaning gutters, home renovations) Current Functional Impairments (Reported) Functional Limitations- Work/School Not currently working or driving Personal Factors Other Personal Factors That May Effect Insurance limitations Therapy/Recovery PT-OP-C Subjective Start: 09/09/18 07:26 Freq: Status: Active Protocol: Document 11/24/18 13:00 AMB (Rec: 11/24/18 13:08 AMB [email or web address]) OP-PT Subjective Patient Comments Patient Comments Pt has gone tot he gym 3x/week . PT-OP-D Balance Start: 09/09/18 07:26 Freq: Status: Active Protocol: Document 09/09/18 10:15 AMB (Rec: 09/11/18 07:31 AMB [email or web address]) Balance Tests Single Limb Standing Single Limb- Right unable Single Limb- Left 5 sec Semi-Tandem Standing Semi-Tandem Standing Balance with eyes open: 10 seconds + ( increased ankle sway). EC 5 seconds. PT-OP-E Functional Tests Start: 09/11/18 07:25 Freq: Status: Active Protocol: Document 09/09/18 10:15 AMB (Rec: 09/11/18 07:27 AMB [email or web address]) Functional Tests Dynamic Gait Index (DGI) Score 16 DGI Impairment Rating 20 to <40% Impaired (Score 15- 19) PT-OP-G Mobility & Gait Start: 09/09/18 07:26 Freq: Status: Active Protocol: Document 09/09/18 10:15 AMB (Rec: 09/11/18 07:31 AMB [email or web address]) OP Gait Assessment Comments Gait Comments Pt ambulates without assistive device with slower gait than his normal pace, reduced trunk rotation, reduced stride length. Stair Climbing Evaluation Devices Stair Climbing Assistive Devices Right Railing Technique/Endurance Stair Climbing Direction Ascend and Descend Stair Climbing Technique Step Over Step Number of Steps Climbed 4 Stair Climbing Set # Repetitions (reps) 1 PT-OP-H Neuro Start: 09/09/18 07:26 Freq: Status: Active Protocol: Document 09/09/18 10:15 AMB (Rec: 09/11/18 07:31 AMB [email or web address]) Coordination Evaluation Lower Extremity Tests Right Foot Tapping Test Moderate Impairment Left Foot Tapping Test Minimal Impairment Deep Tendon Reflex & Clonus Assessment Ankle Clonus Bilateral Clonus Assessment Absent PT-OP-M Strength Start: 09/09/18 07:26 Freq: Status: Active Protocol: Document 09/09/18 10:15 AMB (Rec: 09/11/18 09:05 AMB [email or web address]) Hip Strength Hip Manual Muscle Testing Right Flexion (L2) 4 Good Extension (S1) 4 Good Abduction 4 Good Left Flexion (L2) 5 Normal Extension (S1) 5 Normal Abduction 5 Normal Knee Strength Knee Manual Muscle Testing Right Flexion (S2) 4+ Good+ Extension (L3) 4+ Good+ Left Flexion (S2) 5 Normal Extension (L3) 5 Normal Ankle/Foot Strength Ankle and Foot Manual Muscle Testing Right Dorsiflexion (L4) 4+ Good+ Plantarflexion (S1) 4 Good Left Dorsiflexion (L4) 4+ Good+ Plantarflexion (S1) 4+ Good+ PT-OP-Q Treatments Start: 09/09/18 07:26 Freq: Status: Active Protocol: Document 11/24/18 13:00 AMB (Rec: 11/24/18 14:20 AMB [email or web address]) Gym Equipment Cable Column (Body Solid) Leg Curl Resistance 30 Reps/Time 10 Leg Extension Resistance 20 Reps/Time 10 Hip Adduction Resistance 60 Reps/Time 10 Hip Abduction Resistance 30 Reps/Time 10 Shuttle Recovery Bilateral Squats Resistance 100 Reps/Time 5 min Therapeutic Exercises Standing Exercises 4 Standing Exercise Name heel raises Reps/Minutes x10 Comments unilateral 2 Standing Exercise Name calf stretching Reps/Minutes 30x2 Comments LISA Neuro Re-Education Treatment Balance Activities 4 Details modified tandem Comments eyes closed- Obstacle course Details Foam stepping stones, hurdles and rocker board Comments Stepping over/onto and around objects in path in parallel bars. 2 Details single leg balance Comments eyes closed PT-OP-T Assessment and Plan Start: 09/09/18 07:26 Freq: Status: Active Protocol: Document 11/24/18 13:00 AMB (Rec: 11/24/18 14:20 AMB [email or web address]) Physical Therapy Assessment Assessment Summary Assessment Pt doing well with exercise, does continue to have weakness on R vs L. Physical Therapy Plan Next Visit Focus/Plan Next Note Type Treatment Note Next Visit Plan Continue to progress/challenge dynamic balance with UE movements.
--- NOTE | 2018-12-01 15:00 | PT.OTN ---
Current Diagnoses Unspecified sequelae of cerebral infarction (12/01/18) Physical Therapy Treatment Note PT-OP-A Visit Information Start: 09/09/18 07:26 Freq: Status: Active Protocol: Document 12/01/18 13:00 AMB (Rec: 12/01/18 13:08 AMB [id number]) Out-Patient Physical Therapy Visit Information Visit Information Visit Type Treatment Note Visit Start Time 13:00 Visit Stop Time 13:45 Total Visit Minutes 45 Visit Number 12 Number of FIRER ELECTRIC LOCOMOTIVE Visits 0 PT-OP-B Current Condition Start: 09/09/18 07:26 Freq: Status: Active Protocol: Document 09/09/18 10:15 AMB (Rec: 09/11/18 07:21 AMB [email or web address]) Current Condition History of Current Condition Onset Date 07/25/18 Current Complaints R sided weakness, dizziness, fatigue s/p CVA History of Current Condition The patient attends PT s/p CVA that affected both his right arm and leg. 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 He has not yet received any formal PT except for when he was admitted into the hospital over a month ago. He notes he has been walking with his (he can use a SPC but also walks without assistive device). 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 Baseline Function- Recreation/Hobbies Housework (cleaning gutters, home renovations) Current Functional Impairments (Reported) Functional Limitations- Work/School Not currently working or driving Personal Factors Other Personal Factors That May Effect Insurance limitations Therapy/Recovery PT-OP-C Subjective Start: 09/09/18 07:26 Freq: Status: Active Protocol: Document 12/01/18 13:00 AMB (Rec: 12/01/18 13:08 AMB [email or web address]) OP-PT Subjective Patient Comments Patient Comments Still going to the gym, considering taking a countertop refinishing. PT-OP-D Balance Start: 09/09/18 07:26 Freq: Status: Active Protocol: Document 09/09/18 10:15 AMB (Rec: 09/11/18 07:31 AMB [email or web address]) Balance Tests Single Limb Standing Single Limb- Right unable Single Limb- Left 5 sec Semi-Tandem Standing Semi-Tandem Standing Balance with eyes open: 10 seconds + ( increased ankle sway). EC 5 seconds. PT-OP-E Functional Tests Start: 09/11/18 07:25 Freq: Status: Active Protocol: Document 09/09/18 10:15 AMB (Rec: 09/11/18 07:27 AMB [email or web address]) Functional Tests Dynamic Gait Index (DGI) Score 16 DGI Impairment Rating 20 to <40% Impaired (Score 15- 19) PT-OP-G Mobility & Gait Start: 09/09/18 07:26 Freq: Status: Active Protocol: Document 09/09/18 10:15 AMB (Rec: 09/11/18 07:31 AMB [email or web address]) OP Gait Assessment Comments Gait Comments Pt ambulates without assistive device with slower gait than his normal pace, reduced trunk rotation, reduced stride length. Stair Climbing Evaluation Devices Stair Climbing Assistive Devices Right Railing Technique/Endurance Stair Climbing Direction Ascend and Descend Stair Climbing Technique Step Over Step Number of Steps Climbed 4 Stair Climbing Set # Repetitions (reps) 1 PT-OP-H Neuro Start: 09/09/18 07:26 Freq: Status: Active Protocol: Document 09/09/18 10:15 AMB (Rec: 09/11/18 07:31 AMB [email or web address]) Coordination Evaluation Lower Extremity Tests Right Foot Tapping Test Moderate Impairment Left Foot Tapping Test Minimal Impairment Deep Tendon Reflex & Clonus Assessment Ankle Clonus Bilateral Clonus Assessment Absent PT-OP-M Strength Start: 09/09/18 07:26 Freq: Status: Active Protocol: Document 09/09/18 10:15 AMB (Rec: 09/11/18 09:05 AMB [email or web address]) Hip Strength Hip Manual Muscle Testing Right Flexion (L2) 4 Good Extension (S1) 4 Good Abduction 4 Good Left Flexion (L2) 5 Normal Extension (S1) 5 Normal Abduction 5 Normal Knee Strength Knee Manual Muscle Testing Right Flexion (S2) 4+ Good+ Extension (L3) 4+ Good+ Left Flexion (S2) 5 Normal Extension (L3) 5 Normal Ankle/Foot Strength Ankle and Foot Manual Muscle Testing Right Dorsiflexion (L4) 4+ Good+ Plantarflexion (S1) 4 Good Left Dorsiflexion (L4) 4+ Good+ Plantarflexion (S1) 4+ Good+ PT-OP-Q Treatments Start: 09/09/18 07:26 Freq: Status: Active Protocol: Document 12/01/18 13:00 AMB (Rec: 12/01/18 15:00 AMB [email or web address]) Gym Equipment Shuttle Recovery Unilateral Squats Resistance 75 Reps/Time 3 min Bilateral Squats Resistance 100 Reps/Time 5 min Therapeutic Ball 1 Exercise Details alt hip/shoulder flx Ball Size/Color 65cm Body Position Sitting Reps/Duration 5 in Comments 3# weights Neuro Re-Education Treatment Balance Activities 6 Details bosu ball balance Comments single leg- difficult 2 Details single leg balance Comments with body blade moving into flexion and abduction 1 Details walking with head turns Reps/Duration 5 min Comments vertical/horizontal head turns . Verbal cues. PT-OP-T Assessment and Plan Start: 09/09/18 07:26 Freq: Status: Active Protocol: Document 12/01/18 13:00 AMB (Rec: 12/01/18 15:00 AMB [email or web address]) Physical Therapy Assessment Assessment Summary Assessment Dizziness is improving. Higher level balance more difficult with right side. Physical Therapy Plan Next Visit Focus/Plan Next Note Type Treatment Note Next Visit Plan Continue to progress/challenge dynamic balance with UE movements.
--- NOTE | 2018-12-08 16:30 | PT.OTN ---
Current Diagnoses Unspecified sequelae of cerebral infarction (12/08/18) Physical Therapy Treatment Note PT-OP-A Visit Information Start: 09/09/18 07:26 Freq: Status: Active Protocol: Document 12/08/18 11:15 AMB (Rec: 12/08/18 16:30 AMB [email or web address]) Out-Patient Physical Therapy Visit Information Visit Information Visit Type Treatment Note Visit Start Time 13:00 Visit Stop Time 13:45 Total Visit Minutes 45 Visit Number 13 Number of GRIDCAP MACHINE OPERATOR Visits 0 PT-OP-B Current Condition Start: 09/09/18 07:26 Freq: Status: Active Protocol: Document 09/09/18 10:15 AMB (Rec: 09/11/18 07:21 AMB [email or web address]) Current Condition History of Current Condition Onset Date 07/25/18 Current Complaints R sided weakness, dizziness, fatigue s/p CVA History of Current Condition The patient attends PT s/p CVA that affected both his right arm and leg. 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 He has not yet received any formal PT except for when he was admitted into the hospital over a month ago. He notes he has been walking with his (he can use a SPC but also walks without assistive device). 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 Baseline Function- Recreation/Hobbies Housework (cleaning gutters, home renovations) Current Functional Impairments (Reported) Functional Limitations- Work/School Not currently working or driving Personal Factors Other Personal Factors That May Effect Insurance limitations Therapy/Recovery PT-OP-C Subjective Start: 09/09/18 07:26 Freq: Status: Active Protocol: Document 12/08/18 11:15 AMB (Rec: 12/08/18 16:30 AMB [email or web address]) OP-PT Subjective Patient Comments Patient Comments Overall doing well. Has been working in the yard and that has been going well. PT-OP-D Balance Start: 09/09/18 07:26 Freq: Status: Active Protocol: Document 09/09/18 10:15 AMB (Rec: 09/11/18 07:31 AMB [email or web address]) Balance Tests Single Limb Standing Single Limb- Right unable Single Limb- Left 5 sec Semi-Tandem Standing Semi-Tandem Standing Balance with eyes open: 10 seconds + ( increased ankle sway). EC 5 seconds. PT-OP-E Functional Tests Start: 09/11/18 07:25 Freq: Status: Active Protocol: Document 09/09/18 10:15 AMB (Rec: 09/11/18 07:27 AMB [email or web address]) Functional Tests Dynamic Gait Index (DGI) Score 16 DGI Impairment Rating 20 to <40% Impaired (Score 15- 19) PT-OP-G Mobility & Gait Start: 09/09/18 07:26 Freq: Status: Active Protocol: Document 09/09/18 10:15 AMB (Rec: 09/11/18 07:31 AMB [email or web address]) OP Gait Assessment Comments Gait Comments Pt ambulates without assistive device with slower gait than his normal pace, reduced trunk rotation, reduced stride length. Stair Climbing Evaluation Devices Stair Climbing Assistive Devices Right Railing Technique/Endurance Stair Climbing Direction Ascend and Descend Stair Climbing Technique Step Over Step Number of Steps Climbed 4 Stair Climbing Set # Repetitions (reps) 1 PT-OP-H Neuro Start: 09/09/18 07:26 Freq: Status: Active Protocol: Document 09/09/18 10:15 AMB (Rec: 09/11/18 07:31 AMB [email or web address]) Coordination Evaluation Lower Extremity Tests Right Foot Tapping Test Moderate Impairment Left Foot Tapping Test Minimal Impairment Deep Tendon Reflex & Clonus Assessment Ankle Clonus Bilateral Clonus Assessment Absent PT-OP-M Strength Start: 09/09/18 07:26 Freq: Status: Active Protocol: Document 09/09/18 10:15 AMB (Rec: 09/11/18 09:05 AMB [email or web address]) Hip Strength Hip Manual Muscle Testing Right Flexion (L2) 4 Good Extension (S1) 4 Good Abduction 4 Good Left Flexion (L2) 5 Normal Extension (S1) 5 Normal Abduction 5 Normal Knee Strength Knee Manual Muscle Testing Right Flexion (S2) 4+ Good+ Extension (L3) 4+ Good+ Left Flexion (S2) 5 Normal Extension (L3) 5 Normal Ankle/Foot Strength Ankle and Foot Manual Muscle Testing Right Dorsiflexion (L4) 4+ Good+ Plantarflexion (S1) 4 Good Left Dorsiflexion (L4) 4+ Good+ Plantarflexion (S1) 4+ Good+ PT-OP-Q Treatments Start: 09/09/18 07:26 Freq: Status: Active Protocol: Document 12/08/18 11:15 AMB (Rec: 12/08/18 16:30 AMB [email or web address]) Gym Equipment Shuttle Recovery Unilateral Squats Resistance 75 Reps/Time 3 min Bilateral Squats Resistance 100 Reps/Time 5 min Shuttle Balance 1 Details Red Reps/Duration 12 Comments NBOS, Tandem, Alternating UE, head turns, eyes closed. Turned 90 degrees for m/l perturbation. Therapeutic Exercises Standing Exercises 4 Standing Exercise Name heel raises Reps/Minutes x10 Comments unilateral 3 Standing Exercise Name lunge walk with shoulder abduction Resistance 3# Reps/Minutes 4 lengths 2 Standing Exercise Name calf stretching Reps/Minutes 30x2 Comments LISA Neuro Re-Education Treatment Balance Activities 6 Details bosu ball balance Comments single leg- difficult 4 Details modified tandem Comments eyes closed- 2 Details single leg balance Comments with body blade moving into flexion and abduction PT-OP-T Assessment and Plan Start: 09/09/18 07:26 Freq: Status: Active Protocol: Document 12/08/18 11:15 AMB (Rec: 12/08/18 16:30 AMB [email or web address]) Physical Therapy Assessment Assessment Summary Assessment Pt doing well, has 4 more apppointments we can use in the year, we are going to space them out over the next 2 months. Pt continuing to go to the gym and slowly progressing, admits he is not ready to go on the roof. Can feel weakness in his leg with single leg squat activities. Physical Therapy Plan Next Visit Focus/Plan Next Note Type Treatment Note Next Visit Plan Continue to progress/challenge dynamic balance with UE movements.
--- NOTE | 2019-01-06 11:40 | PT.OTN ---
Current Diagnoses Unspecified sequelae of cerebral infarction (01/06/19) Physical Therapy Treatment Note PT-OP-A Visit Information Start: 09/09/18 07:26 Freq: Status: Active Protocol: Document 01/06/19 10:30 AMB (Rec: 01/06/19 10:41 AMB [id number]) Out-Patient Physical Therapy Visit Information Visit Information Visit Type Progress Note Visit Start Time 10:30 Visit Stop Time 11:15 Visit Number 14 Number of PROCESS OPERATOR Visits 0 PT-OP-B Current Condition Start: 09/09/18 07:26 Freq: Status: Active Protocol: Document 09/09/18 10:15 AMB (Rec: 09/11/18 07:21 AMB [email or web address]) Current Condition History of Current Condition Onset Date 07/25/18 Current Complaints R sided weakness, dizziness, fatigue s/p CVA History of Current Condition The patient attends PT s/p CVA that affected both his right arm and leg. 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 He has not yet received any formal PT except for when he was admitted into the hospital over a month ago. He notes he has been walking with his (he can use a SPC but also walks without assistive device). 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 Baseline Function- Recreation/Hobbies Housework (cleaning gutters, home renovations) Current Functional Impairments (Reported) Functional Limitations- Work/School Not currently working or driving Personal Factors Other Personal Factors That May Effect Insurance limitations Therapy/Recovery PT-OP-C Subjective Start: 09/09/18 07:26 Freq: Status: Active Protocol: Document 01/06/19 10:30 AMB (Rec: 01/06/19 10:41 AMB [email or web address]) OP-PT Subjective Patient Comments Patient Comments Pt starts a new job on Saturday PT-OP-D Balance Start: 09/09/18 07:26 Freq: Status: Active Protocol: Document 09/09/18 10:15 AMB (Rec: 09/11/18 07:31 AMB [email or web address]) Balance Tests Single Limb Standing Single Limb- Right unable Single Limb- Left 5 sec Semi-Tandem Standing Semi-Tandem Standing Balance with eyes open: 10 seconds + ( increased ankle sway). EC 5 seconds. PT-OP-E Functional Tests Start: 09/11/18 07:25 Freq: Status: Active Protocol: Document 09/09/18 10:15 AMB (Rec: 09/11/18 07:27 AMB [email or web address]) Functional Tests Dynamic Gait Index (DGI) Score 16 DGI Impairment Rating 20 to <40% Impaired (Score 15- 19) PT-OP-G Mobility & Gait Start: 09/09/18 07:26 Freq: Status: Active Protocol: Document 09/09/18 10:15 AMB (Rec: 09/11/18 07:31 AMB [email or web address]) OP Gait Assessment Comments Gait Comments Pt ambulates without assistive device with slower gait than his normal pace, reduced trunk rotation, reduced stride length. Stair Climbing Evaluation Devices Stair Climbing Assistive Devices Right Railing Technique/Endurance Stair Climbing Direction Ascend and Descend Stair Climbing Technique Step Over Step Number of Steps Climbed 4 Stair Climbing Set # Repetitions (reps) 1 PT-OP-H Neuro Start: 09/09/18 07:26 Freq: Status: Active Protocol: Document 09/09/18 10:15 AMB (Rec: 09/11/18 07:31 AMB [email or web address]) Coordination Evaluation Lower Extremity Tests Right Foot Tapping Test Moderate Impairment Left Foot Tapping Test Minimal Impairment Deep Tendon Reflex & Clonus Assessment Ankle Clonus Bilateral Clonus Assessment Absent PT-OP-M Strength Start: 09/09/18 07:26 Freq: Status: Active Protocol: Document 09/09/18 10:15 AMB (Rec: 09/11/18 09:05 AMB [email or web address]) Hip Strength Hip Manual Muscle Testing Right Flexion (L2) 4 Good Extension (S1) 4 Good Abduction 4 Good Left Flexion (L2) 5 Normal Extension (S1) 5 Normal Abduction 5 Normal Knee Strength Knee Manual Muscle Testing Right Flexion (S2) 4+ Good+ Extension (L3) 4+ Good+ Left Flexion (S2) 5 Normal Extension (L3) 5 Normal Ankle/Foot Strength Ankle and Foot Manual Muscle Testing Right Dorsiflexion (L4) 4+ Good+ Plantarflexion (S1) 4 Good Left Dorsiflexion (L4) 4+ Good+ Plantarflexion (S1) 4+ Good+ PT-OP-Q Treatments Start: 09/09/18 07:26 Freq: Status: Active Protocol: Document 01/06/19 10:30 AMB (Rec: 01/06/19 11:40 AMB [email or web address]) Gym Equipment Shuttle Recovery Unilateral Squats Resistance 75 Reps/Time 3 min Bilateral Squats Resistance 100 Reps/Time 5 min Shuttle Balance 1 Details Red Reps/Duration 12 Comments NBOS, Tandem, Alternating UE, head turns, eyes closed. Turned 90 degrees for m/l perturbation. Therapeutic Exercises Supine Exercises 1 Supine Exercise Name air bike Reps/Minutes 10 Standing Exercises 7 Standing Exercise Name hopping Comments a/p, m/l 6 Standing Exercise Name fast side stepping on toes Comments vc higher knees 5 Standing Exercise Name fast stair steps, alternating 3 Standing Exercise Name lunge walk with shoulder abduction Resistance 3# Reps/Minutes 4 lengths 2 Standing Exercise Name calf stretching Reps/Minutes 30x2 Comments LISA PT-OP-T Assessment and Plan Start: 09/09/18 07:26 Freq: Status: Active Protocol: Document 01/06/19 10:30 AMB (Rec: 01/06/19 11:40 AMB [email or web address]) Physical Therapy Assessment Goals Three Impairment dizziness Short Term Goal (STG) The patient will ambulate with vertical head turns without veering or imbalance. PROGRESS MADE STG Duration 4 weeks Shelter Goal (LTG) The patient will safely ascend and descend 1 flight of stairs without need for a railing. LTG Duration MET Two Impairment balance Short Term Goal (STG) The patient will stand on one leg (right) for 15 seconds to show decreased risk of falling . STG Duration MET Log Processor Operator Goal (LTG) The patient will improve his DGI score to 22/24 to show decreased risk of falls. LTG Duration MET One Impairment gait Short Term Goal (STG) The patient will ambulate for 15 minutes over grass, gravel and curb steps without fatigue or loss of balance. STG Duration 4 weeks Shelter Goal (LTG) The patient will lift and carry 20 pounds for 100' while walking without assistive device without loss of balance . LTG Duration MET Assessment Summary Assessment Pt continues to have hip flexion weakness that he can feel with gait. He previously was able to bound up stairs and run across the street if he needed to, and this is still difficult for him with his coordination. Physical Therapy Plan Frequency and Duration Frequency of Treatment 1x/Week Duration of Treatment 8 weeks Plan of Care Start Date 01/06/19 Plan of Care End Date 03/03/19 Therapeutic Interventions Therapeutic Interventions Balance Training Gait Training Home Exercise Program Manual Therapy Neuromuscular Re-education Self-Care/Home Management Therapeutic Activities Therapeutic Exercises Next Visit Focus/Plan Next Note Type Treatment Note Next Visit Plan Continue to progress/challenge dynamic balance with UE movements. Add in agility, coordination.
--- NOTE | 2019-01-06 11:42 | PT.OPPOC ---
Current Diagnoses Unspecified sequelae of cerebral infarction (01/06/19) Provider Visit Care Team Role Provider Type Basilio Condon MD Attending Provider Physician Primary Care Provider Specialty: Wound Care Address: [address] [place] [address], [phone] Email: [email or web address] Plan Of Care PT-OP-T Assessment and Plan Start: 09/09/18 07:26 Freq: Status: Active Protocol: Document 01/06/19 10:30 AMB (Rec: 01/06/19 11:40 AMB [email or web address]) Physical Therapy Assessment Goals Three Impairment dizziness Short Term Goal (STG) The patient will ambulate with vertical head turns without veering or imbalance. PROGRESS MADE STG Duration 4 weeks Mcc Goal (LTG) The patient will safely ascend and descend 1 flight of stairs without need for a railing. LTG Duration MET Two Impairment balance Short Term Goal (STG) The patient will stand on one leg (right) for 15 seconds to show decreased risk of falling . STG Duration MET Mcc Goal (LTG) The patient will improve his DGI score to 22/24 to show decreased risk of falls. LTG Duration MET One Impairment gait Short Term Goal (STG) The patient will ambulate for 15 minutes over grass, gravel and curb steps without fatigue or loss of balance. STG Duration 4 weeks Mcc Goal (LTG) The patient will lift and carry 20 pounds for 100' while walking without assistive device without loss of balance . LTG Duration MET Assessment Summary Assessment Pt continues to have hip flexion weakness that he can feel with gait. He previously was able to bound up stairs and run across the street if he needed to, and this is still difficult for him with his coordination. Physical Therapy Plan Frequency and Duration Frequency of Treatment 1x/Week Duration of Treatment 8 weeks Plan of Care Start Date 01/06/19 Plan of Care End Date 03/03/19 Therapeutic Interventions Therapeutic Interventions Balance Training Gait Training Home Exercise Program Manual Therapy Neuromuscular Re-education Self-Care/Home Management Therapeutic Activities Therapeutic Exercises Next Visit Focus/Plan Next Note Type Treatment Note Next Visit Plan Continue to progress/challenge dynamic balance with UE movements. Add in agility, coordination. Plan of Care Dates Plan of Care Start Date 01/06/19 Plan of Care End Date 03/03/19 Please Sign and Return: I have reviewed this Plan of Care and certify that the skilled therapy services above are required to meet the patient?s needs. Physician Signature Date Printed Name and Credentials Clinical Instructor Signature Printed Name and Credentials
--- NOTE | 2019-01-20 15:51 | PT.OTN ---
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 He has not yet received any formal PT except for when he was admitted into the hospital over a month ago. He notes he has been walking with his (he can use a SPC but also walks without assistive device). 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 Baseline Function- Recreation/Hobbies Housework (cleaning gutters, home renovations) Current Functional Impairments (Reported) Functional Limitations- Work/School Not currently working or driving Personal Factors Other Personal Factors That May Effect Insurance limitations Therapy/Recovery PT-OP-C Subjective Start: 09/09/18 07:26 Freq: Status: Active Protocol: Document 01/20/19 10:30 AMB (Rec: 01/20/19 13:47 AMB [email or web address]) OP-PT Subjective Patient Comments Patient Comments Pt reports job went well but he was tired. PT-OP-D Balance Start: 09/09/18 07:26 Freq: Status: Active Protocol: Document 09/09/18 10:15 AMB (Rec: 09/11/18 07:31 AMB [email or web address]) Balance Tests Single Limb Standing Single Limb- Right unable Single Limb- Left 5 sec Semi-Tandem Standing Semi-Tandem Standing Balance with eyes open: 10 seconds + ( increased ankle sway). EC 5 seconds. PT-OP-E Functional Tests Start: 09/11/18 07:25 Freq: Status: Active Protocol: Document 09/09/18 10:15 AMB (Rec: 09/11/18 07:27 AMB [email or web address]) Functional Tests Dynamic Gait Index (DGI) Score 16 DGI Impairment Rating 20 to <40% Impaired (Score 15- 19) PT-OP-G Mobility & Gait Start: 09/09/18 07:26 Freq: Status: Active Protocol: Document 09/09/18 10:15 AMB (Rec: 09/11/18 07:31 AMB [email or web address]) OP Gait Assessment Comments Gait Comments Pt ambulates without assistive device with slower gait than his normal pace, reduced trunk rotation, reduced stride length. Stair Climbing Evaluation Devices Stair Climbing Assistive Devices Right Railing Technique/Endurance Stair Climbing Direction Ascend and Descend Stair Climbing Technique Step Over Step Number of Steps Climbed 4 Stair Climbing Set # Repetitions (reps) 1 PT-OP-H Neuro Start: 09/09/18 07:26 Freq: Status: Active Protocol: Document 09/09/18 10:15 AMB (Rec: 09/11/18 07:31 AMB [email or web address]) Coordination Evaluation Lower Extremity Tests Right Foot Tapping Test Moderate Impairment Left Foot Tapping Test Minimal Impairment Deep Tendon Reflex & Clonus Assessment Ankle Clonus Bilateral Clonus Assessment Absent PT-OP-M Strength Start: 09/09/18 07:26 Freq: Status: Active Protocol: Document 09/09/18 10:15 AMB (Rec: 09/11/18 09:05 AMB [email or web address]) Hip Strength Hip Manual Muscle Testing Right Flexion (L2) 4 Good Extension (S1) 4 Good Abduction 4 Good Left Flexion (L2) 5 Normal Extension (S1) 5 Normal Abduction 5 Normal Knee Strength Knee Manual Muscle Testing Right Flexion (S2) 4+ Good+ Extension (L3) 4+ Good+ Left Flexion (S2) 5 Normal Extension (L3) 5 Normal Ankle/Foot Strength Ankle and Foot Manual Muscle Testing Right Dorsiflexion (L4) 4+ Good+ Plantarflexion (S1) 4 Good Left Dorsiflexion (L4) 4+ Good+ Plantarflexion (S1) 4+ Good+ PT-OP-Q Treatments Start: 09/09/18 07:26 Freq: Status: Active Protocol: Document 01/20/19 10:30 AMB (Rec: 01/20/19 15:51 AMB [email or web address]) Therapeutic Exercises Standing Exercises 8 Standing Exercise Name jog Comments 20 feet x 2 7 Standing Exercise Name hopping Comments a/p, m/l 6 Standing Exercise Name fast side stepping on toes Comments with ladder 1 Standing Exercise Name 4-way hip Resistance #3 tband Reps/Minutes 2x10 ea PT-OP-T Assessment and Plan Start: 09/09/18 07:26 Freq: Status: Active Protocol: Document 01/20/19 10:30 AMB (Rec: 01/20/19 15:51 AMB [email or web address]) Physical Therapy Assessment Assessment Summary Assessment Pt with difficulty with hopping- weakness on R limits push off and sticking landing. Physical Therapy Plan Next Visit Focus/Plan Next Note Type Treatment Note Next Visit Plan Continue to progress/challenge dynamic balance with UE movements. Add in agility, coordination.
--- NOTE | 2019-02-10 12:00 | PT.OTN ---
Current Diagnoses Unspecified sequelae of cerebral infarction (02/10/19) Physical Therapy Treatment Note PT-OP-A Visit Information Start: 09/09/18 07:26 Freq: Status: Active Protocol: Document 02/10/19 09:49 BS (Rec: 02/10/19 09:53 BS [email or web address]) Out-Patient Physical Therapy Visit Information Visit Information Visit Type Treatment Note Visit Start Time 09:00 Visit Stop Time 09:45 Visit Number 16 Number of CHAR PULLER Visits 0 PT-OP-B Current Condition Start: 09/09/18 07:26 Freq: Status: Active Protocol: Document 09/09/18 10:15 AMB (Rec: 09/11/18 07:21 AMB [email or web address]) Current Condition History of Current Condition Onset Date 07/25/18 Current Complaints R sided weakness, dizziness, fatigue s/p CVA History of Current Condition The patient attends PT s/p CVA that affected both his right arm and leg. 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 He has not yet received any formal PT except for when he was admitted into the hospital over a month ago. He notes he has been walking with his (he can use a SPC but also walks without assistive device). 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 Baseline Function- Recreation/Hobbies Housework (cleaning gutters, home renovations) Current Functional Impairments (Reported) Functional Limitations- Work/School Not currently working or driving Personal Factors Other Personal Factors That May Effect Insurance limitations Therapy/Recovery PT-OP-C Subjective Start: 09/09/18 07:26 Freq: Status: Active Protocol: Document 02/10/19 09:49 BS (Rec: 02/10/19 09:53 BS [email or web address]) OP-PT Subjective Patient Comments Patient Comments Pt states he completed a 3 days job last week and had very few difficulties. He feels confident with his own pool and gym workouts. PT-OP-D Balance Start: 09/09/18 07:26 Freq: Status: Active Protocol: Document 09/09/18 10:15 AMB (Rec: 09/11/18 07:31 AMB [email or web address]) Balance Tests Single Limb Standing Single Limb- Right unable Single Limb- Left 5 sec Semi-Tandem Standing Semi-Tandem Standing Balance with eyes open: 10 seconds + ( increased ankle sway). EC 5 seconds. PT-OP-E Functional Tests Start: 09/11/18 07:25 Freq: Status: Active Protocol: Document 09/09/18 10:15 AMB (Rec: 09/11/18 07:27 AMB [email or web address]) Functional Tests Dynamic Gait Index (DGI) Score 16 DGI Impairment Rating 20 to <40% Impaired (Score 15- 19) PT-OP-G Mobility & Gait Start: 09/09/18 07:26 Freq: Status: Active Protocol: Document 09/09/18 10:15 AMB (Rec: 09/11/18 07:31 AMB [email or web address]) OP Gait Assessment Comments Gait Comments Pt ambulates without assistive device with slower gait than his normal pace, reduced trunk rotation, reduced stride length. Stair Climbing Evaluation Devices Stair Climbing Assistive Devices Right Railing Technique/Endurance Stair Climbing Direction Ascend and Descend Stair Climbing Technique Step Over Step Number of Steps Climbed 4 Stair Climbing Set # Repetitions (reps) 1 PT-OP-H Neuro Start: 09/09/18 07:26 Freq: Status: Active Protocol: Document 09/09/18 10:15 AMB (Rec: 09/11/18 07:31 AMB [email or web address]) Coordination Evaluation Lower Extremity Tests Right Foot Tapping Test Moderate Impairment Left Foot Tapping Test Minimal Impairment Deep Tendon Reflex & Clonus Assessment Ankle Clonus Bilateral Clonus Assessment Absent PT-OP-M Strength Start: 09/09/18 07:26 Freq: Status: Active Protocol: Document 09/09/18 10:15 AMB (Rec: 09/11/18 09:05 AMB [email or web address]) Hip Strength Hip Manual Muscle Testing Right Flexion (L2) 4 Good Extension (S1) 4 Good Abduction 4 Good Left Flexion (L2) 5 Normal Extension (S1) 5 Normal Abduction 5 Normal Knee Strength Knee Manual Muscle Testing Right Flexion (S2) 4+ Good+ Extension (L3) 4+ Good+ Left Flexion (S2) 5 Normal Extension (L3) 5 Normal Ankle/Foot Strength Ankle and Foot Manual Muscle Testing Right Dorsiflexion (L4) 4+ Good+ Plantarflexion (S1) 4 Good Left Dorsiflexion (L4) 4+ Good+ Plantarflexion (S1) 4+ Good+ PT-OP-Q Treatments Start: 09/09/18 07:26 Freq: Status: Active Protocol: Document 02/10/19 09:49 BS (Rec: 02/10/19 10:25 BS [email or web address]) Therapeutic Exercises Supine Exercises 1 Supine Exercise Name air bike Reps/Minutes x10 each LE Standing Exercises 9 Standing Exercise Name Wall squats Equipment Used blue nigerian ball Reps/Minutes x20 3 Standing Exercise Name Alternating Lunges Reps/Minutes x15 Neuro Re-Education Treatment Balance Activities 7 Details single LE hopping Comments ant/lateral/and in [address] with x1 and x2 landing. 2 Details Single LE catch/toss Equipment small ball Comments catch/toss in/out of SHIRIN. LLE balance>RLE. Self-Care/Home Management Treatment Education Other Education Pt educated to avoid valsalva during exercise. Also educated on using HR to monitor levels of exertion. PT-OP-T Assessment and Plan Start: 09/09/18 07:26 Freq: Status: Active Protocol: Document 02/10/19 09:49 BS (Rec: 02/10/19 09:53 BS [email or web address]) Physical Therapy Assessment Assessment Summary Assessment Pt tolerated dynamic balance challenging/plyometric activities well and was able to regain a LOB with appropriate stepping strategies. He continues to have slight balance deficits with RLE. Physical Therapy Plan Next Visit Focus/Plan Next Note Type Treatment Note Next Visit Plan Progression of dynamic balance . Discharge anticipated with transition to community based exercise.
--- NOTE | 2019-03-03 16:00 | PT.OTN ---
Current Diagnoses Unspecified sequelae of cerebral infarction (03/03/19) Physical Therapy Treatment Note PT-OP-A Visit Information Start: 09/09/18 07:26 Freq: Status: Active Protocol: Document 03/03/19 09:45 AMB (Rec: 03/03/19 10:31 AMB [email or web address]) Out-Patient Physical Therapy Visit Information Visit Information Visit Type Treatment Note Visit Start Time 09:55 Visit Stop Time 10:30 Total Visit Minutes 35 Visit Number 17 Number of ENERGY SALES CONSULTANT Visits 0 PT-OP-B Current Condition Start: 09/09/18 07:26 Freq: Status: Active Protocol: Document 09/09/18 10:15 AMB (Rec: 09/11/18 07:21 AMB [email or web address]) Current Condition History of Current Condition Onset Date 07/25/18 Current Complaints R sided weakness, dizziness, fatigue s/p CVA History of Current Condition The patient attends PT s/p CVA that affected both his right arm and leg. 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 He has not yet received any formal PT except for when he was admitted into the hospital over a month ago. He notes he has been walking with his (he can use a SPC but also walks without assistive device). 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 Baseline Function- Recreation/Hobbies Housework (cleaning gutters, home renovations) Current Functional Impairments (Reported) Functional Limitations- Work/School Not currently working or driving Personal Factors Other Personal Factors That May Effect Insurance limitations Therapy/Recovery PT-OP-C Subjective Start: 09/09/18 07:26 Freq: Status: Active Protocol: Document 03/03/19 09:45 AMB (Rec: 03/03/19 10:31 AMB [email or web address]) OP-PT Subjective Patient Comments Patient Comments Pt states his goal is to get to the gym 3x/week, but lately it has been more like 1x/week . PT-OP-D Balance Start: 09/09/18 07:26 Freq: Status: Active Protocol: Document 09/09/18 10:15 AMB (Rec: 09/11/18 07:31 AMB [email or web address]) Balance Tests Single Limb Standing Single Limb- Right unable Single Limb- Left 5 sec Semi-Tandem Standing Semi-Tandem Standing Balance with eyes open: 10 seconds + ( increased ankle sway). EC 5 seconds. PT-OP-E Functional Tests Start: 09/11/18 07:25 Freq: Status: Active Protocol: Document 09/09/18 10:15 AMB (Rec: 09/11/18 07:27 AMB [email or web address]) Functional Tests Dynamic Gait Index (DGI) Score 16 DGI Impairment Rating 20 to <40% Impaired (Score 15- 19) PT-OP-G Mobility & Gait Start: 09/09/18 07:26 Freq: Status: Active Protocol: Document 09/09/18 10:15 AMB (Rec: 09/11/18 07:31 AMB [email or web address]) OP Gait Assessment Comments Gait Comments Pt ambulates without assistive device with slower gait than his normal pace, reduced trunk rotation, reduced stride length. Stair Climbing Evaluation Devices Stair Climbing Assistive Devices Right Railing Technique/Endurance Stair Climbing Direction Ascend and Descend Stair Climbing Technique Step Over Step Number of Steps Climbed 4 Stair Climbing Set # Repetitions (reps) 1 PT-OP-H Neuro Start: 09/09/18 07:26 Freq: Status: Active Protocol: Document 09/09/18 10:15 AMB (Rec: 09/11/18 07:31 AMB [email or web address]) Coordination Evaluation Lower Extremity Tests Right Foot Tapping Test Moderate Impairment Left Foot Tapping Test Minimal Impairment Deep Tendon Reflex & Clonus Assessment Ankle Clonus Bilateral Clonus Assessment Absent PT-OP-M Strength Start: 09/09/18 07:26 Freq: Status: Active Protocol: Document 03/03/19 09:57 AMB (Rec: 03/03/19 10:02 AMB [id number]) Hip Strength Hip Manual Muscle Testing Right Flexion (L2) 4+ Good+ Extension (S1) 5 Normal Abduction 4+ Good+ PT-OP-Q Treatments Start: 09/09/18 07:26 Freq: Status: Active Protocol: Document 03/03/19 09:45 AMB (Rec: 03/03/19 16:00 AMB [email or web address]) Gym Equipment Shuttle Balance 1 Details Red Reps/Duration 12 Comments NBOS, Tandem, Alternating UE, head turns, eyes closed. Turned 90 degrees for m/l perturbation. Therapeutic Exercises Standing Exercises 2 Standing Exercise Name calf stretching Reps/Minutes 30x2 Comments LISA 1 Standing Exercise Name 4-way hip Resistance #3 tband Reps/Minutes 2x10 ea Neuro Re-Education Treatment Balance Activities 8 Details single leg stance Comments with head turn 4 Details modified tandem Comments eyes closed- 1 Details walking with head turns Comments fast vertical PT-OP-T Assessment and Plan Start: 09/09/18 07:26 Freq: Status: Active Protocol: Document 03/03/19 09:45 AMB (Rec: 03/03/19 15:55 AMB [email or web address]) Physical Therapy Assessment Goals Three Impairment dizziness Short Term Goal (STG) The patient will ambulate with vertical head turns without veering or imbalance. STG Duration MET Ground Worker Goal (LTG) The patient will safely ascend and descend 1 flight of stairs without need for a railing. LTG Duration MET Two Impairment balance Short Term Goal (STG) The patient will stand on one leg (right) for 15 seconds to show decreased risk of falling . STG Duration MET Ground Worker Goal (LTG) The patient will improve his DGI score to 22/24 to show decreased risk of falls. LTG Duration MET One Impairment gait Short Term Goal (STG) The patient will ambulate for 15 minutes over grass, gravel and curb steps without fatigue or loss of balance. STG Duration MET Ground Worker Goal (LTG) The patient will lift and carry 20 pounds for 100' while walking without assistive device without loss of balance . LTG Duration MET Assessment Summary Assessment Chao has done well with physical therapy. 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 He will need to continue to workout at the gym to continue to improve his balance and endurance. He continues to have slightly weaker hip flexion and abduction on his affected side . Physical Therapy Plan Discharge Physical Therapy Discharge Reasons Goals Met
== END 2019-03-25 13:45 | disposition home or self-care (01) ==
LOC: PHYS 09:45
PROVIDERS: PCP Internal Medicine; Visit Provider Internal Medicine
DX: I69.30 Unspecified sequelae of cerebral infarction (principal)
CPT/HCPCS: 97110; 97112; 97162

== ENCOUNTER 2022-07-10 15:36 | Inpatient (IN) | payer MEDICARE, OTHER, SELFPAY ==
[2018-07-29 01:37] VITALS: BMI 27.8
[2022-07-10] VITALS (31 sets, daily range): BP systolic 167–281; BP diastolic 83–163; PULSE 65–87; RESP 11–31; TEMP 36.7–36.9; O2SAT 95–99; BMI 26.2
--- NOTE | 2022-07-10 16:02 | DI.CT.S_ITS ---
PROCEDURE: CT HEAD/BRAIN WO CON INDICATIONS: blood pressure is high, prior cva TECHNIQUE: Noncontrast 4.5 mm thick angled axial sections acquired from the foramen magnum to the vertex, with coronal and sagittal reformats. For radiation dose reduction, the following was used: automated exposure control, adjustment of mA and/or kV according to patient size. COMPARISON: [facility], CT, CT HEAD/BRAIN WO CON, 07/25/2018, 15:02. [facility], CT, CT HEAD/BRAIN WO CON, 07/28/2018, 23:46. FINDINGS: Image quality: Excellent. CSF spaces: Basal cisterns are patent. No extra-axial fluid collections. Ventricles are normal in size and shape. Brain: No midline shift. No intracranial masses or hemorrhage. Voss-white matter interface is normal. Skull and face: Calvarium and visualized facial bones are intact, without suspicious lesions. Sinuses: Visualized sinuses and mastoids are clear. IMPRESSION: No acute intracranial finding. Dictated by: Jarocho Ortega M.D. on 07/10/2022 at 16:43 Approved by: Jarocho Ortega M.D. on 07/10/2022 at 16:44
--- NOTE | 2022-07-10 16:03 | DI.CT.S_ITS ---
PROCEDURE: CT ANGIO HEAD AND NECK INDICATIONS: prior cva TECHNIQUE: After the administration of intravenous contrast, 1 mm thick sections acquired from the aorticarch through the [place] of [place]. Post-contrast 4.5 mm thick sections then re-acquired from the foramen magnum to the vertex. 3-dimensional ogsfnas-adqlzyjml-wnpoevgoun (MIP) and/or volume rendering reformats were acquired of the central intracranial vasculature and neck separately. For radiation dose reduction, the following was used: automated exposure control, adjustment of mA and/or kV according to patient size. COMPARISON: None. FINDINGS: Image quality: Excellent. BRAIN: CSF spaces: Ventricles are normal in size and shape. Basal cisterns are patent. No extra-axial fluid collections. Brain: No midline shift. No intracranial bleeds or masses. Voss-white matter interface appears intact. Skull and face: Calvarium and facial bones appear intact, without suspicious lesions. Orbits appear normal. Sinuses: Sinuses and mastoids are clear. HEAD CT ANGIOGRAPHY: Anterior circulation: Intracranial internal carotid arteries are normal in size and flow. The flow within the paired anterior cerebral arteries is normal and symmetric. The flow within the middle cerebral arteries is normal and symmetric. The anterior communicating artery is seen. No aneurysms are seen. Posterior circulation: Visualized portions of the vertebral arteries demonstrate normal caliber, and join to form a normal appearing basilar artery. Flow within the posterior cerebral arteries is normal and symmetric. No aneurysms are seen. NECK CT ANGIOGRAPHY: Carotid system: The great vessels demonstrate a conventional anatomy as they arise from the aortic arch. The origins of the common carotid arteries appear patent. The common carotid arteries demonstrate normal caliber and courses. The bifurcation regions are both widely patent. The internal carotid arteries demonstrate normal calibers and courses. Posterior circulation: The origins of the vertebral arteries both appear widely patent. The more superior extracranial portions of both vertebral arteries also demonstrate normal courses and calibers. They join to form a normal appearing basilar artery. Soft tissues: Visualized neck soft tissues demonstrate no suspicious abnormalities. Bones: No suspicious bony lesions. Visualized cervical spine appears normally aligned. IMPRESSION: No hemodynamically significant stenosis or occlusion of the major intracranial or extracranial arterial vasculature. Any quantitative measurements of stenosis were performed using NASCET criteria. Dictated by: Jarocho Ortega M.D. on 07/10/2022 at 16:44 Approved by: Jarocho Ortega M.D. on 07/10/2022 at 16:46
--- NOTE | 2022-07-10 16:04 | ED.GENADULT ---
HPI - General Adult General Chief complaint: Hypertension Stated complaint: very high blood pressure Time Seen by Provider: 07/10/22 16:02 Source: patient and family Mode of arrival: Ambulatory Limitations: no limitations History of Present Illness HPI narrative: This is a 66-year-old male with history of stroke in 2018, known hypertension and dyslipidemia who has been off medications since approximately 2018 or 2019. Patient presents today with double vision that is binocular that has been present for 2 weeks. Patient states he just woke up with it. He states if he closes his or the right it resolves and. He is not appreciate any misalignment of his pupils or eyes nor has his . Patient states he went to an outpatient today pressure went to an outpatient provider who noted his blood pressure was in the 250s and was encouraged to come to see us. I was also contacted by this provider they did not know any other neurologic changes. Patient states he is occasionally had some dizziness. He denies headache but has pressure behind his eyes. He denies any vision loss. Patient states his diplopia is slightly oblique, describes it as skewed. Patient denies neck, back, chest pain, no nausea or vomiting. No diarrhea, constipation. No abdominal, back or flank pain. No numbness, tingling or weakness his extremities. Patient is not taking any daily medications. Is not currently established with primary care. Denies surgical history. States he had adverse reactions to medications when he was in the hospital. No tobacco, states he drinks to 6 alcoholic drinks weekly over the past 1-2 months he used to drink about 14 per week. Denies any illicit. Related Data Previous Rx's Medication Instructions Recorded aspirin 81 mg tablet,delayed 81 mg PO DAILY #30 tabs 07/27/18 release (Maribeth Low Dose Aspirin) atorvastatin 40 mg tablet 40 mg PO DAILY #30 tabs 07/27/18 lisinopril 10 mg tablet 10 mg PO DAILY #30 tabs 07/27/18 nifedipine 30 mg tablet,extended 30 mg PO DAILY #30 tabs 08/03/18 release 24 hr Allergies Allergy/AdvReac Type Severity Reaction Status Date / Time diazepam [From Valium] AdvReac Intermediate Hallucinati Verified 07/29/18 18:44 ng hydralazine AdvReac Intermediate skin Verified 08/01/18 09:22 blotches, pressure in head from IV dose, agitation Review of Systems Review of Systems ROS Unobtainable: All systems reviewed & are unremarkable except as noted in HPI and below Patient History Medical History (Updated 07/10/22 @ 17:22 by Jennifer Wakefield DO) CVA (cerebral vascular accident) Hypertension Patient denies medical problems Surgical History H/O knee surgery Family History Father Myocardial infarction Social History marital status: household members: spouse lives independently: Yes 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 HEENT: Atraumatic, pupils are equal round reactive to light, extraocular movements are intact, no nystagmus no extra ocular motion palsy on exam, nares are clear, TMs are clear with no fluid, there is no conjunctival pallor. Throat is clear without any exudates, erythema, tonsillar enlargement or uvular deviation, no facial droop appreciated HEART: Regular rate and rhythm without murmur, clicks, rubs. No carotid bruits, pulses are equal in upper and lower extremities LUNGS:Lungs clear to auscultation, no wheezes, rales, crackles, chest moves symmetrically ABD:bowel sounds normal, soft, non-tender, no guarding, rebound, rigidity, no masses noted, no hepatosplenomegaly :No CVA tenderness MSCL: Non-tender, no muscle atrophy, muscles strength 5/5 upper and lower extremities, full range of motion, normal gait NEURO:CN 2-12 intact, sensation normal, finger nose finger test normal, heel barksdale test normal, no dysarthria or aphasia. SKIN: No rash, erythema or other skin changes. Initial Vital Signs Initial Vital Signs: Vital Signs Temperature 98.4 F 07/10/22 15:40 Pulse Rate 75 07/10/22 15:40 Respiratory Rate 18 07/10/22 15:40 Blood Pressure 262/142 H 07/10/22 15:40 Pulse Oximetry 98 07/10/22 15:40 Oxygen Delivery Method 07/10/22 15:40 Scores NIH Stroke Scale Level of Conciousness: Alert, keenly responsive Ask month/age: Answers both questions correctly. Open/close eyes, close hand: Performs both tasks correctly Best gaze horizontal: Normal Visual hernandez: Partial hemianopia (diploplia) Facial palsy: Normal symetrical movement Left arm drift: No drift for full 10 sec Right arm drift: No drift for full 10 sec Left leg drift: No drift for full 5 sec Right leg drift: No drift for full 5 sec Limb ataxia: Absent Sensory on face/arms/legs: Normal, no sensory loss Best language: No aphasia, normal Dysarthria: Normal Extinction or inattention: No abnormality Total NIH Stroke scale score: 1 Course Orders Ordered: ED Orders 07/10/22 15:50 BNP [NT-proBNP (BNP-Adult 18+)] Stat Complete Blood Count AUTO DIFF Stat Comprehensive Metabolic Panel Stat Partial Thromboplastin Time Stat Prothrombin Time INR Stat Troponin & CK Cardiac Panel Stat 07/10/22 15:52 EKG-12 Lead Routine 07/10/22 16:02 CT head/brain wo con Stat 07/10/22 16:03 CT angio head and neck Stat 07/10/22 16:10 COVID19 -Nasal RAPID/Pre-Proc Stat 07/10/22 16:20 Urinalysis and Microscopic Stat Urine Culture Stat Urine Drug Screen, Rapid Stat 07/10/22 18:30 MR head/brain wo con Stat 07/10/22 19:22 Consult to Tele-marketing rotation associate Routine 07/11/22 05:00 BMP [Basic Metabolic Panel] DAILY CBC Auto Diff [Complete Blood Count AUTO DIFF] DAILY Magnesium Urgent Troponin I Routine 07/11/22 05:45 A1C [Hemoglobin A1C% w Est Avg Glu] Urgent 07/12/22 05:00 BMP [Basic Metabolic Panel] DAILY CBC Auto Diff [Complete Blood Count AUTO DIFF] DAILY 07/13/22 05:00 BMP [Basic Metabolic Panel] DAILY CBC Auto Diff [Complete Blood Count AUTO DIFF] DAILY Acetaminophen (Acetaminophen 325 Mg Tablet) 650 mg PO Q6HR PRN PRN Reason: Fever/Mild Pain (1-3) Aspirin (Aspirin Ec 81 Mg Tablet) 81 mg PO DAILY [facility] Atorvastatin Calcium (Atorvastatin 20 Mg Tablet) 40 mg PO DAILY MICAH Nicardipine HCl 25 mg/ Sodium (Chloride) 250 mls @ 50 mls/hr IV TITRATE MICAH; Protocol Sodium Chloride (Sodium Chloride 0.9% Flush) 10 ml IV PRN PRN PRN Reason: Flush Sodium Chloride (Sodium Chloride 0.9% Flush) 10 ml IV BID MICAH Discontinued Medications Hydralazine HCl (Hydralazine 20 Mg/Ml Vial) 10 mg IV NOW ONE Stop: 07/10/22 17:21 Last Admin: 07/10/22 17:31 Dose: 10 mg Documented By: ANGELO Sodium Chloride (Normal Saline 0.9%) 1,000 mls @ 150 mls/hr IV CONT MICAH Last Infusion: 07/10/22 19:24 Dose: 150 mls/hr Documented By: Admin: 07/10/22 16:46 Dose: 150 mls/hr Documented By: [facility] Labetalol HCl (Labetalol 20 Mg/4 Ml Syringe) 10 mg IV NOW ONE Stop: 07/10/22 16:40 Last Admin: 07/10/22 16:46 Dose: 10 mg Documented By: [facility] Consultations Consultation #1: Tele-stroke, Dr. Girard. Reviewed patient's CTA images and CT. Patient has clearly had new stroke from prior in 2018. [place] unlikely to be stroke essentially with patient has 2 weeks of vision changes she suspect this may be more related to patient's hypertension. Feels patient is unlikely to be PRES but on differential. Patient recommended to have blood pressure control to 220 range down to 200 would be appropriate but not lower greater than this 425% reduction. Would recommend nicardipine drip, can do labetalol pushes, less referral would be hydralazine pushes, captopril IV would also be appropriate. Recommends stroke workup and returning patient to appropriately blood pressure, aspirin therapy and statin management. Consultation #2: Dr. Garza, hospitalist kindly accepts patient. Plan for MR brain without for stroke workup, nicardipine drip, patient's head CT CT angio do not show acute change, no end-organ damage noted on lab work. Plan for ICU admit for hypertensive crisis. Vital Signs Vital signs: Vital Signs - 8 hr 07/10/22 15:40 07/10/22 16:00 07/10/22 16:00 Temperature 98.4 F Pulse Rate 75 75 Respiratory Rate 18 12 Blood Pressure 262/142 H 262/144 H Pulse Oximetry 98 98 Oxygen Delivery Method Room Air 07/10/22 16:46 07/10/22 16:10 07/10/22 16:10 Temperature Pulse Rate 75 74 Respiratory Rate 19 Blood Pressure 264/134 H Pulse Oximetry 98 Oxygen Delivery Method 07/10/22 16:12 07/10/22 16:12 07/10/22 16:35 Temperature Pulse Rate 74 75 Respiratory Rate 22 Blood Pressure 270/145 H Pulse Oximetry 98 99 Oxygen Delivery Method 07/10/22 17:31 07/10/22 16:47 07/10/22 16:47 Temperature Pulse Rate 69 76 Respiratory Rate 17 Blood Pressure 281/144 H 281/147 H Pulse Oximetry 98 Oxygen Delivery Method 07/10/22 16:54 07/10/22 16:54 07/10/22 17:00 Temperature Pulse Rate 68 Respiratory Rate 14 Blood Pressure 264/135 H 265/141 H Pulse Oximetry 98 Oxygen Delivery Method 07/10/22 17:00 07/10/22 17:15 07/10/22 17:15 Temperature Pulse Rate 66 65 Respiratory Rate 20 16 Blood Pressure 248/129 H Pulse Oximetry 98 98 Oxygen Delivery Method 07/10/22 17:30 07/10/22 17:43 07/10/22 17:43 Temperature Pulse Rate 69 67 Respiratory Rate 20 15 Blood Pressure 248/126 H Pulse Oximetry 98 99 Oxygen Delivery Method 07/10/22 17:45 07/10/22 17:45 07/10/22 18:00 Temperature Pulse Rate 68 Respiratory Rate 11 L Blood Pressure 237/125 H 230/122 H Pulse Oximetry 99 Oxygen Delivery Method 07/10/22 18:00 07/10/22 18:15 07/10/22 18:15 Temperature Pulse Rate 73 82 Respiratory Rate 20 24 Blood Pressure 230/106 H Pulse Oximetry 99 98 Oxygen Delivery Method 07/10/22 18:41 07/10/22 18:41 07/10/22 18:30 Temperature Pulse Rate 75 75 71 Respiratory Rate 15 Blood Pressure 233/117 H 233/117 H Pulse Oximetry 98 Oxygen Delivery Method 07/10/22 18:31 07/10/22 18:31 Temperature Pulse Rate 71 Respiratory Rate 17 Blood Pressure 233/117 H Pulse Oximetry 98 Oxygen Delivery Method Medical Decision Making Lab Data Result diagrams: 07/10/22 15:50 07/10/22 15:50 Labs: Lab Results 07/10/22 07/10/22 07/10/22 Range/Units 15:50 15:50 15:50 WBC 5.6 (4.5-11.0) X10^3/uL RBC 4.45 L (4.5-5.9) X10^6/uL Hgb 14.0 (13.5-17.5) g/dL Hct 40.0 L (41-53) % MCV 90.0 (80-100) fL MCH 31.4 (26-34) PG MCHC 34.9 (30-36) % RDW 13.3 (11.6-14.8) % Plt Count 179 (150-400) X10^3/uL Neut % (Auto) 63.6 (50-75) % Lymph % (Auto) 22.7 L (25-40) % [place] % (Auto) 11.5 (3-14) % Eos % (Auto) 1.6 L (2-4) % Baso % (Auto) 0.6 (0-2) % Neut # (Auto) 3600 (2740-7870) /uL Lymph # (Auto) 1300 (5064-6785) /uL [place] # (Auto) 600 (0-900) /uL Eos # (Auto) 100 (0-450) /uL Baso # (Auto) 0 (0-100) /uL PT 11.6 (10.1-12.7) SECONDS INR 1.0 (0.9-1.3) APTT 34 (26-36) SECONDS Sodium 137 (137-145) mmol/L Potassium 3.8 (3.4-5.1) mmol/L Chloride 100 (98-107) mmol/L Carbon Dioxide 33 H (22-32) mmol/L BUN 17 (9-20) mg/dL Creatinine 1.22 (0.66-1.25) mg/dL Estimated GFR > 60 (>60) mL/min BUN/Creatinine Ratio 13.9 (6-22) Glucose 107 (80-110) mg/dL Calcium 8.8 (8.4-10.2) mg/dL Total Bilirubin 1.6 H (0.2-1.3) mg/dL AST 33 (17-59) IU/L ALT 22 (<50) IU/L Alkaline Phosphatase 49 (38-126) U/L Total Creatine Kinase 103 (55-170) U/L CK-MB (CK-2) 1.38 (<2.37) ng/mL CK-MB (CK-2) Rel Index 1.3 L (1.5-5.0) % Troponin I 0.012 (0.01-0.034) ng/mL NT-Pro-B Natriuret Pep 811 H (<125) pg/mL Total Protein 7.5 (6.3-8.2) g/dL Albumin 4.3 (3.5-5.0) g/dL Globulin 3.2 (1.7-4.1) g/dL Albumin/Globulin Ratio 1.3 (1.0-2.8) Urine Color Urine Appearance Urine pH (4.5-8.0) Ur Specific [place] (1.000-1.035) Urine Protein (Negative) Urine Glucose (UA) (Negative) g/dL Urine Ketones (NEGATIVE) Urine Occult Blood (Negative) Urine Nitrate (Negative) Urine Bilirubin (NEGATIVE) Urine Urobilinogen (0.2) E.U./dL Ur Leukocyte Esterase (NEGATIVE) Urine RBC (0-5/HPF) Urine WBC (0-5/HPF) Ur Squamous Epith Cells (0-5/HPF) Urine Bacteria (None) Ur Culture Indicated? U Opiates 300ng/mL cut (Negative) Ur Oxycodone Screen (Negative) Urine Methadone Screen (Negative) Ur Barbiturates Screen (Negative) U Tricyclic Antidepress (Negative) Ur Phencyclidine Scrn (Negative) Ur Amphetamines Screen (Negative) U Methamphetamines Scrn (Negative) Ur MDMA Scrn (Ecstasy) (Negative) U Benzodiazepines Scrn (Negative) Urine Cocaine Screen (Negative) U Marijuana (THC) Screen SARS-CoV-2 (PCR) (Negative) 07/10/22 07/10/22 07/10/22 Range/Units 16:10 16:20 16:20 WBC (4.5-11.0) X10^3/uL RBC (4.5-5.9) X10^6/uL Hgb (13.5-17.5) g/dL Hct (41-53) % MCV (80-100) fL MCH (26-34) PG MCHC (30-36) % RDW (11.6-14.8) % Plt Count (150-400) X10^3/uL Neut % (Auto) (50-75) % Lymph % (Auto) (25-40) % [place] % (Auto) (3-14) % Eos % (Auto) (2-4) % Baso % (Auto) (0-2) % Neut # (Auto) (2294-6793) /uL Lymph # (Auto) (9589-4804) /uL [place] # (Auto) (0-900) /uL Eos # (Auto) (0-450) /uL Baso # (Auto) (0-100) /uL PT (10.1-12.7) SECONDS INR (0.9-1.3) APTT (26-36) SECONDS Sodium (137-145) mmol/L Potassium (3.4-5.1) mmol/L Chloride (98-107) mmol/L Carbon Dioxide (22-32) mmol/L BUN (9-20) mg/dL Creatinine (0.66-1.25) mg/dL Estimated GFR (>60) mL/min BUN/Creatinine Ratio (6-22) Glucose (80-110) mg/dL Calcium (8.4-10.2) mg/dL Total Bilirubin (0.2-1.3) mg/dL AST (17-59) IU/L ALT (<50) IU/L Alkaline Phosphatase (38-126) U/L Total Creatine Kinase (55-170) U/L CK-MB (CK-2) (<2.37) ng/mL CK-MB (CK-2) Rel Index (1.5-5.0) % Troponin I (0.01-0.034) ng/mL NT-Pro-B Natriuret Pep (<125) pg/mL Total Protein (6.3-8.2) g/dL Albumin (3.5-5.0) g/dL Globulin (1.7-4.1) g/dL Albumin/Globulin Ratio (1.0-2.8) Urine Color Yellow Urine Appearance Clear Urine pH 5.5 (4.5-8.0) Ur Specific [place] <=1.005 (1.000-1.035) Urine Protein Negative (Negative) Urine Glucose (UA) Negative (Negative) g/dL Urine Ketones Negative (NEGATIVE) Urine Occult Blood Trace-intact (Negative) Urine Nitrate Positive H (Negative) Urine Bilirubin Negative (NEGATIVE) Urine Urobilinogen 0.2 (0.2) E.U./dL Ur Leukocyte Esterase Negative (NEGATIVE) Urine RBC 0-1/hpf (0-5/HPF) Urine WBC 0-1/hpf (0-5/HPF) Ur Squamous Epith Cells None seen (0-5/HPF) Urine Bacteria Occasional (0-1) (None) Ur Culture Indicated? Specimen cultured U Opiates 300ng/mL cut Negative (Negative) Ur Oxycodone Screen Negative (Negative) Urine Methadone Screen Negative (Negative) Ur Barbiturates Screen Negative (Negative) U Tricyclic Antidepress Negative (Negative) Ur Phencyclidine Scrn Negative (Negative) Ur Amphetamines Screen Negative (Negative) U Methamphetamines Scrn Negative (Negative) Ur MDMA Scrn (Ecstasy) Negative (Negative) U Benzodiazepines Scrn Negative (Negative) Urine Cocaine Screen Negative (Negative) U Marijuana (THC) Screen TNP SARS-CoV-2 (PCR) Negative (Negative) Imaging Data CT scan - head: Radiologist's Impression: Close Brain MRI (Signed) Cory Bush - 07/10/22 Head/Neck CTA (Signed) Jarcoho Ortega - 07/10/[address] (Signed) Jarocho Ortega - 07/10/22 Telemetry Strips 07/30/[address] (Signed) Meghan Aviles - 07/28/18 Echocardiogram Ultrasound (Signed) Malik Cesar - 07/26/18 Telemetry Strips 07/25/18 Brain MRI (Signed) Costa Malin - 07/25/[address] (Signed) Abdi Mars - 07/25/18 Launch?[address] [address] [address] Scan Report Signed Patient: Chao Anguiano JR MR#: [id number] : 1955 Acct:[id number] Age/Sex: 66 / M Date of Service: 07/10/22 Loc: ED Accession Number: [id number] ?? Procedure: CT head/brain wo con Ordering Provider: Jennifer Wakefield D.O. PROCEDURE:? CT HEAD/BRAIN WO CON ? INDICATIONS:? blood pressure is high, prior cva ? TECHNIQUE:? Noncontrast 4.5 mm thick angled axial sections acquired from the foramen magnum to the vertex, with coronal and sagittal reformats.? For radiation dose reduction, the following was used:? automated exposure control, adjustment of mA and/or kV according to patient size.? ? COMPARISON:? [facility], CT, CT HEAD/BRAIN WO CON, 07/25/2018, 15:02.? [facility], CT, CT HEAD/BRAIN WO CON, 07/28/2018, 23:46. ? FINDINGS:? Image quality:? Excellent.? ? CSF spaces:? Basal cisterns are patent.? No extra-axial fluid collections.? Ventricles are normal in size and shape.? ? Brain:? No midline shift.? No intracranial masses or hemorrhage.? Voss-white matter interface is normal.? ? Skull and face:? Calvarium and visualized facial bones are intact, without suspicious lesions.? ? Sinuses:? Visualized sinuses and mastoids are clear.? ? IMPRESSION:? No acute intracranial finding. ? ? Dictated by: Jarocho Ortega M.D. on 07/10/2022 at 16:43 ? ? Approved by: Jarocho Ortega M.D. on 07/10/2022 at 16:44?? CTA - brain/neck: Radiologist's Impression: [place] [address] CT Scan Report Signed Patient: Chao Anguiano JR MR#: [id number] : 1955 Acct:[id number] Age/Sex: 66 / M Date of Service: 07/10/22 Loc: ED Accession Number: [id number] ?? Procedure: CT angio head and neck Ordering Provider: Jennifer Wakefield D.O. PROCEDURE:? CT ANGIO HEAD AND NECK ? INDICATIONS:? prior cva ? TECHNIQUE:? ? After the administration of intravenous contrast, 1 mm thick sections acquired from the aorticarch through the [place] of [place].? Post-contrast 4.5 mm thick sections then re-acquired from the foramen magnum to the vertex.? 3-dimensional zstlbdu-eecwwagys-rzkypciwbu (MIP) and/or volume rendering reformats were acquired of the central intracranial vasculature and neck separately. For radiation dose reduction, the following was used:? automated exposure control, adjustment of mA and/or kV according to patient size.? ? COMPARISON:? None. ? FINDINGS:? Image quality:? Excellent.? ? BRAIN:? CSF spaces:? Ventricles are normal in size and shape.? Basal cisterns are patent.? No extra-axial fluid collections.? ? Brain:? No midline shift.? No intracranial bleeds or masses.? Voss-white matter interface appears intact.? ? Skull and face:? Calvarium and facial bones appear intact, without suspicious lesions.? Orbits appear normal.? ? Sinuses:? Sinuses and mastoids are clear.? ? HEAD CT ANGIOGRAPHY:? Anterior circulation:? Intracranial internal carotid arteries are normal in size and flow.? The flow within the paired anterior cerebral arteries is normal and symmetric.? The flow within the middle cerebral arteries is normal and symmetric.? The anterior communicating artery is seen.? No aneurysms are seen.? ? Posterior circulation:? Visualized portions of the vertebral arteries demonstrate normal caliber, and join to form a normal appearing basilar artery.? Flow within the posterior cerebral arteries is normal and symmetric.? No aneurysms are seen.? ? NECK CT ANGIOGRAPHY:? Carotid system:? The great vessels demonstrate a conventional anatomy as they arise from the aortic arch.? The origins of the common carotid arteries appear patent.? The common carotid arteries demonstrate normal caliber and courses.? The bifurcation regions are both widely patent.? The internal carotid arteries demonstrate normal calibers and courses.? ? Posterior circulation:? The origins of the vertebral arteries both appear widely patent.? The more superior extracranial portions of both vertebral arteries also demonstrate normal courses and calibers.? They join to form a normal appearing basilar artery.? ? Soft tissues:? Visualized neck soft tissues demonstrate no suspicious abnormalities.? ? Bones:? No suspicious bony lesions.? Visualized cervical spine appears normally aligned.? IMPRESSION:? No hemodynamically significant stenosis or occlusion of the major intracranial or extracranial arterial vasculature. ? Any quantitative measurements of stenosis were performed using NASCET criteria.? ? ? Dictated by: Jarocho Ortega M.D. on 07/10/2022 at 16:44 ? ? Approved by: Jarocho Ortega M.D. on 07/10/2022 at 16:46?? MRI brain: Radiologist's Impression: [address] [place] [address] Magnetic Resonance Report Signed Patient: Chao Anguiano JR MR#: [id number] : 1955 Acct:[id number] Age/Sex: 66 / M Date of Service: 07/10/22 Loc: [facility] 227-1 Accession Number: [id number] ?? Procedure: MR head/brain wo con Ordering Provider: Jennifer Wakefield D.O. PROCEDURE:? MR HEAD/BRAIN WO CON ? INDICATIONS:? stroke ? TECHNIQUE:? Noncontrast axial T1 spin echo, axial T2 fast spin echo, sagittal and axial FLAIR, coronal T2 fast spin echo, axial gradient echo, axial diffusion and ADC through the brain.? ? COMPARISON:? [facility], MR, MR STROKE, 07/25/2018, 15:27. ? FINDINGS:? Image quality:? Excellent.? ? CSF Spaces:? Basal cisterns are patent.? No extra-axial fluid collections.? Ventricles are normal in size and shape.? ? Brain:? There is advanced confluent white matter ischemic change.? Old right caudate lacunar infarct present.? Mild cerebral and cerebellar atrophy diffusion sequence unremarkable without evidence of acute infarct. ? Skull and face:? Calvarium has normal marrow signal.? Orbits appear normal.? ? Sinuses:? Sinuses and mastoids are clear.? ? IMPRESSION:? ? 1. Atrophy and advanced white matter confluent hyperintensity, significantly increased from the prior exam July 2018.? Differential would include advanced chronic ischemic change and demyelinating disorders such as multiple sclerosis, viral or toxic demyelination ? 2. Old right caudate lacunar infarct ? ? ? Approved by: Cory Bush M.D. on 07/10/2022 at 18:51? ECG Data Attestation: I personally reviewed and interpreted this ECG as follows: Prior ECG tracings: available for review Interpretation: Sinus rhythm rate of 77 ME 164 QRS of 112 QTC of 470. Patient has ST elevation in lateral but appears similar to 07/29/2018. MDM Narrative Medical decision making narrative: This is 66 year old male with history of prior stroke in 2018, patient is significantly hypertensive with 2 weeks of binocular diplopia. Plan for admission, head CT and CT angio does not show acute change, patient's NIH is 1 secondary to vision change appears to be more of a diplopia than hemianopsia, patient does not have any other neurologic changes on exam. He is significantly hypertensive has very minimal change with labetalol IV but drops his heart rate, was given 1 dose of hydralazine also somewhat but minimally helpful. Goal is to drop him not more than 25% initially so as not to create new issues. Spoke with Telestroke as potential for recent stroke in last 2 weeks. Recommend stroke workup, they suspect based on imaging the patient has had multiple strokes in the interim but nothing acutely, suspicion for PRES is lower, recommend preferentially narcotic pain drip over labetalol, captopril, last line will likely be hydralazine pushes. Patient does not have any other obvious end-organ damage on his workup. Spoke with hospitalist Dr. Garza who kindly accepts. Patient was able to get MRI and nicardipine gtt ordered. Critical Care Time Critical Care Time Critical Care Time: Yes Total Critical Care Time: 41 Attestation: The high probability of a clinically significant, sudden or life threatening deterioration of the [neurologic, cardiac, pulm] system(s) required my full and direct attention, intervention and personal management. The aggregate critical care time was [] minutes. This time is in addition to time spent performing reported procedures but includes the following: [x] Data Review and interpretation [x] Patient assessment and monitoring of vital signs [x] Documentation [x] Medication orders and management Discharge Plan Departure Patient Disposition: Admitted As Inpatient Clinical Impression: Cerebrovascular accident, Hypertensive emergency Admit Date/Time: 07/10/22 19:01 Admit Provider: Melvin Garza
[2022-07-10 16:14] LABS: Add Manual Diff / Slide Review NO; Basophils Absolute Auto 0 /uL (0-100); Basophils Percent Auto 0.6 % (0-2); Eosinophils Absolute Auto 100 /uL (0-450); Eosinophils Percent Auto 1.6 % (2-4); Lymphocytes Absolute Auto 1300 /uL (1100-4500); Lymphocytes Percent Auto 22.7 % (25-40); Mean Corpuscular HGB Conc 34.9 % (30-36); Mean Corpuscular Hemoglobin 31.4 PG (26-34); Monocytes Absolute Auto 600 /uL (0-900); Monocytes Percent Auto 11.5 % (3-14); Neutrophils Absolute Auto 3600 /uL (1500-7000); Neutrophils Percent Auto 63.6 % (50-75); Platelet Count 179 X10^3/uL (150-400); Red Blood Cell Count 4.45 X10^6/uL (4.5-5.9); Red Cell Distribution Width 13.3 % (11.6-14.8); White Blood Cell Count 5.6 X10^3/uL (4.5-11.0)
[2022-07-10 16:15] LABS: Prothrombin Time 11.6 SECONDS (10.1-12.7)
[2022-07-10 16:18] LABS: PTT Partial Thromboplastin Tim 34 SECONDS (26-36)
[2022-07-10 16:31] LABS: Appearance Urine UA CLEAR; Bilirubin Urine UA NEGATIVE (NEGATIVE); Color Urine UA YELLOW; Glucose Urine UA NEGATIVE (Negative); Ketones Urine UA NEGATIVE (NEGATIVE); Leukocyte Esterase Urine UA NEGATIVE (NEGATIVE); Nitrite Urine UA POSITIVE (Negative); Occult Blood Urine UA TRACE-INTACT (Negative); Protein Urine UA NEGATIVE (Negative); Specific Gravity Urine UA <=1.005 (1.000-1.035); Urobilinogen Urine UA 0.2 E.U./dL (0.2); pH Urine UA 5.5 (4.5-8.0)
[2022-07-10 16:35] LABS: UR Morphine/Opiate cutoff 300 Negative (Negative); Ur Creatinine Normal (Normal); Ur Specific Gravity Normal (Normal); Urine Amphetamines Negative (Negative); Urine Barbiturates Negative (Negative); Urine Benzodiazepines Negative (Negative); Urine Cocaine Negative (Negative); Urine MDMA Negative (Negative); Urine Methadone Negative (Negative); Urine Methamphetamines Negative (Negative); Urine Oxycodone Negative (Negative); Urine Phencyclidine Negative (Negative); Urine Tricyclic Antidepressant Negative (Negative); Urine pH Normal (Normal)
[2022-07-10 16:38] LABS: Bacteria Urine Occasional (0-1); Culture Indicated Urine Specimen Cultured; RBC Urine 0-1/HPF (0-5/HPF); Squamous Epithelial Cell Urine None Seen (0-5/HPF); WBC Urine 0-1/HPF (0-5/HPF)
[2022-07-10] MEDS: LABETALOL 20 MG/4 ML SYRINGE 10 MG IV (16:46)
[2022-07-10] MEDS: SODIUM CHLORIDE 0.9% 1,000 ML 150 ML IV (16:46)
[2022-07-10 17:00] LABS: COVID19 -Nasal RAPID Negative (Negative)
[2022-07-10 17:05] LABS: Alanine Aminotransferase 22 IU/L (<50); Albumin 4.3 g/dL (3.5-5.0); Albumin Globulin Ratio 1.3 (1.0-2.8); Alkaline Phosphatase 49 U/L (38-126); Aspartate Aminotransferase 33 IU/L (17-59); BUN Creatinine Ratio 13.9 (6-22); Bilirubin Total 1.6 mg/dL (0.2-1.3); Blood Urea Nitrogen 17 mg/dL (9-20); Calcium 8.8 mg/dL (8.4-10.2); Carbon Dioxide 33 mmol/L (22-32); Chloride 100 mmol/L (98-107); Creatine Kinase 103 U/L (55-170); Estimated Glomerular Filt Rate > 60 mL/min (>60); Globulin 3.2 g/dL (1.7-4.1); Glucose 107 mg/dL (80-110); HEMOLYSIS < 15 (0-50); Potassium 3.8 mmol/L (3.4-5.1); Sodium 137 mmol/L (137-145); Total Protein 7.5 g/dL (6.3-8.2)
[2022-07-10 17:18] LABS: NT-proBNP (BNP-Adult 18+) 811 pg/mL (<125); Troponin I 0.012 ng/mL (0.01-0.034)
[2022-07-10 17:20] LABS: CKMB % Relative Index 1.3 % (1.5-5.0); Creatine Kinase MB 1.38 ng/mL (<2.37)
[2022-07-10] MEDS: HYDRALAZINE 20 MG/ML VIAL 10 MG IV (17:31)
--- NOTE | 2022-07-10 18:30 | DI.MRI.S_ITS ---
PROCEDURE: MR HEAD/BRAIN WO CON INDICATIONS: stroke TECHNIQUE: Noncontrast axial T1 spin echo, axial T2 fast spin echo, sagittal and axial FLAIR, coronal T2 fast spin echo, axial gradient echo, axial diffusion and ADC through the brain. COMPARISON: [facility], MR, MR STROKE, 07/25/2018, 15:27. FINDINGS: Image quality: Excellent. CSF Spaces: Basal cisterns are patent. No extra-axial fluid collections. Ventricles are normal in size and shape. Brain: There is advanced confluent white matter ischemic change. Old right caudate lacunar infarct present. Mild cerebral and cerebellar atrophy diffusion sequence unremarkable without evidence of acute infarct. Skull and face: Calvarium has normal marrow signal. Orbits appear normal. Sinuses: Sinuses and mastoids are clear. IMPRESSION: 1. Atrophy and advanced white matter confluent hyperintensity, significantly increased from the prior exam July 2018. Differential would include advanced chronic ischemic change and demyelinating disorders such as multiple sclerosis, viral or toxic demyelination 2. Old right caudate lacunar infarct Approved by: Cory Bush M.D. on 07/10/2022 at 18:51
[2022-07-10] MEDS: NICARDIPINE 25 MG in SODIUM CHLORIDE 0.9% 240 ML 50 MG IV (20:02)
--- NOTE | 2022-07-10 20:25 | PM.CN.EICU ---
History of Present Illness Consult details IF CAMERA ACTIVATED, patient seen via real-time interactive audiovisual communication: Camera activated Date Patient Seen: 07/10/22 Chief complaint: very high blood pressure Reason for consult: HTN emergency Consent obtained for tele-driveway attendant care: Yes Patient Location: ICU Provider location (State): [place] Other participants/roles: Jessica BUSTILLOS Narrative: Patient is a 66 year old male with history of CVA, hypertension, and dyslipidemia who presents today with double vision which started about two weeks ago. Associated with dizziness and nausea. Denies loss of sensation or weakness. No reported chest pain, vomiting, or shortness of breath. In ER, he was found to have SBP ~230s and started on cardene infusion. Admitted to ICU for further management. 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 Smoking Status: Never smoker alcohol intake: current substance use type: does not use Current Medications Current Medications Medications: Home Medications aspirin 81 mg tablet,delayed release (Maribeth Low Dose Aspirin) 81 mg PO DAILY #30 tabs 07/27/18 [Rx Confirmed 07/29/18] atorvastatin 40 mg tablet 40 mg PO DAILY #30 tabs 07/27/18 [Rx Confirmed 07/29/18] lisinopril 10 mg tablet 10 mg PO DAILY #30 tabs 07/27/18 [Rx Confirmed 07/29/18] nifedipine 30 mg tablet,extended release 24 hr 30 mg PO DAILY #30 tabs 08/03/18 [Rx] Visit Medications (administered) Generic Name Dose Route Start Last Admin Trade Name Freq PRN Reason Stop Dose Admin Nicardipine HCl 25 mg/ Sodium 250 mls @ 50 mls/hr 07/10/22 18:45 07/10/22 20:02 Chloride IV 5 mg/hr TITRATE MICAH 50 mls/hr Administration Protocol 5 MG/HR Exam Vital Signs (past 8 hours): - 07/10/22 15:40 07/10/22 16:00 07/10/22 16:00 Temperature 98.4 F Pulse Rate 75 75 Respiratory Rate 18 12 Blood Pressure 262/142 H 262/144 H Pulse Oximetry 98 98 Oxygen Delivery Method Room Air 07/10/22 16:46 07/10/22 16:10 07/10/22 16:10 Temperature Pulse Rate 75 74 Respiratory Rate 19 Blood Pressure 264/134 H Pulse Oximetry 98 Oxygen Delivery Method 07/10/22 16:12 07/10/22 16:12 07/10/22 16:35 Temperature Pulse Rate 74 75 Respiratory Rate 22 Blood Pressure 270/145 H Pulse Oximetry 98 99 Oxygen Delivery Method 07/10/22 17:31 07/10/22 16:47 07/10/22 16:47 Temperature Pulse Rate 69 76 Respiratory Rate 17 Blood Pressure 281/144 H 281/147 H Pulse Oximetry 98 Oxygen Delivery Method 07/10/22 16:54 07/10/22 16:54 07/10/22 17:00 Temperature Pulse Rate 68 Respiratory Rate 14 Blood Pressure 264/135 H 265/141 H Pulse Oximetry 98 Oxygen Delivery Method 07/10/22 17:00 07/10/22 17:15 07/10/22 17:15 Temperature Pulse Rate 66 65 Respiratory Rate 20 16 Blood Pressure 248/129 H Pulse Oximetry 98 98 Oxygen Delivery Method 07/10/22 17:30 07/10/22 17:43 07/10/22 17:43 Temperature Pulse Rate 69 67 Respiratory Rate 20 15 Blood Pressure 248/126 H Pulse Oximetry 98 99 Oxygen Delivery Method 07/10/22 17:45 07/10/22 17:45 07/10/22 18:00 Temperature Pulse Rate 68 Respiratory Rate 11 L Blood Pressure 237/125 H 230/122 H Pulse Oximetry 99 Oxygen Delivery Method 07/10/22 18:00 07/10/22 18:15 07/10/22 18:15 Temperature Pulse Rate 73 82 Respiratory Rate 20 24 Blood Pressure 230/106 H Pulse Oximetry 99 98 Oxygen Delivery Method 07/10/22 18:41 07/10/22 18:41 07/10/22 18:30 Temperature Pulse Rate 75 75 71 Respiratory Rate 15 Blood Pressure 233/117 H 233/117 H Pulse Oximetry 98 Oxygen Delivery Method 07/10/22 18:31 07/10/22 18:31 07/10/22 19:29 Temperature Pulse Rate 71 80 Respiratory Rate 17 31 H Blood Pressure 233/117 H Pulse Oximetry 98 Oxygen Delivery Method 07/10/22 19:30 07/10/22 19:32 07/10/22 19:32 Temperature 98.0 F Pulse Rate 79 72 Respiratory Rate 18 11 L Blood Pressure 227/130 H Pulse Oximetry 95 99 Oxygen Delivery Method 07/10/22 20:00 07/10/22 20:00 Temperature Pulse Rate 73 Respiratory Rate 25 H Blood Pressure 236/163 H Pulse Oximetry 99 Oxygen Delivery Method Oxygen Delivery Method Room Air Narrative Exam Narrative: NAD, speaking in full sentence. Objective Labs Result Diagrams: 07/10/22 15:50 07/10/22 15:50 Labs: Laboratory Results - last 24 hr 07/10/22 07/10/22 07/10/22 15:50 15:50 15:50 WBC 5.6 RBC 4.45 L Hgb 14.0 Hct 40.0 L MCV 90.0 MCH 31.4 MCHC 34.9 RDW 13.3 Plt Count 179 Neut % (Auto) 63.6 Lymph % (Auto) 22.7 L [place] % (Auto) 11.5 Eos % (Auto) 1.6 L Baso % (Auto) 0.6 Neut # (Auto) 3600 Lymph # (Auto) 1300 [place] # (Auto) 600 Eos # (Auto) 100 Baso # (Auto) 0 PT 11.6 INR 1.0 APTT 34 Sodium 137 Potassium 3.8 Chloride 100 Carbon Dioxide 33 H BUN 17 Creatinine 1.22 Estimated GFR > 60 BUN/Creatinine Ratio 13.9 Glucose 107 Calcium 8.8 Total Bilirubin 1.6 H AST 33 ALT 22 Alkaline Phosphatase 49 Total Creatine Kinase 103 CK-MB (CK-2) 1.38 CK-MB (CK-2) Rel Index 1.3 L Troponin I 0.012 NT-Pro-B Natriuret Pep 811 H Total Protein 7.5 Albumin 4.3 Globulin 3.2 Albumin/Globulin Ratio 1.3 Urine Color Urine Appearance Urine pH Ur Specific [place] Urine Protein Urine Glucose (UA) Urine Ketones Urine Occult Blood Urine Nitrate Urine Bilirubin Urine Urobilinogen Ur Leukocyte Esterase Urine RBC Urine WBC Ur Squamous Epith Cells Urine Bacteria Ur Culture Indicated? U Opiates 300ng/mL cut Ur Oxycodone Screen Urine Methadone Screen Ur Barbiturates Screen U Tricyclic Antidepress Ur Phencyclidine Scrn Ur Amphetamines Screen U Methamphetamines Scrn Ur MDMA Scrn (Ecstasy) U Benzodiazepines Scrn Urine Cocaine Screen U Marijuana (THC) Screen SARS-CoV-2 (PCR) 07/10/22 07/10/22 07/10/22 16:10 16:20 16:20 WBC RBC Hgb Hct MCV MCH MCHC RDW Plt Count Neut % (Auto) Lymph % (Auto) [place] % (Auto) Eos % (Auto) Baso % (Auto) Neut # (Auto) Lymph # (Auto) [place] # (Auto) Eos # (Auto) Baso # (Auto) PT INR APTT Sodium Potassium Chloride Carbon Dioxide BUN Creatinine Estimated GFR BUN/Creatinine Ratio Glucose Calcium Total Bilirubin AST ALT Alkaline Phosphatase Total Creatine Kinase CK-MB (CK-2) CK-MB (CK-2) Rel Index Troponin I NT-Pro-B Natriuret Pep Total Protein Albumin Globulin Albumin/Globulin Ratio Urine Color Yellow Urine Appearance Clear Urine pH 5.5 Ur Specific [place] <=1.005 Urine Protein Negative Urine Glucose (UA) Negative Urine Ketones Negative Urine Occult Blood Trace-intact Urine Nitrate Positive H Urine Bilirubin Negative Urine Urobilinogen 0.2 Ur Leukocyte Esterase Negative Urine RBC 0-1/hpf Urine WBC 0-1/hpf Ur Squamous Epith Cells None seen Urine Bacteria Occasional (0-1) Ur Culture Indicated? Specimen cultured U Opiates 300ng/mL cut Negative Ur Oxycodone Screen Negative Urine Methadone Screen Negative Ur Barbiturates Screen Negative U Tricyclic Antidepress Negative Ur Phencyclidine Scrn Negative Ur Amphetamines Screen Negative U Methamphetamines Scrn Negative Ur MDMA Scrn (Ecstasy) Negative U Benzodiazepines Scrn Negative Urine Cocaine Screen Negative U Marijuana (THC) Screen TNP SARS-CoV-2 (PCR) Negative Assessment & Plan Assessment & Plan narrative: NEURO: # Dizziness - Possible related meniere disease vs dehydration -- MRI brain negative for CVA -- Start ASA and lipitor -- Needs PT/OT -- OOB as tolerated RESP: - On room air -- Encourage IS and OOB as tolerated CVS: # HTN emergency -- On cardene infusion -- Goal SBP ~180 (25% reduction) -- Added norvasc and lisinopril 10 mg -- Check TTE ENDO: -- Goal BS < 180 Time Spent With Patient Critical Care time: I spent a total of 32 minutes of critical care time on this patient's care today; this time is exclusive of procedural time.
[2022-07-10] MEDS: SODIUM CHLORIDE 0.9% FLUSH 10 ML IV (20:36)
[2022-07-10] MEDS: AMLODIPINE 5 MG TABLET 10 MG PO (21:29)
[2022-07-10] MEDS: lisinopriL 10 MG TABLET PO (21:29)
[2022-07-11] VITALS (31 sets, daily range): BP systolic 139–185; BP diastolic 72–100; PULSE 69–86; RESP 0–29; TEMP 36.6; O2SAT 95–98
--- NOTE | 2022-07-11 00:30 | PM.HP.1 ---
History of Present Illness History of Present Illness Date Patient Seen: 07/10/22 Time Patient Seen: 19:22 Chief complaint: very high blood pressure Narrative: Chao Anguiano is a 66-year-old male with history of stroke in 2018, hypertension and dyslipidemia who has been off medications since approximately 2018 or 2019.? Patient reports that the medications destroyed his quality of life by making him feel extremely tired and sluggish. Patient presents today to the ED with diplopia in the lower field of vision equal bilaterally that has been consistently present for 2 weeks with episodes of dizziness.? Patient states he just woke up with it.? He is not appreciate any misalignment of his pupils or eyes nor has his .? Patient states he went to an an windows security engineer today, who noted his blood pressure was in the 250s and was advised to go to the ED.?the windows security engineer contacted ED provider and noted that there exam did not reveal any etiology for changes in visual field. Patient states he has occasional episodes of severe dizziness.? He denies headache but has pressure behind his eyes, and to the left pentecostalism.? He denies any vision loss, tinnitus, changes in hearing, difficulty with speech, difficulty with swallowing, balance or coordination issues, dexterity issues, weakness to extremities, difficulty with ambulation, neck, back, or chest pain, SOB, no abdominal pain, nausea, vomiting, diarrhea, constipation, any recent illness injury or trauma, no falls. Patient is not taking any daily medications.? Is not currently established with primary care.? No tobacco, states he drinks to 6 alcoholic drinks weekly over the past 1-2 months he used to drink about 14 per week.? Denies any illicit substances. Patient present to the ED hypertensive emergency initial blood pressures 264/134, 262/142, 233/117 upon admit, temp 98.4?, HR 75, R 17, O2 saturation 98% on room air. Upon admit patient is resting comfortably in bed double lower vision field continues, patient is stable in no distress at this time. NIH score of 1, patient's CBC CMP were unremarkable total bili 1.6, BNP 811, tox screen is negative, MRI was negative, troponin was negative, urinalysis was positive for nitrates, culture pending. Patient's head neck CTA negative for any significant stenosis or occlusion of major intracranial or extracranial vasculature, head CT negative for any acute intracranial processes. Patient's EKG sinus rhythm with a rate of 77 ST elevation in lateral leads which is unchanged from EKG from 07/2018. Ed Consulted tele stroke. Patient's blood pressure continues to be hypertensive emergency is placed in the ICU on a nicardipine drip, tele health informatics advisor consulted. Patient admitted for hypertensive urgency rule out CVA. Patient History Medical History CVA (cerebral vascular accident) Hypertension Patient denies medical problems Surgical History H/O knee surgery Family & Social History Family History (Updated 07/11/22 @ 00:47 by LV Valdovinos) Father Myocardial infarction Sister Myocardial infarction Social History: household members spouse Prior Living Arrangements House lives independently Yes Safety & Behavioral: Feels Safe in Current Yes Environment Been Physically Hurt or No Threatened By a Person Tobacco & Substance use: Smoking Status Never smoker alcohol intake current alcohol intake frequency 0-2 drinks per day Substance Use Type does not use Meds Home Medications and Allergies Home Medications Medication Instructions Recorded Confirmed Type aspirin 81 mg tablet,delayed 81 mg PO DAILY #30 tabs 07/27/18 07/29/18 Rx release (Maribeth Low Dose Aspirin) atorvastatin 40 mg tablet 40 mg PO DAILY #30 tabs 07/27/18 07/29/18 Rx lisinopril 10 mg tablet 10 mg PO DAILY #30 tabs 07/27/18 07/29/18 Rx nifedipine 30 mg tablet,extended 30 mg PO DAILY #30 tabs 08/03/18 Rx release 24 hr Allergies Allergy/AdvReac Type Severity Reaction Status Date / Time diazepam [From Valium] AdvReac Intermediate Hallucinati Verified 07/29/18 18:44 ng hydralazine AdvReac Intermediate skin Verified 08/01/18 09:22 blotches, pressure in head from IV dose, agitation Review of Systems Review of Systems Narrative: All 12 point systems reviewed with the patient and are negative except otherwise documented. Exam Vital Signs (past 8 hours): - 07/10/22 16:46 07/10/22 16:35 07/10/22 17:31 Temperature Pulse Rate 75 75 69 Respiratory Rate Blood Pressure 281/144 H Pulse Oximetry 99 Oxygen Delivery Method 07/10/22 16:47 07/10/22 16:47 07/10/22 16:54 Temperature Pulse Rate 76 68 Respiratory Rate 17 14 Blood Pressure 281/147 H Pulse Oximetry 98 98 Oxygen Delivery Method 07/10/22 16:54 07/10/22 17:00 07/10/22 17:00 Temperature Pulse Rate 66 Respiratory Rate 20 Blood Pressure 264/135 H 265/141 H Pulse Oximetry 98 Oxygen Delivery Method 07/10/22 17:15 07/10/22 17:15 07/10/22 17:30 Temperature Pulse Rate 65 69 Respiratory Rate 16 20 Blood Pressure 248/129 H Pulse Oximetry 98 98 Oxygen Delivery Method 07/10/22 17:43 07/10/22 17:43 07/10/22 17:45 Temperature Pulse Rate 67 68 Respiratory Rate 15 11 L Blood Pressure 248/126 H Pulse Oximetry 99 99 Oxygen Delivery Method 07/10/22 17:45 07/10/22 18:00 07/10/22 18:00 Temperature Pulse Rate 73 Respiratory Rate 20 Blood Pressure 237/125 H 230/122 H Pulse Oximetry 99 Oxygen Delivery Method 07/10/22 18:15 07/10/22 18:15 07/10/22 18:41 Temperature Pulse Rate 82 75 Respiratory Rate 24 Blood Pressure 230/106 H 233/117 H Pulse Oximetry 98 Oxygen Delivery Method 07/10/22 18:41 07/10/22 18:30 07/10/22 18:31 Temperature Pulse Rate 75 71 71 Respiratory Rate 15 17 Blood Pressure 233/117 H Pulse Oximetry 98 98 Oxygen Delivery Method 07/10/22 18:31 07/10/22 19:29 07/10/22 19:30 Temperature Pulse Rate 80 79 Respiratory Rate 31 H 18 Blood Pressure 233/117 H Pulse Oximetry 95 Oxygen Delivery Method 07/10/22 19:32 07/10/22 19:32 07/10/22 20:00 Temperature 98.0 F Pulse Rate 72 Respiratory Rate 11 L Blood Pressure 227/130 H 236/163 H Pulse Oximetry 99 Oxygen Delivery Method 07/10/22 20:00 07/10/22 20:30 07/10/22 20:30 Temperature Pulse Rate 73 83 Respiratory Rate 25 H 16 Blood Pressure 223/108 H Pulse Oximetry 99 98 Oxygen Delivery Method 07/10/22 21:29 07/10/22 21:00 07/10/22 21:00 Temperature Pulse Rate 87 82 Respiratory Rate 20 Blood Pressure 191/98 H 191/98 H Pulse Oximetry 98 Oxygen Delivery Method 07/10/22 21:30 07/10/22 21:30 07/10/22 22:00 Temperature Pulse Rate 84 Respiratory Rate 25 H Blood Pressure 192/100 H 187/93 H Pulse Oximetry 98 Oxygen Delivery Method 07/10/22 22:00 07/10/22 20:00 07/10/22 22:30 Temperature Pulse Rate 84 Respiratory Rate 19 Blood Pressure 184/88 H Pulse Oximetry Oxygen Delivery Method Room Air 07/10/22 22:30 07/10/22 23:00 07/10/22 23:00 Temperature Pulse Rate 81 83 Respiratory Rate 17 17 Blood Pressure 183/86 H Pulse Oximetry 97 97 Oxygen Delivery Method 07/10/22 23:30 07/10/22 23:30 07/11/22 00:00 Temperature Pulse Rate 81 Respiratory Rate 19 Blood Pressure 167/83 H 169/80 H Pulse Oximetry 95 Oxygen Delivery Method 07/11/22 00:00 07/11/22 00:00 Temperature 98 F Pulse Rate 81 Respiratory Rate 16 Blood Pressure Pulse Oximetry 96 Oxygen Delivery Method Room Air Oxygen Delivery Method Room Air Narrative Exam Narrative: General: Patient is a well-developed, well-nourished in no distress at this time. HEENT: Normocephalic, atraumatic, extraocular muscles intact, oral pharynx is clear and mucous membranes are moist. Neck is supple and symmetric, trachea is midline, no adenopathy, no thyroid enlargement, nontender, no masses palpated. Negative for JVD Chest: Normal AP diameter and contour without kyphoscoliosis, no nasal flaring, retractions, or tachypneic labored Lungs: Auscultation of all lung hernandez are clear without adventitious sounds, wheezes, rhonchi, or rales. Cardio: S1 & S2 with regular rate and rhythm without rubs, or gallops, no carotid bruit, no cardiac pulsations present. positive 2/6 HAMLET Abdomen: Soft nontender, negative for organomegaly, or masses. Bowel sounds are present in all 4 quadrants without guarding or rebound, no CVA tenderness. Musculoskeletal: Muscle strength and tone are equal within normal limits, no deformity, crepitus, effusions, cyanosis, clubbing or edema present. Full range of motion intact radial and pedal pulses are normal. Skin: Warm dry and intact without rashes, ulcerations or petechiae. Neuro: Alert and orientated x3, strength is +5/5 in all extremities, sensation to touch intact, no gross deficits noted of cranial nerves. Psych: Patient has a well-kept appearance, appropriate affect, mental status attitude thought context and judgment are appropriate for age. Objective Labs Result Diagrams: 07/10/22 15:50 07/10/22 15:50 Labs: Laboratory Results - last 24 hr 07/10/22 07/10/22 07/10/22 15:50 15:50 15:50 WBC 5.6 RBC 4.45 L Hgb 14.0 Hct 40.0 L MCV 90.0 MCH 31.4 MCHC 34.9 RDW 13.3 Plt Count 179 Neut % (Auto) 63.6 Lymph % (Auto) 22.7 L [place] % (Auto) 11.5 Eos % (Auto) 1.6 L Baso % (Auto) 0.6 Neut # (Auto) 3600 Lymph # (Auto) 1300 [place] # (Auto) 600 Eos # (Auto) 100 Baso # (Auto) 0 PT 11.6 INR 1.0 APTT 34 Sodium 137 Potassium 3.8 Chloride 100 Carbon Dioxide 33 H BUN 17 Creatinine 1.22 Estimated GFR > 60 BUN/Creatinine Ratio 13.9 Glucose 107 Calcium 8.8 Total Bilirubin 1.6 H AST 33 ALT 22 Alkaline Phosphatase 49 Total Creatine Kinase 103 CK-MB (CK-2) 1.38 CK-MB (CK-2) Rel Index 1.3 L Troponin I 0.012 NT-Pro-B Natriuret Pep 811 H Total Protein 7.5 Albumin 4.3 Globulin 3.2 Albumin/Globulin Ratio 1.3 Urine Color Urine Appearance Urine pH Ur Specific [place] Urine Protein Urine Glucose (UA) Urine Ketones Urine Occult Blood Urine Nitrate Urine Bilirubin Urine Urobilinogen Ur Leukocyte Esterase Urine RBC Urine WBC Ur Squamous Epith Cells Urine Bacteria Ur Culture Indicated? Nasal Screen MRSA (PCR) U Opiates 300ng/mL cut Ur Oxycodone Screen Urine Methadone Screen Ur Barbiturates Screen U Tricyclic Antidepress Ur Phencyclidine Scrn Ur Amphetamines Screen U Methamphetamines Scrn Ur MDMA Scrn (Ecstasy) U Benzodiazepines Scrn Urine Cocaine Screen U Marijuana (THC) Screen SARS-CoV-2 (PCR) 07/10/22 07/10/22 07/10/22 16:10 16:20 16:20 WBC RBC Hgb Hct MCV MCH MCHC RDW Plt Count Neut % (Auto) Lymph % (Auto) [place] % (Auto) Eos % (Auto) Baso % (Auto) Neut # (Auto) Lymph # (Auto) [place] # (Auto) Eos # (Auto) Baso # (Auto) PT INR APTT Sodium Potassium Chloride Carbon Dioxide BUN Creatinine Estimated GFR BUN/Creatinine Ratio Glucose Calcium Total Bilirubin AST ALT Alkaline Phosphatase Total Creatine Kinase CK-MB (CK-2) CK-MB (CK-2) Rel Index Troponin I NT-Pro-B Natriuret Pep Total Protein Albumin Globulin Albumin/Globulin Ratio Urine Color Yellow Urine Appearance Clear Urine pH 5.5 Ur Specific [place] <=1.005 Urine Protein Negative Urine Glucose (UA) Negative Urine Ketones Negative Urine Occult Blood Trace-intact Urine Nitrate Positive H Urine Bilirubin Negative Urine Urobilinogen 0.2 Ur Leukocyte Esterase Negative Urine RBC 0-1/hpf Urine WBC 0-1/hpf Ur Squamous Epith Cells None seen Urine Bacteria Occasional (0-1) Ur Culture Indicated? Specimen cultured Nasal Screen MRSA (PCR) U Opiates 300ng/mL cut Negative Ur Oxycodone Screen Negative Urine Methadone Screen Negative Ur Barbiturates Screen Negative U Tricyclic Antidepress Negative Ur Phencyclidine Scrn Negative Ur Amphetamines Screen Negative U Methamphetamines Scrn Negative Ur MDMA Scrn (Ecstasy) Negative U Benzodiazepines Scrn Negative Urine Cocaine Screen Negative U Marijuana (THC) Screen TNP SARS-CoV-2 (PCR) Negative 07/10/22 19:45 WBC RBC Hgb Hct MCV MCH MCHC RDW Plt Count Neut % (Auto) Lymph % (Auto) [place] % (Auto) Eos % (Auto) Baso % (Auto) Neut # (Auto) Lymph # (Auto) [place] # (Auto) Eos # (Auto) Baso # (Auto) PT INR APTT Sodium Potassium Chloride Carbon Dioxide BUN Creatinine Estimated GFR BUN/Creatinine Ratio Glucose Calcium Total Bilirubin AST ALT Alkaline Phosphatase Total Creatine Kinase CK-MB (CK-2) CK-MB (CK-2) Rel Index Troponin I NT-Pro-B Natriuret Pep Total Protein Albumin Globulin Albumin/Globulin Ratio Urine Color Urine Appearance Urine pH Ur Specific [place] Urine Protein Urine Glucose (UA) Urine Ketones Urine Occult Blood Urine Nitrate Urine Bilirubin Urine Urobilinogen Ur Leukocyte Esterase Urine RBC Urine WBC Ur Squamous Epith Cells Urine Bacteria Ur Culture Indicated? Nasal Screen MRSA (PCR) Negative for mrsa U Opiates 300ng/mL cut Ur Oxycodone Screen Urine Methadone Screen Ur Barbiturates Screen U Tricyclic Antidepress Ur Phencyclidine Scrn Ur Amphetamines Screen U Methamphetamines Scrn Ur MDMA Scrn (Ecstasy) U Benzodiazepines Scrn Urine Cocaine Screen U Marijuana (THC) Screen SARS-CoV-2 (PCR) Assessment & Plan Assessment & Plan narrative: Chao Anguiano is a 66-year-old male with history of stroke in 2018, hypertension and dyslipidemia who stopped taking his medications since approximately 2019, because they destroyed his quality of life. Patient admitted for HTN Emergency, in the setting of uncontrolled HTN, neurological deficit rule out CVA. 1. Hypertensive emergency in the setting of uncontrolled hypertension, medication noncompliance, acute on chronic, present on admission -initial blood pressures 264/134, 262/142, 233/117 -patient is stable in no distress this time -in ED patient was initially given 20 mg amlodipine, 10 mg hydralazine, 10 mg Lobatelol which decreased HR, but not B/P - placed on a nicardipine drip -patient given Norvasc and lisinopril Po on admit to floor and start to taper off nicardipine drip -patient admitted to ICU, health informatics advisor consult -Goal SBP 180/ -echo Ordered -A1C, TSH 2. Vertigo with diplopia in the lower field of vision, acute, present on admission -Possible TIA vs CVA. likely exacerbated by B/P - head neck CTA negative for any significant stenosis or occlusion of major intracranial or extracranial vasculature, -head CT negative for any acute intracranial processes. -MR negative for CVA - will continue to monitor if vision changes resolve, Vertigo has resolved. -If symptoms persist, repeat Head MRI ? 3. History of cardioembolic cerebrovascular accident (CVA), chronic, present on admission -start ASA, Lipitor - PT/OT consultation Code status:DNR Surrogate decision maker: Spouse Steffanie ARNOLD PCR: Negative DVT/VTE prophylaxis: Lovenox and SCDs Disposition: Patient admitted for hypertensive emergency rule out CVA, expected length of stay greater than 2 midnights I have utilized all available immediate resources to obtain, update, or review the patient's current medications. I confirmed that the patient's advanced care plan is present, Code status is documented and/or surrogate decision maker is listed in the patient's medical record. Time Spent With Patient Critical Care time: I spent a total of [] minutes of critical care time on this patient's care today; this time is exclusive of procedural time. Quality VTE Deep Vein Thrombosis/Pulmonary Embolism Present on Admission: No
--- NOTE | 2022-07-11 00:45 | DI.ECHO.S_ITS ---
[facility]---------+ [facility] +---------+ : : [address] : : : : [id number] : : : : Phone: [phone]+ Echocardiogram Report + + :Name: ART COLEMAN Study Date: 07/11/2022 Height: 73 in : :[facility] ReadingLocation: Weight: 198 lb : : Gender: Male BSA: 2.1 m2 : :: 1955 Age: 66 yrs BP: 163/87 mmHg: :Reason For Study: HYPERTENSION EMERGENCY : :Ordering Physician: ISIDRA, : :JERO Performed By: Juliana Olivares : :Referring: JERO MINER : + + Interpretation Summary Normal sinus rhythm. Normal LV size and moderate concentric left ventricular hypertrophy. Normal wall motion and LV systolic function. EF is 60-65%. Stage I diastolic dysfunction. Aortic sclerosis without stenosis. Otherwise no significant valvular abnormalities. Normal chamber sizes. Uncontrolled BP noted. Compared to prior study 07/26/2018 LVH progressed from mild to moderate. BP remains uncontrolled. Procedure: A two-dimensional transthoracic echocardiogram with color flow and Doppler was performed. The study quality was technically adequate. Comparison is made with the echocardiogram of 07/26/2018. The patient was in sinus rhythm with heart rates between 76-80 bpm during the exam. Left Ventricle: The left ventricle is normal in size. There is moderate concentric left ventricular hypertrophy. The ejection fraction is estimated to be 60-65%. Right Ventricle: The right ventricle is normal in size and function. Atria: The left atrial size is normal. Right atrial size is normal. There is no Doppler evidence for an interatrial shunt. Mitral Valve: The mitral valve is normal in structure and function. There is trace mitral regurgitation. Aortic Valve: The aortic valve is trileaflet. The aortic valve opens well. There is no aortic valve stenosis. There is trace aortic regurgitation. Tricuspid Valve: The tricuspid valve is normal in structure and function. There is mild tricuspid regurgitation. Pulmonic Valve: The pulmonic valve is not well visualized. There is no pulmonic valvular regurgitation. Great Vessels: The aortic root is normal size. The ascending aorta is at the upper limits of normal in size. The IVC is of normal diameter and collapses greater than 50% with a sniff. This suggests a low right atrial pressure of 3 mm Hg. Pericardium/ Pleura There is no pericardial effusion. There is no pleural effusion. MMode/2D Measurements & Calculations LVIDd: 4.4 cm LVOT diam: 2.0 cm LVIDs: 2.7 cm Ao root diam: 3.4 cm FS: 39.8 % asc Aorta Diam: 3.7 cm EPSS: 0.38 cm Ao Arch Diam (Prox Trans): 3.4 cm IVSd: 1.4 cm LVPWd: 1.4 cm LV gonzales. diameter/BSA (cm/m^2): 2.1 LV sys. diameter/BSA (cm/m^2): 1.2 LA A2 area: 20.0 cm2 RA long axis: 5.3 cm LA A4 area: 17.3 cm2 RA area: 14.9 cm2 LA length (vol): 4.8 cm RA vol: 35.4 ml LA vol: 60.9 ml RA : 16.5 ml/m2 LA vol index: 28.4 ml/m2 IVC diam: 1.3 cm RVD1 (basal): 3.6 cm RVD2 (mid): 3.0 cm TAPSE: 2.3 cm Doppler Measurements & Calculations Ao V2 max: 193.2 cm/sec LVOT Max Juan Pablo: 143.8 cm/sec Ao V2 mean: 145.5 cm/sec LV V1 max P.3 mmHg Ao max P.9 mmHg LV V1 VTI: 28.8 cm Ao mean P.3 mmHg GLADYS(I,D): 2.6 cm2 Ao V2 VTI: 36.6 cm GLADYS(V,D): 2.4 cm2 sev ratio: 0.79 GLADYS indexed to BSA (cm^2/m^2): 1.2 MV E max juan pablo: 81.9 cm/sec PA V2 max: 108.2 cm/sec MV A max juan pablo: 113.6 cm/sec PA V2 mean: 68.7 cm/sec MV E/A: 0.72 PA mean P.2 mmHg Med Peak E' Juan Pablo: 5.1 cm/sec PA pr(Accel): 19.1 mmHg E/E' med: 15.9 Lat Peak E' Juan Pablo: 5.3 cm/sec E/E' lat: 15.3 E/e' average: 15.6 MV dec time: 0.33 sec SV(LVOT): 94.1 ml Electronically signed by: Gini Spiecr M.D. on Reading Physician:07/11/2022 12:07 PM
[2022-07-11 05:18] LABS: Add Manual Diff / Slide Review NO; Basophils Absolute Auto 0 /uL (0-100); Basophils Percent Auto 0.5 % (0-2); Eosinophils Absolute Auto 100 /uL (0-450); Eosinophils Percent Auto 1.6 % (2-4); Hematocrit 38.6 % (41-53); Hemoglobin 13.7 g/dL (13.5-17.5); Lymphocytes Absolute Auto 1100 /uL (1100-4500); Lymphocytes Percent Auto 16.7 % (25-40); Mean Corpuscular HGB Conc 35.6 % (30-36); Mean Corpuscular Hemoglobin 31.5 PG (26-34); Mean Corpuscular Volume 88.3 fL (80-100); Monocytes Absolute Auto 700 /uL (0-900); Monocytes Percent Auto 9.7 % (3-14); Neutrophils Absolute Auto 4800 /uL (1500-7000); Neutrophils Percent Auto 71.5 % (50-75); Platelet Count 192 X10^3/uL (150-400); Red Blood Cell Count 4.37 X10^6/uL (4.5-5.9); Red Cell Distribution Width 13.6 % (11.6-14.8); White Blood Cell Count 6.8 X10^3/uL (4.5-11.0)
[2022-07-11 05:42] LABS: BUN Creatinine Ratio 15.2 (6-22); Blood Urea Nitrogen 17 mg/dL (9-20); Calcium 8.3 mg/dL (8.4-10.2); Carbon Dioxide 31 mmol/L (22-32); Chloride 105 mmol/L (98-107); Estimated Glomerular Filt Rate > 60 mL/min (>60); Glucose 125 mg/dL (80-110); HEMOLYSIS < 15 (0-50); Magnesium 2.2 mg/dL (1.6-2.3); Potassium 3.6 mmol/L (3.4-5.1); Sodium 141 mmol/L (137-145)
[2022-07-11 05:46] LABS: Hemoglobin A1C% w Est Avg Glu 5.2 % (4.0-6.0)
[2022-07-11 05:54] LABS: Troponin I 0.042 ng/mL (0.01-0.034)
--- NOTE | 2022-07-11 06:29 | PC.NURSE ---
Shift Note-Patient admitted to ICU room 227 at 1930. A/O x4, says he has decreased vision in right eye, BISHNU. Initial BP 227/130, Nicardipine infusion started at 5mg/hr as ordered, SR 70s-80s, denies headache, dizziness, or chest pain. Tele Physician Practice Coordinator consulted, lisinopril and amlodipine ordered to start, Goal for SBP 180, nicardipine stopped at 2330, see vital trends.
[2022-07-11] MEDS: lisinopriL 10 MG TABLET PO (08:31)
[2022-07-11] MEDS: ASPIRIN EC 81 MG TABLET PO (08:31)
[2022-07-11] MEDS: ATORVASTATIN 20 MG TABLET 40 MG PO (08:32)
[2022-07-11] MEDS: ENOXAPARIN 40 MG/0.4 ML SYRINGE SUBCUT (08:32)
[2022-07-11] MEDS: AMLODIPINE 5 MG TABLET 10 MG PO (09:00)
--- NOTE | 2022-07-11 09:34 | PM.PN.1 ---
Exam Vital Signs (past 8 hours): - 07/11/22 02:00 07/11/22 02:00 07/11/22 02:30 Pulse Rate 77 77 Respiratory Rate 16 17 Blood Pressure 156/86 H Pulse Oximetry 96 96 Oxygen Delivery Method 07/11/22 03:00 07/11/22 03:00 07/11/22 03:30 Pulse Rate 76 76 Respiratory Rate 15 19 Blood Pressure 139/75 Pulse Oximetry 96 96 Oxygen Delivery Method 07/11/22 04:00 07/11/22 04:00 07/11/22 04:30 Pulse Rate 74 75 Respiratory Rate 17 18 Blood Pressure 165/85 H Pulse Oximetry 95 95 Oxygen Delivery Method 07/11/22 05:02 07/11/22 05:03 07/11/22 05:03 Pulse Rate 86 80 Respiratory Rate 12 14 Blood Pressure 185/90 H Pulse Oximetry 96 98 Oxygen Delivery Method 07/11/22 05:00 07/11/22 05:30 07/11/22 06:00 Pulse Rate 74 Respiratory Rate 20 Blood Pressure 163/87 H Pulse Oximetry 97 Oxygen Delivery Method Room Air 07/11/22 06:00 07/11/22 06:30 07/11/22 07:00 Pulse Rate 73 70 Respiratory Rate 18 0 L Blood Pressure 167/97 H Pulse Oximetry 96 96 Oxygen Delivery Method 07/11/22 07:00 07/11/22 07:30 07/11/22 08:00 Pulse Rate 72 71 Respiratory Rate 15 19 Blood Pressure 149/91 H Pulse Oximetry 96 96 Oxygen Delivery Method 07/11/22 08:00 07/11/22 08:31 07/11/22 09:00 Pulse Rate 69 76 Respiratory Rate 18 Blood Pressure 149/91 H Pulse Oximetry 96 Oxygen Delivery Method Room Air 07/11/22 08:30 07/11/22 09:00 07/11/22 09:00 Pulse Rate 75 78 Respiratory Rate 21 20 Blood Pressure 179/100 H Pulse Oximetry 96 96 Oxygen Delivery Method Oxygen Delivery Method Room Air Narrative Exam Narrative: General: Patient is a well-developed, well-nourished in no distress at this time. HEENT: Normocephalic, atraumatic, extraocular muscles intact, oral pharynx is clear and mucous membranes are moist. Neck is supple and symmetric, trachea is midline, no adenopathy, no thyroid enlargement, nontender, no masses palpated. Negative for JVD Chest: Normal AP diameter and contour without kyphoscoliosis, no nasal flaring, retractions, or tachypneic labored Lungs: Auscultation of all lung hernandez are clear without adventitious sounds, wheezes, rhonchi, or rales. Cardio: S1 & S2 with regular rate and rhythm without rubs, or gallops, no carotid bruit, no cardiac pulsations present. positive 2/6 HAMLET Abdomen: Soft nontender, negative for organomegaly, or masses. Bowel sounds are present in all 4 quadrants without guarding or rebound, no CVA tenderness. Musculoskeletal: Muscle strength and tone are equal within normal limits, no deformity, crepitus, effusions, cyanosis, clubbing or edema present. Full range of motion intact radial and pedal pulses are normal. Skin: Warm dry and intact without rashes, ulcerations or petechiae. Neuro: Alert and orientated x3, strength is +5/5 in all extremities, sensation to touch intact, no gross deficits noted of cranial nerves. Psych: Patient has a well-kept appearance, appropriate affect, mental status attitude thought context and judgment are appropriate for age. Objective Labs Result Diagrams: 07/11/22 04:55 07/11/22 04:55 Labs: Laboratory Results - last 24 hr 07/10/22 07/10/22 07/10/22 15:50 15:50 15:50 WBC 5.6 RBC 4.45 L Hgb 14.0 Hct 40.0 L MCV 90.0 MCH 31.4 MCHC 34.9 RDW 13.3 Plt Count 179 Neut % (Auto) 63.6 Lymph % (Auto) 22.7 L Davis % (Auto) 11.5 Eos % (Auto) 1.6 L Baso % (Auto) 0.6 Neut # (Auto) 3600 Lymph # (Auto) 1300 Davis # (Auto) 600 Eos # (Auto) 100 Baso # (Auto) 0 PT 11.6 INR 1.0 APTT 34 Sodium 137 Potassium 3.8 Chloride 100 Carbon Dioxide 33 H BUN 17 Creatinine 1.22 Estimated GFR > 60 BUN/Creatinine Ratio 13.9 Glucose 107 Hemoglobin A1c Calcium 8.8 Magnesium Total Bilirubin 1.6 H AST 33 ALT 22 Alkaline Phosphatase 49 Total Creatine Kinase 103 CK-MB (CK-2) 1.38 CK-MB (CK-2) Rel Index 1.3 L Troponin I 0.012 NT-Pro-B Natriuret Pep 811 H Total Protein 7.5 Albumin 4.3 Globulin 3.2 Albumin/Globulin Ratio 1.3 Urine Color Urine Appearance Urine pH Ur Specific [place] Urine Protein Urine Glucose (UA) Urine Ketones Urine Occult Blood Urine Nitrate Urine Bilirubin Urine Urobilinogen Ur Leukocyte Esterase Urine RBC Urine WBC Ur Squamous Epith Cells Urine Bacteria Ur Culture Indicated? Nasal Screen MRSA (PCR) U Opiates 300ng/mL cut Ur Oxycodone Screen Urine Methadone Screen Ur Barbiturates Screen U Tricyclic Antidepress Ur Phencyclidine Scrn Ur Amphetamines Screen U Methamphetamines Scrn Ur MDMA Scrn (Ecstasy) U Benzodiazepines Scrn Urine Cocaine Screen U Marijuana (THC) Screen SARS-CoV-2 (PCR) 07/10/22 07/10/22 07/10/22 16:10 16:20 16:20 WBC RBC Hgb Hct MCV MCH MCHC RDW Plt Count Neut % (Auto) Lymph % (Auto) Davis % (Auto) Eos % (Auto) Baso % (Auto) Neut # (Auto) Lymph # (Auto) Davis # (Auto) Eos # (Auto) Baso # (Auto) PT INR APTT Sodium Potassium Chloride Carbon Dioxide BUN Creatinine Estimated GFR BUN/Creatinine Ratio Glucose Hemoglobin A1c Calcium Magnesium Total Bilirubin AST ALT Alkaline Phosphatase Total Creatine Kinase CK-MB (CK-2) CK-MB (CK-2) Rel Index Troponin I NT-Pro-B Natriuret Pep Total Protein Albumin Globulin Albumin/Globulin Ratio Urine Color Yellow Urine Appearance Clear Urine pH 5.5 Ur Specific [place] <=1.005 Urine Protein Negative Urine Glucose (UA) Negative Urine Ketones Negative Urine Occult Blood Trace-intact Urine Nitrate Positive H Urine Bilirubin Negative Urine Urobilinogen 0.2 Ur Leukocyte Esterase Negative Urine RBC 0-1/hpf Urine WBC 0-1/hpf Ur Squamous Epith Cells None seen Urine Bacteria Occasional (0-1) Ur Culture Indicated? Specimen cultured Nasal Screen MRSA (PCR) U Opiates 300ng/mL cut Negative Ur Oxycodone Screen Negative Urine Methadone Screen Negative Ur Barbiturates Screen Negative U Tricyclic Antidepress Negative Ur Phencyclidine Scrn Negative Ur Amphetamines Screen Negative U Methamphetamines Scrn Negative Ur MDMA Scrn (Ecstasy) Negative U Benzodiazepines Scrn Negative Urine Cocaine Screen Negative U Marijuana (THC) Screen TNP SARS-CoV-2 (PCR) Negative 07/10/22 07/11/22 07/11/22 19:45 04:55 04:55 WBC 6.8 RBC 4.37 L Hgb 13.7 Hct 38.6 L MCV 88.3 MCH 31.5 MCHC 35.6 RDW 13.6 Plt Count 192 Neut % (Auto) 71.5 Lymph % (Auto) 16.7 L Davis % (Auto) 9.7 Eos % (Auto) 1.6 L Baso % (Auto) 0.5 Neut # (Auto) 4800 Lymph # (Auto) 1100 Davis # (Auto) 700 Eos # (Auto) 100 Baso # (Auto) 0 PT INR APTT Sodium Potassium Chloride Carbon Dioxide BUN Creatinine Estimated GFR BUN/Creatinine Ratio Glucose Hemoglobin A1c Calcium Magnesium Total Bilirubin AST ALT Alkaline Phosphatase Total Creatine Kinase CK-MB (CK-2) CK-MB (CK-2) Rel Index Troponin I 0.042 H NT-Pro-B Natriuret Pep Total Protein Albumin Globulin Albumin/Globulin Ratio Urine Color Urine Appearance Urine pH Ur Specific [place] Urine Protein Urine Glucose (UA) Urine Ketones Urine Occult Blood Urine Nitrate Urine Bilirubin Urine Urobilinogen Ur Leukocyte Esterase Urine RBC Urine WBC Ur Squamous Epith Cells Urine Bacteria Ur Culture Indicated? Nasal Screen MRSA (PCR) Negative for mrsa U Opiates 300ng/mL cut Ur Oxycodone Screen Urine Methadone Screen Ur Barbiturates Screen U Tricyclic Antidepress Ur Phencyclidine Scrn Ur Amphetamines Screen U Methamphetamines Scrn Ur MDMA Scrn (Ecstasy) U Benzodiazepines Scrn Urine Cocaine Screen U Marijuana (THC) Screen SARS-CoV-2 (PCR) 07/11/22 07/11/22 04:55 04:55 WBC RBC Hgb Hct MCV MCH MCHC RDW Plt Count Neut % (Auto) Lymph % (Auto) Davis % (Auto) Eos % (Auto) Baso % (Auto) Neut # (Auto) Lymph # (Auto) Davis # (Auto) Eos # (Auto) Baso # (Auto) PT INR APTT Sodium 141 Potassium 3.6 Chloride 105 Carbon Dioxide 31 BUN 17 Creatinine 1.12 Estimated GFR > 60 BUN/Creatinine Ratio 15.2 Glucose 125 H Hemoglobin A1c 5.2 Calcium 8.3 L Magnesium 2.2 Total Bilirubin AST ALT Alkaline Phosphatase Total Creatine Kinase CK-MB (CK-2) CK-MB (CK-2) Rel Index Troponin I NT-Pro-B Natriuret Pep Total Protein Albumin Globulin Albumin/Globulin Ratio Urine Color Urine Appearance Urine pH Ur Specific [place] Urine Protein Urine Glucose (UA) Urine Ketones Urine Occult Blood Urine Nitrate Urine Bilirubin Urine Urobilinogen Ur Leukocyte Esterase Urine RBC Urine WBC Ur Squamous Epith Cells Urine Bacteria Ur Culture Indicated? Nasal Screen MRSA (PCR) U Opiates 300ng/mL cut Ur Oxycodone Screen Urine Methadone Screen Ur Barbiturates Screen U Tricyclic Antidepress Ur Phencyclidine Scrn Ur Amphetamines Screen U Methamphetamines Scrn Ur MDMA Scrn (Ecstasy) U Benzodiazepines Scrn Urine Cocaine Screen U Marijuana (THC) Screen SARS-CoV-2 (PCR) [facility] Medical History CVA (cerebral vascular accident) Hypertension Patient denies medical problems Surgical History H/O knee surgery Family History (Updated 07/11/22 @ 00:47 by LV Valdovinos) Father Myocardial infarction Sister Myocardial infarction Social History marital status: household members: spouse lives independently: Yes 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 Patient admitted for HTN Emergency, in the setting of uncontrolled HTN, neurological deficit rule out CVA. 1. Hypertensive emergency in the setting of uncontrolled hypertension, medication noncompliance, acute on chronic, present on admission -initial blood pressures 264/134, 262/142, 233/117 -patient is stable in no distress this time -in ED patient was initially given 20 mg amlodipine, 10 mg hydralazine, 10 mg Lobatelol which decreased HR, but not B/P - placed on a nicardipine drip -patient given Norvasc and lisinopril Po on admit to floor and start to taper off nicardipine drip -patient admitted to ICU, hr clerk consult -Goal SBP 180/ -echo Ordered -A1C, TSH 2. Vertigo with diplopia in the lower field of vision, acute, present on admission -Possible TIA vs CVA. likely exacerbated by B/P - head neck CTA negative for any significant stenosis or occlusion of major intracranial or extracranial vasculature, -head CT negative for any acute intracranial processes. -MR negative for CVA - will continue to monitor if vision changes resolve, Vertigo has resolved. -If symptoms persist, repeat Head MRI ? 3. History of cardioembolic cerebrovascular accident (CVA), chronic, present on admission -start ASA, Lipitor - PT/OT consultation Code status:DNR Surrogate decision maker: Spouse Steffanie ARNOLD PCR: Negative DVT/VTE prophylaxis: Lovenox and SCDs Disposition: Patient admitted for hypertensive emergency rule out CVA, expected length of stay greater than 2 midnights I have utilized all available immediate resources to obtain, update, or review the patient's current medications. I confirmed that the patient's advanced care plan is present, Code status is documented and/or surrogate decision maker is listed in the patient's medical record. Time Spent With Patient Critical Care time: I spent a total of [] minutes of critical care time on this patient's care today; this time is exclusive of procedural time. Quality VTE Deep Vein Thrombosis/Pulmonary Embolism Present on Admission: No
[2022-07-11] MEDS: NIFEdipine 30 MG TAB ER 60 MG PO (09:57)
[2022-07-11] MEDS: SODIUM CHLORIDE 0.9% FLUSH 10 ML IV (09:58)
--- NOTE | 2022-07-11 11:56 | CM.DANOTE ---
DCP: Case received, EMR reviewed and met with patient. Introduced self and role. Was able to obtain information regarding patient's baseline activity status prior to hospitalization. DCP assessment completed with information currently available. Patient is a 66 year old male who admitted yesterday evening to the care of the hospitalist team. PCP: Dr. Ramirez. Payer: confirmed: [employer] [place]. Patient came to the hospital via private vehicle sent over from his primary care provider, with double vision, high blood pressure. Patient had MRI, and will be having an echo today. He is here for a cardiac work up. Met with patient in his room. He is alert and oriented, independent at his baseline. He is retired, and lives in [place] with spouse, Steffanie. Patient indicated, he used to be on blood pressure medications, but didn't like the way they made me feel. P: DCP to continue to follow. Patient should be able to go home when he is deemed medically stable. Jacqueline Paul RN/Plastic Installer Discharge Planning/Care Management Discharge Assessment Start: 07/11/22 11:51 Freq: Status: Active Protocol: Document 07/11/22 11:51 (Rec: 07/11/22 11:56 [id number]) Discharge Planning Assessment Advance Directives? Yes Advance Directives on File Yes History Provided By Patient,Significant Other Prior Living Arrangements House Household Members spouse Type of transporation used prior to Drives own vehicle admit Independent with ADL's Yes Is patient alert and oriented? Yes Caregiver for Another No Barriers to Discharge No Discharge Plan Home Transportation Arrangement Spouse Referrals Initiated None needed Whiteboard Updated in Patient Room with Yes name and ext. # of Book[place] Review Status In Process Next Review Type Continued Stay Review
[2022-07-11] MEDS: CHLORTHALIDONE 25 MG TABLET PO (13:44)
--- NOTE | 2022-07-11 19:16 | PM.DS.1 ---
History of Present Illness History of Present Illness Date Patient Seen: 07/11/22 Time Patient Seen: 12:00 Chief complaint: very high blood pressure Narrative: Chao Anguiano is a 66-year-old male with history of stroke in 2018, hypertension and dyslipidemia who has been off medications since approximately 2018 or 2019.? Patient reports that the medications destroyed his quality of life by making him feel extremely tired and sluggish.? Patient presents today to the ED with diplopia in the lower field of vision equal bilaterally that has been consistently present for 2 weeks with episodes of dizziness.? Patient states he just woke up with it.? ? He is not appreciate any misalignment of his pupils or eyes nor has his .? Patient states he went to an an fresh meat grader today, who noted his blood pressure was in the 250s and was advised to go to the ED.?the fresh meat grader contacted ED provider and noted that there exam did not reveal any etiology for changes in visual field.? Patient states he has occasional episodes of severe dizziness.? He denies headache but has pressure behind his eyes, and to the left bahai.? He denies any vision loss, tinnitus, changes in hearing, difficulty with speech, difficulty with swallowing, balance or coordination issues, dexterity issues, weakness to extremities, difficulty with ambulation, neck, back, or chest pain, SOB, no abdominal pain, nausea, vomiting, diarrhea, constipation, any recent illness injury or trauma, no falls.? Patient is not taking any daily medications.? Is not currently established with primary care.? ? No tobacco, states he drinks to 6 alcoholic drinks weekly over the past 1-2 months he used to drink about 14 per week.? Denies any illicit substances. Patient present to the ED hypertensive emergency initial blood pressures 264/134, 262/142, 233/117 upon admit, temp 98.4?, HR 75, R 17, O2 saturation 98% on room air.? Upon admit patient is resting comfortably in bed double lower vision field continues, patient is stable in no distress at this time.? NIH score of 1, patient's CBC CMP were unremarkable total bili 1.6, BNP 811, tox screen is negative, MRI was negative, troponin was negative, urinalysis was positive for nitrates, culture pending.? Patient's head neck CTA negative for any significant stenosis or occlusion of major intracranial or extracranial vasculature, head CT negative for any acute intracranial processes.? Patient's EKG sinus rhythm with a rate of 77 ST elevation in lateral leads which is unchanged from EKG from 07/2018. Ed Consulted tele stroke.? Patient's blood pressure continues to be hypertensive emergency is placed in the ICU on a nicardipine drip, tele photolithographic stripper consulted.? Patient admitted for hypertensive urgency rule out CVA. Discharge Providers Provider Date of admission: 07/10/22 19:01 Discharge Date: 07/11/22 Primary care physician: Basilio Condon MD Consults: 07/10/22 19:22 Consult to Tele-photolithographic stripper Routine Comment: Consulting Provider: Zeynep [employer] Reason for consultation: Paleology Professor services Discharge provider: Melvin Garza DO Summary Hospital Course Discharge Diagnosis: 1. Hypertensive emergency in the setting of uncontrolled hypertension, medication noncompliance, acute on chronic, present on admission -initial blood pressures 264/134, 262/142, 233/117 -patient is stable in no distress this time -in ED patient was initially given 20 mg amlodipine, 10 mg hydralazine, 10 mg Lobatelol which decreased HR, but not B/P - placed on a nicardipine drip -patient given Norvasc and lisinopril Po on admit to floor and start to taper off nicardipine drip -patient admitted to ICU, photolithographic stripper consult -Goal SBP 180/ -echo Ordered and showed EF 60-65% with LVH -A1C, TSH wnl 2. Vertigo with diplopia in the lower field of vision, acute, present on admission -Possible TIA vs CVA. likely exacerbated by B/P - head neck CTA negative for any significant stenosis or occlusion of major intracranial or extracranial vasculature, -head CT negative for any acute intracranial processes. -MR negative for CVA - will continue to monitor if vision changes resolve, Vertigo has resolved. -If symptoms persist, repeat Head MRI ? 3. History of cardioembolic cerebrovascular accident (CVA), chronic, present on admission -start ASA, Lipitor - PT/OT consultation Hospital Course: Chao Anguiano is a 66-year-old male with history of stroke in 2018, hypertension and dyslipidemia who stopped taking his medications since approximately 2019, because they affected his quality of life making him tired. Patient admitted for HTN emergency, and to rule out CVA. MRI brain showed old infacrt, no new infarcts but white matter changes which may represent demyelinating disease. He reported 2 week history of blurry vision. Recommended he see a neurologist as outpatient. His BP improved with nicardipine drip and he was placed on amlodipine 10mg and chlorthalidone 25mg. His BP improved to 160's systolic. He was discharged to follow-up with PCP to monitor his BP and adjust his BP meds as needed. Time Spent with Patient Time spent: Greater than 30 minutes Exam Vital Signs (past 8 hours): - 07/11/22 11:30 07/11/22 12:00 07/11/22 12:00 Pulse Rate 82 81 Respiratory Rate 20 15 Blood Pressure 172/82 H Pulse Oximetry 96 97 07/11/22 12:30 07/11/22 13:00 07/11/22 13:00 Pulse Rate 83 85 Respiratory Rate 19 26 H Blood Pressure 168/85 H Pulse Oximetry 97 96 07/11/22 13:30 07/11/22 14:00 07/11/22 14:00 Pulse Rate 84 80 Respiratory Rate 29 H 18 Blood Pressure 160/88 H Pulse Oximetry 96 96 Oxygen Delivery Method Room Air Narrative Exam Narrative: General: Patient is a well-developed, well-nourished in no distress at this time. HEENT: Normocephalic, atraumatic, extraocular muscles intact, oral pharynx is clear and mucous membranes are moist. Neck is supple and symmetric, trachea is midline, no adenopathy, no thyroid enlargement, nontender, no masses palpated. Negative for JVD Chest: Normal AP diameter and contour without kyphoscoliosis, no nasal flaring, retractions, or tachypneic labored Lungs: Auscultation of all lung hernandez are clear without adventitious sounds, wheezes, rhonchi, or rales. Cardio: S1 & S2 with regular rate and rhythm without rubs, or gallops, no carotid bruit, no cardiac pulsations present. positive 2/6 HAMLET Abdomen: Soft nontender, negative for organomegaly, or masses. Bowel sounds are present in all 4 quadrants without guarding or rebound, no CVA tenderness. Musculoskeletal: Muscle strength and tone are equal within normal limits, no deformity, crepitus, effusions, cyanosis, clubbing or edema present. Full range of motion intact radial and pedal pulses are normal. Skin: Warm dry and intact without rashes, ulcerations or petechiae. Neuro: Alert and orientated x3, strength is +5/5 in all extremities, sensation to touch intact, no gross deficits noted of cranial nerves. Psych: Patient has a well-kept appearance, appropriate affect, mental status attitude thought context and judgment are appropriate for age. Objective Labs Result Diagrams: 07/11/22 04:55 07/11/22 04:55 Labs: Laboratory Results - last 24 hr 07/10/22 07/11/22 07/11/22 19:45 04:55 04:55 WBC 6.8 RBC 4.37 L Hgb 13.7 Hct 38.6 L MCV 88.3 MCH 31.5 MCHC 35.6 RDW 13.6 Plt Count 192 Neut % (Auto) 71.5 Lymph % (Auto) 16.7 L [place] % (Auto) 9.7 Eos % (Auto) 1.6 L Baso % (Auto) 0.5 Neut # (Auto) 4800 Lymph # (Auto) 1100 [place] # (Auto) 700 Eos # (Auto) 100 Baso # (Auto) 0 Sodium Potassium Chloride Carbon Dioxide BUN Creatinine Estimated GFR BUN/Creatinine Ratio Glucose Hemoglobin A1c Calcium Magnesium Troponin I 0.042 H Nasal Screen MRSA (PCR) Negative for mrsa 07/11/22 07/11/22 04:55 04:55 WBC RBC Hgb Hct MCV MCH MCHC RDW Plt Count Neut % (Auto) Lymph % (Auto) [place] % (Auto) Eos % (Auto) Baso % (Auto) Neut # (Auto) Lymph # (Auto) [place] # (Auto) Eos # (Auto) Baso # (Auto) Sodium 141 Potassium 3.6 Chloride 105 Carbon Dioxide 31 BUN 17 Creatinine 1.12 Estimated GFR > 60 BUN/Creatinine Ratio 15.2 Glucose 125 H Hemoglobin A1c 5.2 Calcium 8.3 L Magnesium 2.2 Troponin I Nasal Screen MRSA (PCR) [facility] Medical History CVA (cerebral vascular accident) Hypertension Patient denies medical problems Surgical History H/O knee surgery Family History (Updated 07/11/22 @ 00:47 by LV Valdovinos) Father Myocardial infarction Sister Myocardial infarction Social History marital status: household members: spouse lives independently: Yes 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 You are now on 2 new blood pressure pills, amlodipine and chlorthalidone. Please take these every day and limit your salt intake which can also make your BP high. Follow-up with your PCP about ongoing blood pressure management. Discharge orders & Medications Prescriptions: New aspirin 81 mg Tablet,Delayed Release (Dr/Ec) 81 mg PO DAILY Qty: 90 0RF amlodipine 10 mg tablet 10 mg PO BEDTIME Qty: 90 0RF chlorthalidone 25 mg Tablet 25 mg PO DAILY Qty: 90 0RF atorvastatin 40 mg tablet 40 mg PO BEDTIME Qty: 90 0RF Follow up/Referrals: Basilio Condon MD [Primary Care Provider] - Visit Report/Discharge Packet Instructions: Recommendations to Help Prevent High Blood Pressure, High Blood Pressure (Hypertension) (Alternative Therapy), High Blood Pressure Discharge Data Primary Care Provider: Basilio Condon Quality VTE Deep Vein Thrombosis/Pulmonary Embolism Present on Admission: No
[2022-07-16 00:04] LABS: Aldosterone/Renin Activity Rat 0.1 (0.0-30.0); Plama Renin, LC/MS/MS 7.957 ng/mL/hr (0.167-5.380)
== END 2022-07-11 15:30 | disposition home or self-care (01) | DRG 305 ==
LOC: ED 16:02 → ICU 19:02
PROVIDERS: Admitting Provider Student in an Organized Health Care Education/Training Program; Emergency Provider Emergency Medicine; PCP Internal Medicine; Visit Provider Student in an Organized Health Care Education/Training Program
DX: I16.1 Hypertensive emergency (principal); H53.2 Diplopia; R42 Dizziness and giddiness; T46.5X6A Underdosing of other antihypertensive drugs, initial encounter; I10 Essential (primary) hypertension; E78.5 Hyperlipidemia, unspecified; Z66 Do not resuscitate; Z91.128 Patient's intentional underdosing of medication regimen for other reason; Z86.73 Personal history of transient ischemic attack (TIA), and cerebral infarction without residual deficits; Z20.822 Contact with and (suspected) exposure to COVID-19
CPT/HCPCS: 36415; 70450; 70496; 70498; 70551; 80048; 80053; 80305; 81001; 82088; 82550; 82553; 83036; 83735; 83880; 84244; 84484; 85025; 85610; 85730; 87086; 87635; 87797; 93005; 93306; 96374; 96375; 99285; 99291; C9803; J0360; J1650; Q9967

== ENCOUNTER → 2022-08-30 09:16 | Outpatient (CLI) | payer MEDICARE, OTHER, SELFPAY ==
[2022-07-10 22:09] VITALS: BMI 26.2
[2022-08-30 11:10] LABS: Add Manual Diff / Slide Review NO; Basophils Absolute Auto 0 /uL (0-100); Basophils Percent Auto 0.8 % (0-2); Eosinophils Absolute Auto 200 /uL (0-450); Eosinophils Percent Auto 4.2 % (2-4); Hemoglobin 14.2 g/dL (13.5-17.5); Lymphocytes Absolute Auto 1200 /uL (1100-4500); Lymphocytes Percent Auto 23.3 % (25-40); Mean Corpuscular HGB Conc 35.4 % (30-36); Mean Corpuscular Hemoglobin 31.5 PG (26-34); Mean Corpuscular Volume 88.9 fL (80-100); Monocytes Absolute Auto 700 /uL (0-900); Neutrophils Absolute Auto 3000 /uL (1500-7000); Neutrophils Percent Auto 57.7 % (50-75); Platelet Count 246 X10^3/uL (150-400); Red Cell Distribution Width 13.1 % (11.6-14.8); White Blood Cell Count 5.1 X10^3/uL (4.5-11.0)
[2022-08-30 11:23] LABS: Alanine Aminotransferase 38 IU/L (<50); Albumin 4.2 g/dL (3.5-5.0); Albumin Globulin Ratio 1.4 (1.0-2.8); Alkaline Phosphatase 55 U/L (38-126); Aspartate Aminotransferase 40 IU/L (17-59); BUN Creatinine Ratio 14.6 (6-22); Bilirubin Total 1.4 mg/dL (0.2-1.3); Blood Urea Nitrogen 15 mg/dL (9-20); Calcium 8.6 mg/dL (8.4-10.2); Carbon Dioxide 31 mmol/L (22-32); Chloride 99 mmol/L (98-107); Cholesterol 174 mg/dL (140-199); Estimated Glomerular Filt Rate > 60 mL/min (>60); Globulin 3.1 g/dL (1.7-4.1); Glucose 124 mg/dL (80-110); HDL Cholesterol 47 mg/dL (40-60); HEMOLYSIS < 15 (0-50); LDL Cholesterol Calculated 106 mg/dL (<100); Potassium 3.1 mmol/L (3.4-5.1); Sodium 140 mmol/L (137-145); Total Protein 7.3 g/dL (6.3-8.2); Triglycerides 107 mg/dL (35-150)
[2022-08-30 12:14] LABS: Creatinine Urine Random 51.6 mg/dL
[2022-08-30 12:18] LABS: Microalbumi Creatinin Ratio Ur 21.3 ug/mg CR (<30); Microalbumin Urine Random 1.1 mg/dL (0-1.6)
== END ==
PROVIDERS: PCP Family Medicine; Referring Provider Family Medicine; Visit Provider Family Medicine
DX: I69.30 Unspecified sequelae of cerebral infarction (principal); I10 Essential (primary) hypertension; E78.5 Hyperlipidemia, unspecified; I16.1 Hypertensive emergency
CPT/HCPCS: 36415; 80053; 80061; 82043; 82570; 85025

== ENCOUNTER → 2022-10-03 11:32 | Outpatient (CLI) | payer MEDICARE, OTHER, SELFPAY ==
[2022-07-10 22:09] VITALS: BMI 26.2
[2022-10-03 13:20] LABS: Alanine Aminotransferase 42 IU/L (<50); Albumin 4.3 g/dL (3.5-5.0); Albumin Globulin Ratio 1.5 (1.0-2.8); Alkaline Phosphatase 54 U/L (38-126); Aspartate Aminotransferase 35 IU/L (17-59); BUN Creatinine Ratio 17.8 (6-22); Bilirubin Total 1.3 mg/dL (0.2-1.3); Blood Urea Nitrogen 19 mg/dL (9-20); Carbon Dioxide 32 mmol/L (22-32); Chloride 98 mmol/L (98-107); Estimated Glomerular Filt Rate > 60 mL/min (>60); Globulin 2.9 g/dL (1.7-4.1); Glucose 124 mg/dL (80-110); HEMOLYSIS < 15 (0-50); Potassium 3.5 mmol/L (3.4-5.1); Sodium 138 mmol/L (137-145); Total Protein 7.2 g/dL (6.3-8.2)
[2022-10-03 18:01] LABS: Hemoglobin A1C% w Est Avg Glu 5.5 % (4.0-6.0)
== END ==
PROVIDERS: PCP Family Medicine; Referring Provider Family Medicine; Visit Provider Family Medicine
DX: R73.01 Impaired fasting glucose (principal); E87.6 Hypokalemia
CPT/HCPCS: 36415; 80053; 83036

== ENCOUNTER → 2022-11-19 10:05 | Outpatient (CLI) | payer MEDICARE, OTHER, SELFPAY ==
[2022-07-10 22:09] VITALS: BMI 26.2
[2022-11-19 12:19] LABS: COVID19 -Nasal RAPID Negative (Negative)
== END ==
PROVIDERS: PCP Family Medicine; Visit Provider Surgery
DX: Z01.812 Encounter for preprocedural laboratory examination (principal); Z20.822 Contact with and (suspected) exposure to COVID-19
CPT/HCPCS: 87635; C9803

== ENCOUNTER 2022-11-20 08:49 | Day surgery (SDC) | payer MEDICARE, OTHER, SELFPAY ==
[2022-07-10 22:09] VITALS: BMI 26.2
--- NOTE | 2022-11-20 | PATH_ITS ---
[facility] Accession Number: [id number] . 01 Material submitted: . PART A: colon - TRANSVERSE COLON PART B: colon - DESCENDING COLON . 01 Diagnosis: A. Transverse Colon, Biopsy: Fragments of tubular adenoma with high-grade dysplasia. Please see comment. Separate fragments of tubulovillous adenoma and tubular adenoma are also present. No evidence of invasive carcinoma. . B. Descending Colon, Biopsy: Fragments of tubulovillous adenoma and tubular adenoma. No evidence of malignancy or high-grade dysplasia. MRV 11/22/2022 1501 Local . 01 Comment: A. As part of routine quality assurance monitor, Dr. Barfield also reviewed this case and agrees with the interpretation. Dr. Sanchez gave preliminary results to Starr in Dr. Reno's office on 11/22/2022. . 01 Electronically signed: . Kathi Sanchez MD, Pathologist NPI- [id number] . 01 Gross description: . Part A: TRANSVERSE COLON: Received in formalin are multiple fragment(s) of jordan, soft tissue measuring 2.5 x 1.8 x 0.1 cm in aggregate submitted entirely in 1 cassette(s) Part B: DESCENDING COLON: Received in formalin are multiple fragment(s) of jordan, soft tissue measuring 2.2 x 1.0 x 0.1 cm in aggregate submitted entirely in 1 cassette(s) /CPE 11/21/2022 0931 Local . 01 Pathologist provided ICD-10: D12.3, D12.4 . 01 CPT . 729002, 586292 Specimen Comment: A courtesy copy of this report has been sent to [phone] Performed at: 01 [facility] [address] [place] [id number] MD Liang Kam MD Phone: [phone]
[2022-11-20 09:08] VITALS: BP 148/78; PULSE 74; RESP 16; TEMP 36.1; O2SAT 100; BMI 27.8
[2022-11-20] MEDS: LACTATED RINGERS 1,000 ML 200 ML IV (09:16)
--- NOTE | 2022-11-20 09:57 | PM.HP.1 ---
History of Present Illness History of Present Illness Date Patient Seen: 11/20/22 Time Patient Seen: 09:57 Chief complaint: Colonoscopy Narrative: Patient is here for a diagnostic colonoscopy following a positive fecal immunochemical test. He is never had a previous colonoscopy.. No personal or family history of colon cancer. On further history denies any recent gastrointestinal symptoms. No nausea, vomiting, abdominal pain, loss of appetite, unexplained weight loss, change in bowel habits, or blood per rectum. Patient History Medical History CVA (cerebral vascular accident) Hypertension Patient denies medical problems Surgical History H/O knee surgery Family & Social History Family History Father Myocardial infarction Sister Myocardial infarction Social History: household members spouse lives independently Yes Tobacco & Substance use: Smoking Status Never smoker alcohol intake current alcohol intake frequency 0-2 drinks per day Substance Use Type does not use Meds Home Medications and Allergies Home Medications Medication Instructions Recorded Confirmed Type amlodipine 10 mg tablet 10 mg PO BEDTIME #90 tabs 07/11/22 11/20/22 Rx aspirin 81 mg tablet,delayed 81 mg PO DAILY #90 tabs 07/11/22 11/20/22 Rx release atorvastatin 40 mg tablet 40 mg PO BEDTIME #90 tabs 07/11/22 11/20/22 Rx chlorthalidone 25 mg tablet 25 mg PO DAILY #90 tabs 07/11/22 11/20/22 Rx losartan 100 mg tablet 100 mg PO DAILY 11/20/22 11/20/22 History Allergies Allergy/AdvReac Type Severity Reaction Status Date / Time diazepam [From Valium] AdvReac Intermediate Hallucinati Verified 11/20/22 08:56 ng hydralazine AdvReac Intermediate skin Verified 11/20/22 08:56 blotches, pressure in head from IV dose, agitation Exam Vital Signs (past 8 hours): - 11/20/22 09:08 Temperature 96.9 F L Pulse Rate 74 Respiratory Rate 16 Blood Pressure 148/78 H Pulse Oximetry 100 Oxygen Delivery Method Room Air Oxygen Flow Rate 0 Oxygen Delivery Method Room Air Oxygen Flow Rate 0 Narrative Exam Narrative: General adult man alert oriented no acute distress Abdomen soft nontender nondistended Assessment & Plan Assessment and plan (1) Positive FIT (fecal immunochemical test): Status: Acute Assessment & Plan narrative: 67-year-old man with positive fecal immunochemical test here for diagnostic colonoscopy.. Technical details of the procedure were discussed. Risks, benefits, alternatives explained. Risks including but not limited to myocardial infarction, aspiration, bleeding, pain, missed lesion, incomplete examination, need for further radiographic studies, colonic perforation, and need for major abdominal surgery were discussed. All questions were answered to their satisfaction, and they are in agreement with this plan. Time Spent With Patient Critical Care time: I spent a total of [] minutes of critical care time on this patient's care today; this time is exclusive of procedural time.
--- NOTE | 2022-11-20 09:59 | P.OP.COLON_ITS ---
Operative Date/Time/Diagnoses Date of procedure: 11/20/22 Time of procedure: 09:59 Pre-op diagnosis: Positive fecal immuno chemical test Post-op diagnosis: same Procedure & Clinicians Study performed: Colonoscopy Same procedure as scheduled: Yes Indications: Positive fecal immunochemical test Surgeon: Jeremy Reno Procedure Notes Procedure in detail: The history and physical was performed/updated and the patient is ASA class is 2. The procedure was discussed in detail with the patient. Potential risks complications including infection, bleeding, missed diagnosis, perforation, need for surgery, and were explained. Their questions were answered and informed consent was obtained. Patient was brought to the procedure room and placed standard monitoring equipment. The patient's vital signs were monitored continuously throughout the entire procedure. Prior to starting time-out was performed. The patient was placed in the left lateral recumbent position. Procedural sedation was administered by anesthesia. Examination began with a thorough inspection of the perianal area there was no evidence of fissures, fistulae, external hemorrhoids or cutaneous malignancy. The colonoscopy scope was then placed into the anal ca nal and was advanced to the cecum, which was identified by the ileocecal valve, the appendiceal orifice and the confluence of the taenia. The scope was then slowly withdrawn examining colon thoroughly in all directions, irrigating it of any residual stool. FINDINGS 1. Transverse colon 4 polyps ranging in size from 5 mm to 1 cm removed removed with cold snare 2. Descending colon 3 polyps ranging in size from 3 mm to 1 cm removed with cold snare 3. Sigmoid diverticulosis The patient tolerated the procedure well. They will be discharged once criteria are met. The prep was of good/excellent quality. The withdrawl time was 12 minutes. Specimen(s): other (Transverse colon and descending colonic polyps) Complications: none Impression: Colonic polyps Post-procedure Recommendations: Colonoscopy in 1 year and High fiber diet Disposition: same day surgery
[2022-11-20 10:41] VITALS: BP 130/71; PULSE 61; RESP 21; TEMP 36.3; O2SAT 97
[2022-11-20 10:46] VITALS: BP 140/81; PULSE 66; RESP 19; O2SAT 98
[2022-11-20 10:52] VITALS: BP 145/86; PULSE 66; RESP 20; TEMP 36.3; O2SAT 98
[2022-11-20 11:00] VITALS: BP 138/75; PULSE 57; RESP 12; TEMP 36.4; O2SAT 96
== END 2022-11-20 11:14 | disposition home or self-care (01) ==
PROVIDERS: PCP Family Medicine; Referring Provider Surgery; Visit Provider Surgery
PROC: 0DJD8ZZ Inspection of Lower Intestinal Tract, Via Natural or Artificial Opening Endoscopic (ICD-10-PCS; CPT 45378; principal; 2022-11-20 09:45)
DX: Z12.11 Encounter for screening for malignant neoplasm of colon (principal); R19.5 Other fecal abnormalities; K57.30 Diverticulosis of large intestine without perforation or abscess without bleeding; D12.3 Benign neoplasm of transverse colon; D12.4 Benign neoplasm of descending colon
CPT/HCPCS: 45385; J2704

== ENCOUNTER → 2022-11-26 11:22 | Outpatient (CLI) | payer MEDICARE, OTHER, SELFPAY ==
[2022-07-10 22:09] VITALS: BMI 26.2
[2022-11-26 13:42] LABS: COVID19 -Nasal RAPID Negative (Negative)
== END ==
PROVIDERS: PCP Family Medicine; Visit Provider Surgery
DX: Z20.822 Contact with and (suspected) exposure to COVID-19 (principal); Z01.812 Encounter for preprocedural laboratory examination
CPT/HCPCS: 87635; C9803

== ENCOUNTER 2022-11-27 12:51 | Day surgery (SDC) | payer MEDICARE, OTHER, SELFPAY ==
[2022-07-10 22:09] VITALS: BMI 26.2
--- NOTE | 2022-11-27 | PATH_ITS ---
[facility] Accession Number: [id number] No. of containers..01 Tissue . 01 Material submitted: . colon - TRANSVERSE POLYP . 01 Clinical history: . COLONOSCOPY . 01 Diagnosis: Transverse Colon, Polyp, Biopsy: Superficial fragments of tubulovillous adenoma with high-grade dysplasia. No evidence of invasive carcinoma. MRV 12/03/2022 1244 Local . 01 Electronically signed: . Kathi Sanchez MD, Pathologist NPI- [id number] . 01 Gross description: . TRANSVERSE POLYP: Received in formalin are multiple fragment(s) of jordan, soft tissue measuring 2.3 x 0.5 x 0.1 cm in aggregate submitted entirely in 1 cassette(s) /CPE 11/29/2022 0458 Local . 01 Pathologist provided ICD-10: D12.3 . 01 CPT . 158233 Specimen Comment: A courtesy copy of this report has been sent to [phone] Performed at: 01 [facility] [address] [place] [address], [place], [place] [id number] MD Liang Kam MD Phone: [phone]
[2022-11-27 13:54] VITALS: BP 170/83; PULSE 72; RESP 16; TEMP 36.3; O2SAT 100; BMI 27.8
[2022-11-27] MEDS: LACTATED RINGERS 1,000 ML 200 ML IV (14:03)
--- NOTE | 2022-11-27 14:44 | PM.HP.1 ---
History of Present Illness History of Present Illness Date Patient Seen: 11/27/22 Chief complaint: Colonoscopy Narrative: Chao is a 67-year-old man who underwent a colonoscopy last week which demonstrated a polyp within the transverse colon with high-grade dysplasia. Polyp was approximately 1 cm in size and was unremarkable the site was not marked at that time. Returns today for repeat colonoscopy with tattoo of the polypectomy site. Patient History Medical History CVA (cerebral vascular accident) Hypertension Patient denies medical problems Surgical History H/O knee surgery Family & Social History Family History Father Myocardial infarction Sister Myocardial infarction Social History: household members spouse lives independently Yes Tobacco & Substance use: Smoking Status Never smoker alcohol intake current alcohol intake frequency 0-2 drinks per day Substance Use Type does not use Meds Home Medications and Allergies Home Medications Medication Instructions Recorded Confirmed Type amlodipine 10 mg tablet 10 mg PO BEDTIME #90 tabs 07/11/22 11/27/22 Rx aspirin 81 mg tablet,delayed 81 mg PO DAILY #90 tabs 07/11/22 11/27/22 Rx release atorvastatin 40 mg tablet 40 mg PO BEDTIME #90 tabs 07/11/22 11/27/22 Rx chlorthalidone 25 mg tablet 25 mg PO DAILY #90 tabs 07/11/22 11/27/22 Rx losartan 100 mg tablet 100 mg PO DAILY 11/20/22 11/27/22 History Allergies Allergy/AdvReac Type Severity Reaction Status Date / Time diazepam [From Valium] AdvReac Intermediate Hallucinati Verified 11/27/22 13:41 ng hydralazine AdvReac Intermediate skin Verified 11/27/22 13:41 blotches, pressure in head from IV dose, agitation Exam Vital Signs (past 8 hours): - 11/27/22 13:54 Temperature 97.4 F L Pulse Rate 72 Respiratory Rate 16 Blood Pressure 170/83 H Pulse Oximetry 100 Narrative Exam Narrative: General adult male alert oriented no acute distress Abdomen soft nontender nondistended Assessment & Plan Assessment and plan (1) High grade dysplasia in colonic adenoma: Status: Acute Assessment & Plan narrative: 67-year-old man high-grade dysplasia of a transverse colonic polyp here for repeat colonoscopy. Colonoscopy is being repeated after 1 week in order to tattoo the polypectomy site. Overview of the procedure was discussed with the patient. Operative risks including bleeding, intestinal perforation, inability to find the lesion were discussed. We discussed his diagnosis and I explained that there is possibility that he may have or develop invasive colonic adenocarcinoma. I am recommending transverse colectomy but his strong preference at this time is to proceed with observation. We will likely repeat the colonoscopy in 1 year from now. Time Spent With Patient Critical Care time: I spent a total of [] minutes of critical care time on this patient's care today; this time is exclusive of procedural time.
--- NOTE | 2022-11-27 14:52 | PM.OP.COLON ---
Operative Date/Time/Diagnoses Date of procedure: 11/27/22 Time of procedure: 14:53 Pre-op diagnosis: high grade dysplasia in colonic adenoma Post-op diagnosis: same Procedure & Clinicians Study performed: colonoscopy shasta ink injection Same procedure as scheduled: Yes Indications: 67-year-old male who underwent a colonoscopy 1 week ago demonstrating polyp within the transverse colon with high-grade dysplasia. Polyp was largely unremarkable appearing at the time and he returns today for re-evaluation and tattoo of the polypectomy site. Surgeon: Jeremy Reno Procedure Notes Procedure in detail: The history and physical was performed/updated and the patient is ASA class is 3. The procedure was discussed in detail with the patient. Potential risks complications including infection, bleeding, missed diagnosis, perforation, need for surgery, and were explained. Their questions were answered and informed consent was obtained. Patient was brought to the procedure room and placed standard monitoring equipment. The patient's vital signs were monitored continuously throughout the entire procedure. Prior to starting time-out was performed. The patient was placed in the left lateral recumbent position. Procedural sedation was administered by anesthesia. Examination began with a thorough inspection of the perianal area there was no evidence of fissures, fistulae, external hemorrhoids or cutaneous malignancy. The colonoscopy scope was then placed into the anal canal and was advanced to the transverse colon. Upon reaching the polypectomy site the scope was carefully withdrawn FINDINGS 1. Transverse colon. At the site of the prior polypectomy 1 week ago there is visible scarring of the wall. Additionally there is remaining polyp tissue here at 80 cm from the anal verge. Shasta ink was injected into the submucosa distal to the lesion. Using ink and saline we lifted the polypectomy site in order to be able to excise the remaining tissue of this broad based polyp. Portions of the remaining polyp were removed with cold snare. I suspect there is residual polyp within the wall that was not entirely removed, however no further safe polypectomy could be performed without concern for causing perforation. 2. No additional polyps were identified The patient tolerated the procedure well. They will be discharged once criteria are met. The prep was of good/excellent quality. The withdrawl time was not applicabl Specimen(s): other (Transverse colon polyp) Impression: Colonic polyp Post-procedure Plan for aftercare: Six-month colonoscopy follow-up. Will notify with pathology Disposition: same day surgery
[2022-11-27 15:16] VITALS: BP 123/76; PULSE 62; RESP 19; TEMP 36.3; O2SAT 98
[2022-11-27 15:21] VITALS: BP 123/77; PULSE 64; RESP 18; O2SAT 97
[2022-11-27 15:27] VITALS: BP 126/77; PULSE 59; RESP 14; O2SAT 98
[2022-11-27 15:31] VITALS: BP 133/76; PULSE 61; RESP 12; TEMP 36.2; O2SAT 99
[2022-11-27 16:10] VITALS: BP 152/74; PULSE 54; RESP 16; TEMP 36.3; O2SAT 100
== END 2022-11-27 16:23 | disposition home or self-care (01) ==
PROVIDERS: PCP Family Medicine; Referring Provider Surgery; Visit Provider Surgery
PROC: 0DJD8ZZ Inspection of Lower Intestinal Tract, Via Natural or Artificial Opening Endoscopic (ICD-10-PCS; CPT 45378; principal; 2022-11-27 13:45)
DX: D12.3 Benign neoplasm of transverse colon (principal)
CPT/HCPCS: 45381; 45385; J2704

== ENCOUNTER 2023-03-20 23:23 | Inpatient (IN) | payer MEDICARE, OTHER, SELFPAY ==
[2022-07-10 22:09] VITALS: BMI 26.2
[2023-03-20 23:33] VITALS: BP 116/62; PULSE 79; RESP 18; TEMP 37; O2SAT 95; BMI 29.1
[2023-03-21] VITALS (27 sets, daily range): BP systolic 110–148; BP diastolic 56–75; PULSE 55–72; RESP 13–22; TEMP 36.3–36.9; O2SAT 92–98; BMI 29.1
--- NOTE | 2023-03-21 | PATH_ITS ---
[facility] Accession Number: [id number] No. of containers..01 Tissue . 01 Material submitted: . appendix - APPENDIX . 01 Diagnosis: Vermiform Appendix, Appendectomy: Acute transmural appendicitis and periappendicitis with apparent perforation sites. Negative for neoplasia. [facility] 03/26/2023 1847 Local . 01 Electronically signed: . Karin Bustillo MD, Pathologist NPI- [id number] . 01 Gross description: . The specimen is received in formalin labeled with the patient's name, , and appendix, and consists of a vermiform appendix measuring 8.9 cm in length by 1.2 cm in diameter with brown roughened serosa that is significant for a full-thickness defect measuring 0.5 cm in greatest dimension. Mesoappendix extends out to 1.1 cm. The margin is received closed with crys, which are removed, and the margin is inked blue. Sectioning reveals a patent lumen averaging 0.3 cm in diameter filled with brown semisolid material. The boyer are glynn-jordan and range from 0.2 cm to 0.7 cm thick, with no lesions identified. Animal Nutrition Consultant sections to include the cystic duct margin, one-half of the bisected distal tip, and section with area of perforation are submitted in cassette A1. ([id number]) /FRR 03/23/2023 1609 Local . 01 Pathologist provided ICD-10: K35.80 . 01 CPT . 041303 Specimen Comment: A courtesy copy of this report has been sent to [facility] Pathology Performed at: 01 [facility] [address] [place] [address] [address], [place], [place] [id number] MD Liang Kam MD Phone: [phone]
[2023-03-21 00:10] LABS: Alanine Aminotransferase 37 IU/L (<50); Albumin 4.5 g/dL (3.5-5.0); Albumin Globulin Ratio 1.4 (1.0-2.8); Alkaline Phosphatase 55 U/L (38-126); Aspartate Aminotransferase 27 IU/L (17-59); BUN Creatinine Ratio 14.1 (6-22); Bilirubin Total 3.5 mg/dL (0.2-1.3); Blood Urea Nitrogen 18 mg/dL (9-20); Calcium 8.7 mg/dL (8.4-10.2); Carbon Dioxide 25 mmol/L (22-32); Chloride 96 mmol/L (98-107); Estimated Glomerular Filt Rate > 60 mL/min (>60); Globulin 3.3 g/dL (1.7-4.1); Glucose 147 mg/dL (80-110); HEMOLYSIS < 15 (0-50); Lipase 23 U/L (23-300); Potassium 3.3 mmol/L (3.4-5.1); Sodium 133 mmol/L (137-145); Total Protein 7.8 g/dL (6.3-8.2)
[2023-03-21 00:14] LABS: Add Manual Diff / Slide Review NO; Basophils Absolute Auto 0 /uL (0-100); Basophils Percent Auto 0.2 % (0-2); Eosinophils Absolute Auto 0 /uL (0-450); Hematocrit 46.1 % (41-53); Hemoglobin 16.2 g/dL (13.5-17.5); Lymphocytes Absolute Auto 900 /uL (1100-4500); Lymphocytes Percent Auto 4.4 % (25-40); Mean Corpuscular HGB Conc 35.2 % (30-36); Mean Corpuscular Hemoglobin 32.7 PG (26-34); Mean Corpuscular Volume 92.7 fL (80-100); Monocytes Absolute Auto 2000 /uL (0-900); Monocytes Percent Auto 9.9 % (3-14); Neutrophils Absolute Auto 17600 /uL (1500-7000); Neutrophils Percent Auto 85.5 % (50-75); Platelet Count 214 X10^3/uL (150-400); Red Blood Cell Count 4.97 X10^6/uL (4.5-5.9); Red Cell Distribution Width 13.6 % (11.6-14.8); White Blood Cell Count 20.6 X10^3/uL (4.5-11.0)
[2023-03-21 01:14] LABS: Ictotest Urine Negative (Negative)
[2023-03-21 01:24] LABS: Amorphous Sediment Urine 1+; Bacteria Urine None Seen; Culture Indicated Urine Cult Not Indicated; RBC Urine 0-1/HPF (0-5/HPF); WBC Urine 1-5/HPF (0-5/HPF)
--- NOTE | 2023-03-21 02:27 | ED_ITS ---
HPI - General Adult General Chief complaint: Abdominal Pain Stated complaint: appenditis possible Time Seen by Provider: 03/21/23 02:27 Source: patient Mode of arrival: Ambulatory History of Present Illness HPI narrative: 67-year-old gentleman with a history of hypertension, prior stroke who presents with worsening abdominal pain now localizing to the right lower quadrant. He describes fevers and chills, and episode of vomiting last night. Symptoms have been present now for 24 hours. He is not having chest pain, dyspnea, lower extr emity edema, palpitations. Has not noticed constipation, diarrhea or urinary symptoms. Related Data Home Medications Medication Instructions Recorded Confirmed losartan 100 mg tablet 100 mg PO DAILY 11/20/22 11/27/22 amlodipine 10 mg tablet mg 03/21/23 metoprolol succinate 100 mg 200 mg PO DAILY 03/21/23 03/21/23 tablet,extended release 24 hr Previous Rx's Medication Instructions Recorded amlodipine 10 mg tablet 10 mg PO BEDTIME #90 tabs 07/11/22 aspirin 81 mg tablet,delayed 81 mg PO DAILY #90 tabs 07/11/22 release atorvastatin 40 mg tablet 40 mg PO BEDTIME #90 tabs 07/11/22 chlorthalidone 25 mg tablet 25 mg PO DAILY #90 tabs 07/11/22 Allergies Allergy/AdvReac Type Severity Reaction Status Date / Time diazepam [From Valium] AdvReac Intermediate Hallucinati Verified 03/21/23 03:27 ng hydralazine AdvReac Intermediate skin Verified 03/21/23 03:27 blotches, pressure in head from IV dose, agitation Review of Systems Review of Systems Narrative: Pertinent positive and negative findings as per HPI Patient History Medical History CVA (cerebral vascular accident) Hypertension Patient denies medical problems Surgical History H/O knee surgery Family History Father Myocardial infarction Sister Myocardial infarction Social History marital status: household members: spouse lives independently: Yes 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 Able to give a complete and coherent history. Well-nourished well-developed HEENT: Moist mucous membranes, normal sclera with reactive pupils, Respiratory: Lungs are clear to auscultation, no wheezing no rales no rhonchi. Full and symmetrical air movement Cardiac: Regular rate and rhythm no murmurs no bruits Abdomen: Soft, significant tenderness with guarding in the right lower quadrant and developing peritoneal signs,no flank pain Skin: Warm and dry, no rashes Neurologic: Grossly neurologically intact with no obvious asymmetries or abnormalities Extremities: No trauma, well perfused Psych: Cooperative, appropriate insight and affect Course Orders Ordered: ED Orders 03/20/23 23:40 EKG-12 Lead Stat 03/20/23 23:50 Complete Blood Count AUTO DIFF Stat Comprehensive Metabolic Panel Stat Lipase Stat 03/21/23 01:08 Ictotest Urine Stat Urine Culture Stat Urine Microscopic Stat 03/21/23 02:37 CT abdomen pelvis w con Stat 03/21/23 03:20 COVID19 -Nasal RAPID Stat 03/21/23 03:37 Consult to General Surgery Urgent Hydromorphone HCl (Hydromorphone 0.5 Mg Inj) 0.5 mg IV Q15MIN PRN PRN Reason: Pain, Ondansetron HCl (Ondansetron 4 Mg Odt) 4 mg PO NOW PRN PRN Reason: Nausea And Vomiting Ondansetron HCl (Ondansetron 4 Mg/2 Ml Inj) 4 mg IV NOW PRN PRN Reason: Nausea And Vomiting Ondansetron HCl (Ondansetron 4 Mg/2 Ml Inj) 4 mg IV Q6HR PRN PRN Reason: nausea Discontinued Medications Piperacillin Sod/Tazobactam (Sod 4.5 gm/ Sodium Chloride) 100 mls @ 200 mls/hr IV NOW ONE Stop: 03/21/23 02:37 Last Admin: 03/21/23 03:14 Dose: 200 mls/hr Documented By: LORA Sodium Chloride (Normal Saline 0.9%) 1,000 mls @ 1,000 mls/hr IV BOLUS ONE Stop: 03/21/23 03:35 Last Admin: 03/21/23 03:14 Dose: 1,000 mls/hr Documented By: LORA Vital Signs Vital signs: Vital Signs - 8 hr 03/20/23 23:33 03/21/23 00:16 03/21/23 00:17 Temperature 98.6 F Pulse Rate 79 72 Respiratory Rate 18 Blood Pressure 116/62 121/58 L Pulse Oximetry 95 97 Oxygen Delivery Method Room Air 03/21/23 00:17 03/21/23 00:30 03/21/23 00:30 Temperature Pulse Rate 72 70 Respiratory Rate Blood Pressure 126/63 Pulse Oximetry 97 96 Oxygen Delivery Method 03/21/23 01:00 03/21/23 01:00 Temperature Pulse Rate 69 Respiratory Rate Blood Pressure 128/62 Pulse Oximetry 98 Oxygen Delivery Method Medical Decision Making Lab Data 03/20/23 23:50 03/20/23 23:50 Labs: Lab Results 03/20/23 03/20/23 03/21/23 Range/Units 23:50 23:50 01:08 WBC 20.6 H (4.5-11.0) X10^3/uL RBC 4.97 (4.5-5.9) X10^6/uL Hgb 16.2 (13.5-17.5) g/dL Hct 46.1 (41-53) % MCV 92.7 (80-100) fL MCH 32.7 (26-34) PG MCHC 35.2 (30-36) % RDW 13.6 (11.6-14.8) % Plt Count 214 (150-400) X10^3/uL Neut % (Auto) 85.5 H (50-75) % Lymph % (Auto) 4.4 L (25-40) % [place] % (Auto) 9.9 (3-14) % Eos % (Auto) 0.0 L (2-4) % Baso % (Auto) 0.2 (0-2) % Neut # (Auto) 94270 H (7890-6060) /uL Lymph # (Auto) 900 L (5398-6975) /uL [place] # (Auto) 2000 H (0-900) /uL Eos # (Auto) 0 (0-450) /uL Baso # (Auto) 0 (0-100) /uL Sodium 133 L (137-145) mmol/L Potassium 3.3 L (3.4-5.1) mmol/L Chloride 96 L (98-107) mmol/L Carbon Dioxide 25 (22-32) mmol/L BUN 18 (9-20) mg/dL Creatinine 1.28 H (0.66-1.25) mg/dL Estimated GFR > 60 (>60) mL/min BUN/Creatinine Ratio 14.1 (6-22) Glucose 147 H (80-110) mg/dL Calcium 8.7 (8.4-10.2) mg/dL Total Bilirubin 3.5 H (0.2-1.3) mg/dL AST 27 (17-59) IU/L ALT 37 (<50) IU/L Alkaline Phosphatase 55 (38-126) U/L Total Protein 7.8 (6.3-8.2) g/dL Albumin 4.5 (3.5-5.0) g/dL Globulin 3.3 (1.7-4.1) g/dL Albumin/Globulin Ratio 1.4 (1.0-2.8) Lipase 23 (23-300) U/L Ur Bilirubin Confirm Negative (Negative) Urine RBC (0-5/HPF) Urine WBC (0-5/HPF) Amorphous Sediment Urine Bacteria (None) Ur Culture Indicated? 03/21/23 Range/Units 01:08 WBC (4.5-11.0) X10^3/uL RBC (4.5-5.9) X10^6/uL Hgb (13.5-17.5) g/dL Hct (41-53) % MCV (80-100) fL MCH (26-34) PG MCHC (30-36) % RDW (11.6-14.8) % Plt Count (150-400) X10^3/uL Neut % (Auto) (50-75) % Lymph % (Auto) (25-40) % [place] % (Auto) (3-14) % Eos % (Auto) (2-4) % Baso % (Auto) (0-2) % Neut # (Auto) (9493-2660) /uL Lymph # (Auto) (7070-8801) /uL [place] # (Auto) (0-900) /uL Eos # (Auto) (0-450) /uL Baso # (Auto) (0-100) /uL Sodium (137-145) mmol/L Potassium (3.4-5.1) mmol/L Chloride (98-107) mmol/L Carbon Dioxide (22-32) mmol/L BUN (9-20) mg/dL Creatinine (0.66-1.25) mg/dL Estimated GFR (>60) mL/min BUN/Creatinine Ratio (6-22) Glucose (80-110) mg/dL Calcium (8.4-10.2) mg/dL Total Bilirubin (0.2-1.3) mg/dL AST (17-59) IU/L ALT (<50) IU/L Alkaline Phosphatase (38-126) U/L Total Protein (6.3-8.2) g/dL Albumin (3.5-5.0) g/dL Globulin (1.7-4.1) g/dL Albumin/Globulin Ratio (1.0-2.8) Lipase (23-300) U/L Ur Bilirubin Confirm (Negative) Urine RBC 0-1/hpf (0-5/HPF) Urine WBC 1-5/hpf (0-5/HPF) Amorphous Sediment 1+ Urine Bacteria None seen (None) Ur Culture Indicated? Cult not indicated Urine Dip Bedside Urine Glucose Negative Bedside Urine Bilirubin + 1 Bedside Urine Ketone - Negative Urine Specific [place] 1.030 Bedside Urine Occult Blood +/- Bedside Urine pH 5.0 Bedside Urine Protein +/- 15 Bedside Urine Urobilinogen - Negative Bedside Urine Nitrite - Negative Bedside Urine Leukocytes +/- 15 Esterase Point of care testing: Urine Dip Bedside Urine Glucose Negative Bedside Urine Bilirubin + 1 Bedside Urine Ketone - Negative Urine Specific [place] 1.030 Bedside Urine Occult Blood +/- Bedside Urine pH 5.0 Bedside Urine Protein +/- 15 Bedside Urine Urobilinogen - Negative Bedside Urine Nitrite - Negative Bedside Urine Leukocytes +/- 15 Esterase MDM Narrative Medical decision making narrative: CC: Right lower quadrant pain increasing over the last 24 hours. Acute problem uncertain prognosis Complicating co-morbidities: Hypertension, prior stroke Data collected from: patient, Medical records reviewed: Discharge July 11, 2022 and colonoscopy notes from November 27, 2022. Differential considered: Acute appendicitis, bowel obstruction, viral syndrome Exam documented above, pertinent findings include: Significant right lower quadrant pain with guarding and developing peritoneal signs. Lab Test results independently reviewed as above. Pertinent findings: CBC is notable for significant leukocytosis of 20.6 with left shift, 85.5%. No acute anemia Chemistries show mild hypokalemia at 3.3. Slight bump in creatinine at 1.2 total bilirubin has increased to 3.5 with normal liver function studies including alkaline phosphatase. Lipase is unremarkable Urinalysis is unremarkable Imaging studies independently reviewed: CT scan shows acute appendicitis with minimal free fluid but no free air or abscess. There is periappendiceal inflammatory changes. Consultations: Discussed with Dr. Alanis, general surgery. She will admit the patient Treatments: fluids, antibiotics in the form of Zosyn. Re-evaluations: Patient is informed of findings and plans for hospital admission. Questions are answered. At this point pain is adequately controlled without additional pain medications. Discussion: 67-year-old gentleman with 24 hours of increasing pain now localizing to the right lower quadrant with significant leukocytosis and CT confirmed appendicitis. Started on Zosyn, admitted to Dr. Alanis with anticipation of surgical intervention later tomorrow evening . Discussed findings and plan with the patient and his . Both are amenable. Holding orders are written. Discharge Plan Departure Patient Disposition: Admitted as Observation Clinical Impression: Acute appendicitis Qualifiers: Acute appendicitis type: with localized peritonitis Appendicitis gangrene presence: without gangrene Appendicitis perforation presence: without perforation Appendicitis abscess presence: without abscess Qualified Code(s): K35.30 - Acute appendicitis with localized peritonitis, without perforation or gangrene Admit Date/Time: 03/21/23 03:37 Admit Provider: Karin Alanis
--- NOTE | 2023-03-21 02:37 | DI.CT.S_ITS ---
PROCEDURE: CT ABDOMEN PELVIS W CON INDICATIONS: RLQ pain, ? appy TECHNIQUE: After the administration of intravenous contrast, axial sections acquired from the lung bases to the pubic symphysis. Coronal and sagittal reformats were performed. For radiation dose reduction, the following was used: automated exposure control, adjustment of mA and/or kV according to patient size. COMPARISON: None. FINDINGS: Image quality: Excellent. Lung bases: Bibasilar atelectasis. Small hiatal hernia. Heart: Heart rate is normal. Coronary atherosclerotic vascular calcifications are noted. ABDOMEN: Liver: Liver is unremarkable in appearance without focal intrahepatic abnormalities. No intrahepatic or extrahepatic biliary ductal dilatation. Gallbladder: Unremarkable. Biliary ducts: No intrahepatic or extrahepatic biliary ductal dilatation identified. Pancreas: Unremarkable. Spleen: Borderline splenomegaly. Adrenal Glands: Unremarkable. Kidneys and Ureters: Kidneys are symmetric in size and enhancement, and there is no obstructive uropathy. No perinephric inflammatory changes. Ureters are normal in course and caliber. Stomach and Bowel: Stomach, small bowel loops, and colon are unremarkable. Colonic diverticulosis without acute diverticulitis. The appendix is moderately distended measuring approximately 19 mm in diameter with moderate wall thickening. There is associated periappendiceal stranding. There is an appendicolith at the base of the appendix. No evidence for perforation or abscess formation. Peritoneum: No abnormal intraperitoneal fluid. No free air. Ventral Wall: No hernia. Abdominal Nodes: No retroperitoneal or mesenteric adenopathy by size criteria. Vessels: Scattered atherosclerotic calcifications of the abdominal aorta and iliac vessels without aneurysmal dilatation. The inferior vena cava appears patent. PELVIS: Pelvic Organs: Unremarkable. Bladder: Unremarkable. Pelvic Nodes: No enlarged lymph nodes. Miscellaneous: Small fat containing inguinal hernias without acute inflammation. Bones: No acute vertebral body compression fractures. Multilevel spondylitic changes throughout the imaged spine. No suspicious osseous lesions. IMPRESSION: 1. Acute appendicitis with associated appendicolith. No evidence for perforation or abscess formation. 2. Colonic diverticulosis without acute diverticulitis. Other chronic findings as above. No significant discrepancy with the shift superintendent radiology preliminary report. Dictated by: Robert Powers M.D. on 03/21/2023 at 7:18 Approved by: Robert Powers M.D. on 03/21/2023 at 7:30
[2023-03-21] MEDS: SODIUM CHLORIDE 0.9% 1,000 ML 1000 ML IV (03:14)
[2023-03-21] MEDS: PIPERACILLIN/TAZO 4.5 GM in SODIUM CHLORIDE 0.9% 100 ML IV (03:14)
[2023-03-21 03:51] LABS: COVID19 -Nasal RAPID Negative (Negative)
[2023-03-21] MEDS: SODIUM CHLORIDE 0.9% 1,000 ML 125 ML IV (04:28)
--- NOTE | 2023-03-21 05:07 | PC.NURSE ---
Pt arrived to room 213 via stretcher; ambulated on bed with no issues. Pt is AAOX 4, VSS. Pt c/o RLQ abdominal pain but stated pain is tolerable and refused any pain medication at this time. Pt was made aware that skin check is performed with all newly admitted pts but pt stated, I want to keep my own clothes for now and do the skin check later. 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 Pt verbalized understanding. Pt was instructed on how to use the call light; call light within pt's reach.
[2023-03-21] MEDS: PIPERACILLIN/TAZO 3.375 GM in SODIUM CHLORIDE 0.9% 100 ML IV (06:59)
[2023-03-21] MEDS: SCOPOLAMINE 1 PATCH TOP (07:00)
[2023-03-21 08:51] LABS: Add Manual Diff / Slide Review NO; Basophils Absolute Auto 0 /uL (0-100); Basophils Percent Auto 0.2 % (0-2); Eosinophils Absolute Auto 0 /uL (0-450); Eosinophils Percent Auto 0.1 % (2-4); Hematocrit 39.4 % (41-53); Hemoglobin 13.9 g/dL (13.5-17.5); Lymphocytes Absolute Auto 1300 /uL (1100-4500); Mean Corpuscular HGB Conc 35.3 % (30-36); Mean Corpuscular Hemoglobin 32.8 PG (26-34); Mean Corpuscular Volume 92.8 fL (80-100); Monocytes Absolute Auto 1300 /uL (0-900); Monocytes Percent Auto 8.2 % (3-14); Neutrophils Absolute Auto 13300 /uL (1500-7000); Neutrophils Percent Auto 83.5 % (50-75); Platelet Count 169 X10^3/uL (150-400); Red Blood Cell Count 4.24 X10^6/uL (4.5-5.9); Red Cell Distribution Width 13.6 % (11.6-14.8); White Blood Cell Count 15.9 X10^3/uL (4.5-11.0)
--- NOTE | 2023-03-21 09:49 | P.HP_ITS ---
History of Present Illness History of Present Illness Date Patient Seen: 03/21/23 Time Patient Seen: 09:49 Chief complaint: Appendicitis Possible Narrative: 2 days of abdominal pain and anorexia. Localizing pain in RLQ, no diarrhea. Pain is sharp but improved overnight with antibiotics. 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 Smoking Status: Never smoker alcohol intake: current substance use type: does not use Meds Home Medications and Allergies Home Medications Medication Instructions Recorded Confirmed Type aspirin 81 mg tablet,delayed 81 mg PO DAILY #90 tabs 07/11/22 03/21/23 Rx release atorvastatin 40 mg tablet 40 mg PO BEDTIME #90 tabs 07/11/22 03/21/23 Rx chlorthalidone 25 mg tablet 25 mg PO DAILY #90 tabs 07/11/22 03/21/23 Rx losartan 100 mg tablet 100 mg PO DAILY 11/20/22 03/21/23 History metoprolol succinate 100 mg 200 mg PO DAILY 03/21/23 03/21/23 History tablet,extended release 24 hr Allergies Allergy/AdvReac Type Severity Reaction Status Date / Time diazepam [From Valium] AdvReac Intermediate Hallucinati Verified 03/21/23 03:27 ng hydralazine AdvReac Intermediate skin Verified 03/21/23 03:27 blotches, pressure in head from IV dose, agitation Review of Systems Review of Systems ROS: Yes All systems reviewed with the patient and are negative except as otherwise documented Exam Vital Signs (past 8 hours): - 03/21/23 02:00 03/21/23 02:00 03/21/23 02:30 Temperature Pulse Rate 66 Respiratory Rate 16 Blood Pressure 128/64 127/67 Pulse Oximetry 97 98 Oxygen Delivery Method Room Air Oxygen Flow Rate 03/21/23 02:30 03/21/23 03:02 03/21/23 03:14 Temperature Pulse Rate 65 70 Respiratory Rate Blood Pressure 123/68 Pulse Oximetry 96 97 Oxygen Delivery Method Oxygen Flow Rate 03/21/23 03:14 03/21/23 03:30 03/21/23 04:00 Temperature Pulse Rate 69 68 64 Respiratory Rate Blood Pressure Pulse Oximetry 96 96 96 Oxygen Delivery Method Oxygen Flow Rate 03/21/23 04:30 Temperature 98.5 F Pulse Rate 63 Respiratory Rate 21 Blood Pressure 148/72 H Pulse Oximetry 96 Oxygen Delivery Method Oxygen Flow Rate 0 Oxygen Delivery Method Room Air Oxygen Flow Rate 0 Const General: cooperative, comfortable and well groomed Nutritional Appearance: average body habitus [facility] Head: normocephalic and atraumatic Ears: hearing grossly normal bilaterally Eyes Sclera: sclerae normal Neck Neck: trachea midline Resp Effort & Inspection: normal respiratory effort and able to speak in complete sentences Cardio Rate: regular rate Rhythm: regular rhythm GI Palpation: soft and tender (RLQ tenderness to palpation) Skin General: turgor normal Neuro General: patient alert, patient awake and patient oriented x3 Extrem General: full ROM Psych Mental Status: mental status grossly normal Judgment: judgment good Objective Labs 03/21/23 08:23 03/20/23 23:50 Labs: Laboratory Results - last 24 hr 03/20/23 03/20/23 03/21/23 23:50 23:50 01:08 WBC 20.6 H RBC 4.97 Hgb 16.2 Hct 46.1 MCV 92.7 MCH 32.7 MCHC 35.2 RDW 13.6 Plt Count 214 Neut % (Auto) 85.5 H Lymph % (Auto) 4.4 L [place] % (Auto) 9.9 Eos % (Auto) 0.0 L Baso % (Auto) 0.2 Neut # (Auto) 93633 H Lymph # (Auto) 900 L [place] # (Auto) 2000 H Eos # (Auto) 0 Baso # (Auto) 0 Sodium 133 L Potassium 3.3 L Chloride 96 L Carbon Dioxide 25 BUN 18 Creatinine 1.28 H Estimated GFR > 60 BUN/Creatinine Ratio 14.1 Glucose 147 H Calcium 8.7 Total Bilirubin 3.5 H AST 27 ALT 37 Alkaline Phosphatase 55 Total Protein 7.8 Albumin 4.5 Globulin 3.3 Albumin/Globulin Ratio 1.4 Lipase 23 Ur Bilirubin Confirm Negative Urine RBC Urine WBC Amorphous Sediment Urine Bacteria Ur Culture Indicated? SARS-CoV-2 (PCR) 03/21/23 03/21/23 03/21/23 01:08 03:20 08:23 WBC 15.9 H RBC 4.24 L Hgb 13.9 Hct 39.4 L MCV 92.8 MCH 32.8 MCHC 35.3 RDW 13.6 Plt Count 169 Neut % (Auto) 83.5 H Lymph % (Auto) 8.0 L [place] % (Auto) 8.2 Eos % (Auto) 0.1 L Baso % (Auto) 0.2 Neut # (Auto) 77977 H Lymph # (Auto) 1300 [place] # (Auto) 1300 H Eos # (Auto) 0 Baso # (Auto) 0 Sodium Potassium Chloride Carbon Dioxide BUN Creatinine Estimated GFR BUN/Creatinine Ratio Glucose Calcium Total Bilirubin AST ALT Alkaline Phosphatase Total Protein Albumin Globulin Albumin/Globulin Ratio Lipase Ur Bilirubin Confirm Urine RBC 0-1/hpf Urine WBC 1-5/hpf Amorphous Sediment 1+ Urine Bacteria None seen Ur Culture Indicated? Cult not indicated SARS-CoV-2 (PCR) Negative Assessment & Plan Assessment & Plan narrative: acute appendicitis, possible rupture Plan: IV antibiotics, lap appy COVID-19 COVID-19 status: Negative Time Spent With Patient Time with patient: 30 to 49 minutes with 50% spent counseling/coordinating care
[2023-03-21] MEDS: CELECOXIB 200 MG CAPSULE PO (10:05)
[2023-03-21] MEDS: LOSARTAN 50 MG TABLET 100 MG PO (10:05)
[2023-03-21] MEDS: GABAPENTIN 300 MG CAPSULE PO ×2 (10:05→15:20)
[2023-03-21] MEDS: METOPROLOL ER 50 MG TABLET 200 MG PO (10:06)
--- NOTE | 2023-03-21 10:55 | CM.DANOTE ---
DCP: Case received, EMR reviewed and met with patient. Introduced self and role. Was able to obtain information regarding patient's baseline activity status prior to hospitalization. DCP assessment completed with information currently available. Patient is a 67 year old male who admitted early this morning to the care of the hospitalist team. PCP: Dr. Ross. Payer: confirmed: Medicare/[facility]. Patient came to the hospital via private vehicle secondary to having abdominal pain, localized to the right quadrant. Patient was diagnosed with acute appendicitis. Plan is for lap appendectomy. Met with patient in his room. He is alert and oriented, laying in bed. Confirmed that he resides here in [place] with spouse, Steffanie. He is self employed, independent at his baseline. P: DCP to continue to follow. Patient is to be having surgery today, plan is home when deemed medically stable. Jacqueline Paul RN/Chicken Sexer Discharge Planning/Care Management CM Discharge Assessment Start: 03/21/23 10:54 Freq: Status: Active Protocol: Document 03/21/23 10:54 (Rec: 03/21/23 10:55 [id number]) Discharge Planning Assessment Assigned Sanitation Laborer Jacqueline Paul RN/Chicken Sexer Advance Directives? Yes Advance Directives on File Yes History Provided By Patient,Significant Other Prior Living Arrangements House Household Members spouse Type of transporation used prior to Drives own vehicle admit Independent with ADL's Yes Is patient alert and oriented? Yes Caregiver for Another No Barriers to Discharge No Discharge Plan Home Transportation Arrangement Spouse Referrals Initiated None needed Whiteboard Updated in Patient Room with Yes name and ext. # of Sanitation Laborer Review Status In Process Next Review Type Continued Stay Review
[2023-03-21] MEDS: LACTATED RINGERS 1,000 ML 42 ML IV (11:43)
[2023-03-21] MEDS: ACETAMINOPHEN 325 MG TABLET 975 MG PO (11:54)
--- NOTE | 2023-03-21 13:06 | SUR.OPER ---
Supine on padded OR bed, head on pillow, RIGHT arm secured on padded arm board at <90 degrees abduction, LEFT ARM TUCKED AT SIDE WITH GEL PAD, legs uncrossed, safety belt at thigh, tape over blanket over lower legs.
[2023-03-21] MEDS: BUPIVACAINE 0.25% (PF) 30 ML, EPINEPHrine 0.15 MG INJ (13:20)
--- NOTE | 2023-03-21 13:32 | PM.OP.1 ---
Operative Date/Time/Diagnoses Date of procedure: 03/21/23 Time of procedure: 13:33 Pre-op diagnosis: Ruptured appendicitis Post-op diagnosis: same Procedure & Clinicians Procedure: Laparoscopic appendectomy Same procedure as scheduled: Yes Indications: Ruptured appendicitis Surgeon: Karin Alanis Click Yes if Unassisted: Yes Anesthesia Type: General Operative Notes Findings: Ruptured appendicitis evidence of previous appendicitis with adhesions Closure Type: primary Specimen(s): other Estimated Blood Loss (mL): 20 Procedure in detail: Preop diagnosis: Ruptured appendicitis Postop diagnosis: Same Operative procedure: Laparoscopic appendectomy Surgeon: Madeline Alanis MD Anesthetic: General with ET tube intubation with local Findings: Ruptured appendicitis. Evidence of prior appendicitis with right lower quadrant adhesions Procedure: Patient placed in a supine position. Prepped and draped in sterile fashion to expose his abdomen. Infraumbilical port site was placed using open technique a 12 mm port. Insufflation began and all other ports were placed under direct vision. Other ports included 5 mm port in the suprapubic area and a 5 mm port in the left lateral abdomen. Appendix was located grasped pushed cephalad for exposure. Appendiceal mesentery was taken down with electrocautery. Blue load VLADIMIR stapling device was used to amputate the base the appendix was healthy in nature. Appendix was then placed into an Endo-Catch bag and pulled through the umbilical port site intact. Abdomen was suctioned free of blood and fluid which was purulent. And then care was taken to irrigate only after the abdomen was emptied of free fluid. I examined the abdomen for hemostasis and then removed all ports were closure. Closure consisted of interrupted 0 Vicryl for fascial closure of the infraumbilical port site. Skin was closed a running 4-0 Vicryl. Steri-Strips and sterile dressings were placed. Patient was awakened, extubated, taken to recovery room in stable condition. Needle, instrument, sponge counts were correct. Blood loss: 20 mL Specimen: Appendix Complications: none Post-operative Condition: stable Disposition: PACU
--- NOTE | 2023-03-21 14:10 | SUR.PHASEI ---
Report called to APOLLO Rodrigez. Patient transferred to the floor by Mary Jane.
[2023-03-21] MEDS: CHLORTHALIDONE 25 MG TABLET PO (15:19)
[2023-03-21] MEDS: ASPIRIN EC 81 MG TABLET PO (15:20)
[2023-03-21] MEDS: AMOXICILLIN/CLAV 875/125 MG 1 TAB PO (15:20)
== END 2023-03-21 20:10 | disposition home or self-care (01) | DRG 340 ==
LOC: ED 03-21 02:27 → AC 03-21 03:47
PROVIDERS: Admitting Provider Surgery; Emergency Provider Emergency Medicine; PCP Family Medicine; Visit Provider Surgery
PROC: 0DTJ4ZZ Resection of Appendix, Percutaneous Endoscopic Approach (ICD-10-PCS; CPT 44970; principal; 2023-03-21 11:45)
DX: K35.32 Acute appendicitis with perforation, localized peritonitis, and gangrene, without abscess (principal); I10 Essential (primary) hypertension; Z20.822 Contact with and (suspected) exposure to COVID-19
CPT/HCPCS: 36415; 44970; 74177; 80053; 81003; 81015; 83690; 85025; 87086; 87635; 96365; 99221; 99284; C9803; J0171; J1100; J2405; J2543; J2704; J3010; Q9967

== ENCOUNTER → 2023-05-29 11:35 | Outpatient (CLI) | payer MEDICARE, OTHER, SELFPAY ==
[2023-03-21 11:26] VITALS: BMI 29.1
[2023-05-29 13:46] LABS: Alanine Aminotransferase 44 IU/L (<50); Albumin Globulin Ratio 1.5 (1.0-2.8); Alkaline Phosphatase 61 U/L (38-126); Aspartate Aminotransferase 32 IU/L (17-59); BUN Creatinine Ratio 15.7 (6-22); Bilirubin Total 1.8 mg/dL (0.2-1.3); Blood Urea Nitrogen 19 mg/dL (9-20); Calcium 9.2 mg/dL (8.4-10.2); Carbon Dioxide 31 mmol/L (22-32); Chloride 100 mmol/L (98-107); Cholesterol 171 mg/dL (140-199); Estimated Glomerular Filt Rate > 60 mL/min (>60); Globulin 2.7 g/dL (1.7-4.1); Glucose 122 mg/dL (80-110); HDL Cholesterol 44 mg/dL (40-60); HEMOLYSIS < 15 (0-50); LDL Cholesterol Calculated 93 mg/dL (<100); Potassium 3.6 mmol/L (3.4-5.1); Sodium 137 mmol/L (137-145); Total Protein 6.7 g/dL (6.3-8.2); Triglycerides 168 mg/dL (35-150)
[2023-05-31 17:49] LABS: Hep C Virus Ab w/Reflex Quant NEGATIVE s/c (NEGATIVE)
== END ==
PROVIDERS: PCP Nurse Practitioner Family; Referring Provider Nurse Practitioner Family; Visit Provider Nurse Practitioner Family
DX: I10 Essential (primary) hypertension (principal); E78.5 Hyperlipidemia, unspecified; Z11.59 Encounter for screening for other viral diseases
CPT/HCPCS: 36415; 80053; 80061; 86803

== ENCOUNTER → 2024-02-03 15:34 | Outpatient (CLI) | payer MEDICARE, OTHER, SELFPAY ==
[2023-03-21 11:26] VITALS: BMI 29.1
--- NOTE | 2024-02-05 12:35 | DI.NM.S_ITS ---
DATE OF SERVICE: 02/03/2024 PROCEDURE: Exercise stress test. INDICATIONS: Hypertension, hyperlipidemia, TIA, dizziness. CARDIAC STRESS: The patient underwent exercise stress test under the supervision of an attending staff. The patient walked on Peter protocol for 6 minutes and 22 seconds, achieved maximum heart rate of 121, which was 80% of target heart rate. Resting blood pressure 160/80 and peak blood pressure 205/95. FLAVIO positive 11%. Achieved 7 METS of workload. Could not achieve target heart rate as patient had atenolol on board. No chest pain or anginal symptoms, however, had leg burning and shortness of breath. Baseline rhythm was sinus with sinus bradycardia with heart rate in 50s. During stress, no convincing ischemic changes seen. No new significant arrhythmias other than rare PVCs. CONCLUSION: Submaximal exercise stress test is negative for inducible ischemia. Mildly hypertensive blood pressure response. Diminished exercise tolerance. FLAVIO positive 11%. No significant arrhythmias. No chest pain, however, had shortness of breath and leg swelling. Correlate clinically. Chao Anguiano Jr - SAMANTHA/james/[place] doc#: [id number]/job#: [id number] dd: 02/03/2024 17:07:00 dt: 02/03/2024 22:49:00 DICTATING /COPIES TO: Simone Luis MD COPIES MNE: ENRIQUE;
== END ==
LOC: RAD 15:37
PROVIDERS: PCP Nurse Practitioner Family; Referring Provider Nurse Practitioner Family; Visit Provider Nurse Practitioner Family
DX: I51.7 Cardiomegaly (principal); I10 Essential (primary) hypertension; E78.5 Hyperlipidemia, unspecified; R42 Dizziness and giddiness; I69.30 Unspecified sequelae of cerebral infarction
CPT/HCPCS: 93017

== ENCOUNTER → 2024-02-24 07:33 | Outpatient (CLI) | payer MEDICARE, OTHER, SELFPAY ==
[2023-03-21 11:26] VITALS: BMI 29.1
--- NOTE | 2024-02-24 | DI.ECHO.S_ITS ---
[place] +---------+ [facility] +---------+ : : [address] : : : : [id number] : : : : Phone: [phone]+ Echocardiogram Report + + :Name: ART COLEMAN Study Date: 02/24/2024 Height: 72 in : :[facility] ReadingLocation: Weight: 220 lb : : Gender: Male BSA: 2.2 m2 : :: 1955 Age: 68 yrs BP: 155/99 mmHg: :Reason For Study: CARDIOMEGALY : :Ordering Physician: CURT, : :KEYANA York Performed By: Juliana Olivares : :Referring: KEYANA ELIAS : + + Interpretation Summary The ejection fraction is estimated to be 60-65%. Diastolic parameters suggest probable normal left ventricular diastolic function and normal filling pressures. The right ventricle is normal in size and function. The right ventricular systolic pressure is estimated to be at least 28 mmHg based on an estimated right atrial pressure of 3 mm Hg. No significant valvular abnormality. Procedure: A two-dimensional transthoracic echocardiogram with color flow and Doppler was performed. The study quality was technically adequate. Comparison is made with the echocardiogram of 07/11/2022. The patient was in sinus bradycardia with heart rates between 52-58 bpm during the exam. Left Ventricle: The left ventricle is normal in size and wall thickness. The ejection fraction is estimated to be 60-65%. There are no obvious focal wall motion abnormalities noted but poor endocardial definition reduces the sensitivity for the detection of such. Diastolic parameters suggest probable normal left ventricular diastolic function and normal filling pressures. Right Ventricle: The right ventricle is normal in size and function. Atria: The left atrial size is normal. Right atrial size is normal. There is no Doppler evidence for an interatrial shunt. Mitral Valve: The mitral valve is normal in structure and function. There is mild mitral regurgitation. Aortic Valve: The aortic valve is mildly calcified. The aortic valve is trileaflet. The aortic valve opens well. There is no aortic valve stenosis. No aortic regurgitation is present. Tricuspid Valve: The tricuspid valve is normal in structure and function. There is mild tricuspid regurgitation. The right ventricular systolic pressure is estimated to be at least 28 mmHg based on an estimated right atrial pressure of 3 mm Hg. Pulmonic Valve: The pulmonic valve is not well visualized. There is no pulmonic valvular regurgitation. Great Vessels: The aortic root is normal size. The dimensions of the ascending aorta are normal. The IVC is of normal diameter and collapses greater than 50% with a sniff. This suggests a low right atrial pressure of 3 mm Hg. Pericardium/ Pleura There is no pericardial effusion. There is no pleural effusion. MMode/2D Measurements & Calculations LVIDd: 4.6 cm LVOT diam: 2.0 cm LVIDs: 2.8 cm Ao root diam: 3.3 cm FS: 39.5 % asc Aorta Diam: 3.6 cm IVSd: 1.0 cm Ao Arch Diam (Prox Trans): 2.8 cm LVPWd: 1.0 cm LV gonzales. diameter/BSA (cm/m^2): 2.1 LV sys. diameter/BSA (cm/m^2): 1.3 LA A2 area: 15.4 cm2 RA long axis: 5.3 cm LA A4 area: 15.6 cm2 RA area: 13.6 cm2 LA length (vol): 4.4 cm RA vol: 29.5 ml LA vol: 46.4 ml RA : 13.3 ml/m2 LA vol index: 20.9 ml/m2 IVC diam: 1.6 cm RVD1 (basal): 3.8 cm RVD2 (mid): 3.6 cm TAPSE: 1.9 cm Doppler Measurements & Calculations Ao V2 max: 148.4 cm/sec LVOT Max Juan Pablo: 129.6 cm/sec Ao V2 mean: 111.3 cm/sec LV V1 max P.7 mmHg Ao max P.8 mmHg LV V1 VTI: 31.2 cm Ao mean P.3 mmHg GLADYS(I,D): 2.7 cm2 Ao V2 VTI: 38.1 cm GLADYS(V,D): 2.9 cm2 sev ratio: 0.82 GLADYS indexed to BSA (cm^2/m^2): 1.2 MV E max juan pablo: 95.7 cm/sec TR max juan pablo: 248.7 cm/sec MV A max juan pablo: 87.1 cm/sec TR max P.7 mmHg MV E/A: 1.1 PA V2 max: 128.2 cm/sec Med Peak E' Juan Pablo: 6.9 cm/sec PA V2 mean: 95.9 cm/sec E/E' med: 13.9 PA mean P.0 mmHg Lat Peak E' Juan Pablo: 9.3 cm/sec PA pr(Accel): 24.2 mmHg E/E' lat: 10.2 E/e' average: 12.1 MV dec time: 0.23 sec SVLVOT): 102.2 ml Reading Physician:IVANA
== END ==
LOC: ECHO 07:34
PROVIDERS: PCP Nurse Practitioner Family; Referring Provider Nurse Practitioner Family; Visit Provider Nurse Practitioner Family
DX: I08.1 Rheumatic disorders of both mitral and tricuspid valves (principal); R42 Dizziness and giddiness
CPT/HCPCS: 93306